=== PATIENT | female | born 1960 | race Caucasian/White ===

== ENCOUNTER → 2017-08-18 06:10 | Outpatient (CLI) | payer OTHER, SELFPAY ==
--- NOTE | 2017-08-18 06:10 | DT_ITS ---
This patient was seen during an EMR downtime August 11, 2017 - August 18, 2017. This patient may have a combination of paper and electronic documentation or all paper documentation. All documentation is viewable within the e-chart portion of [facility] for each patient visit.
[2017-08-18 08:44] LABS: Anion Gap 9 (5-15); BUN 19 mg/dL (7-18); BUN/Creat Ratio 25.9 RATIO (10-20); Calcium,Total 8.7 mg/dL (8.5-10.1); Chloride 106 mmol/L (98-107); Creatinine, Serum 0.73 mg/dL (0.55-1.02); EST Glomerular Filtration Rate 86 mL/min (>60); Est Glom Filt Rate - Afr Amer 104 mL/min (>60); Glucose 104 mg/dL (74-106); Potassium 4.1 mmol/L (3.5-5.1); Sodium Level 142 mmol/L (136-145)
== END ==
PROVIDERS: Family Provider Internal Medicine; PCP Internal Medicine; Visit Provider Internal Medicine
DX: E11.9 Type 2 diabetes mellitus without complications (principal)
CPT/HCPCS: 36415; 80048

== ENCOUNTER → 2017-10-01 06:42 | Outpatient (CLI) | payer OTHER, SELFPAY ==
[2017-10-01 21:32] LABS: Hemoglobin A1c 6.5 % (4.2-6.3)
== END ==
PROVIDERS: Family Provider Internal Medicine; PCP Internal Medicine; Visit Provider Internal Medicine
DX: E11.9 Type 2 diabetes mellitus without complications (principal)
CPT/HCPCS: 36415; 83036

== ENCOUNTER → 2017-10-13 14:33 | Outpatient (CLI) | payer OTHER, SELFPAY ==
--- NOTE | 2017-10-13 14:35 | BI_ITS ---
MAMMOGRAPHY - BILATERAL SCREENING 3-D ANGÉLICA SYNTHESIS REASON FOR EXAM: Female, 57 years old. Bilateral Screening 3-D tomosynthesis PERTINENT HISTORY: Asymptomatic. Family breast carcinoma, paternal cousin age 41. TECHNIQUE: 2-D mammograms and 3-D Angélica synthesis of the breast (s) were performed. CAD was performed. COMPARISON: 10/11/2016 through 10/11/2013. FINDINGS: The breast composition is almost entirely fat. No new asymmetric density, dominant mass, dense spiculated masses, abnormal clustered microcalcifications, architectural distortion, skin thickening or nipple retraction identified. Coarse benign-appearing calcifications. No new abnormality identified with tomosynthesis. There has been no significant change since the prior study. BI/SCREENING MAMM (CAD), BILAT IMPRESSION: No mammographic signs of malignancy. Routine yearly mammograms recommended. ASSESSMENT CATEGORY: BIRADS Category 2: Benign. A letter regarding these results will be sent to the patient by the facility within 30 days. FOLLOW UP RECOMMENDATION: Yearly follow up mammogram recommended. (A) Negative results should not deter biopsy as a palpable lesion should be followed on clinical grounds and biopsy performed if clinically persistent for 3 months or increasing size. Approximately 10% of breast cancers are not detected by mammography. A normal mammogram should not delay biopsy of a clinically suspicious abnormality. Electronically Signed: Curtis Rodriguez, at 8:23 EDT Tel , Service support ,
== END ==
PROVIDERS: Family Provider Internal Medicine; PCP Internal Medicine; Visit Provider Obstetrics & Gynecology
DX: Z12.31 Encounter for screening mammogram for malignant neoplasm of breast (principal)
CPT/HCPCS: 77063; 77067

== ENCOUNTER → 2017-12-29 07:31 | Outpatient (CLI) | payer OTHER, SELFPAY ==
--- NOTE | 2017-12-29 07:35 | US_ITS ---
STUDY: THYROID ULTRASOUND REASON FOR EXAM: Female, 57 years old. Abnormal thyroid function tests. TECHNIQUE: Ultrasound evaluation of the thyroid was performed with real-time and static daniel-scale imaging. COMPARISON: Thyroid ultrasound dated December 31, 2017. FINDINGS: RIGHT LOBE: The right lobe of the thyroid gland measures 4.7 x 1.1 x 2.2 cm. There is a homogeneous echotexture. There are no demonstrated solid, cystic or complex lesions. LEFT LOBE: The left lobe of the thyroid gland measures 3.8 x 1.1 x 1.7 cm. There is a homogeneous echotexture. There is very small colloid cyst lower pole left lobe of thyroid measuring 2.7 x 1.9 x 2.4 mm. This is similar to the previous study. ISTHMUS: The isthmus measures 2 millimeters. The regional lymph nodes are normal. US/Thyroid IMPRESSION: Essentially normal thyroid ultrasound with a small left-sided colloid cyst. Left-sided colloid cyst appears similar to the previous ultrasound. Electronically Signed: Bibi Mcmahan MD at 10:07 EDT , Service support ,
[2017-12-29 08:03] LABS: Absolute Lymphocyte Count 1.72 X10^3/ul (0.83-4.51); Absolute Neutrophil Count 3.7 X10^3/uL (2.0-7.7); Basophil# 0.03 X10^3/uL; Basophil% 0.5 % (0-1); Eosinophil# 0.17 X10^3/uL; Eosinophils% 2.8 % (0-5); Hematocrit 36.8 % (37-47); Hemoglobin 12.3 g/dl (12.0-15.0); Lymphocyte # 1.72 X10^3/ul (4.0); Lymphocyte % 28.1 % (19-41); Mean Corp Hgb Conc 33.4 g/gl (32-36); Mean Corpuscular Hgb 31.2 pg (27.0-32.0); Mean Corpuscular Volume 93.4 fL (81-99); Mean Platelet Vol. 9.1 fl (6.2-12.0); Monocyte# 0.46 X10^3/uL; Monocyte% 7.5 % (0-10); Neutrophil # 3.74 X10^3/uL (2.7-7.7); Neutrophil % 60.9 % (47-70); Platelet Count 308 K/mm3 (150-450); RBC Distribution Width CV 13.2 % (11.6-14.6); RBC Distribution Width SD 43.7 fl (35.1-43.9); Red Blood Count 3.94 M/mm3 (4.2-5.4); White Blood Count 6.1 K/mm3 (4.4-11.0)
[2017-12-29 08:09] LABS: POSITIVE COUNT NO; POSITIVE DIFFERENTIAL NO; POSITIVE MORPHOLOGY NO
[2017-12-29 08:40] LABS: Anion Gap 7 (5-15); BUN 19 mg/dL (7-18); BUN/Creat Ratio 25.8 RATIO (10-20); Calcium,Total 9.2 mg/dL (8.5-10.1); Chloride 105 mmol/L (98-107); Cholesterol 144 mg/dL (200); Creatinine, Serum 0.74 mg/dL (0.55-1.02); EST Glomerular Filtration Rate 86 mL/min (>60); Est Glom Filt Rate - Afr Amer 104 mL/min (>60); Glucose 119 mg/dL (74-106); High Density Lipoprotein 52 mg/dL; Potassium 4.8 mmol/L (3.5-5.1); Sodium Level 140 mmol/L (136-145); T4 Free Direct 0.86 ng/dL (0.76-1.46); Thyroid Stim Hormone (TSH) 1.13 uIU/mL (0.358-3.74); Triglycerides 91 mg/dL; Very Low Density Lipoprotein 18 mg/dL (5-40)
[2017-12-29 08:50] LABS: Creatinine, Urine (random) < 13.00 mg/dL (NO RANGE EST.); Microalbumin,Random Urine < 5.0 mg/L (NO RANGE EST.)
[2017-12-30 19:19] LABS: Hemoglobin A1c 6.6 % (4.2-6.3)
== END ==
PROVIDERS: Family Provider Internal Medicine; PCP Internal Medicine; Referring Provider Internal Medicine; Visit Provider Internal Medicine
DX: E04.1 Nontoxic single thyroid nodule (principal); E11.9 Type 2 diabetes mellitus without complications
CPT/HCPCS: 36415; 76536; 80048; 80061; 82043; 82570; 83036; 84439; 84443; 85025

== ENCOUNTER → 2018-04-01 06:50 | Outpatient (CLI) | payer OTHER, SELFPAY ==
[2018-02-03 09:12] VITALS: BMI 32.5
[2018-04-01 07:23] LABS: Hemoglobin A1c 7.3 % (4.2-6.3)
--- OUTSIDE RECORDS SUMMARY | 2018-06-03 01:43 | XMS RPT_ITS ---
:1960 Author Organization OHIP Support Name Relationship Address Phone CALI SAHIL Unavailable [address] + [place] [address] DAMIAN CALHOUN Unavailable [address] + [place] [address] WO[facility] Unavailable [address] + [place] [address] CALI, SAHIL Unavailable [address] + [place] [address] DAMIAN CALHOUN Unavailable [address] + [place] [address] [facility] Unavailable [address] + [place] [address] CALI, SAHIL Unavailable [address] + [place] [address] DAMIAN CALHOUN Unavailable [address] + [place] [address] [facility] Unavailable [address] + [place] [address] CALI, SAHIL Unavailable [address] + [place] [address] DAMIAN CALHOUN Unavailable [address] + [place] [address] [facility] Unavailable [address] + [place] [address] CALI, SAHIL Unavailable [address] + [place] [address] DAMIAN CALHOUN Unavailable [address] + [place] [address] [facility] Unavailable [address] + [place] [address] SAHIL LEIVA Unavailable [address] [facility] + [place] [address] DAMIAN CALHOUN Unavailable [address] + [place] [address] [facility] Unavailable [address] + [place] [address] DAMIAN CALHOUN Unavailable [address] + [place] [address] [facility] Unavailable [address] + [place] [address] DAMIAN CALHOUN Unavailable [address] + [place] [address] [facility] Unavailable [address] + [place] [address] DAMIAN CALHOUN Unavailable [address] + [place] [address] [facility] Unavailable [address] + [place] [address] DAMIAN CALHOUN Unavailable [address] + [place] [address] [facility] Unavailable [address] + [place] [address] DAMIAN CALHOUN Unavailable [address] + [place] [address] [facility] Unavailable [address] + [place] [address] DAMIAN CALHOUN Unavailable [address] + [place] [address] [facility] Unavailable [address] + [place] [address] Care Team Providers Name Role Phone Etelvina Liube Attending Unavailable Oleghe, Efewongbe Referring Unavailable Oleghe, Efewongbe Primary Care Unavailable Yinge, Efewongbe Attending Unavailable Oleryleee, Efewongbe Referring Unavailable Oleghe, Efewongbe Attending Unavailable Oleghe, Efewongbe Referring Unavailable Oleghe, Efewongbe Primary Care Unavailable Oleghe, Efewongbe Attending Unavailable Oleghe, Efewongbe Referring Unavailable Oleghe, Efewongbe Primary Care Unavailable Oleghe, Efewongbe Attending Unavailable Oleghe, Efewongbe Referring Unavailable Oleghe, Efewongbe Primary Care Unavailable Oleghe, Efewongbe Attending Unavailable Oleghe, Efewongbe Referring Unavailable Oleghe, Efewongbe Primary Care Unavailable Cks, Marisol Attending Unavailable Oleghe, Efewongbe Primary Care Unavailable Oleghe, Efewongbe Attending Unavailable Oleghe, Efewongbe Referring Unavailable Oleghe, Efewongbe Attending Unavailable Oleghe, Efewongbe Referring Unavailable Oleghe, Efewongbe Primary Care Unavailable Oleghe, Efewongbe Attending Unavailable Oleghe, Efewongbe Referring Unavailable Referred, Self Attending Unavailable Oleghe, Efewongbe Primary Care Unavailable Wiley Pardo MEDICAL RECEPTIONIST ASSISTANT-C Attending Unavailable Oleghe, Efewongbe Referring Unavailable PROBLEMS PROBLEMS DATE TYPE CONDITION / CODE ATTENDING STATUS SOURCE 04/03/2018 Unknown G47.10 - Oleghe, Active [place] Hypersomnia, [facility] unspecified / Hospital G47.10(ICD-10) Repository 01/02/2018 Unknown E11.9 - Type 2 Oleghe, Active [place] diabetes mellitus [facility] without Hospital complications / Repository E11.9(ICD-10) 12/29/2017 Unknown E04.1 - Nontoxic Oleghe, Active [place] single thyroid [facility] nodule / Hospital E04.1(ICD-10) Repository PROCEDURES PROCEDURES No Procedure Records FoundRESULTS RESULTS HEMOGLOBIN A1C Collected: 04/01/2018 Status: F Source: [place] 6:54 AM [facility] REPOSITORY Order Comment: Comments: Add on Comments: Add on TYPE CODE TESTS RESULT OUT OF RANGE REFERENCE UNITS LAB L501.9985 4.2-6.3 % High HGB A1C 7.3 Performed By: #### L501.9985 #### [facility] [address] [place], [address] INTERNAL MEDICINE Observed: 02/06/2018 Status: F Source: [place] OFFICE VISIT 9:33 AM [facility] REPOSITORY [facility] [address] [place] [address] OFFICE VISIT Date of Service: 02/03/18 MR#: [id number] Acct: [id number] Name: AURELIANO CALHOUN Rep #: [id number] : 1960 Provider: Wiley Pardo NP Age/Sex: 58/F Location: [facility] Status: Signed Intake Vital Signs02/03/18 Height 5 ft 3 in Intake Visit Reasons: COUGH AND CONGESTION Chief Complaint: cough congestion Is patient in pain?: No Allergies No Known Allergies Allergy (Verified 02/03/18 09:15) Medications Aspirin [Aspirin, Baby] 81 mg PO DAILY@0800 12/06/13 [History Confirmed 02/03/18] Fluticasone 0.05% [Flonase Nasal Java] 2 spray NASAL BID 12/06/13 [History Confirmed 02/03/18] Polyethylene Glycol 3350 [Miralax] 17 gm PO DAILY 12/06/13 [History Confirmed 02/03/18] Valacyclovir HCl [Valtrex] 2,000 mg PO PRN PRN 12/06/13 [History Confirmed 02/03/18] fluoxetine 20 mg capsule 20 mg PO QDAY #90 cap 10/03/17 [Rx Confirmed 02/03/18] metformin ER 500 mg tablet,extended release 24 hr 1,000 mg PO QPM #180 tab 10/03/17 [Rx Confirmed 02/03/18] atorvastatin 20 mg tablet 20 mg PO QDAY #90 tab 01/06/18 [Rx Confirmed 02/03/18] azithromycin 250 mg tablet See Rx Instructions PO .COMPLEX #6 tab 02/03/18 [Rx Confirmed 02/03/18] codeine 10 mg-guaifenesin 100 mg/5 mL oral liquid See Rx Instructions PO Q6H PRN #120 ml 02/03/18 [Rx Confirmed 02/03/18] lisinopril 2.5 mg tablet 2.5 mg PO DAILY 02/03/18 [History Confirmed 02/03/18] Post menopausal: Yes Nurse's Note: Pt presents with cough/congestion xs 2 weeks. PFSH Medical History Depression (Chronic) factor 5 leiden (Chronic) diabetes mellitus type 2 (Chronic) Arthritis (Chronic) Recurrent cold sores (Chronic) Hyperlipidemia (Chronic) H/O: hysterectomy (Acute) Polycystic ovaries (Acute) Seasonal allergies (Chronic) Surgical History History of hernia repair (Acute) History of tonsillectomy (Acute) Normal colonoscopy (Acute) trigger thumbs release (Acute) Family History Mother Myocardial infarction factor 5 liden Father Arthritis Myocardial infarction, Onset Age: 40 Hypertension Hyperlipidemia Diabetes Unknown Breast cancer Social History Smoking Status: Former smoker alcohol intake: current alcohol intake frequency: a few times a week Alcohol type: hard liquor substance use type: does not use what type of physical activity do you participate in: running, bicycling, aerobics frequency: 5-6 times per week HPI HPI Chief Complaint: cough congestion Details: AURELIANO CALHOUN, is a 58 F who presents to the office today for acute visit for ongoing cough and chest congestion. Patient has a past medical history as listed above. The patient states about 2 weeks ago she was sick with what felt like a typical cold. Her nasal congestion and sinus pressure improved but over the last couple days her chest congestion and cough have become worse. She also complains of shortness of breath and wheezing and a worsening cough at bedtime. She is attempted to use Claritin, nebulized albuterol and Mucinex DM with little effect. She denies fever, chills or body aches. She denies any other aggravating or alleviating factors. The patient otherwise denies any fever, chills, nausea, vomiting, chest pain or pressure, palpitations, orthopnea, lower extremity edema, syncope or presyncopal episodes. ROS Const Constitutional: No anorexia, body ache, chills, fever(s), decreased energy, malaise, night sweats, weight change, sleep problems, other, snoring, weakness, frequent falls, headache(s), abnormal sleep pattern, change in appetite, excessive sweating or fatigue Eyes Eyes: No blurry vision, change in vision, double vision, discharge, dry eyes, bulging eyes, floaters, eye pain, light sensitivity, spots in vision, tunnel vision, other or visual disturbances ENT ENT: Positive for nasal congestion; no ear pain, ear discharge, ear pressure, hearing loss, tinnitus, dizziness/vertigo, balance problems, nosebleed/epistaxis, nasal obstruction, nose pain, sinus pressure, sinus pain, nasal discharge, post nasal drip, facial pain, dental pain, dry mouth, bad breath, hoarseness, mouth lesions, mouth pain, sore throat, difficulty swallowing, neck pain, abnormal hearing, headache(s), other, lip swelling, throat swelling or tongue swelling Resp Respiratory: Positive for cough, chest congestion, shortness of breath and wheezing; no change in phlegm color, excessive phlegm production, hemoptysis, pain on inspiration, pain with cough, snoring, stridor or other Cardio Cardiology: No chest pain at rest, chest pain with exertion, leg pain with exertion, shortness of breath, dyspnea on exertion, generalized swelling, irregular heart rhythm, lightheadedness, orthopnea, radiating jaw, neck or arm pain, fast heart rate, slow heart rate, palpitations, other or excessive sweating Gastro GI: No abdominal pain, belching, bloating, change in bowel habits, change in stool character, coffee ground emesis, constipation, cramping, diarrhea, heartburn, difficulty swallowing, feeling full early, excessive flatus, incontinent of stools, Vomiting blood/hematemesis, blood in stool, loose stools, Black,tarry stools, nausea/dyspepsia, pain with swallowing, vomiting or other Genitourinary-Female: No difficulty urinating, burning urination, painful urination, urinary incontinence, urinary frequency, urinary urgency, urinary hesitancy, urinary retention, blood in urine, Frequent nighttime urination/ nocturia, post void dribbling, suprapubic fullness, side pain, sexual problems, genital lesions, genital itching, hot flashes, abnormal periods, abnormal vaginal bleeding, absent period, painful periods, light periods, heavy periods, difficulty getting , painful intercourse, pelvic pain, vaginal dryness, vaginal odor, Vaginal Itching or other Musc Musculoskeletal: No joint pain, back pain, deformity, joint swelling, limited range of motion, loss of height, muscle cramps, muscle weakness, decreased muscle mass, body aches, neck pain, radiating pain into limb, stiffness, other, abnormal walking, numbness or tingling Skin Skin: No acne, hair loss, change in hair, nail changes, boil, change in skin color, dry skin, redness, excessive hair growth, yellowing of the skin, lesions, rash, skin pain, skin ulcer, sores, skin swelling, wounds, other or itching Breast Breast: No change in breast shape, breast lump, breast pain, breast skin changes, breast swelling, nipple discharge or other Neuro Neurology: No abnormal walking, abnormal hearing, abnormal movements, abnormal speech, unsteady gait/balance, dizziness, weakness, frequent falls, headache(s), lack of coordination, loss of vision, numbness, tingling, visual disturbances, restless legs, fainting, tremor(s), other, behavioral changes, confusion or memory loss Psych Psychiatric: No abnormal sleep pattern, No lack of enjoyment, No anxiety, No behavioral changes, No change in appetite, No confusion, No depression, No difficulty concentrating, No hopelessness, No irritability, No memory loss, No mood swings, No panic attacks, No paranoia, No Thoughts of harming yourself/Others, No hallucinations, No other Endo Endocrine: No change in body appearance, cold intolerance, excessive sweating, fatigue, flushing, heat intolerance, increased thirst/drinking, increased hunger, increased urination or other Aller/Imm Allergy/Immunologic: Positive for wheezing; no food intolerance, itchy eyes, lip swelling, seasonal allergy symptoms, throat swelling, tongue swelling, hives or other Trent/Lymp Hematologic/Lymphatic: No easy bleeding, easy bruising, enlarged lymph nodes or other Exam Const General: cooperative, comfortable, no acute distress Nutritional Appearance: well nourished, obese Orientation: alert, oriented x3 Limitations: mental status not altered [facility] Head: normal to inspection Ears: hearing grossly normal bilaterally, TM abnormal with fluid behind the TM (clear) bilaterally Nose: external nose normal Face and sinus: normal facial exam Mouth: oral mucosae normal Teeth and gingiva: dentition normal Throat: posterior oropharynx normal Eyes General: appearance normal, both eyes and all related structures Resp Effort AND Inspection: normal respiratory effort, able to speak in complete sentences, normal respiratory pattern, symmetric chest movement, no audible wheezes, no cough Auscultation: Bilateral: Clear to Auscultation Cardio Palpation: normal PMI Rate: regular rate Heart Sounds: S1 normal, S2 normal, normal S1 and S2, no click, no gallops, no murmurs, no rubs Musc Musculoskeletal: No muscle weakness Skin General: no rashes or lesions noted, elasticity normal, turgor normal Lesions: no lesions Rashes: no rashes Neuro General: alert, awake, oriented x3, CN's II-XI intact bilaterally Speech: speech normal Gait: normal gait Motor: muscle tone normal throughout Extrem General: normal to inspection, normal gait, no edema, no pedal edema Psych Appearance: grossly normal Mental Status: mental status grossly normal Affect: normal affect Attitude: cooperative Thought Process: normal Assessment AND Plan Problems 1. Bronchitis J40 2. URI (upper respiratory infection) J06.9 3. Cough R05 Plan We will treat patient with azithromycin due to length and worsening of symptoms and PMH. Will also prescribe cough syrup with codeine for her persistent cough. Patient encouraged to continue using nebulized albuterol as needed for shortness of breath and wheezing. Patient educated on medication side effects and signs and symptoms that would warrant emergency medical care.May also continue with otc treatments as well. This note was generated with [employer] dictation software. It may contain incorrect words, spelling, and punctuation that were not noted in checking the note before signing. Medications New: Plan Detail Follow Up as prev sched or sooner if needed Coding Level of Care Code Off vis,est,level 3 Diagnoses Bronchitis J40 URI (upper respiratory infection) J06.9 Cough R05 02/06/18 0933 <Electronically signed by Wiley SYLVESTER> Date Wiley SYLVESTER Cosigner Signature: Date (if applicable) CC: INTERNAL MEDICINE Observed: 01/05/2018 Status: F Source: [place] OFFICE VISIT 1:10 PM [facility] [place] [address] OFFICE VISIT Date of Service: 01/02/18 MR#: [id number] Acct: [id number] Name: AURELIANO CALHOUN Rep #: [id number] : 1960 Provider: Vane Liu MD Age/Sex: 57/F Location: [facility] Status: Signed Intake Vital Signs01/02/18 Height 5 ft 3 in 01/02/18 Weight: 187 lb 01/02/18 Body Mass Index (BMI) 33.1 01/02/18 Blood Pressure 117/74 01/02/18 Blood Pressure Location Lt brachial Intake Visit Reasons: 3 MO F/U Chief Complaint: 3 Mo FU - Diabetes - go over tests Is patient in pain?: No Allergies No Known Allergies Allergy (Verified 01/02/18 10:44) Medications Aspirin [Aspirin, Baby] 81 mg PO DAILY@0800 12/06/13 [History Confirmed 01/02/18] Fluticasone 0.05% [Flonase Nasal Java] 2 spray NASAL BID 12/06/13 [History Confirmed 01/02/18] Polyethylene Glycol 3350 [Miralax] 17 gm PO DAILY 12/06/13 [History Confirmed 01/02/18] Valacyclovir HCl [Valtrex] 2,000 mg PO PRN PRN 12/06/13 [History Confirmed 01/02/18] atorvastatin 20 mg tablet 20 mg PO QDAY 03/25/17 [History Confirmed 01/02/18] fluoxetine 20 mg capsule 20 mg PO QDAY #90 cap 10/03/17 [Rx Confirmed 01/02/18] metformin ER 500 mg tablet,extended release 24 hr 1,000 mg PO QPM #180 tab 10/03/17 [Rx Confirmed 01/02/18] PFSH Medical History Depression (Chronic) factor 5 leiden (Chronic) diabetes mellitus type 2 (Chronic) Arthritis (Chronic) Recurrent cold sores (Chronic) Hyperlipidemia (Chronic) H/O: hysterectomy (Acute) Polycystic ovaries (Acute) Seasonal allergies (Chronic) Surgical History History of hernia repair (Acute) History of tonsillectomy (Acute) Normal colonoscopy (Acute) trigger thumbs release (Acute) Family History Mother Myocardial infarction factor 5 liden Father Arthritis Myocardial infarction, Onset Age: 40 Hypertension Hyperlipidemia Diabetes Unknown Breast cancer Social History Smoking Status: Former smoker alcohol intake: current alcohol intake frequency: a few times a week Alcohol type: hard liquor substance use type: does not use what type of physical activity do you participate in: running, bicycling, aerobics frequency: 5-6 times per week HPI HPI Chief Complaint: 3 Mo FU - Diabetes - go over tests Details: AURELIANO CALHOUN, is a 57yo F who presents to the office today for follow of her chronic medical conditions. She has no acute complaints at this time. She was seen last week due to a choking sensation and has since followed up with her ENT. Lisinopril was discontinued due to concern for low-grade angioedema. Otherwise, workup still underway. A1c essentially remains the same. She reports compliance with her medication and lifestyle/dietary modifications but again has been under a lot of stress lately with the passing of her father. ROS Const Constitutional: No chills, fever(s), frequent falls, malaise, weakness, sleep problems or change in appetite Eyes Eyes: No blurry vision, change in vision, double vision, discharge or visual disturbances ENT ENT: No abnormal hearing, ear pain, ear pressure, tinnitus or dizziness/vertigo Resp Respiratory: Positive for cough (Better) Cough: Yes non-productive; no shortness of breath or wheezing Cardio Cardiology: No chest pain at rest, chest pain with exertion, shortness of breath, dyspnea on exertion, generalized swelling, irregular heart rhythm, lightheadedness, orthopnea, fast heart rate or palpitations Gastro GI: No abdominal pain, change in bowel habits, constipation, diarrhea, nausea/dyspepsia or vomiting Genitourinary-Female: No difficulty urinating, burning urination, painful urination, urinary incontinence, urinary frequency, urinary urgency, urinary hesitancy, urinary retention, Frequent nighttime urination/ nocturia, sexual problems, genital lesions, abnormal vaginal bleeding, pelvic pain, vaginal dryness, vaginal odor or Vaginal Itching Musc Musculoskeletal: No joint pain, back pain, joint swelling, limited range of motion, numbness or tingling Skin Skin: No change in skin color, itching, rash or wounds Breast Breast: No breast lump or breast pain Neuro Neurology: No frequent falls, weakness, abnormal hearing, numbness, tingling, unsteady gait/balance, dizziness, loss of vision, memory loss or visual disturbances Psych Psychiatric: No memory loss, No anxiety, No change in appetite, No depression, No Thoughts of harming yourself/Others Endo Endocrine: No heat intolerance, increased thirst/drinking, increased hunger or increased urination Aller/Imm Allergy/Immunologic: No wheezing, itchy eyes or seasonal allergy symptoms Trent/Lymp Hematologic/Lymphatic: No easy bleeding, easy bruising or enlarged lymph nodes Exam Const General: cooperative, no acute distress Orientation: alert, awake, oriented x3 HENMT Head: atraumatic, normocephalic Ears: hearing grossly normal bilaterally Resp Effort AND Inspection: normal respiratory effort, able to speak in complete sentences Auscultation: Bilateral: Clear to Auscultation Cardio Rate: regular rate Rhythm: regular rhythm Heart Sounds: S1 normal, S2 normal GI Palpation: soft, no hepatosplenomegaly Neuro General: alert, awake, oriented x3, moves all extremities, CN's II-XI intact bilaterally Extrem General: no clubbing, cyanosis or edema Psych Appearance: grossly normal Mental Status: mental status grossly normal Affect: normal affect Assessment AND Plan 1. Type 2 diabetes mellitus E11.9 Plan Stable. A1c of 6.6. Continue current medication. Continue lifestyle and dietary modifications. Repeat A1c in 3 months. Orders Orders: 2. Hyperlipidemia E78.5 Plan Lipid profile also stable. Continue current medication and lifestyle/dietary modifications. 3. Depression F32.9 Plan Patient is doing well. No concerns at this time. Continue Prozac. This note was generated with [employer] software. It may contain incorrect words, spelling, and punctuation that were not noted in checking the note before signing. Coding Level of Care Code Off vis,est,level 3 Diagnoses Type 2 diabetes mellitus E11.9 Hyperlipidemia E78.5 Depression F32.9 01/05/18 1310 <Electronically signed by Vane Liu MD> Date Vane Liu MD Cosigner Signature: Date (if applicable) CC: CBC W/DIFF, AUTOMATED Collected: 12/29/2017 Status: F Source: [place] 7:37 AM [facility] REPOSITORY TYPE CODE TESTS RESULT OUT OF RANGE REFERENCE UNITS LAB L100.1000 4.4-11.0 K/mm3 Normal WBC 6.1 LAB L100.1200 4.2-5.4 M/mm3 Low RBC 3.94 LAB L100.1300 12.0-15.0 g/dl Normal HGB 12.3 LAB L100.1400 37-47 % Low HCT 36.8 LAB L100.1500 81-99 fL Normal MCV 93.4 LAB L100.1600 27.0-32.0 pg Normal MCH 31.2 LAB L100.1700 32-36 g/gl Normal MCHC 33.4 LAB L100.1810 11.6-14.6 % Normal RDW CV 13.2 LAB L100.1820 35.1-43.9 fl Normal RDW SD 43.7 LAB L100.1900 150-450 K/mm3 Normal PLT 308 LAB L100.2000 6.2-12.0 fl Normal MPV 9.1 LAB L100.2100 47-70 % Normal NEUT% 60.9 LAB L100.2200 19-41 % Normal LY% 28.1 LAB L100.2300 0-10 % Normal MONO% 7.5 LAB L100.2400 0-5 % Normal EO% 2.8 LAB L100.2500 0-1 % Normal BASO% 0.5 LAB L100.2550 0.0-0.9 % Normal IM GRAN % 0.200 Result Comment: IG% - Immature Granulocytes (promyelocytes, myelocytes and metamyelocytes) > 1% indicates that a LEFT SHIFT is Present. LAB L100.2620 2.0-7.7 X10 3/uL Normal Absolute Neut 3.7 LAB L100.2720 0.83-4.51 X10 3/ul Normal Absolute Lymph 1.72 Performed By: #### L100.0100, L500.2500, L500.4100, L501.9520, L506.0400 #### [facility] [address] [place], [place], [id number] BASIC METABOLIC Collected: 12/29/2017 Status: F Source: [place] PRO[facility] ([facility]) 7:37 AM [facility] REPOSITORY TYPE CODE TESTS RESULT OUT OF RANGE REFERENCE UNITS LAB L501.0100 74-106 mg/dL High GLU 119 Result Comment: Fasting Glucose result from 100 to 125 mg/dL suggests IMPAIRED HOMEOSTASIS per A.D.A. criteria. Please note revised GLUCOSE reference range effective 2017. LAB L501.1000 7-18 mg/dL High BUN 19 LAB L501.1100 0.55-1.02 mg/dL Normal CREAT,SERUM 0.74 Result Comment: The validity of the calculated GFR AND GFRAA in patients over 70 years has not been determined. Clinical correlation is essential. LAB L501.1110 >60 mL/min Normal EST GFR 86 Result Comment: Non- GFR Calc LAB L501.1115 >60 mL/min Normal EST GFR - AA 104 Result Comment: GFR Calc LAB L501.1300 10-20 RATIO High BUN/CRE 25.8 LAB L501.2200 8.5-10.1 mg/dL CA Normal 9.2 LAB L501.5300 136-145 mmol/L NA Normal 140 LAB L501.5600 3.5-5.1 mmol/L K Normal 4.8 LAB L501.5900 98-107 mmol/L CL Normal 105 LAB L501.6100 21.0-32.0 mmol/L Normal CO2 28.0 LAB L501.6200 5-15 Normal GAP 7 Performed By: #### L100.0100, L500.2500, L500.4100, L501.9520, L506.0400 #### [facility] [address] [place], [place], [address] LIPID PROFILE Collected: 12/29/2017 Status: F Source: [place] 7:37 AM [facility] REPOSITORY TYPE CODE TESTS RESULT OUT OF RANGE REFERENCE UNITS LAB L501.4900 200 mg/dL Normal CHOL 144 Result Comment: <200 mg/dL Desirable 200-240 mg/dL Borderline >240 mg/dL High Risk LAB L501.5000 mg/dL Normal TRIG 91 Result Comment: The drugs N-Acetylcysteine and Metamizole may falsely depress this assay. Serum Triglycerides Reference Interval Normal <150 mg/dL Borderline high 150 - 199 mg/dL High 200 - 499 mg/dL Very High > or = 500 mg/dL LAB L501.6400 mg/dL Normal HDL 52 Result Comment: The drugs N-Acetylcysteine and Metamizole may falsely depress this assay. Reference Range HDL <40 mg/dL Low HDL Cholesterol HDL >or= 60 mg/dL High HDL Cholesterol LAB L501.6500 0-130 mg/dL Normal LDL 74 LAB L501.6600 5-40 mg/dL Normal VLDL 18 Performed By: #### L100.0100, L500.2500, L500.4100, L501.9520, L506.0400 #### [facility] [address] [place], [place], [id number] THYROID STIM HORMONE Collected: 12/29/2017 Status: F Source: SARA (TSH) 7:37 AM [facility] REPOSITORY TYPE CODE TESTS RESULT OUT OF RANGE REFERENCE UNITS LAB L501.9520 0.358-3.74 uIU/mL Normal TSH 1.13 Performed By: #### L100.0100, L500.2500, L500.4100, L501.9520, L506.0400 #### [facility] [address] [place], [place], [id number] T4 FREE DIRECT Collected: 12/29/2017 Status: F Source: SARA 7:37 AM [facility] REPOSITORY TYPE CODE TESTS RESULT OUT OF RANGE REFERENCE UNITS LAB L506.0400 0.76-1.46 ng/dL Normal T4 FREE 0.86 DIRECT Performed By: #### L100.0100, L500.2500, L500.4100, L501.9520, L506.0400 #### [facility] [address] [place], [place], [id number] MICROALB:CREAT Collected: 12/29/2017 Status: F Source: SARA RATIO,RANDOM UR 7:37 AM [facility] REPOSITORY TYPE CODE TESTS RESULT OUT OF RANGE REFERENCE UNITS LAB L501.1200 NO RANGE EST. mg/dL < Normal UR 13.00 CREAT LAB L502.0500 NO RANGE EST. mg/L < 5.0 Normal MICROALBUMI N,UR LAB L502.0600 <30 mg/g CRE mg/g CRE Test Normal not performed MALB:CREAT Performed By: #### L502.0250 #### [facility] [address] [place], [address] HEMOGLOBIN A1C Collected: 12/29/2017 Status: F Source: LA MARQUE 7:37 AM [facility] REPOSITORY TYPE CODE TESTS RESULT OUT OF RANGE REFERENCE UNITS LAB L501.9985 4.2-6.3 % High HGB A1C 6.6 Performed By: #### L501.9985 #### [facility] [address] [place], [address] THYROID Observed: 12/29/2017 Status: F Source: [place] MAR[place] 7:35 AM [facility] REPOSITORY [facility] Imaging Services [address] [place] [address] Thyroid MR#: [id number] Acct: [id number] Name: AURELIANO CALHOUN Lucille Rep #: [id number] : 1960 F 57 From: Bibi Mcmahan MD PCP: Vane Liu MD Status: REG CLI Study: Thyroid Date of Exam: 12/29/17 Exam# [id number] Ordering Dr: Vane Liu MD STUDY: THYROID ULTRASOUND REASON FOR EXAM: Female, 57 years old. Abnormal thyroid function tests. TECHNIQUE: Ultrasound evaluation of the thyroid was performed with real-time and static daniel-scale imaging. COMPARISON: Thyroid ultrasound dated December 31, 2017. FINDINGS: RIGHT LOBE: The right lobe of the thyroid gland measures 4.7 x 1.1 x 2.2 cm. There is a homogeneous echotexture. There are no demonstrated solid, cystic or complex lesions. LEFT LOBE: The left lobe of the thyroid gland measures 3.8 x 1.1 x 1.7 cm. There is a homogeneous echotexture. There is very small colloid cyst lower pole left lobe of thyroid measuring 2.7 x 1.9 x 2.4 mm. This is similar to the previous study. ISTHMUS: The isthmus measures 2 millimeters. The regional lymph nodes are normal. US/Thyroid IMPRESSION: Essentially normal thyroid ultrasound with a small left-sided colloid cyst. Left-sided colloid cyst appears similar to the previous ultrasound. Electronically Signed: Bibi Mcmahan MD at 10:07 EDT , Service support , CC: Vane Liu MD Tech Writer: Signed INTERNAL MEDICINE Observed: 12/25/2017 Status: F Source: SARA OFFICE VISIT 5:24 PM [facility] Internal Medicine [facility] [place] [address] [place] [address] OFFICE VISIT Date of Service: 12/25/17 MR#: [id number] Acct: [id number] Name: AURELIANO CALHOUN Lucille Rep #: [id number] : 1960 Provider: Vane Liu MD Age/Sex: 57/F Location: [facility] Status: Signed Intake Vital Signs12/25/17 Height 5 ft 3 in 12/25/17 Weight: 187 lb 12/25/17 Body Mass Index (BMI) 33.1 12/25/17 Blood Pressure 128/73 H Intake Visit Reasons: THROAT SWOLLEN Chief Complaint: Throat swollen x 1 month Is patient in pain?: No Allergies No Known Allergies Allergy (Verified 12/25/17 14:41) Medications Aspirin [Aspirin, Baby] 81 mg PO DAILY@0800 12/06/13 [History Confirmed 12/25/17] Fluticasone 0.05% [Flonase Nasal Java] 2 spray NASAL BID 12/06/13 [History Confirmed 12/25/17] Polyethylene Glycol 3350 [Miralax] 17 gm PO DAILY 12/06/13 [History Confirmed 12/25/17] Valacyclovir HCl [Valtrex] 2,000 mg PO PRN PRN 12/06/13 [History Confirmed 12/25/17] atorvastatin 20 mg tablet 20 mg PO QDAY 03/25/17 [History Confirmed 12/25/17] lisinopril 2.5 mg tablet 2.5 mg PO QDAY #90 tab 06/27/17 [Rx Confirmed 12/25/17] fluoxetine 20 mg capsule 20 mg PO QDAY #90 cap 10/03/17 [Rx Confirmed 12/25/17] metformin ER 500 mg tablet,extended release 24 hr 1,000 mg PO QPM #180 tab 10/03/17 [Rx Confirmed 12/25/17] PFSH Medical History Depression (Chronic) factor 5 leiden (Chronic) diabetes mellitus type 2 (Chronic) Arthritis (Chronic) Recurrent cold sores (Chronic) Hyperlipidemia (Chronic) H/O: hysterectomy (Acute) Polycystic ovaries (Acute) Seasonal allergies (Chronic) Surgical History History of hernia repair (Acute) History of tonsillectomy (Acute) Normal colonoscopy (Acute) trigger thumbs release (Acute) Family History Mother Myocardial infarction factor 5 liden Father Arthritis Myocardial infarction, Onset Age: 40 Hypertension Hyperlipidemia Diabetes Unknown Breast cancer Social History Smoking Status: Former smoker alcohol intake: current alcohol intake frequency: a few times a week Alcohol type: hard liquor substance use type: does not use what type of physical activity do you participate in: running, bicycling, aerobics frequency: 5-6 times per week HPI HPI Chief Complaint: Throat swollen x 1 month Details: AURELIANO CALHOUN, is a 57yo F who presents to the office today due to concerns about choking sensation. Said to have been ongoing for about a month. Most predominantly during sleep, she notes episodes of choking sensations at which point she wakes up coughing. She denies any prior history. She has also noted increased somnolence waking up at the long hours of sleep with feeling of improper sleep. She denies any prior history of sleep apnea. She also denies any significant weight changes. ROS Const Constitutional: Positive for fatigue, excessive sweating and abnormal sleep pattern; no chills, fever(s), frequent falls, malaise, weakness, sleep problems or change in appetite Eyes Eyes: No blurry vision, change in vision, double vision, discharge or visual disturbances ENT ENT: Positive for difficulty swallowing, throat swelling and other (Feels like choking); no abnormal hearing, ear pain, ear pressure, tinnitus or dizziness/vertigo Resp Respiratory: Positive for cough Cough: Yes non-productive; no shortness of breath or wheezing Cardio Cardiology: Positive for excessive sweating; no chest pain at rest, chest pain with exertion, shortness of breath, dyspnea on exertion, generalized swelling, irregular heart rhythm, lightheadedness, orthopnea, fast heart rate or palpitations Gastro GI: Positive for difficulty swallowing; no abdominal pain, change in bowel habits, constipation, diarrhea, nausea/dyspepsia or vomiting Genitourinary-Female: No difficulty urinating, burning urination, painful urination, urinary incontinence, urinary frequency, urinary urgency, urinary hesitancy, urinary retention, Frequent nighttime urination/ nocturia, sexual problems, genital lesions, abnormal vaginal bleeding, pelvic pain, vaginal dryness, vaginal odor or Vaginal Itching Musc Musculoskeletal: No joint pain, back pain, joint swelling, limited range of motion, numbness or tingling Skin Skin: No change in skin color, itching, rash or wounds Breast Breast: No breast lump or breast pain Neuro Neurology: No frequent falls, weakness, abnormal hearing, numbness, tingling, unsteady gait/balance, dizziness, loss of vision, memory loss or visual disturbances Psych Psychiatric: No memory loss, No anxiety, No change in appetite, No depression, No Thoughts of harming yourself/Others, Positive for abnormal sleep pattern Endo Endocrine: Positive for fatigue, excessive sweating and other (Feels like choking); no heat intolerance, increased thirst/drinking, increased hunger or increased urination Aller/Imm Allergy/Immunologic: Positive for throat swelling; no wheezing, itchy eyes or seasonal allergy symptoms Trent/Lymp Hematologic/Lymphatic: No easy bleeding, easy bruising or enlarged lymph nodes Exam Const General: cooperative, no acute distress Orientation: alert, awake, oriented x3 HENMT Head: atraumatic, normocephalic Ears: hearing grossly normal bilaterally Resp Effort AND Inspection: normal respiratory effort, able to speak in complete sentences Auscultation: Bilateral: Clear to Auscultation Cardio Rate: regular rate Rhythm: regular rhythm Heart Sounds: S1 normal, S2 normal GI Palpation: soft, no hepatosplenomegaly Neuro General: alert, awake, oriented x3, moves all extremities, CN's II-XI intact bilaterally Extrem General: no clubbing, cyanosis or edema Psych Appearance: grossly normal Mental Status: mental status grossly normal Affect: normal affect Assessment AND Plan 1. Sleep related choking sensation R06.89 Plan Said to have been ongoing for about a month. Denies any known precipitating aggravating or relieving factors. Has had no significant weight changes. No structural abnormalities on examination. Refer to ENT. Orders Referrals: 2. Hypersomnolence G47.10 Plan Again this has been ongoing for a month. Symptoms highly suggestive of sleep apnea however this may be due to a structural abnormality. Referred to ENT as above if no significant abnormality, will order sleep study. 3. Thyroid nodule E04.1 Plan Chronic history. She had ultrasounds in the past however none recently. Reports heat intolerance. Thyroid studies and ultrasound ordered. Follow-up with results. This note was generated with [employer] dictation software. It may contain incorrect words, spelling, and punctuation that were not noted in checking the note before signing. Orders Orders: Coding Level of Care Code Off vis,est,level 4 Diagnoses Sleep related choking sensation R06.89 Hypersomnolence G47.10 Thyroid nodule E04.1 12/25/17 1724 <Electronically signed by Vane Liu MD> Date Vane Liu MD Cosigner Signature: Date (if applicable) CC: SCREENING MAMM (CAD), Observed: 10/13/2017 Status: F Source: SARA MAX 2:35 PM [facility] REPOSITORY [facility] Imaging Services [address] [place] [address] SCREENING MAMM (CAD), BILAT MR#: [id number] Acct: [id number] Name: AURELIANO CALHOUN Rep #: [id number] : 1960 F 57 From: Curtis Rodriguez MD PCP: Vane Liu MD Status: REG CLI Study: SCREENING MAMM (CAD), BILAT Date of Exam: 10/13/17 Exam# [id number] Ordering Dr: Marisol Ward MD MAMMOGRAPHY - BILATERAL SCREENING 3-D CLEMENTE SYNTHESIS REASON FOR EXAM: Female, 57 years old. Bilateral Screening 3-D tomosynthesis PERTINENT HISTORY: Asymptomatic. Family breast carcinoma, paternal cousin age 41. TECHNIQUE: 2-D mammograms and 3-D Clemente synthesis of the breast (s) were performed. CAD was performed. COMPARISON: 10/11/2016 through 10/11/2013. FINDINGS: The breast composition is almost entirely fat. No new asymmetric density, dominant mass, dense spiculated masses, abnormal clustered microcalcifications, architectural distortion, skin thickening or nipple retraction identified. Coarse benign-appearing calcifications. No new abnormality identified with tomosynthesis. There has been no significant change since the prior study. BI/SCREENING MAMM (CAD), BILAT IMPRESSION: No mammographic signs of malignancy. Routine yearly mammograms recommended. ASSESSMENT CATEGORY: BIRADS Category 2: Benign. A letter regarding these results will be sent to the patient by the facility within 30 days. FOLLOW UP RECOMMENDATION: Yearly follow up mammogram recommended. (A) Negative results should not deter biopsy as a palpable lesion should be followed on clinical grounds and biopsy performed if clinically persistent for 3 months or increasing size. Approximately 10% of breast cancers are not detected by mammography. A normal mammogram should not delay biopsy of a clinically suspicious abnormality. Electronically Signed: Curtis Rodriguez, at 8:23 EDT Tel , Service support , CC: Vane Liu MD; Marisol Ward MD Tech Writer: Signed INTERNAL MEDICINE Observed: 10/03/2017 Status: F Source: SARA OFFICE VISIT 12:20 PM [facility] Internal Medicine [address] [place] [address] [place] [address] OFFICE VISIT Date of Service: 10/03/17 MR#: [id number] Acct: [id number] Name: AURELIANO CALHOUN Rep #: [id number] : 1960 Provider: Vane Liu MD Age/Sex: 57/F Location: [facility] Status: Signed Intake Vital Signs10/03/17 Height 5 ft 3 in 10/03/17 Weight: 181 lb Intake Visit Reasons: 3 M FU Chief Complaint: 3 mo FU Picker / Packer Required: No Is patient in pain?: No Allergies No Known Allergies Allergy (Verified 10/03/17 10:51) Medications Ascorbic Acid [Vitamin C] 500 mg PO DAILY@0800 12/06/13 [History Confirmed 10/03/17] Aspirin [Aspirin, Baby] 81 mg PO DAILY@0812/06/13 [History Confirmed 10/03/17] Calcium (Elemental) [Os-Grasyon 500] 500 mg PO DAILY@0812/06/13 [History Confirmed 10/03/17] Fluticasone 0.05% [Flonase Nasal Java] 2 spray NASAL BID 12/06/13 [History Confirmed 10/03/17] Multivitamins,Therapeutic [Multivitamin] 1 tab PO DAILY 12/06/13 [History Confirmed 10/03/17] Milford-3 Fatty Acids [Milford-3] 1,200 mg PO BID 12/06/13 [History Confirmed 10/03/17] Polyethylene Glycol 3350 [Miralax] 17 gm PO DAILY 12/06/13 [History Confirmed 10/03/17] Valacyclovir HCl [Valtrex] 2,000 mg PO PRN PRN 12/06/13 [History Confirmed 10/03/17] atorvastatin 20 mg tablet 20 mg PO QDAY 03/25/17 [History Confirmed 10/03/17] lisinopril 2.5 mg tablet 2.5 mg PO QDAY #90 tab 06/27/17 [Rx Confirmed 10/03/17] fluoxetine 20 mg capsule 20 mg PO QDAY #90 cap 10/03/17 [Rx Confirmed 10/03/17] metformin ER 500 mg tablet,extended release 24 hr 1,000 mg PO QPM #180 tab 10/03/17 [Rx Confirmed 10/03/17] PFSH Medical History Depression (Chronic) factor 5 leiden (Chronic) diabetes mellitus type 2 (Chronic) Arthritis (Chronic) Recurrent cold sores (Chronic) Hyperlipidemia (Chronic) Polycystic ovaries (Acute) Seasonal allergies (Chronic) Surgical History H/O: hysterectomy (Acute) History of hernia repair (Acute) History of tonsillectomy (Acute) Normal colonoscopy (Acute) trigger thumbs release (Acute) Family History Mother Myocardial infarction factor 5 liden Father Arthritis Myocardial infarction, Onset Age: 40 Hypertension Hyperlipidemia Diabetes Unknown Breast cancer Social History Smoking Status: Former smoker alcohol intake: current alcohol intake frequency: a few times a week Alcohol type: hard liquor substance use type: does not use what type of physical activity do you participate in: running, bicycling, aerobics frequency: 5-6 times per week HPI HPI Chief Complaint: 3 mo FU Details: AURELIANO CALHOUN, is a 57 F who presents to the office today for follow-up. She has no acute complaints. She has restarted on her Prozac due to recurrence of her depression. She states that she has felt better since restarting. ROS Const Constitutional: No chills, fatigue, fever(s), frequent falls, malaise, weakness, sleep problems or change in appetite Eyes Eyes: No blurry vision, change in vision, double vision, discharge or visual disturbances ENT ENT: No abnormal hearing, ear pain, ear pressure, tinnitus or dizziness/vertigo Resp Respiratory: No cough, shortness of breath or wheezing Cardio Cardiology: No chest pain at rest, chest pain with exertion, shortness of breath, dyspnea on exertion, generalized swelling, irregular heart rhythm, lightheadedness, orthopnea, fast heart rate or palpitations Gastro GI: No abdominal pain, change in bowel habits, constipation, diarrhea, nausea/dyspepsia or vomiting Genitourinary-Female: No difficulty urinating, burning urination, painful urination, urinary incontinence, urinary frequency, urinary urgency, urinary hesitancy, urinary retention, Frequent nighttime urination/ nocturia, sexual problems, genital lesions, abnormal vaginal bleeding, pelvic pain, vaginal dryness, vaginal odor or Vaginal Itching Musc Musculoskeletal: No back pain, joint swelling, limited range of motion, numbness or tingling Skin Skin: No change in skin color, itching, rash or wounds Breast Breast: No breast lump or breast pain Neuro Neurology: No frequent falls, weakness, visual disturbances, abnormal hearing, numbness, tingling, unsteady gait/balance, dizziness, loss of vision or memory loss Psych Psychiatric: No change in appetite, No memory loss, No anxiety, No depression, No Thoughts of harming yourself/Others Endo Endocrine: No fatigue, heat intolerance, increased thirst/drinking, increased hunger or increased urination Aller/Imm Allergy/Immunologic: No wheezing, itchy eyes or seasonal allergy symptoms Trent/Lymp Hematologic/Lymphatic: No enlarged lymph nodes Exam Const General: cooperative, no acute distress Orientation: alert, awake, oriented x3 HENMT Head: atraumatic, normocephalic Ears: hearing grossly normal bilaterally Resp Effort AND Inspection: normal respiratory effort, able to speak in complete sentences Auscultation: Bilateral: Clear to Auscultation Cardio Rate: regular rate Rhythm: regular rhythm Heart Sounds: S1 normal, S2 normal GI Palpation: soft, no hepatosplenomegaly Neuro General: alert, awake, oriented x3, moves all extremities, CN's II-XI intact bilaterally Extrem General: no clubbing, cyanosis or edema Psych Appearance: grossly normal Mental Status: mental status grossly normal Affect: normal affect Assessment AND Plan 1. Type 2 diabetes mellitus E11.9 Plan Stable. Last A1c of 6.5. Mild increased from 6. However patient has been under a lot of stress lately. We will make no changes to her medications at this time. Continue lifestyle modifications. Repeat A1c in 3 months. Follow-up in 3 months. Orders Orders: 2. Depression F32.9 Plan Restarted on Prozac. Continue current medication. She was advised that she will have to stay on this indefinitely. 3. Hyperlipidemia E78.5 Plan Stable. Continue current medications. Lipid profile in 3 months. This note was generated with [employer] dictation software. It may contain incorrect words, spelling, and punctuation that were not noted in checking the note before signing. Plan Detail Other Medications New: Discontinued: metformin ER administer with evening meal Discontinued Reason: 1,000 mg PO QDAY NS Order Changed Coding Level of Care Code Off vis,est,level 3 Diagnoses Type 2 diabetes mellitus E11.9 Depression F32.9 Hyperlipidemia E78.5 10/03/17 1220 <Electronically signed by Vane Liu MD> Date Vane Liu MD Cosigner Signature: Date (if applicable) CC: HEMOGLOBIN A1C Collected: 10/01/2017 Status: F Source: SARA 6:50 AM [facility] REPOSITORY Order Comment: PT WAS IN AUGUST SAID TEST WAS NOT DUE TILL SEPTEMBER. SEE PT SCANNED REGISTRATION ANY QUESTIONS. TYPE CODE TESTS RESULT OUT OF RANGE REFERENCE UNITS LAB L501.9985 4.2-6.3 % High HGB A1C 6.5 Performed By: #### L501.9985 #### [facility] [address] [place], [address] DOWNTIME REPORT Observed: 08/28/2017 Status: F Source: SARA 1:50 PM [facility] REPOSITORY [facility] Medical Records Department [address] [place] [address] Downtime Report MR#: [id number] Acct: [id number] Name: AURELIANO CALHOUN Rep #: [id number] : 1960 57 From: Mukul Mcmahan PCP: Vane Liu MD Status: REG CLI This patient was seen during an EMR downtime August 11, 2017 - August 18, 2017. This patient may have a combination of paper and electronic documentation or all paper documentation. All documentation is viewable within the e-chart portion of [employer] for each patient visit. BASIC METABOLIC Collected: 08/18/2017 Status: F Source: SARA PROFILE (BMP) 6:13 AM [facility] REPOSITORY TYPE CODE TESTS RESULT OUT OF RANGE REFERENCE UNITS LAB L501.0100 74-106 mg/dL Normal GLU 104 Result Comment: Fasting Glucose result from 100 to 125 mg/dL suggests IMPAIRED HOMEOSTASIS per A.D.A. criteria. Please note revised GLUCOSE reference range effective 2017. LAB L501.1000 7-18 mg/dL High BUN 19 LAB L501.1100 0.55-1.02 mg/dL Normal CREAT,SERUM 0.73 Result Comment: The validity of the calculated GFR AND GFRAA in patients over 70 years has not been determined. Clinical correlation is essential. LAB L501.1110 >60 mL/min Normal EST GFR 86 Result Comment: Non- GFR Calc LAB L501.1115 >60 mL/min Normal EST GFR - AA 104 Result Comment: GFR Calc LAB L501.1300 10-20 RATIO High BUN/CRE 25.9 LAB L501.2200 8.5-10.1 mg/dL CA Normal 8.7 LAB L501.5300 136-145 mmol/L NA Normal 142 LAB L501.5600 3.5-5.1 mmol/L K Normal 4.1 LAB L501.5900 98-107 mmol/L CL Normal 106 LAB L501.6100 21.0-32.0 mmol/L Normal CO2 27.0 LAB L501.6200 5-15 Normal GAP 9 Performed By: #### L500.2500 #### [facility] [address] [place], [address] INTERNAL MEDICINE Observed: 06/27/2017 Status: F Source: [place] MAR[place] OFFICE VISIT 12:38 PM [facility] Internal Medicine [address] [place] [address] [place] [address] OFFICE VISIT Date of Service: 06/27/17 MR#: [id number] Acct: [id number] Name: AURELIANO CALHOUN Rep #: [id number] : 1960 Provider: Vane Liu MD Age/Sex: 57/F Location: [facility] Status: Signed Intake Vital Signs06/27/17 Height 5 ft 3 in Intake Visit Reasons: 3 MO F/U Chief Complaint: 3 mo FU Is patient in pain?: No Allergies No Known Allergies Allergy (Verified 12/06/13 09:12) Medications Ascorbic Acid [Vitamin C] 500 mg PO DAILY@0812/06/13 [History Confirmed 03/05/17] Aspirin [Aspirin, Baby] 81 mg PO DAILY@79912/06/13 [History Confirmed 03/05/17] Calcium (Elemental) [Os-Grayson 500] 500 mg PO DAILY@0800 12/06/13 [History Confirmed 03/05/17] Fluticasone 0.05% [Flonase Nasal Java] 2 spray NASAL BID 12/06/13 [History Confirmed 03/05/17] Multivitamins,Therapeutic [Multivitamin] 1 tab PO DAILY 12/06/13 [History Confirmed 03/05/17] Milford-3 Fatty Acids [Milford-3] 1,200 mg PO BID 12/06/13 [History Confirmed 03/05/17] Polyethylene Glycol 3350 [Miralax] 17 gm PO DAILY 12/06/13 [History Confirmed 03/05/17] Valacyclovir HCl [Valtrex] 2,000 mg PO PRN PRN 12/06/13 [History Confirmed 03/05/17] atorvastatin 20 mg tablet 20 mg PO QDAY 03/25/17 [History Confirmed 03/25/17] lisinopril 2.5 mg tablet 2.5 mg PO QDAY #90 tab 06/27/17 [Rx Confirmed 06/27/17] metformin ER 1,000 mg tablet,extended release 24hr 1,000 mg PO QDAY #90 tab NS 06/27/17 [Rx Confirmed 06/27/17] PFSH Medical History Depression (Chronic) factor 5 leiden (Chronic) diabetes mellitus type 2 (Chronic) Arthritis (Chronic) Recurrent cold sores (Chronic) Hyperlipidemia (Chronic) Polycystic ovaries (Acute) Seasonal allergies (Chronic) Surgical History H/O: hysterectomy (Acute) History of hernia repair (Acute) History of tonsillectomy (Acute) Normal colonoscopy (Acute) trigger thumbs release (Acute) Family History Mother Myocardial infarction factor 5 liden Father Arthritis Myocardial infarction, Onset Age: 40 Hypertension Hyperlipidemia Diabetes Unknown Breast cancer Social History Smoking Status: Former smoker alcohol intake: current alcohol intake frequency: a few times a week Alcohol type: hard liquor substance use type: does not use what type of physical activity do you participate in: running, bicycling, aerobics frequency: 5-6 times per week HPI HPI Chief Complaint: 3 mo FU Details: AURELIANO CALHOUN, is a 57yo F who presents to the office today for follow-up. She has no acute complaints at this time. She reports feeling better and actually states that this is the best she has felt in 2 years. She also reports good control of her blood sugars and blood pressure. ROS Const Constitutional: No body ache, chills, headache(s), weakness or fever(s) Eyes Eyes: No blurry vision, change in vision, eye pain or discharge ENT ENT: No headache(s), abnormal hearing, ear pain, ear pressure, tinnitus, dizziness/vertigo or balance problems Resp Respiratory: No cough, shortness of breath or wheezing Cardio Cardiology: No chest pain at rest, shortness of breath, dyspnea on exertion or palpitations Gastro GI: No abdominal pain or bloating Neuro Neurology: No headache(s), weakness or abnormal hearing Aller/Imm Allergy/Immunologic: No wheezing Exam Const General: cooperative, no acute distress Orientation: alert, awake, oriented x3 HENSD Head: atraumatic, normocephalic Ears: hearing grossly normal bilaterally Resp Effort AND Inspection: normal respiratory effort, able to speak in complete sentences Auscultation: Bilateral: Clear to Auscultation Cardio Rate: regular rate Rhythm: regular rhythm Heart Sounds: S1 normal, S2 normal GI Palpation: soft, no hepatosplenomegaly Neuro General: alert, awake, oriented x3, moves all extremities, CN's II-XI intact bilaterally Extrem General: no clubbing, cyanosis or edema Psych Appearance: grossly normal Mental Status: mental status grossly normal Affect: normal affect Assessment AND Plan 1. Type 2 diabetes mellitus E11.9 Plan Optimally controlled. Last A1c of 6. 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 Lisinopril 2.5 mg daily. A1c in 2 months. BMP in 2 weeks Orders Orders: 2. Hyperlipidemia E78.5 Plan Good control. Continue Lipitor 20 mg daily. Continue lifestyle modifications. Will follow. 3. Depression F32.9 Plan Stable. Currently not on any medication and patient states that she feels very well. Will monitor. This note was generated with Direct Sittersation software. It may contain incorrect words, spelling, and punctuation that were not noted in checking the note before signing. Plan Detail Other Medications New: Coding Level of Care Code Off vis,est,level 3 Diagnoses Type 2 diabetes mellitus E11.9 Hyperlipidemia E78.5 Depression F32.9 06/27/17 1238 <Electronically signed by Vane Liu MD> Date Vane Liu MD Cosigner Signature: Date (if applicable) CC: ALLERGIES ALLERGIES DATE TYPE / CODE NAME / CODE REACTION SEVERITY SOURCE 02/03/2018 Drug No Known Unknown Sara [facility] Allergy/4160 Allergies/F00 [facility] [address](SNOMED [id number](RXNOR Repository CT) M) ENCOUNTERS ENCOUNTERS ADMIT/DISCHARGE ACCOUNT ADMITTING ENCOUNTER LOCATION SOURCE NUMBER CLASS 04/03/2018/ [id number] Ambulatory BMS[place]B [place] 9 0 [place] [place] 04/01/2018 [id number] Ambulatory [address] ing:LAB Repository 03/25/2018 [id number] Ambulatory [place] ing:MASS Repository 02/03/2018/ [id number] Ambulatory BMSBuilding:B [place] 8 4 [place] [place] 01/02/2018/ [id number] Ambulatory BMSBuilding:B [place] 8 2 [place] [place] 12/29/2017 [id number] Ambulatory [address] ing:[place] Repository 12/25/2017/ [id number] Ambulatory BMSBuilding:B [place] 8 4 [place] [place] 10/13/2017 [id number] Ambulatory [address] ing:OPBI Repository 10/03/2017/ [id number] Ambulatory BMSBuilding:B [place] 8 4 [place] [place] 10/01/2017 [id number] Ambulatory [place] Sara 1 [facility] ing:LAB Repository 08/18/2017 [id number] Ambulatory Sara [place] 7 [facility] ing:LAB Repository 06/27/2017/ [id number] Ambulatory BMSBuilding:B [place] 8 4 [place] [facility] [place] PAYERS PAYERS ENCOUNTER GUARANTOR PAYER SUBSCRIBER SOURCE 04/03/2018 AURELIANO Adkins Primary AURELIANO Adkins [place] [id number] Insurance:MEDICAL WILLIAM[place]OB[place] [facility] [place]18[place] Number: Repository [id number]: 330 [id number] [phone] () Date:5011-73-39GY [address] [address]SH: 04/03/2018 Secondary NOT GIVENUNK Sara Insurance:SELF PAY [facility] Number: Effective Repository Date:2018-03-31 04/01/2018 AURELIANO Adkins Primary AURELIANO Adkins [place] [id number] Insurance:MEDICAL WILLIAMSDOB: [facility] 9134[place]42-[place]CV[place] Number: Repository [address]Wiv: 330 [id number] [phone] () Date:4379-29-48HF[address] [address]QZ: 04/01/2018 Secondary NOT GIVENUNK [place] Insurance:SELF PAY [facility] Number: Effective Repository Date:2018-04-01 03/25/2018 DAMIAN Loja Primary NOT GIVENUNK Sara [id number] Insurance:SELF PAY [place] Number: Effective Repository [id number]: 330) Date:2018-01-16 [phone] () 02/03/2018 AURELIANO Adkins Primary AURELIAON Adkins Sara [id number] Insurance:MEDICAL WILLIAMSDOB: [facility] [id number] Number: Repository [id number]: 330 [id number] [phone] (HP) Date:1875-30-08DL [address] [address]HW: 02/03/2018 Secondary NOT GIVENUNK [place] Insurance:SELF PAY [facility] Number: Effective Repository Date:2018-02-02 01/02/2018 DAMIAN Loja Primary AURELIANO Ruiz [id number] Insurance:MEDICAL AUSTINDOB: [facility] [id number] [place] Number: Repository [id number]: 330 [id number] [phone] (HP) Date:7640-73-88UY [address] [address]MH: 01/02/2018 Secondary NOT GIVENUNK [place] Insurance:SELF PAY [facility] Number: Effective Repository Date:2018-01-02 12/29/2017 DAMIAN Loaj Primary AURELIANO Ruiz [id number] Insurance:MEDICAL WILLIAMSDOB: [facility] 1570-41-74YKUFort [place] Number: Repository [id number]: 330 [id number] [phone] (HP) Date:1059-25-64YW [address] [address]PC: 12/29/2017 Secondary NOT GIVENUNK Sara Insurance:SELF PAY [facility] Number: Effective Repository Date:2017-12-25 12/25/2017 DAMIAN Loja Primary AURELIANO Ruiz [id number] Insurance:MEDICAL WILLIAMSDOB: [facility] 7784-23-29RMGFort [place] Number: Repository [address]Omm: 330 [id number] [phone] (HP) Date:1690-14-69CQ [address] [address]UH: 12/25/2017 Secondary NOT GIVENUNK [place] Insurance:SELF PAY [facility] Number: Effective Repository Date:2017-12-25 10/13/2017 DAMIAN Loja Primary AURELIANO [id number] Insurance:MEDICAL WILLIAMSDOB: [facility] 0835-29-33LXUFort [place] Number: Repository [address]Ykb: 330 [id number] [phone] (HP) Date:6116-17-53VD [facility] [address] [place] [address]YH: 10/13/2017 Secondary NOT GIVENUNK Sara Insurance:SELF PAY [facility] Number: Effective Repository Date:2017-09-23 10/03/2017 DAMIAN Loja Primary AURELIANO Ruiz [id number] Insurance:MEDICAL AUSTINDOB: [facility] [id number] [place] Number: Repository [id number]: 330 [id number] [phone] (HP) Date:6233-18-99DJ [address] [place] [address]NW: 10/03/2017 Secondary NOT GIVENUNK [place] Insurance:SELF PAY [facility] Number: Effective Repository Date:2017-10-03 10/01/2017 DAMIAN Loja Primary AURELIANO Lucille Ruiz [id number] Insurance:MEDICAL WILLIAMSDOB: [facility] 1569-27-37MWPFort [place] Number: Repository [address]Llq: 330 [id number] [phone] (HP) Date:2958-73-40IF [address] [place] [address]FU: 10/01/2017 Secondary NOT GIVENUNK [place] Insurance:SELF PAY [facility] Number: Effective Repository Date:2017-10-01 08/18/2017 DAMIAN Loja Primary AURELIANO [id number] Insurance:MEDICAL WILLIAMSDOB: [facility] [id number] [place] Number: Repository [address]Erl: 330 [id number] [phone] (HP) Date:7627-31-61WK [address] [place] [address]LD: 08/18/2017 Secondary NOT GIVENUNK Sara Insurance:SELF PAY [facility] Number: Effective Repository Date:2017-08-18 06/27/2017 DAMIAN CALHOUN1830 Insurance:MEDICAL WILLIAMSDOB: [facility] [id number] [place] Number: Repository [id number]: (427) [id number] [phone] () Date:7519-41-73KO [address], [place] [address]DZ: 06/27/2017 Secondary NOT GIVENUNK Sara Insurance:SELF PAY [facility] Number: Effective Repository Date:2017-06-27
== END ==
PROVIDERS: Family Provider Internal Medicine; PCP Internal Medicine; Referring Provider Internal Medicine; Visit Provider Internal Medicine
DX: E11.9 Type 2 diabetes mellitus without complications (principal)
CPT/HCPCS: 36415; 83036

== ENCOUNTER → 2018-04-17 22:34 | Outpatient (CLI) | payer OTHER, SELFPAY ==
[2018-04-03 08:21] VITALS: BMI 32.5
== END ==
PROVIDERS: Family Provider Internal Medicine; PCP Internal Medicine; Referring Provider Internal Medicine; Visit Provider Internal Medicine
DX: G47.10 Hypersomnia, unspecified (principal)
CPT/HCPCS: 95810

== ENCOUNTER → 2018-05-08 19:57 | Outpatient (CLI) | payer OTHER, SELFPAY ==
[2018-05-01 08:42] VITALS: BMI 32.5
== END ==
PROVIDERS: Family Provider Internal Medicine; PCP Internal Medicine; Referring Provider Internal Medicine; Visit Provider Internal Medicine
DX: G47.30 Sleep apnea, unspecified (principal)
CPT/HCPCS: 95811

== ENCOUNTER → 2018-11-11 | Outpatient (CLI) | payer OTHER, SELFPAY ==
[2018-10-08 09:26] VITALS: BMI 29.7
[2018-11-11 12:41] LABS: Absolute Lymphocyte Count 1.83 X10^3/uL (0.83-4.51); Absolute Neutrophil Count 3.3 X10^3/uL (2.0-7.7); Basophil# 0.07 X10^3/uL; Basophil% 1.2 % (0-1); Eosinophil# 0.22 X10^3/uL; Eosinophils% 3.8 % (0-5); Hematocrit 36.6 % (37-47); Hemoglobin 12.1 g/dL (12.0-15.0); Lymphocyte # 1.83 X10^3/ul (4.0); Lymphocyte % 31.9 % (19-41); Mean Corp Hgb Conc 33.1 g/dL (32-36); Mean Corpuscular Hgb 31.2 pg (27.0-32.0); Mean Corpuscular Volume 94.3 fL (81-99); Mean Platelet Vol. 9.2 fl (6.2-12.0); Monocyte# 0.33 X10^3/uL; Monocyte% 5.8 % (0-10); NRBC Flagged by Analyzer 0 % (0-5); Neutrophil # 3.26 X10^3/uL (2.7-7.7); Platelet Count 285 K/mm3 (150-450); RBC Distribution Width CV 12.7 % (11.6-14.6); RBC Distribution Width SD 43.8 fl (35.1-43.9); Red Blood Count 3.88 M/mm3 (4.2-5.4); White Blood Count 5.7 K/mm3 (4.4-11.0)
[2018-11-11 13:00] LABS: Hemoglobin A1c 5.7 % (4.2-6.3)
[2018-11-11 13:18] LABS: Microalbumin:Creatinine Ratio 4.7 mg/g CRE (<30 mg/g CRE)
[2018-11-11 13:21] LABS: ALB/GLOB Ratio 1.2 RATIO (0.9-2.4); AST(SGOT) 20 U/L (15-37); Alanine Aminotransfer ALT/SGPT 37 U/L (13-56); Albumin, Serum 3.8 g/dL (3.2-5.0); Alkaline Phosphatase 94 U/L (45-117); Anion Gap 6 (5-15); BUN 18 mg/dL (7-18); BUN/Creat Ratio 22.5 RATIO (10-20); Calcium,Total 8.7 mg/dL (8.5-10.1); Chloride 108 mmol/L (98-107); Cholesterol 145 mg/dL (200); EST Glomerular Filtration Rate 78 mL/min (>60); Est Glom Filt Rate - Afr Amer 94 mL/min (>60); Globulin 3.2 g/dL (2.2-4.2); Glucose 88 mg/dL (74-106); High Density Lipoprotein 58 mg/dL; Sodium Level 142 mmol/L (136-145); Triglycerides 114 mg/dL; Very Low Density Lipoprotein 23 mg/dL (5-40)
== END | disposition home or self-care (01) ==
LOC: BIMLAB 08:20
PROVIDERS: Family Provider Internal Medicine; PCP Internal Medicine; Visit Provider Internal Medicine
DX: E11.9 Type 2 diabetes mellitus without complications (principal); G47.30 Sleep apnea, unspecified
CPT/HCPCS: 36415; 80053; 80061; 82043; 82570; 83036; 85025

== ENCOUNTER → 2018-11-19 13:10 | Outpatient (CLI) | payer OTHER, SELFPAY ==
[2018-11-13 08:36] VITALS: BMI 29.7
--- NOTE | 2018-11-19 13:12 | BI_ITS ---
MAMMOGRAPHY - BILATERAL SCREENING REASON FOR EXAM: Female, 58 years old. Routine annual screening examination. PERTINENT HISTORY: Non-contributory. TECHNIQUE: Digital bilateral breast angélica (3D mammographic acquisition) in the CC and MLO projections. 2-D mediolateral oblique (MLO) and craniocaudad (CC) views of both breasts were obtained. CAD: Full Field Digital Mammography with Computer Added Detection was performed. COMPARISON: Comparison is made with prior study dated October 13, 2017 and October 11, 2016. FINDINGS: Breast Composition: The breasts are almost entirely fatty. There are no dominant masses or suspicious calcifications. Stable small benign-appearing bilateral axillary lymph nodes. No other significant abnormalities are identified. There has been no significant change since the prior study. BI/SCREEN MAMM (CAD) W/ANGÉLICA BILAT IMPRESSION: Stable bilateral screening mammogram. Yearly follow-up mammogram recommended. (A) ASSESSMENT CATEGORY: BIRADS Category 2: Benign. A letter regarding these results will be sent to the patient by the facility within 30 days. Approximately 10% of breast cancers are not detected by mammography. A normal mammogram should not delay biopsy of a clinically suspicious abnormality. [id number] Electronically Signed: Wang Angelo, at 15:37 EDT , Service support ,
== END ==
PROVIDERS: Family Provider Internal Medicine; PCP Internal Medicine; Referring Provider Obstetrics & Gynecology; Visit Provider Obstetrics & Gynecology
DX: Z12.31 Encounter for screening mammogram for malignant neoplasm of breast (principal)
CPT/HCPCS: 77063; 77067

== ENCOUNTER → 2019-05-28 09:31 | Outpatient (CLI) | payer OTHER, SELFPAY ==
[2019-05-28 09:18] VITALS: BMI 33.5
[2019-05-28 12:39] LABS: Anion Gap 7 (5-15); BUN 16 mg/dL (7-18); BUN/Creat Ratio 20.7 RATIO (10-20); Calcium,Total 9.3 mg/dL (8.5-10.1); Chloride 103 mmol/L (98-107); Creatinine, Serum 0.77 mg/dL (0.55-1.02); EST Glomerular Filtration Rate 81 mL/min (>60); Est Glom Filt Rate - Afr Amer 98 mL/min (>60); Glucose 85 mg/dL (74-106); Potassium 4.1 mmol/L (3.5-5.1); Sodium Level 137 mmol/L (136-145)
== END ==
PROVIDERS: PCP Internal Medicine; Referring Provider Internal Medicine; Visit Provider Internal Medicine
DX: E11.9 Type 2 diabetes mellitus without complications (principal)
CPT/HCPCS: 36415; 80048

== ENCOUNTER → 2019-12-10 08:44 | Outpatient (CLI) | payer OTHER, SELFPAY ==
[2019-12-10 08:06] VITALS: BMI 32.1
[2019-12-10 12:13] LABS: Absolute Lymphocyte Count 1.72 X10^3/uL (0.83-4.51); Absolute Neutrophil Count 3.7 X10^3/uL (2.0-7.7); Basophil# 0.08 X10^3/uL; Basophil% 1.3 % (0-1); Eosinophil# 0.28 X10^3/uL; Eosinophils% 4.5 % (0-5); Hematocrit 38.9 % (37-47); Hemoglobin 12.5 g/dL (12.0-15.0); Lymphocyte # 1.72 X10^3/ul (4.0); Lymphocyte % 27.9 % (19-41); Mean Corp Hgb Conc 32.1 g/dL (32-36); Mean Corpuscular Hgb 30.3 pg (27.0-32.0); Mean Corpuscular Volume 94.4 fL (81-99); Mean Platelet Vol. 9.4 fl (6.2-12.0); Monocyte# 0.38 X10^3/uL; Monocyte% 6.2 % (0-10); NRBC Flagged by Analyzer 0 % (0-5); Neutrophil # 3.69 X10^3/uL (2.7-7.7); Neutrophil % 59.9 % (47-70); Platelet Count 360 K/mm3 (150-450); RBC Distribution Width SD 44.6 fl (35.1-43.9); Red Blood Count 4.12 M/mm3 (4.2-5.4); White Blood Count 6.2 K/mm3 (4.4-11.0)
[2019-12-10 12:56] LABS: Microalbumin,Random Urine 9.8 mg/L (NO RANGE EST.); Microalbumin:Creatinine Ratio 8.6 mg/g CRE (<30 mg/g CRE)
[2019-12-10 12:57] LABS: ALB/GLOB Ratio 1.2 RATIO (0.9-2.4); AST(SGOT) 19 U/L (15-37); Alanine Aminotransfer ALT/SGPT 39 U/L (13-56); Albumin, Serum 3.9 g/dL (3.2-5.0); Alkaline Phosphatase 93 U/L (45-117); Anion Gap 3 (5-15); BUN 18 mg/dL (7-18); BUN/Creat Ratio 24.8 RATIO (10-20); Calcium,Total 9.2 mg/dL (8.5-10.1); Chloride 107 mmol/L (98-107); Cholesterol 157 mg/dL (200); Creatinine, Serum 0.72 mg/dL (0.55-1.02); EST Glomerular Filtration Rate 87 mL/min (>60); Est Glom Filt Rate - Afr Amer 105 mL/min (>60); Globulin 3.3 g/dL (2.2-4.2); Glucose 94 mg/dL (74-106); High Density Lipoprotein 59 mg/dL; Potassium 4.4 mmol/L (3.5-5.1); Protein, Total 7.2 g/dL (6.4-8.2); Sodium Level 140 mmol/L (136-145); Triglycerides 109 mg/dL; Very Low Density Lipoprotein 22 mg/dL (5-40)
== END ==
PROVIDERS: PCP Internal Medicine; Referring Provider Internal Medicine; Visit Provider Internal Medicine
DX: E11.9 Type 2 diabetes mellitus without complications (principal); G47.30 Sleep apnea, unspecified
CPT/HCPCS: 36415; 80053; 80061; 82043; 82570; 85025

== ENCOUNTER → 2020-01-05 15:20 | Outpatient (CLI) | payer OTHER, SELFPAY ==
[2019-12-10 08:49] VITALS: BMI 29.7
--- NOTE | 2020-01-05 15:21 | BI_ITS ---
MAMMOGRAPHY - BILATERAL SCREENING REASON FOR EXAM: Female, 59 years old. Routine annual screening examination. PERTINENT HISTORY: Non-contributory. TECHNIQUE: Digital bilateral breast angélica (3D mammographic acquisition) in the CC and MLO projections. 2-D mediolateral oblique (MLO) and craniocaudad (CC) views of both breasts were obtained. CAD: Full Field Digital Mammography with Computer Added Detection was performed. COMPARISON: Comparison is made with prior study dated 11/19/2018 and 10/13/2017. FINDINGS: Breast Composition: The breasts are almost entirely fatty. There are no dominant masses or suspicious calcifications. Stable small benign appearing bilateral axillary lymph nodes. No other significant abnormalities are identified. There has been no significant change since the prior study. BI/SCREEN MAMM (CAD) W/ANGÉLICA BILAT IMPRESSION: Stable bilateral screening mammogram. Yearly follow-up mammogram recommended. (A) ASSESSMENT CATEGORY: BIRADS Category 2: Benign. A letter regarding these results will be sent to the patient by the facility within 30 days. Approximately 10% of breast cancers are not detected by mammography. A normal mammogram should not delay biopsy of a clinically suspicious abnormality. [id number] Electronically Signed: Wang Angelo, at 10:13 EDT , Service support ,
== END ==
PROVIDERS: PCP Internal Medicine; Referring Provider Internal Medicine; Visit Provider Internal Medicine
DX: Z12.31 Encounter for screening mammogram for malignant neoplasm of breast (principal)
CPT/HCPCS: 77063; 77067

== ENCOUNTER → 2020-01-31 15:37 | Outpatient (CLI) | payer OTHER, SELFPAY ==
[2020-01-28 15:16] VITALS: BMI 33.0
[2020-01-31 18:19] LABS: T4 Free Direct 0.78 ng/dL (0.76-1.46); Thyroid Stim Hormone (TSH) 1.22 uIU/mL (0.358-3.74)
== END ==
PROVIDERS: PCP Internal Medicine; Referring Provider Internal Medicine; Visit Provider Internal Medicine
DX: K52.9 Noninfective gastroenteritis and colitis, unspecified (principal)
CPT/HCPCS: 36415; 84439; 84443

== ENCOUNTER → 2020-02-01 07:10 | Outpatient (CLI) | payer OTHER, SELFPAY ==
[2020-01-28 15:16] VITALS: BMI 33.0
[2020-02-07 08:28] LABS: Calprotectin, Stool <16 ug/g (0-120)
== END ==
PROVIDERS: PCP Internal Medicine; Referring Provider Internal Medicine; Visit Provider Internal Medicine
DX: K52.9 Noninfective gastroenteritis and colitis, unspecified (principal)
CPT/HCPCS: 83630; 83993; 87506

== ENCOUNTER → 2020-06-16 08:36 | Outpatient (CLI) | payer OTHER, SELFPAY ==
[2020-06-16 08:23] VITALS: BMI 31.6
[2020-06-16 12:39] LABS: ALB/GLOB Ratio 1.2 RATIO (0.9-2.4); AST(SGOT) 17 U/L (15-37); Alanine Aminotransfer ALT/SGPT 33 U/L (13-56); Albumin, Serum 4.2 g/dL (3.2-5.0); Alkaline Phosphatase 84 U/L (45-117); Anion Gap 3 (5-15); BUN 20 mg/dL (7-18); BUN/Creat Ratio 25.7 RATIO (10-20); Calcium,Total 9.6 mg/dL (8.5-10.1); Chloride 106 mmol/L (98-107); Creatinine, Serum 0.78 mg/dL (0.55-1.02); EST Glomerular Filtration Rate 80 mL/min (>60); Est Glom Filt Rate - Afr Amer 97 mL/min (>60); Globulin 3.4 g/dL (2.2-4.2); Glucose 93 mg/dL (74-106); Potassium 4.9 mmol/L (3.5-5.1); Protein, Total 7.6 g/dL (6.4-8.2); Sodium Level 138 mmol/L (136-145)
== END ==
PROVIDERS: PCP Internal Medicine; Referring Provider Internal Medicine; Visit Provider Internal Medicine
DX: E11.9 Type 2 diabetes mellitus without complications (principal); F32.9 Major depressive disorder, single episode, unspecified; F41.9 Anxiety disorder, unspecified
CPT/HCPCS: 36415; 80053

== ENCOUNTER → 2021-01-01 14:59 | Outpatient (CLI) | payer OTHER, SELFPAY ==
[2021-01-01 17:48] LABS: Absolute Lymphocyte Count 2.23 X10^3/uL (0.83-4.51); Basophil# 0.09 X10^3/uL; Basophil% 1.3 % (0-1); Eosinophil# 0.34 X10^3/uL; Eosinophils% 4.7 % (0-5); Hematocrit 37.6 % (37-47); Hemoglobin 11.9 g/dL (12.0-15.0); Lymphocyte # 2.23 X10^3/ul (0.83-4.51); Lymphocyte % 31.1 % (19-41); Mean Corp Hgb Conc 31.6 g/dL (32-36); Mean Corpuscular Hgb 29.8 pg (27.0-32.0); Mean Corpuscular Volume 94.2 fL (81-99); Mean Platelet Vol. 8.9 fl (6.2-12.0); Monocyte# 0.45 X10^3/uL; Monocyte% 6.3 % (0-10); NRBC Flagged by Analyzer 0 % (0-5); Neutrophil # 4.01 X10^3/uL (2.7-7.7); Neutrophil % 55.9 % (47-70); Platelet Count 350 K/mm3 (150-450); RBC Distribution Width CV 12.8 % (11.6-14.6); RBC Distribution Width SD 43.8 fl (35.1-43.9); Red Blood Count 3.99 M/mm3 (4.2-5.4); White Blood Count 7.2 K/mm3 (4.4-11.0)
[2021-01-01 18:08] LABS: AST(SGOT) 21 U/L (15-37); Alanine Aminotransfer ALT/SGPT 51 U/L (13-56); Albumin, Serum 3.6 g/dL (3.2-5.0); Alkaline Phosphatase 98 U/L (45-117); Anion Gap 5 (5-15); BUN 14 mg/dL (7-18); BUN/Creat Ratio 19.9 RATIO (10-20); Calcium,Total 9.3 mg/dL (8.5-10.1); Chloride 105 mmol/L (98-107); Cholesterol 166 mg/dL (200); EST Glomerular Filtration Rate 89 mL/min (>60); Est Glom Filt Rate - Afr Amer 108 mL/min (>60); Globulin 3.7 g/dL (2.2-4.2); Glucose 90 mg/dL (74-106); High Density Lipoprotein 64 mg/dL; Potassium 3.9 mmol/L (3.5-5.1); Protein, Total 7.3 g/dL (6.4-8.2); Sodium Level 140 mmol/L (136-145); Triglycerides 203 mg/dL; Very Low Density Lipoprotein 41 mg/dL (5-40)
== END ==
PROVIDERS: PCP Internal Medicine; Visit Provider Internal Medicine
DX: E11.9 Type 2 diabetes mellitus without complications (principal)
CPT/HCPCS: 36415; 80053; 80061; 85025

== ENCOUNTER → 2021-02-16 10:08 | Outpatient (CLI) | payer OTHER, SELFPAY ==
[2021-02-16 10:38] LABS: Hematocrit 36.5 % (37-47); Hemoglobin 12.1 g/dL (12.0-15.0); Mean Corp Hgb Conc 33.2 g/dL (32-36); Mean Corpuscular Hgb 30.7 pg (27.0-32.0); Mean Corpuscular Volume 92.6 fL (81-99); Mean Platelet Vol. 9.1 fl (6.2-12.0); Platelet Count 346 K/mm3 (150-450); RBC Distribution Width CV 13.2 % (11.6-14.6); RBC Distribution Width SD 44.4 fl (35.1-43.9); Red Blood Count 3.94 M/mm3 (4.2-5.4); White Blood Count 9.6 K/mm3 (4.4-11.0)
[2021-02-16 11:17] LABS: BUN 21 mg/dL (7-18); Creatinine, Serum 0.78 mg/dL (0.55-1.02); EST Glomerular Filtration Rate 79 mL/min (>60); Glucose 131 mg/dL (74-106)
[2021-02-16 11:18] LABS: Anion Gap 6 (5-15); BUN/Creat Ratio 26.8 RATIO (10-20); Calcium,Total 9.2 mg/dL (8.5-10.1); Chloride 107 mmol/L (98-107); Est Glom Filt Rate - Afr Amer 96 mL/min (>60); Potassium 3.7 mmol/L (3.5-5.1); Sodium Level 140 mmol/L (136-145)
== END ==
PROVIDERS: PCP Internal Medicine; Referring Provider Otolaryngology; Visit Provider Otolaryngology
DX: Z01.812 Encounter for preprocedural laboratory examination (principal); Z01.818 Encounter for other preprocedural examination
CPT/HCPCS: 36415; 80048; 85027; 93005

== ENCOUNTER → 2021-02-27 14:08 | Outpatient (CLI) | payer OTHER, SELFPAY ==
--- NOTE | 2021-02-27 14:10 | BI_ITS ---
MAMMOGRAPHY - BILATERAL SCREENING REASON FOR EXAM: Female, 61 years old. Routine annual screening examination. PERTINENT HISTORY: Non-contributory. TECHNIQUE: Digital bilateral breast angélica (3D mammographic acquisition) in the CC and MLO projections. 2-D mediolateral oblique (MLO) and craniocaudad (CC) views of both breasts were obtained. CAD: Full Field Digital Mammography with Computer Added Detection was performed. COMPARISON: Comparison is made with prior study dated 12/28/2019 and 11/19/2018. FINDINGS: Breast Composition: The breasts are almost entirely fatty. There are no dominant masses or suspicious calcifications. Stable small benign-appearing bilateral axillary lymph nodes. No other significant abnormalities are identified. There has been no significant change since the prior study. BI/SCRN MAMM (CAD)W/ANGÉLICA BILAT IMPRESSION: Stable bilateral screening mammogram. Yearly follow-up mammogram recommended. (A) ASSESSMENT CATEGORY: BIRADS Category 2: Benign. A letter regarding these results will be sent to the patient by the facility within 30 days. Approximately 10% of breast cancers are not detected by mammography. A normal mammogram should not delay biopsy of a clinically suspicious abnormality. [id number] Electronically Signed: Wang Angelo MD at 15:12 EST , Service support ,
== END ==
PROVIDERS: PCP Internal Medicine; Referring Provider Internal Medicine; Visit Provider Internal Medicine
DX: Z12.31 Encounter for screening mammogram for malignant neoplasm of breast (principal)
CPT/HCPCS: 77063; 77067

== ENCOUNTER → 2021-09-17 | Outpatient (CLI) | payer OTHER, SELFPAY ==
--- NOTE | 2021-09-17 09:30 | LES_PTH ---
PATIENT: AURELIANO CALHOUN [facility] U#:[id number] AGE/SX: 61/F ROOM: RE09/17/[address]: Dr. Siddhartha Shaver MD : 1960 BED: DIS: 09/17/2021 SPEC #: [id number] RECD: 09/17/21 15:00 STATUS: VANE ALTMAN #: [id number] BARNEY: 09/17/21 09:[address]: Siddhartha Shaver DEPT: SURGICAL PATHOLOGY RECD BY: Mary Ugalde ENTERED: 09/18/21 08:03 SP TYPE: Lesion OTHR DR: Dr. Vane Liu MD Tissues: Skin of nose, NOS Procedures: Surgery Specimen Level IV HEADER OPERATION: Intranasal lesion PRE-OP DIAGNOSIS: Intranasal lesion TISSUE SUBMITTED: Intranasal lesion MICROSCOPIC DIAGNOSIS Intranasal lesion, biopsy: Fragments of squamous mucosa with acute and chronic inflammation and granulation tissue reaction. Negative for malignancy. See comment. SJ:cheyanne 09/19/2021 COMMENT Clinical correlation and appropriate follow up are necessary. MICROSCOPIC DESCRIPTION Slides are reviewed. GROSS DESCRIPTION Received in fixative is one container labeled with the patient's name and designated intranasal lesion. The specimen consists of two fragments of abbott-white soft tissue measuring in aggregate 0.3 x 0.2 x 0.1 cm. The entire specimen is submitted in one cassette. / KARLA:cheyanne 09/18/2021 TC:2 CPT: [id number]
== END | disposition home or self-care (01) ==
LOC: LABSPEC 15:15
PROVIDERS: PCP Internal Medicine; Visit Provider Otolaryngology
DX: J34.89 Other specified disorders of nose and nasal sinuses (principal)
CPT/HCPCS: 88305

== ENCOUNTER → 2021-09-25 | Outpatient (CLI) | payer OTHER, SELFPAY ==
[2021-09-25 12:20] LABS: Anion Gap 4 (5-15); BUN 22 mg/dL (7-18); Calcium,Total 9.4 mg/dL (8.5-10.1); Chloride 106 mmol/L (98-107); Creatinine, Serum 0.76 mg/dL (0.55-1.02); EST Glomerular Filtration Rate 82 mL/min (>60); Est Glom Filt Rate - Afr Amer 99 mL/min (>60); Glucose 113 mg/dL (74-106); Potassium 3.8 mmol/L (3.5-5.1); Sodium Level 139 mmol/L (136-145)
[2021-09-25 12:27] LABS: Hemoglobin A1c 5.9 % (3.8-5.6)
== END | disposition home or self-care (01) ==
LOC: BIMLAB 10:40
PROVIDERS: PCP Internal Medicine; Visit Provider Internal Medicine
DX: E11.9 Type 2 diabetes mellitus without complications (principal)
CPT/HCPCS: 36415; 80048; 83036

== ENCOUNTER → 2021-12-25 | Outpatient (CLI) | payer OTHER, SELFPAY ==
--- NOTE | 2021-12-25 16:12 | EKG12_ITS ---
Test Reason : PRE-OP Blood Pressure : / mmHG Vent. Rate : 056 BPM Atrial Rate : 056 BPM P-R Int : 140 ms QRS Dur : 100 ms QT Int : 400 ms P-R-T Axes : 036 -16 041 degrees QTc Int : 386 ms Sinus bradycardia Inferior infarct , age undetermined , cannot be excluded Poor R wave progression Abnormal ECG Confirmed by MANJEET ZIEGLER, OSCAR ([id number]), photographic editor GUZMAN BELTRÁN ([id number]) on 12/26/2021 6:47:30 AM Referred By: Lucas Shaver Confirmed By:OSCAR BURROUGHS MD
[2021-12-25 16:17] LABS: Hematocrit 36.3 % (37-47); Hemoglobin 11.9 g/dL (12.0-15.0); Mean Corp Hgb Conc 32.8 g/dL (32-36); Mean Corpuscular Hgb 30.9 pg (27.0-32.0); Mean Corpuscular Volume 94.3 fL (81-99); Platelet Count 319 K/mm3 (150-450); RBC Distribution Width CV 12.9 % (11.6-14.6); RBC Distribution Width SD 44.6 fl (35.1-43.9); Red Blood Count 3.85 M/mm3 (4.2-5.4); White Blood Count 8.2 K/mm3 (4.4-11.0)
[2021-12-25 16:37] LABS: Anion Gap 2 (5-15); BUN 26 mg/dL (7-18); BUN/Creat Ratio 32.7 RATIO (10-20); Calcium,Total 9.6 mg/dL (8.5-10.1); Chloride 108 mmol/L (98-107); Creatinine, Serum 0.79 mg/dL (0.55-1.02); EST Glomerular Filtration Rate 78 mL/min (>60); Est Glom Filt Rate - Afr Amer 94 mL/min (>60); Glucose 107 mg/dL (74-106); Potassium 4.2 mmol/L (3.5-5.1); Sodium Level 140 mmol/L (136-145)
== END | disposition home or self-care (01) ==
LOC: PSN 15:53
PROVIDERS: PCP Internal Medicine; Referring Provider Otolaryngology; Visit Provider Otolaryngology
DX: Z01.818 Encounter for other preprocedural examination (principal); R00.1 Bradycardia, unspecified
CPT/HCPCS: 36415; 80048; 85027; 93005

== ENCOUNTER → 2021-12-31 | Outpatient (CLI) | payer OTHER, SELFPAY | END | disposition home or self-care (01) | LOC: LABSPEC 13:38 | PROVIDERS: PCP Internal Medicine; Referring Provider Internal Medicine; Visit Provider Internal Medicine | DX: R09.81 Nasal congestion (principal) | CPT/HCPCS: 87635; U0003; U0005 ==

== ENCOUNTER → 2022-01-08 | Outpatient (CLI) | payer OTHER, SELFPAY ==
--- NOTE | 2022-01-08 11:30 | LES_PTH ---
PATIENT: AURELIANO CALHOUN [facility] U#:[id number] AGE/SX: 61/F ROOM: RE01/08/[address]: Dr. Siddhartha Shaver MD : 1960 BED: DIS: 01/08/2022 SPEC #: [id number] RECD: 01/08/22 15:08 STATUS: VANE ALTMAN #: [id number] BARNEY: 01/08/22 11:[address]: Siddhartha Shaver DEPT: SURGICAL PATHOLOGY RECD BY: Scot Granger ENTERED: 01/09/22 08:33 SP TYPE: Lesion OTHR DR: Dr. Vane Liu MD [facility] Tissues: Nose, NOS Procedures: Surgery Specimen Level IV HEADER OPERATION: Excision internasal lesion PRE-OP DIAGNOSIS: Ulceration of nose TISSUE SUBMITTED: Right internasal lesion MICROSCOPIC DIAGNOSIS Right internasal lesion, biopsy: Ulceration with associated acute and chronic inflammation and granulation. Polarizable nonmetallic foreign body particles are present. AM:cheyanne 01/10/2022 MICROSCOPIC DESCRIPTION Slides are reviewed. GROSS DESCRIPTION Received in fixative is one container labeled with the patient's name and designated right internasal lesion. The specimen consists of one irregular fragment of light abbott soft tissue that measures 0.5 x 0.5 x 0.1 cm. The specimen is totally submitted in one cassette. / AM:cheyanne 01/09/2022 TC:2 CPT: [id number]
== END | disposition home or self-care (01) ==
PROVIDERS: PCP Internal Medicine; Visit Provider Otolaryngology
DX: J34.0 Abscess, furuncle and carbuncle of nose (principal)
CPT/HCPCS: 88305

== ENCOUNTER → 2022-03-27 | Outpatient (CLI) | payer OTHER, SELFPAY ==
[2022-03-27 07:45] LABS: Absolute Lymphocyte Count 1.74 X10^3/uL (0.83-4.51); Absolute Neutrophil Count 4.2 X10^3/uL (2.0-7.7); Basophil# 0.09 X10^3/uL; Basophil% 1.3 % (0-1); Eosinophil# 0.66 X10^3/uL; Eosinophils% 9.3 % (0-5); Hematocrit 37.5 % (37-47); Hemoglobin 12.5 g/dL (12.0-15.0); Lymphocyte # 1.74 X10^3/ul (0.83-4.51); Lymphocyte % 24.4 % (19-41); Mean Corp Hgb Conc 33.3 g/dL (32-36); Mean Corpuscular Hgb 31.6 pg (27.0-32.0); Mean Corpuscular Volume 94.7 fL (81-99); Monocyte# 0.43 X10^3/uL; NRBC Flagged by Analyzer 0 % (0-5); Neutrophil # 4.18 X10^3/uL (2.7-7.7); Neutrophil % 58.7 % (47-70); Platelet Count 353 K/mm3 (150-450); RBC Distribution Width SD 44.9 fl (35.1-43.9); Red Blood Count 3.96 M/mm3 (4.2-5.4); White Blood Count 7.1 K/mm3 (4.4-11.0)
[2022-03-27 08:09] LABS: ALB/GLOB Ratio 1.1 RATIO (0.9-2.4); AST(SGOT) 20 U/L (15-37); Alanine Aminotransfer ALT/SGPT 43 U/L (13-56); Albumin, Serum 3.8 g/dL (3.2-5.0); Alkaline Phosphatase 88 U/L (45-117); Anion Gap 5 (5-15); BUN 15 mg/dL (7-18); BUN/Creat Ratio 20.4 RATIO (10-20); Chloride 106 mmol/L (98-107); Cholesterol 167 mg/dL (200); Creatinine, Serum 0.74 mg/dL (0.55-1.02); EST Glomerular Filtration Rate 85 mL/min (>60); Est Glom Filt Rate - Afr Amer 103 mL/min (>60); Globulin 3.4 g/dL (2.2-4.2); Glucose 99 mg/dL (74-106); High Density Lipoprotein 65 mg/dL; Potassium 3.8 mmol/L (3.5-5.1); Protein, Total 7.2 g/dL (6.4-8.2); Sodium Level 139 mmol/L (136-145); Triglycerides 153 mg/dL; Very Low Density Lipoprotein 31 mg/dL (5-40)
== END | disposition home or self-care (01) ==
LOC: LAB 06:31
PROVIDERS: PCP Internal Medicine; Referring Provider Internal Medicine; Visit Provider Internal Medicine
DX: I10 Essential (primary) hypertension (principal); E11.9 Type 2 diabetes mellitus without complications
CPT/HCPCS: 36415; 80053; 80061; 85025

== ENCOUNTER → 2022-07-08 | Outpatient (CLI) | payer OTHER, SELFPAY ==
[2022-07-10 15:08] LABS: Deamidated Gliadin IgA 5 units (0-19); Deamidated Gliadin IgG 3 units (0-19); Endomysial Antibody IgA Negative (Negative); Immunoglobulin A 106 mg/dL (87-352); t-Transglutaminase IgA <2 U/mL (0-3)
== END | disposition home or self-care (01) ==
LOC: BIMLAB 15:10
PROVIDERS: PCP Internal Medicine; Referring Provider Internal Medicine; Visit Provider Internal Medicine
DX: K58.9 Irritable bowel syndrome, unspecified (principal); Z83.79 Family history of other diseases of the digestive system
CPT/HCPCS: 36415; 82784; 83516; 86255

== ENCOUNTER → 2022-07-09 | Outpatient (CLI) | payer OTHER, SELFPAY ==
[2022-07-09 11:21] LABS: Bacteria 0 SEEN /hpf (None Seen); Mucous, Urine 0 SEEN /hpf (<or=2+); Squamous Epithelial Cells - UA 0 SEEN /hpf (5-10)
[2022-07-09 11:55] LABS: Color, Urine Yellow (Yellow); Glucose, Dipstick Normal (Normal); Ketone-Dipstick Negative (Negative); Leukocyte Esterase-Dipstick 100 /ul (Negative); Nitrite-Dipstick Negative (Negative); Occult Blood-Urine 150 /ul (Negative); Protein-Dipstick Negative (Negative); Specific Gravity, Urine 1.005 (1.002-1.030); Urine Bilirubin Dipstick Negative (Negative); Urine Clarity Sl. Cloudy (Clear); Urine Urobilinogen Normal (Normal); Urine pH 6.5 (5.0 - 8.0)
[2022-07-09 12:16] LABS: Red Blood Cells-Urine 10-25 SEEN /hpf (0-5); Transitional Epithelial - Ur 0-5 SEEN /hpf (0-5); White Blood Cells 10-25 SEEN /hpf (0-5)
== END | disposition home or self-care (01) ==
LOC: LABSPEC 10:54
PROVIDERS: PCP Internal Medicine; Referring Provider Internal Medicine; Visit Provider Internal Medicine
DX: R82.90 Unspecified abnormal findings in urine (principal); R35.0 Frequency of micturition
CPT/HCPCS: 81001; 87077; 87086; 87088; 87186

== ENCOUNTER → 2022-07-29 | Outpatient (CLI) | payer OTHER, SELFPAY ==
[2022-07-29 15:04] LABS: Bacteria 0 SEEN /hpf (None Seen); Mucous, Urine 0 SEEN /hpf (<or=2+); Red Blood Cells-Urine 0 SEEN /hpf (0-5); Squamous Epithelial Cells - UA 0 SEEN /hpf (5-10); White Blood Cells 0 SEEN /hpf (0-5)
[2022-07-29 16:47] LABS: Color, Urine Yellow (Yellow); Glucose, Dipstick Normal (Normal); Ketone-Dipstick Negative (Negative); Leukocyte Esterase-Dipstick 25 /ul (Negative); Nitrite-Dipstick Negative (Negative); Occult Blood-Urine 10 /ul (Negative); Protein-Dipstick Negative (Negative); Specific Gravity, Urine 1.015 (1.002-1.030); Urine Bilirubin Dipstick Negative (Negative); Urine Clarity Clear (Clear); Urine Urobilinogen Normal (Normal)
== END | disposition home or self-care (01) ==
LOC: LABSPEC 15:03
PROVIDERS: PCP Internal Medicine; Referring Provider Internal Medicine; Visit Provider Internal Medicine
DX: N39.0 Urinary tract infection, site not specified (principal)
CPT/HCPCS: 81001; 87086; 87088

== ENCOUNTER → 2022-08-08 | Outpatient (CLI) | payer OTHER, SELFPAY | END | disposition home or self-care (01) | LOC: LAB 12:26 | PROVIDERS: PCP Internal Medicine; Referring Provider Nurse Practitioner Family; Visit Provider Nurse Practitioner Family | DX: K58.9 Irritable bowel syndrome, unspecified (principal); R79.1 Abnormal coagulation profile | CPT/HCPCS: 83630; 87506 ==

== ENCOUNTER → 2022-10-02 | Outpatient (CLI) | payer OTHER, SELFPAY ==
[2022-10-02 12:48] LABS: Absolute Lymphocyte Count 1.71 X10^3/uL (0.83-4.51); Absolute Neutrophil Count 3.2 X10^3/uL (2.0-7.7); Basophil# 0.11 X10^3/uL; Basophil% 1.9 % (0-1); Eosinophil# 0.34 X10^3/uL; Eosinophils% 5.9 % (0-5); Hematocrit 37.9 % (37-47); Hemoglobin 12.6 g/dL (12.0-15.0); Lymphocyte # 1.71 X10^3/ul (0.83-4.51); Lymphocyte % 29.7 % (19-41); Mean Corp Hgb Conc 33.2 g/dL (32-36); Mean Corpuscular Hgb 31.3 pg (27.0-32.0); Mean Platelet Vol. 9.3 fl (6.2-12.0); Monocyte# 0.39 X10^3/uL; Monocyte% 6.8 % (0-10); NRBC Flagged by Analyzer 0 % (0-5); Neutrophil # 3.18 X10^3/uL (2.7-7.7); Neutrophil % 55.4 % (47-70); Platelet Count 331 K/mm3 (150-450); RBC Distribution Width CV 13.2 % (11.6-14.6); RBC Distribution Width SD 45.1 fl (35.1-43.9); Red Blood Count 4.03 M/mm3 (4.2-5.4); White Blood Count 5.8 K/mm3 (4.4-11.0)
[2022-10-02 13:20] LABS: ALB/GLOB Ratio 1.1 RATIO (0.9-2.4); AST(SGOT) 30 U/L (15-37); Alanine Aminotransfer ALT/SGPT 52 U/L (13-56); Albumin, Serum 3.8 g/dL (3.2-5.0); Alkaline Phosphatase 86 U/L (45-117); Anion Gap 6 (5-15); BUN 20 mg/dL (7-18); Calcium,Total 9.3 mg/dL (8.5-10.1); Chloride 109 mmol/L (98-107); Creatinine, Serum 0.74 mg/dL (0.55-1.02); EST Glomerular Filtration Rate 84 mL/min (>60); Est Glom Filt Rate - Afr Amer 102 mL/min (>60); Globulin 3.5 g/dL (2.2-4.2); Glucose 98 mg/dL (74-106); Potassium 4.1 mmol/L (3.5-5.1); Protein, Total 7.3 g/dL (6.4-8.2); Sodium Level 139 mmol/L (136-145)
== END | disposition home or self-care (01) ==
LOC: BIMLAB 08:27
PROVIDERS: PCP Internal Medicine; Referring Provider Internal Medicine; Visit Provider Internal Medicine
DX: I10 Essential (primary) hypertension (principal); K52.9 Noninfective gastroenteritis and colitis, unspecified
CPT/HCPCS: 36415; 80053; 85025

== ENCOUNTER → 2023-04-07 | Outpatient (CLI) | payer OTHER, SELFPAY ==
--- OUTSIDE RECORDS SUMMARY | 2023-04-07 15:27 | XMS RPT_ITS | CCD ---
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 Name Role Phone Vane Liu MD Unavailable Medications Completed/Discontinued Medications Medication Drug Class(es) Dates Sig (Normalized) Sig (Original) aspirin 81 mg delayed release oral tablet (1 source) Nonsteroidal Anti-inflammatory Drug Start: 09-23-2016 ASPIRIN 81 MG TBEC PO daily ASPIRIN [id number] Alecia Huitron atorvastatin 20 mg oral tablet (1 source) HMG-CoA Reductase Inhibitor Start: 09-23-2016 take 1 tablet by mouth once daily LIPITOR 20 MG TABS Po daily ATORVASTATIN CALCIUM [id number] Vane Liu MD calcium (1 source) Phosphate Binder, Calcium Start: 09-23-2016 CALCIUM + D3 600-200 MG-UNIT TABS PO daily CALCIUM CARB-CHOLECALCIFE ROL [id number] Alecia Huitron FLUoxetine 20 mg oral capsule (3 sources) Serotonin Reuptake Inhibitor Start: 09-27-2016 End: 10-27-2016 PROZAC 20 MG CAPS 1 tab QAM FLUOXETINE HCL [id number] Vane Liu MD fluticasone propionate 0.05 mg/actuat metered dose nasal spray (1 source) Corticosteroid Start: 09-23-2016 FLONASE 50 MCG/ACT SUSP 1 spray bid FLUTICASONE PROPIONATE 56327941061 Alecia Huitron metFORMIN hydrochloride 500 mg oral tablet (5 sources) Biguanide Start: 09-27-2016 End: 10-27-2016 take 1 tablet by mouth twice daily METFORMIN HCL 500 MG TABS One tablet by mouth twice daily METFORMIN HCL [id number] Vane Liu MD Problems Active Problems Problem Classification Problem Date Documented Da te Episodic/Chronic Anxiety disorders (1 source) Mixed anxiety and depressive disorder; Translations: [Other specified anxiety disorders] Onset: 09-27-2016 09-27-2016 Chronic Diabetes mellitus without complication (1 source) Type 2 diabetes mellitus; Translations: [Type 2 diabetes mellitus without complications] Onset: 09-27-2016 09-27-2016 Chronic Disorders of lipid metabolism (1 source) Hyperlipidemia; Translations: [Hyperlipidemia, unspecified] Onset: 09-27-2016 09-27-2016 Chronic Unclassified (1 source) Screening - health check; Translations: [Encounter for general adult medical examination without abnormal findings] Onset: 12-24-2016 12-24-2016 Past or Other Problems Problem Classification Problem Date Documented Da te Episodic/Chronic Unclassified (1 source) Encounter for screening for diseases of the blood and blood-forming organs and certain disorders involving the immune mechanism; Translations: [Encounter for screening for diseases of the blood and blood-forming organs and certain disorders involving the immune mechanism] Onset: 12-24-2016 12-24-2016 Episodic Results Test Name Value Interpretation Reference Range Facil ity Vital Signs Date Time Vital Sign Value Performing Clinician Facility 12-24-2016 15:17-0400 BMI (Body Mass Index) 44.8 kg/m2 Vane Liu MD [facility] Work Phone: 12-24-2016 15:17-0400 Body Temperature 96.8 [degF] Vane Liu MD [facility] Work Phone: 12-24-2016 15:17-0400 BP Diastolic 80 mm[Hg] Vane Liu MD [facility] Work Phone: 12-24-2016 15:17-0400 BP Systolic 126 mm[Hg] Vane Liu MD [facility] Work Phone: 12-24-2016 15:17-0400 Height 134.62 cm Vane Liu MD [facility] Work Phone: 12-24-2016 15:17-0400 Pulse (Heart Rate) 81 /min Vane Liu MD [facility] Work Phone: 12-24-2016 15:170400 Respiratory Rate 16 /min Vane Liu MD [facility] Work Phone: 12-24-2016 15:170400 Weight 81.19 kg Vane Liu MD [facility] Work Phone: Procedures Date Procedure Procedure Detail Performing Clinician Start: 12-24-2016 End: 12-27-2016 Hemoglobin A1c/Hemoglobin.total in Blood Vane Liu MD Work Phone: Start: 10-11-2016 End: 12-26-2016 *BMP Vane Dong Work Phone: Start: 10-11-2016 End: 12-26-2016 *CBC with Differential Vane pimentel MD Work Phone: Start: 10-11-2016 End: 12-27-2016 Lipid 1996 panel - Serum or Plasma Vane Liu MD Work Phone: Plan of Treatment Date Care Activity Detail Author Start: 03-25-2017 End: 03-25-2017 Appointment Appointment [facility] Work Phone: Start: 12-24-2016 End: 12-24-2016 *BMP *BMP [facility] Work Phone: Start: 12-24-2016 End: 12-24-2016 *CBC with Differential *CBC with Differential [facility] Work Phone: Start: 12-24-2016 End: 12-24-2016 Follow Up Appt 3 months Follow Up Appt 3 months [facility] Work Phone: Start: 12-24-2016 End: 12-27-2016 Hemoglobin A1c/Hemoglobin.total mass fraction (Bld) *HgA1C [facility] Work Phone: Start: 12-24-2016 End: 12-24-2016 Lipid panel [AGGREGATE] *Lipid Profile [facility] Work Phone: Start: 10-11-2016 End: 12-26-2016 *BMP *BMP [facility] Work Phone: Start: 10-11-2016 End: 12-26-2016 *CBC with Differential *CBC with Differential [facility] Work Phone: Start: 10-11-2016 End: 12-27-2016 Lipid panel [AGGREGATE] *Lipid Profile [facility] Work Phone: Start: 09-27-2016 End: 09-27-2016 Follow Up Appt 3 months Follow Up Appt 3 months [facility] Work Phone: Start: 09-27-2016 End: 09-27-2016 Podiatry Referral Podiatry Referral [facility] Work Phone: Additional Source Comments FOR RECORDS PERTAINING TO PATIENTS WHO ARE OR HAVE BEEN ENROLLED IN A CHEMICAL DEPENDENCY/SUBSTANCEABUSE PROGRAM, SOME INFORMATION MAY BE OMITTED. This clinical summary was aggregated from multiple sources. Caution should be exercised in using it in the provision of clinical care. This summary normalizes information from multiple sources, and as a consequence, information in this document may materially change the coding, format and clinical context of patient data. In addition, data may be omitted in some cases. CLINICAL DECISIONS SHOULD BE BASED ON THE PRIMARY CLINICAL RECORDS. [employer] provides no warranty or guarantee of the accuracy or completeness of information in this document.
[2023-04-07 16:33] LABS: Absolute Lymphocyte Count 2.27 X10^3/uL (0.83-4.51); Absolute Neutrophil Count 3.8 X10^3/uL (2.0-7.7); Basophil# 0.08 X10^3/uL; Basophil% 1.2 % (0-1); Eosinophil# 0.29 X10^3/uL; Eosinophils% 4.2 % (0-5); Hematocrit 37.2 % (37-47); Hemoglobin 12.2 g/dL (12.0-15.0); Lymphocyte # 2.27 X10^3/ul (0.83-4.51); Lymphocyte % 33.1 % (19-41); Mean Corp Hgb Conc 32.8 g/dL (32-36); Mean Corpuscular Volume 91.4 fL (81-99); Mean Platelet Vol. 9.1 fl (6.2-12.0); Monocyte# 0.39 X10^3/uL; Monocyte% 5.7 % (0-10); NRBC Flagged by Analyzer 0 % (0-5); Neutrophil # 3.81 X10^3/uL (2.7-7.7); Neutrophil % 55.7 % (47-70); Platelet Count 324 K/mm3 (150-450); RBC Distribution Width CV 13.1 % (11.6-14.6); RBC Distribution Width SD 43.5 fl (35.1-43.9); Red Blood Count 4.07 M/mm3 (4.2-5.4); White Blood Count 6.9 K/mm3 (4.4-11.0)
[2023-04-07 17:09] LABS: ALB/GLOB Ratio 1.1 RATIO (0.9-2.4); AST(SGOT) 26 U/L (15-37); Alanine Aminotransfer ALT/SGPT 51 U/L (13-56); Albumin, Serum 3.8 g/dL (3.2-5.0); Alkaline Phosphatase 95 U/L (45-117); Anion Gap 5 (5-15); BUN 23 mg/dL (7-18); BUN/Creat Ratio 31.9 RATIO (10-20); Calcium,Total 9.3 mg/dL (8.5-10.1); Chloride 104 mmol/L (98-107); Cholesterol 164 mg/dL (200); Creatinine, Serum 0.72 mg/dL (0.55-1.02); EST Glomerular Filtration Rate 87 mL/min (>60); Est Glom Filt Rate - Afr Amer 105 mL/min (>60); Globulin 3.6 g/dL (2.2-4.2); Glucose 103 mg/dL (74-106); High Density Lipoprotein 66 mg/dL; Potassium 3.7 mmol/L (3.5-5.1); Protein, Total 7.4 g/dL (6.4-8.2); Sodium Level 135 mmol/L (136-145); Triglycerides 126 mg/dL; Very Low Density Lipoprotein 25 mg/dL (5-40)
== END | disposition home or self-care (01) ==
LOC: BIMLAB 15:03
PROVIDERS: PCP Internal Medicine; Referring Provider Internal Medicine; Visit Provider Internal Medicine
DX: E11.9 Type 2 diabetes mellitus without complications (principal)
CPT/HCPCS: 36415; 80053; 80061; 85025

== ENCOUNTER → 2023-12-03 | Outpatient (CLI) | payer OTHER, SELFPAY ==
--- NOTE | 2023-12-03 04:35 | LES_PTH ---
PATIENT: AURELIANO CALHOUN [facility] U#:[id number] AGE/SX: 63/F ROOM: RE12/03/[address]: Dr. Isabelle Toscano DPM : 1960 BED: DIS: 12/03/2023 SPEC #: [id number] RECD: 12/03/23 17:36 STATUS: VANE REEmerald #: [id number] BARNEY: 12/03/23 04:[address]: Isabelle Toscano DEPT: SURGICAL PATHOLOGY RECD BY: Mary Ugalde ENTERED: 12/04/23 08:01 SP TYPE: Lesion OTHR DR: Dr. Vane Liu MD Tissues: Skin of leg, NOS Procedures: Surgery Specimen Level IV HEADER OPERATION: Shave biopsy evaluation PRE-OP DIAGNOSIS: Left lower leg lesion TISSUE SUBMITTED: Left lower leg lesion MICROSCOPIC DIAGNOSIS Left lower leg lesion, shave biopsy: A piece of dense fibroconnective tissue, most consistent with hypertrophic scar. Negative for malignancy. See comment. 12/05/2023 COMMENT Overlying epithelium/epidermis is not seen. Clinical correlation and appropriate follow up are necessary, rebiopsy is suggested, if clinically indicated. Case has been reviewed in consultation with Dr. Joe who concurs with the above diagnosis. IDC:AM MICROSCOPIC DESCRIPTION Slides are reviewed. GROSS DESCRIPTION Received in fixative is one container labeled with the patient's name and designated Left lower leg. The specimen consists of a piece of abbott-white soft tissue measuring 0.7 x 0.6 x 0.2cm. The specimen is inked, bisected and submitted entirely in one cassette. 12/04/2023 TC:5 CPT:[id number]
== END | disposition home or self-care (01) ==
PROVIDERS: PCP Internal Medicine; Referring Provider Podiatrist; Visit Provider Podiatrist
DX: L98.9 Disorder of the skin and subcutaneous tissue, unspecified (principal)
CPT/HCPCS: 88305

== ENCOUNTER → 2024-04-16 | Outpatient (CLI) | payer OTHER, SELFPAY ==
[2024-04-16 07:30] LABS: Absolute Lymphocyte Count 2.23 X10^3/uL (0.83-4.51); Absolute Neutrophil Count 2.8 X10^3/uL (2.0-7.7); Basophil# 0.09 X10^3/uL; Basophil% 1.6 % (0-1); Eosinophil# 0.18 X10^3/uL; Eosinophils% 3.2 % (0-5); Hematocrit 38.7 % (37-47); Hemoglobin 12.9 g/dL (12.0-15.0); Lymphocyte # 2.23 X10^3/ul (0.83-4.51); Lymphocyte % 39.3 % (19-41); Mean Corp Hgb Conc 33.3 g/dL (32-36); Mean Corpuscular Hgb 30.9 pg (27.0-32.0); Mean Corpuscular Volume 92.6 fL (81-99); Mean Platelet Vol. 8.9 fl (6.2-12.0); Monocyte# 0.38 X10^3/uL; Monocyte% 6.7 % (0-10); NRBC Flagged by Analyzer 0 % (0-5); Neutrophil # 2.76 X10^3/uL (2.7-7.7); Neutrophil % 48.7 % (47-70); Platelet Count 323 K/mm3 (150-450); RBC Distribution Width CV 12.9 % (11.6-14.6); RBC Distribution Width SD 43.8 fl (35.1-43.9); Red Blood Count 4.18 M/mm3 (4.2-5.4); White Blood Count 5.7 K/mm3 (4.4-11.0)
[2024-04-16 08:17] LABS: ALB/GLOB Ratio 1.1 RATIO (0.9-2.4); AST(SGOT) 29 U/L (15-37); Alanine Aminotransfer ALT/SGPT 51 U/L (13-56); Albumin, Serum 3.7 g/dL (3.2-5.0); Alkaline Phosphatase 107 U/L (45-117); Anion Gap 6 (5-15); BUN 15 mg/dL (7-18); Chloride 107 mmol/L (98-107); Cholesterol 188 mg/dL (200); Creatinine, Serum 0.75 mg/dL (0.55-1.02); EST Glomerular Filtration Rate 82 mL/min (>60); Est Glom Filt Rate - Afr Amer 100 mL/min (>60); Globulin 3.5 g/dL (2.2-4.2); Glucose 105 mg/dL (74-106); High Density Lipoprotein 71 mg/dL; Protein, Total 7.2 g/dL (6.4-8.2); Sodium Level 140 mmol/L (136-145); Triglycerides 106 mg/dL; Very Low Density Lipoprotein 21 mg/dL (5-40)
[2024-04-18 20:11] LABS: Hemoglobin A1c 5.7 % (3.8-5.6)
== END | disposition home or self-care (01) ==
LOC: LAB 06:49
PROVIDERS: PCP Internal Medicine; Referring Provider Internal Medicine; Visit Provider Internal Medicine
DX: E11.9 Type 2 diabetes mellitus without complications (principal); I10 Essential (primary) hypertension
CPT/HCPCS: 36415; 80053; 80061; 83036; 85025

== ENCOUNTER → 2024-05-13 | Outpatient (CLI) | payer OTHER, SELFPAY ==
--- NOTE | 2024-05-13 13:19 | BI_ITS ---
PROCEDURE: SCRN MAMM (CAD)W/ANGÉLICA BILAT REASON FOR EXAM: F, Age 64 y/o, no family history. . Routine annual follow-up. TECHNIQUE: Bilateral screening digital breast tomosynthesis with 2D and 3D images. Computer aided detection. COMPARISON: Prior exam(s) dating back to February 27, 2021.. FINDINGS: The breasts are almost entirely fatty. Stable benign-appearing bilateral axillary lymph nodes. No suspicious masses, areas of developing architectural distortion, or suspicious calcifications. BI/SCRN MAMM (CAD)W/ANGÉLICA BILAT IMPRESSION: BI-RADS 2: BENIGN. RECOMMEND ANNUAL MAMMOGRAPHIC SCREENING. Follow-up code: Routine Follow-up The patient will be notified of the results by letter. Reading Location: [id number]
--- NOTE | 2024-05-13 13:19 | BD_ITS ---
PROCEDURE: The patient is considered as outlined below according to [employer] (WHO) criteria with a fracture risk. There has been of bone density since the previous examination. REASON FOR EXAM: F, age 64 y/o . Postmenopausal. TECHNIQUE: DEXA scan of the lumbar spine and both hips. COMPARISON: None. FINDINGS: Lumbar Spine (L1-L4): g/cm2 (1.026)/T-score (-0.2)/Z-score (1.0) findings are suggestive of normal with a low fracture risk. Left Femur Total: g/cm2 (0.956)/T-score (0.1)/Z-score (1.4) Left Femoral Neck: g/cm2 (0.828)/T-score (-0.2)/Z-score (1.3) Right Femur Total: g/cm2 (0.991)/T-score (0.4)/Z-score (1.6) Right Femoral Neck: g/cm2 (0.835)/T-score (-0.1)/Z-score (1.4) BD/Dexa Bone Density Study IMPRESSION: The patient is considered normal as outlined below according to [employer] (WHO) criteria with a low fracture risk. Reading Location: [id number]
== END | disposition home or self-care (01) ==
LOC: OPBD 13:17
PROVIDERS: PCP Internal Medicine; Referring Provider Internal Medicine; Visit Provider Internal Medicine
DX: Z12.31 Encounter for screening mammogram for malignant neoplasm of breast (principal); Z78.0 Asymptomatic menopausal state
CPT/HCPCS: 77063; 77067; 77080

== ENCOUNTER → 2024-12-29 | Outpatient (CLI) | payer MEDICARE, SELFPAY ==
--- OUTSIDE RECORDS SUMMARY | 2024-12-29 19:44 | XMS RPT_ITS | CCD ---
Author Organization [facility] CliniSymd Care Team Providers Care Supervisor Electronics Assembly Name Role Phone Vane Liu MD Unavailable [phone] Alexa, Dr. Cifuentes Primary Care Provider [phone] Alexa, Dr. Cifuentes Attending Provider [phone] Alexa, Dr. Cifuentes Referring Provider [phone] Alexa, Dr. Cifuentes Primary Care Provider [phone] 0) Alexa, Dr. Cifuentes Attending Provider [phone] Alexa, Dr. Cifuentes Referring Provider [phone] Dr. Naun Meehan Attending Provider Dr. Nabil Victor Attending Provider [phone] Dr. Siddhartha Shaver Referring Provider Dr. Vane Liu Primary Care Provider 1(33 0) Dr. Nabil Victor Attending Provider [phone] Dr. Siddhartha Shaver Referring Provider Dr. Vane Liu Attending Provider [phone] Dr. Vane Liu Referring Provider [phone] Dr. Vane Liu Primary Care Provider 1(33 0) Alexa, Dr. Cifuentes Attending Provider [phone] Alexa, Dr. Cifuentes Referring Provider [phone] TESFAYE [place] Attending Provider TESFAYE Fleming Attending Provider Alexa, Dr. Cifuentes Primary Care Provider 1(33 0) Alexa, Dr. Cifuentes Referring Provider [phone] Alexa, Dr. Cifuentes Attending Provider [phone] Char QUIJANO CLIENT SERVICES REPRESENTATIVE-C Wiley Attending Provider [phone] Alexa, Dr. Cifuentes Primary Care Provider 1(33 0) Alexa, Dr. Cifuentes Referring Provider [phone] Alexa ZIEGLER, Dr. Cifuentes Primary Care Provider Alexa ZIEGLER, Dr. Cifuentes Referring Provider [phone] 0) Eleazar Fleming Attending Provider Alexa ZIEGLER, Dr. Cifuentes Attending Provider [phone] 0) Alexa ZIEGLER, Dr. Cifuentes Primary Care Provider Alexa ZIEGLER, Dr. Cifuentes Referring Provider [phone] 0) Alexa ZIEGLER, Dr. Cifuentes Primary Care Provider Alexa ZIEGLER, Dr. Cifuentes Attending Provider [phone] 0) Alexa ZIEGLER, Dr. Cifuentes Referring Provider 1(33 0) Annie ZIEGLER, Dr. Givens Attending Provider [phone] Jacob Marsh Attending Provider Annie ZIEGLER, Dr. Givens Attending Provider Mitzi Grace Attending Provider Annie ZIEGLER, Dr. Givens Attending Provider [phone] Alexa ZIEGLER, Dr. Cifuentes Primary Care Physician Annie ZIEGLER, Dr. Givens Attending Physician Alexa ZIEGLER, Dr. Cifuentes Referring Provider [phone] 0) Jacob Marsh Attending Physician Mitzi Grace Attending Physician [phone] Dr. Vane Liu MD Attending Physician Mary Jane Joiner Attending Physician [phone] Oleghe, Efewongbe Primary Care Unavailable Oleghe, Efewongbe Referring Unavailable Mary Jane Morris Attending Unavailable Oleghe, Efewongbe Primary Care Unavailable Oleghe, Efewongbe Attending Unavailable Oleghe, Efewongbe Referring Unavailable Oleghe, Efewongbe Primary Care Unavailable Eleazar Fleming Attending Unavailable Oleghe, Efewongbe Referring Unavailable Oleghe, Efewongbe Primary Care Unavailable Oleghe, Efewongbe Attending Unavailable Oleghe, Efewongbe Referring Unavailable Oleghe, Efewongbe Primary Care Unavailable Oleghe, Efewongbe Attending Unavailable Oleghe, Efewongbe Referring Unavailable Oleghe, Efewongbe Primary Care Unavailable Jacob Marsh Attending Unavailable Oleghe, Efewongbe Referring Unavailable Oleghe, Efewongbe Primary Care Unavailable Oleghe, Efewongbe Referring Unavailable Mitzi Doan NP Attending Unavailable Oleghe, Efewongbe Primary Care Unavailable Oleghe, Efewongbe Attending Unavailable Oleghe, Efewongbe Referring Unavailable Oleghe, Efewongbe Primary Care Unavailable Oleghe, Efewongbe Attending Unavailable Oleghe, Efewongbe Referring Unavailable Oleghe, Efewongbe Primary Care Unavailable Mary Jane Morris Attending Unavailable Mary Jane Morris Referring Unavailable Oleghe, Efewongbe Attending Unavailable Oleghe, Efewongbe Referring Unavailable Oleghe, Efewongbe Primary Care Unavailable Medications Current Medications Medication Drug Class(es) Dates Sig (Normalized) Sig (Original) Blood-Glucose Meter (Accu-Chek Genia Plus Meter) mis (17 sources) Start: 07-02-2021 Blood-Glucose Meter (Accu-Chek Genia Plus Meter) [facility] Active 0 .ROUTE .MEDSUPPLY 1 0 July 02, 2021 12:00am As directed Start: 07-02-2021 Blood-Glucose Meter (Accu-Chek Genia Plus Meter) mis Active 0 .ROUTE .MEDSUPPLY July 01, 2021 11:00pm As directed Start: 07-02-2021 Blood-Glucose Meter (Accu-Chek Genia Plus Meter) mis Active 0 .ROUTE .MEDSUPPLY July 02, 2021 12:00am As directed FLUoxetine 20 mg oral capsule (20 sources) Serotonin Reuptake Inhibitor Start: 09-22-2024 take 1 capsule by mouth once daily Fluoxetine 20 mg capsule Active 20 mg PO DAILY 90 3 September 22, 2024 1:29pm Complies with drug therapy Start: 04-21-2024 End: 09-22-2024 take 2 capsules by mouth once daily Fluoxetine 10 mg capsule Discontinued 20 mg PO DAILY 180 3 September 07, 2024 12:00pm September 22, 2024 1:29pm Start: 04-07-2023 End: 04-21-2024 take 3 capsules by mouth once daily Fluoxetine 10 mg capsule Discontinued 30 mg PO DAILY 270 90 April 07, 2023 5:53pm April 21, 2024 3:54pm Start: 06-16-2020 End: 04-03-2023 take 3 capsules by mouth once daily Fluoxetine 10 mg capsule Discontinued 30 mg PO DAILY 270 90 0 October 22, 2022 11:59am January 19, 2023 1:00am January 03, 2023 8:43am Start: 06-16-2020 End: 09-28-2021 take 30 mg by mouth once daily Fluoxetine Discontinued 30 MG PO DAILY September 28, 2021 12:00am September 28, 2021 10:27am Start: 10-03-2017 End: 06-16-2020 Fluoxetine 20 mg capsule Discontinued 0 .ROUTE .COMPLEX 90 0 January 29, 2019 2:22pm May 28, 2019 9:27am TAKE 1 CAPSULE DAILY Start: 12-06-2013 End: 03-05-2017 take 1 capsule by mouth once daily Fluoxetine 20 MG capsule Discontinued 20 mg PO DAILY December 06, 2013 12:00am March 05, 2017 9:50am Tirzepatide (4 sources) Start: 09-07-2024 Tirzepatide 10 mg/0.5 mL pen injector Active 10 mg SC EVERY WEEK 6.5 90 3 September 07, 2024 12:00pm Complies with drug therapy Start: 01-14-2024 End: 09-07-2024 Tirzepatide 10 mg/0.5 mL pen injector Discontinued 10 mg SC EVERY WEEK 6.5 90 3 January 14, 2024 6:29pm September 07, 2024 12:01pm Start: 12-02-2023 End: 01-14-2024 Tirzepatide 10 mg/0.5 mL pen injector Discontinued 10 mg SC EVERY WEEK 2 December 02, 2023 1:34pm January 14, 2024 6:33pm Start: 10-17-2023 End: 12-02-2023 Tirzepatide 10 mg/0.5 mL pen injector Discontinued 10 mg SC EVERY WEEK 2 October 17, 2023 8:32am December 02, 2023 1:34pm Tirzepatide 10 mg/0.5 mL pen injector (18 sources) Start: 09-07-2024 Tirzepatide 10 mg/0.5 mL pen injector Active 10 mg SC EVERY WEEK 6.5 90 3 September 07, 2024 12:00pm Start: 01-14-2024 End: 09-07-2024 Tirzepatide 10 mg/0.5 mL pen injector Discontinued 10 mg SC EVERY WEEK 6.5 90 January 14, 2024 6:29pm September 07, 2024 12:01pm Start: 01-14-2024 Tirzepatide 10 mg/0.5 mL pen injector Active 10 mg SC EVERY WEEK 6.5 90 January 14, 2024 6:29pm Start: 12-02-2023 End: 01-14-2024 Tirzepatide 10 mg/0.5 mL pen injector Discontinued 10 mg SC EVERY WEEK 2 December 02, 2023 1:34pm January 14, 2024 6:33pm Start: 12-02-2023 End: 01-14-2024 Tirzepatide 10 mg/0.5 mL pen injector Discontinued 10 mg SC EVERY WEEK 2 December 02, 2023 1:34pm January 14, 2024 6:33pm Start: 10-17-2023 End: 12-02-2023 Tirzepatide 10 mg/0.5 mL pen injector Discontinued 10 mg SC EVERY WEEK 2 October 17, 2023 8:32am December 02, 2023 1:34pm Start: 10-17-2023 End: 12-02-2023 Tirzepatide 10 mg/0.5 mL pen injector Discontinued 10 mg SC EVERY WEEK October 17, 2023 8:32am December 02, 2023 1:34pm Completed/Discontinued Medications Medication Drug Class(es) Dates Sig (Normalized) Sig (Original) acetaminophen 325 mg / HYDROcodone bitartrate 5 mg oral tablet (17 sources) Opioid Agonist Start: 12-13-2013 End: 03-05-2017 Hydrocodone-Acetami nophen 1 TABLET tablet Discontinued 1 - 2 {tbl} PO EVERY 4 HOURS NEEDED as needed for Pain December 13, 2013 12:00am March 05, 2017 9:51am Start: 12-13-2013 End: 03-05-2017 take 1 tablet by mouth every four hours as needed Hydrocodone-Acetaminophen Discontinued 1 - 2 TABLET PO EVERY 4 HOURS NEEDED December 13, 2013 12:00am March 05, 2017 9:51am amoxicillin 875 mg / clavulanate 125 mg oral tablet (20 sources) Penicillin-class Antibacterial Start: 03-19-2024 End: 03-29-2024 Amoxicillin-Pot Clavulanate 875-125 mg tablet Discontinued 1 {tbl} PO Q12H 20 10 0 March 19, 2024 1:00am March 28, 2024 1:00am March 29, 2024 1:10am Acute sinusitis, unspecified Start: 05-08-2023 End: 06-11-2023 Amoxicillin-Pot Clavulanate 875-125 mg tablet Discontinued 1 {tbl} PO Q12H 20 May 08, 2023 1:00am June 11, 2023 9:00am Start: 06-21-2022 End: 08-07-2022 Amoxicillin-Pot Clavulanate 875-125 mg tablet Discontinued 1 {tbl} PO TWICE A DAY June 21, 2022 12:00am August 07, 2022 2:30pm Start: 06-21-2022 End: 08-07-2022 take 1 tablet by mouth twice daily Amoxicillin-Pot Clavulanate Discontinued 1 TABLET PO TWICE A DAY June 21, 2022 12:00am August 07, 2022 2:30pm Start: 03-13-2017 End: 03-25-2017 Amoxicillin-Pot Clavulanate (Augmentin) 875-125 mg tablet Discontinued 1 {tbl} PO TWICE A DAY 14 0 March 13, 2017 1:00am March 25, 2017 2:11pm ascorbic acid 500 mg oral tablet (17 sources) Vitamin C Start: 12-06-2013 End: 12-25-2017 take 1 tablet by mouth once daily Ascorbic Acid (Vitamin C) 500 MG tablet Discontinued 500 mg PO DAILY@799December 06, 2013 12:00am December 25, 2017 2:41pm aspirin 81 mg delayed release oral tablet (18 sources) Nonsteroidal Anti-inflammatory Drug Start: 09-23-2016 ASPIRIN 81 MG TBEC PO daily ASPIRIN [id number] Alecia Huitron Start: 12-06-2013 End: 06-30-2018 take 1 tablet by mouth once daily Aspirin 81 MG tablet,chewable Discontinued 81 mg PO DAILY@799December 06, 2013 12:00am June 30, 2018 10:19am atorvastatin 20 mg oral tablet (20 sources) HMG-CoA Reductase Inhibitor Start: 03-25-2017 End: 09-07-2024 take 1 tablet by mouth once daily Atorvastatin (Lipitor) 20 mg tablet Discontinued 20 mg PO daily 90 3 May 27, 2024 8:15am September 07, 2024 12:01pm Start: 03-05-2017 End: 03-05-2017 take 1 tablet by mouth once daily Atorvastatin (Lipitor) 20 mg tablet Discontinued 20 mg PO daily March 05, 2017 1:00am March 05, 2017 10:32am Start: 09-23-2016 take 1 tablet by marcela once daily LIPITOR 20 MG TABS Po daily ATORVASTATIN CALCIUM [id number] Vane Liu MD azithromycin 250 mg oral tablet (17 sources) Macrolide Antimicrobial Start: 02-03-2018 End: 04-03-2018 Azithromycin 250 mg tablet Discontinued 0 PO .COMPLEX 6 0 February 03, 2018 1:00am April 03, 2018 9:17am Take two tablets by mouth on day one then one tablet by mouth on days 2-5 betamethasone 0.5 mg/ml / clotrimazole 10 mg/ml topical cream (20 sources) Azole Antifungal, Corticosteroid Start: 02-08-2023 End: 03-08-2023 Clotrimazole-Betamet hasone 1-0.05 % cream Discontinued 1 NMA TOPICAL TWICE A DAY 45 28 0 February 08, 2023 1:00am March 07, 2023 1:00am March 08, 2023 1:33am Start: 11-08-2020 End: 04-06-2021 Clotrimazole-Betamethasone 1 -0.05 % cream Discontinued 1 NMA TOPICAL TWICE A DAY 45 14 1 November 08, 2020 12:00am April 06, 2021 9:34am Start: 11-08-2020 End: 04-06-2021 Clotrimazole-Betamethasone D iscontinued 1 APPLIC TOPICAL TWICE A DAY 45 14 November 08, 2020 12:00am April 06, 2021 9:34am calcium (1 source) Phosphate Binder, Calcium Start: 09-23-2016 CALCIUM + D3 600-200 MG-UNIT TABS PO daily CALCIUM CARB-CHOLECALCIFEROL [id number] Alecia Huitron calcium carbonate 1250 mg oral tablet (17 sources) Start: 12-06-2013 End: 12-25-2017 take 1 tablet by mouth once daily Calcium Carbonate 500 MG tablet Discontinued 500 mg PO DAILY@0800 December 06, 2013 12:00am December 25, 2017 2:41pm ciprofloxacin 500 mg oral tablet (9 sources) Quinolone Antimicrobial Start: 07-12-2022 End: 08-07-2022 take 1 tablet by mouth twice daily Ciprofloxacin Hcl 500 mg tablet Discontinued 500 mg PO TWICE A DAY 10 0 July 12, 2022 12:00am August 07, 2022 2:30pm clotrimazole 10 mg/ml topical cream (6 sources) Azole Antifungal Start: 06-11-2023 End: 06-25-2023 Clotrimazole 1 % cream Discontinued 1 NMA TOPICAL TWICE A DAY 45 14 0 June 11, 2023 12:00am June 24, 2023 12:00am June 25, 2023 12:10am Can extend to 3 weeks if not completely resolved. codeine phosphate 2 mg/ml / guaiFENesin 20 mg/ml oral solution (20 sources) Opioid Agonist Start: 05-08-2023 End: 07-07-2023 take 1 mL by mouth every four to six hours as needed for cough Codeine-Guaifenesin 10-100 mg/5 mL liquid Discontinued 10 mL PO EVERY 4-6 HOURS as needed for cough 120 0 May 08, 2023 1:00am July 07, 2023 2:25pm Start: 02-03-2018 End: 04-03-2018 take 5-10 mL by mouth every six hours as needed for cough Codeine-Guaifenesin (Cheratussin Ac) 10-100 mg/5 mL liquid Discontinued 0 PO EVERY 6 HOURS as needed for cough 120 0 February 03, 2018 1:00am April 03, 2018 9:17am 5-10 mL PO Q6H PRN Start: 02-03-2018 End: 04-03-2018 take 5-10 mL by mouth every six hours as needed Codeine-Guaifenesin (Cheratussin Ac) 10-100 mg/5 mL liquid Discontinued 0 PO EVERY 6 HOURS 120 February 03, 2018 1:00am April 03, 2018 9:17am 5-10 mL PO Q6H PRN Start: 03-05-2017 End: 03-13-2017 take 1 mL by mouth every six hours as needed Codeine-Guaifenesin (Cheratussin Ac) 10-100 mg/5 mL liquid Discontinued 10 mL PO EVERY 6 HOURS as needed for flu symptoms 120 0 March 05, 2017 1:00am March 13, 2017 11:22am Start: 03-05-2017 End: 03-13-2017 take 1 mL by mouth every six hours before mealtime Codeine-Guaifenesin (Cheratussin Ac) 10-100 mg/5 mL liquid Discontinued 10 ML PO EVERY 6 HOURS 120 March 05, 2017 1:00am March 13, 2017 11:22am dicyclomine hydrochloride 20 mg oral tablet (20 sources) Anticholinergic Start: 01-28-2020 End: 03-17-2020 take 1 tablet by mouth three times daily as needed Dicyclomine 20 mg tablet Discontinued 20 mg PO THREE TIMES A DAY as needed for abdominal discomfort 90 2 February 24, 2020 1:50pm March 17, 2020 9:14am doxycycline monohydrate 100 mg oral capsule (17 sources) Tetracycline-class Drug Start: 01-07-2019 End: 01-28-2019 take 1 capsule by mouth twice daily Doxycycline Monohydrate 100 mg capsule Discontinued 100 mg PO TWICE A DAY 42 21 0 January 07, 2019 12:00am January 27, 2019 1:00am January 28, 2019 1:07am Dulaglutide (20 sources) GLP-1 Receptor Agonist Start: 08-27-2024 End: 09-07-2024 Dulaglutide (Trulicity) 3 mg/0.5 mL pen injector Discontinued 3 mg SC EVERY WEEK 2 0 August 27, 2024 12:00am September 07, 2024 12:00pm Start: 04-07-2023 End: 10-09-2023 Dulaglutide 4.5 mg/0.5 mL pe n injector Discontinued 4.5 mg SC EVERY WEEK 6.5 90 April 07, 2023 5:53pm October 09, 2023 5:48pm Start: 04-07-2023 End: 10-09-2023 Dulaglutide 4.5 mg/0.5 mL pe n injector Discontinued 4.5 mg SC EVERY WEEK 6.5 April 07, 2023 5:53pm October 09, 2023 5:48pm Start: 10-02-2022 End: 04-07-2023 Dulaglutide 4.5 mg/0.5 mL pe n injector Discontinued 4.5 mg SC EVERY WEEK 6.5 90 October 02, 2022 8:18am April 07, 2023 5:53pm Start: 10-02-2022 End: 04-07-2023 Dulaglutide 4.5 mg/0.5 mL pe n injector Discontinued 4.5 mg SC EVERY WEEK 6.5 October 02, 2022 8:18am April 07, 2023 5:53pm Start: 10-02-2022 Dulaglutide Ac tive 4.5 MG SC EVERY WEEK 6.5 October 02, 2022 8:18am Start: 02-11-2022 End: 10-02-2022 Dulaglutide 3 mg/0.5 mL pen injector Discontinued 3 mg SC EVERY WEEK 6.5 90 February 11, 2022 9:59am October 02, 2022 8:18am Start: 02-11-2022 End: 10-02-2022 Dulaglutide 3 mg/0.5 mL pen injector Discontinued 3 mg SC EVERY WEEK 6.5 90 February 11, 2022 9:59am October 02, 2022 8:18am Start: 02-11-2022 End: 10-02-2022 Dulaglutide Discontinued 3 M G SC EVERY WEEK 6.5 February 11, 2022 9:59am October 02, 2022 8:18am Start: 02-11-2022 Dulaglutide Ac tive 3 MG SC EVERY WEEK 6.5 February 11, 2022 9:59am Start: 02-11-2022 Dulaglutide Ac tive 3 MG SC EVERY WEEK 6.5 February 11, 2022 8:59am Start: 07-02-2021 End: 02-11-2022 Dulaglutide 3 mg/0.5 mL pen injector Discontinued 3 mg SC EVERY WEEK 6.5 90 July 02, 2021 9:03am February 11, 2022 10:00am Start: 07-02-2021 End: 02-11-2022 Dulaglutide 3 mg/0.5 mL pen injector Discontinued 3 mg SC EVERY WEEK 6.5 July 02, 2021 9:03am February 11, 2022 10:00am Start: 07-02-2021 End: 02-11-2022 Dulaglutide Discontinued 3 M G SC EVERY WEEK 6.5 July 02, 2021 9:03am February 11, 2022 10:00am Start: 07-02-2021 End: 02-11-2022 Dulaglutide Discontinued 3 M G SC EVERY WEEK 6.5 July 02, 2021 8:03am February 11, 2022 9:00am Start: 07-02-2021 Dulaglutide Ac tive 3 MG SC EVERY WEEK 6.5 July 02, 2021 9:03am Start: 03-17-2020 End: 07-02-2021 Dulaglutide 1.5 mg/0.5 mL pe n injector Discontinued 1.5 mg SC EVERY WEEK 6.5 90 November 08, 2020 3:36pm July 02, 2021 9:10am Start: 03-17-2020 End: 03-17-2020 Dulaglutide 0.75 mg/0.5 mL p en injector Discontinued 1.5 mg SC EVERY WEEK March 17, 2020 9:14am March 17, 2020 9:26am Start: 03-17-2020 End: 03-17-2020 Dulaglutide Discontinued 1.5 MG SC EVERY WEEK March 17, 2020 9:14am March 17, 2020 9:26am Start: 01-03-2020 End: 03-17-2020 Dulaglutide 0.75 mg/0.5 mL p en injector Discontinued 0.75 mg SC EVERY WEEK 6.5 90 3 January 19, 2020 4:40pm March 17, 2020 9:15am Start: 04-03-2018 End: 05-01-2018 Dulaglutide (Trulicity) 0.75 mg/0.5 mL pen injector Discontinued 0.75 mg SC EVERY WEEK 1 0 April 03, 2018 1:00am May 01, 2018 9:38am Start: 04-03-2018 End: 01-03-2020 Dulaglutide (Trulicity) 1.5 mg/0.5 mL pen injector Discontinued 1.5 mg SC EVERY WEEK 6.5 90 3 July 20, 2019 3:07pm September 08, 2019 4:24pm estrogens, conjugated (penitentiary) 0.625 mg/ml vaginal cream (17 sources) Estrogen Start: 05-01-2018 End: 06-30-2018 Conjugated Estrogens (Premarin) 0.625 mg/gram cream Discontinued 0.5 NMA VAGINAL .twice wk 0 May 01, 2018 1:00am June 30, 2018 10:19am 12 hr fexofenadine hydrochloride 60 mg / pseudoephedrine hydrochloride 120 mg extended release oral tablet (17 sources) alpha-Adrenergic Agonist, Histamine-1 Receptor Antagonist Start: 06-16-2020 End: 01-01-2021 take 1 tablet by mouth every twelve hours as needed Fexofenadine-Pseu doephedrine (Didi-D 12 Hour) 60-120 mg tablet extended release 12 hr Discontinued 1 {tbl} PO Q12H as needed June 16, 2020 12:00am January 01, 2021 2:02pm fluconazole 150 mg oral tablet (6 sources) Azole Antifungal Start: 06-11-2023 End: 07-07-2023 take 1 tablet by mouth every week Fluconazole 150 mg tablet Discontinued 150 mg PO EVERY WEEK 3 0 June 11, 2023 12:00am July 07, 2023 2:26pm fluticasone propionate 0.05 mg/actuat metered dose nasal spray (18 sources) Corticosteroid Start: 09-23-2016 FLONASE 50 MCG/ACT SUSP 1 spray bid FLUTICASONE PROPIONATE [id number] Alecia Dong Huitron Start: 12-06-2013 End: 10-14-2022 Fluticasone Propionate 1 SPR AY spray,suspension Discontinued 2 NMA NASAL TWICE A DAY December 06, 2013 12:00am October 14, 2022 11:04am Start: 12-06-2013 Fluticasone Pr opionate Active 2 SPRAY NASAL TWICE A DAY December 06, 2013 12:00am lisinopril 2.5 mg oral tablet (20 sources) Angiotensin Converting Enzyme Inhibitor Start: 02-03-2018 End: 09-07-2024 take 1 tablet by mouth once daily Lisinopril 2.5 mg tablet Discontinued 2.5 mg PO DAILY 90 3 May 27, 2024 8:15am September 07, 2024 12:01pm Start: 06-27-2017 End: 01-02-2018 take 1 tablet by mouth once daily Lisinopril 2.5 mg tablet Discontinued 2.5 mg PO daily 90 2 June 27, 2017 12:00am January 02, 2018 10:45am meloxicam 15 mg oral tablet (6 sources) Nonsteroidal Anti-inflammatory Drug Start: 12-03-2022 End: 01-03-2023 take 1 tablet by mouth once daily Meloxicam 15 mg tablet Discontinued 15 mg PO DAILY 30 0 December 03, 2022 12:00am January 03, 2023 8:30am Right shoulder pain Pain in right shoulder Pain Do not use in conjunction with other NSAIDS. 24 hr metFORMIN hydrochloride 500 mg extended release oral tablet (20 sources) Biguanide Start: 01-01-2021 End: 12-03-2022 Metformin 500 mg tablet extended release 24 hr Discontinued 1000 mg PO DAILY 180 3 January 08, 2021 5:05pm September 28, 2021 10:27am Start: 01-01-2021 End: 09-28-2021 take 1000 mg by mouth once daily Metformin Discontinued 1000 MG PO DAILY 180 January 08, 2021 5:05pm September 28, 2021 10:27am Start: 02-17-2020 End: 01-01-2021 take 1 tablet by mouth twice daily Metformin 500 mg tablet extended release 24 hr Discontinued 500 mg PO TWICE A DAY 180 March 20, 2020 10:27am January 01, 2021 2:03pm Start: 09-14-2019 End: 03-17-2020 take 1 tablet by mouth twice daily Metformin 1,000 mg tablet Discontinued 1000 mg PO TWICE A DAY 180 90 3 November 23, 2019 2:21pm December 10, 2019 8:32am Start: 10-03-2017 End: 12-10-2019 Metformin (Glucophage Xr) 50 0 mg tablet extended release 24 hr Discontinued 1000 mg PO EVERY EVENING 180 90 3 September 14, 2019 9:30am December 10, 2019 8:32am On Hold: Recall administer with evening meal Start: 06-27-2017 End: 10-03-2017 take 1 tablet by mouth once daily at dinner Metformin 1,000 mg tablet extended release 24hr Discontinued 1000 mg PO daily 90 3 June 27, 2017 12:00am October 03, 2017 11:20am administer with evening meal Start: 03-05-2017 End: 06-27-2017 take 1 tablet by mouth once daily Metformin 1,000 mg tablet Discontinued 1000 mg PO daily March 05, 2017 1:00am June 27, 2017 11:28am Start: 09-27-2016 End: 10-27-2016 take 1 tablet by mouth twice daily METFORMIN HCL 500 MG TABS One tablet by mouth twice daily METFORMIN HCL [id number] Vane Liu MD Start: 09-27-2016 METFORMIN HCL ER (OSM) 1000 MG [id number] 1 tablet QPM METFORMIN HCL [id number] Vane Liu MD Start: 09-23-2016 End: 12-24-2016 take 1 tablet by mouth once daily METFORMIN HCL ER 500 MG [id number] Po daily METFORMIN HCL [id number] Alecia Huitron Miconazole Nitrate (17 sources) Azole Antifungal Start: 04-03-2018 End: 05-01-2018 Miconazole Nitrate (Monistat 1 Combo Pack) 1,200-2 mg-% kit Discontinued 1 NMA VAGINAL DAILY April 03, 2018 1:00am May 01, 2018 9:39am Start: 04-03-2018 End: 05-01-2018 Miconazole Nitrate (Monistat 1 Combo Pack) 1,200-2 mg-% kit Discontinued 1 APPLIC VAGINAL DAILY April 03, 2018 12:00am May 01, 2018 8:39am Start: 04-03-2018 End: 05-01-2018 Miconazole Nitrate (Monistat 1 Combo Pack) 1,200-2 mg-% kit Discontinued 1 APPLIC VAGINAL DAILY April 03, 2018 1:00am May 01, 2018 9:39am [facility] NATURAL PRODUCTS (1 source) Start: 09-27-2016 ADRENAL 200 MG CAPS take 5 tablets a day. [facility] NATURAL PRODUCTS [id number] Vane Liu MD MULTIPLE VITAMINS-MINERALS (1 source) Start: 09-23-2016 take 1 capsule by mouth once daily DAILY MULTIVITAMIN CAPS PO daily MULTIPLE VITAMINS-MINERALS [id number] Alecia Huitron Multivitamin With Folic Acid (11 sources) Start: 12-06-2013 End: 12-25-2017 take 1 tablet by mouth once daily Multivitamin With Folic Acid Discontinued 1 TABLET PO DAILY December 05, 2013 11:00pm December 25, 2017 1:42pm Start: 12-06-2013 End: 12-25-2017 take 1 tablet by mouth once daily Multivitamin With Folic Acid Discontinued 1 TABLET PO DAILY December 06, 2013 12:00am December 25, 2017 2:42pm Multivitamin With Folic Acid 1 TABLET tablet (6 sources) Start: 12-06-2013 End: 12-25-2017 take 1 tablet by mouth once daily Multivitamin With Folic Acid 1 TABLET tablet Discontinued 1 {tbl} PO DAILY December 06, 2013 12:00am December 25, 2017 2:42pm nitrofurantoin, macrocrystals 25 mg / nitrofurantoin, monohydrate 75 mg oral capsule (10 sources) Nitrofuran Antibacterial Start: 07-08-2022 End: 07-12-2022 take 1 capsule by mouth every twelve hours at mealtime Nitrofurantoin Monohyd/M-Cryst 100 mg capsule Discontinued 1 NMA PO Q12H 14 7 0 July 08, 2022 12:00am July 14, 2022 12:00am July 12, 2022 4:34pm administer with a meal/food; swallow whole; do not open, crush, dissolve , or chew OMEGA-3 FATTY ACIDS (1 source) Start: 09-27-2016 FISH OIL CONCENTRATE 300 MG CAPS take as directed OMEGA-3 FATTY ACIDS [id number] Vane Liu MD Maiden-3 Fatty Acids (11 sources) Start: 12-06-2013 End: 12-25-2017 take 1200 mg by mouth twice daily Maiden-3 Fatty Acids Discontinued 1200 MG PO TWICE A DAY December 05, 2013 11:00pm December 25, 2017 1:42pm Start: 12-06-2013 End: 12-25-2017 take 1200 mg by mouth twice daily Maiden-3 Fatty Acids Discontinued 1200 MG PO TWICE A DAY December 06, 2013 12:00am December 25, 2017 2:42pm Maiden-3 Fatty Acids 1,000 MG capsule (6 sources) Start: 12-06-2013 End: 12-25-2017 take 1 capsule by mouth twice daily Maiden-3 Fatty Acids 1,000 MG capsule Discontinued 1200 mg PO TWICE A DAY December 06, 2013 12:00am December 25, 2017 2:42pm organ concentrates 80 mg capsule (11 sources) Start: 03-05-2017 End: 03-05-2017 organ concentrates 80 mg capsule Discontinued MG PO March 05, 2017 12:00am March 05, 2017 9:33am Start: 03-05-2017 End: 03-05-2017 organ concentrates 80 mg cap wily Discontinued MG PO March 05, 2017 1:00am March 05, 2017 10:33am Organ Concentrates 80 mg cap wily (6 sources) Start: 03-05-2017 End: 03-05-2017 Organ Concentrates 80 mg capsule Discontinued mg PO 0 March 05, 2017 1:00am March 05, 2017 10:33am Start: 03-05-2017 End: 03-05-2017 Organ Concentrates 80 mg cap wily Discontinued mg PO March 05, 2017 1:00am March 05, 2017 10:33am polyethylene glycol 3350 95059 mg powder for oral solution (17 sources) Osmotic Laxative Start: 12-06-2013 End: 06-30-2018 take 17 g by mouth once daily Polyethylene Glycol 3350 17 GM packet Discontinued 17 g PO DAILY December 06, 2013 12:00am June 30, 2018 10:19am POLYETHYLENE GLYCOL 3350 (1 source) Start: 09-23-2016 MIRALAX OSIRIS batista as directed POLYETHYLENE GLYCOL 3350 [id number] Alecia Huitron predniSONE 20 mg oral tablet (17 sources) Start: 03-07-2017 End: 03-13-2017 take 2 tablets by mouth once daily at mealtime Prednisone 20 mg tablet Discontinued 40 mg PO daily March 07, 2017 1:00am March 13, 2017 11:23am administer with food or milk Start: 03-07-2017 End: 03-13-2017 take 40 mg by mouth once daily at mealtime Prednisone Discontinued 40 MG PO daily March 07, 2017 1:00am March 13, 2017 11:23am administer with food or milk Tirzepatide (3 sources) Start: 10-09-2023 End: 10-17-2023 Tirzepatide (Mounjaro) 5 mg/ 0.5 mL pen injector Discontinued 5 mg SC EVERY WEEK 2 October 09, 2023 12:00am October 17, 2023 8:33am Start: 08-27-2022 End: 10-02-2022 Tirzepatide (Mounjaro) 5 mg/ 0.5 mL pen injector Discontinued 5 mg SC EVERY WEEK 2 August 27, 2022 8:54am October 02, 2022 8:04am Start: 08-07-2022 End: 08-13-2022 Tirzepatide (Mounjaro) 5 mg/ 0.5 mL pen injector Discontinued 5 mg SC EVERY WEEK 2 August 07, 2022 12:00am August 13, 2022 4:11pm Tirzepatide (Mounjaro) 5 mg/ 0.5 mL pen injector (18 sources) Start: 10-09-2023 End: 10-17-2023 Tirzepatide (Mounjaro) 5 mg/ 0.5 mL pen injector Discontinued 5 mg SC EVERY WEEK 2 October 09, 2023 12:00am October 17, 2023 8:33am Start: 10-09-2023 End: 10-17-2023 Tirzepatide (Mounjaro) 5 mg/ 0.5 mL pen injector Discontinued 5 mg SC EVERY WEEK 2 October 09, 2023 12:00am October 17, 2023 8:33am Start: 08-27-2022 End: 10-02-2022 Tirzepatide (Mounjaro) 5 mg/ 0.5 mL pen injector Discontinued 5 mg SC EVERY WEEK 2 1 August 27, 2022 8:54am October 02, 2022 8:04am Start: 08-27-2022 End: 10-02-2022 Tirzepatide (Mounjaro) 5 mg/ 0.5 mL pen injector Discontinued 5 mg SC EVERY WEEK 2 August 27, 2022 8:54am October 02, 2022 8:04am Start: 08-27-2022 End: 10-02-2022 Tirzepatide (Mounjaro) 5 mg/ 0.5 mL pen injector Discontinued 5 MG SC EVERY WEEK 2 August 27, 2022 8:54am October 02, 2022 8:04am Start: 08-07-2022 End: 08-13-2022 Tirzepatide (Mounjaro) 5 mg/ 0.5 mL pen injector Discontinued 5 mg SC EVERY WEEK 2 August 07, 2022 12:00am August 13, 2022 4:11pm Start: 08-07-2022 End: 08-13-2022 Tirzepatide (Mounjaro) 5 mg/ 0.5 mL pen injector Discontinued 5 mg SC EVERY WEEK 2 August 07, 2022 12:00am August 13, 2022 4:11pm Start: 08-07-2022 End: 08-13-2022 Tirzepatide (Mounjaro) 5 mg/ 0.5 mL pen injector Discontinued 5 MG SC EVERY WEEK 2 August 07, 2022 12:00am August 13, 2022 4:11pm traZODone hydrochloride 50 mg oral tablet (12 sources) Serotonin Reuptake Inhibitor Start: 07-18-2023 End: 04-21-2024 take 1 tablet by mouth at bedtime as needed Trazodone 50 mg tablet Discontinued 50 mg PO AT BEDTIME as needed for insomnia 30 2 July 18, 2023 10:53am April 21, 2024 3:54pm Start: 01-03-2023 End: 05-08-2023 take 1 tablet by mouth at bedtime as needed Trazodone 50 mg tablet Discontinued 50 mg PO AT BEDTIME as needed for insomnia 30 2 January 03, 2023 12:00am May 08, 2023 12:00pm valACYclovir 1000 mg oral tablet (20 sources) Herpesvirus Nucleoside Analog DNA Polymerase Inhibitor, Herpes Simplex Virus Nucleoside Analog DNA Polymerase Inhibitor, Herpes Zoster Virus Nucleoside Analog DNA Polymerase Inhibitor Start: 02-23-2024 End: 02-24-2024 Valacyclovir 1 gram tablet Discontinued 2000 mg PO TWICE A DAY 4 1 0 February 23, 2024 1:00am February 23, 2024 1:00am February 24, 2024 1:09am Start: 11-08-2020 End: 09-28-2021 Valacyclovir (Valtrex) 1 gra m tablet Discontinued 1000 mg PO DAILY as needed for cold sores 4 1 November 08, 2020 12:00am September 28, 2021 8:36am Start: 09-23-2016 VALTREX 1 GM T ABS 2 tablets bid VALACYCLOVIR HCL [id number] Alecia Huitron Start: 12-06-2013 End: 04-03-2018 Valacyclovir 1,000 MG tablet Discontinued 2000 mg PO NEEDED as needed for Minor Pain December 06, 2013 12:00am April 03, 2018 9:18am Start: 12-06-2013 End: 04-03-2018 Valacyclovir Discontinued 20 00 MG PO NEEDED December 06, 2013 12:00am April 03, 2018 9:18am Problems Active Problems Problem Classification Problem Date Documented Da te Episodic/Chronic Allergic reactions (17 sources) Inflammatory dermatosis; Translations: [Dermatitis, unspecified] 01-01-2021 Episodic Anxiety disorders (20 sources) Mixed anxiety and depressive disorder; Translations: [Anxiety disorder, unspecified] Onset: 09-27-2016 09-27-2016 Chronic Coagulation and hemorrhagic disorders (17 sources) Factor V Leiden mutation; Translations: [Activated protein C resistance] 06-30-2021 Chronic Diabetes mellitus without complication (20 sources) Type 2 diabetes mellitus; Translations: [Type 2 diabetes mellitus without complications] Onset: 09-27-2016 09-27-2016 Chronic Diseases of mouth; excluding dental (13 sources) Aphthous ulceration of skin and/or mucous membrane; Translations: [Recurrent oral aphthae] 04-29-2022 Episodic Disorders of lipid metabolism (20 sources) Hyperlipidemia; Translations: [Hyperlipidemia, unspecified] Onset: 09-27-2016 09-27-2016 Chronic Essential hypertension (20 sources) Essential hypertension; Translations: [Essential (primary) hypertension] Onset: 07-28-2024 Chronic Genitourinary symptoms and ill-defined conditions (10 sources) Foul smelling urine; Translations: [Unspecified abnormal findings in urine] 07-08-2022 Episodic Mycoses (12 sources) Tinea cruris; Translations: [Tinea cruris] 06-11-2023 Episodic Noninfectious gastroenteritis (8 sources) Chronic diarrhea; Translations: [Noninfective gastroenteritis and colitis, unspecified] 10-02-2022 Episodic Osteoarthritis (17 sources) Arthritis; Translations: [Unspecified osteoarthritis, unspecified site] 03-05-2017 Chronic Other gastrointestinal disorders (11 sources) Irritable bowel syndrome; Translations: [Irritable bowel syndrome without diarrhea] 07-08-2022 Chronic Other gastrointestinal disorders (8 sources) Diarrhea; Translations: [Diarrhea, unspecified] 08-07-2022 Episodic Other gastrointestinal disorders (2 sources) Diarrhea, unspecified; Translations: [Diarrhea] 08-07-2022 Episodic Other infections; including parasitic (17 sources) Erythema chronica migrans; Translations: [Lyme disease, unspecified] 06-30-2021 Episodic Other lower respiratory disease (17 sources) Choking sensation; Translations: [Other abnormalities of breathing] 06-30-2021 Episodic Other non-traumatic joint disorders (6 sources) Pain in right shoulder; Translations: [Right shoulder pain] 12-03-2022 Episodic Other nutritional; endocrine; and metabolic disorders (20 sources) Obese class I; Translations: [Obesity, unspecified] 04-03-2018 Chronic Other nutritional; endocrine; and metabolic disorders (2 sources) Obesity, unspecified; Translations: [Obesity, unspecified] Chronic Other upper respiratory disease (6 sources) Allergic rhinitis; Translations: [Allergic rhinitis, unspecified] 10-14-2022 Chronic Other upper respiratory infections (7 sources) Sinusitis; Translations: [Chronic sinusitis, unspecified] 05-08-2023 Chronic Residual codes; unclassified (20 sources) Obstructive sleep apnea syndrome; Translations: [Obstructive sleep apnea (adult) (pediatric)] 10-16-2021 Chronic Comment on above: AHI 19.5 titrated to BiPAP 10/4 centimeters of water Residual codes; unclassified (17 sources) Hypersomnia; Translations: [Hypersomnia, unspecified] 06-30-2021 Chronic Residual codes; unclassified (4 sources) Obstructive sleep apnea (adult) (pediatric); Translations: [Obstructive sleep apnea (adult)(pediatric)] Onset: 12-08-2024 Chronic Residual codes; unclassified (17 sources) History of cosmetic plastic surgery; Translations: [Other specified postprocedural states] 06-30-2021 Episodic Comment on above: 2020 Residual codes; unclassified (10 sources) Family history of celiac disease; Translations: [Family history of other diseases of the digestive system] 07-08-2022 Episodic Spondylosis; intervertebral disc disorders; other back problems (17 sources) Low back pain; Translations: [Low back pain] Onset: 09-28-2024 09-28-2024 Episodic Unclassified (1 source) Screening - health check; Translations: [Encounter for general adult medical examination without abnormal findings] Onset: 12-24-2016 12-24-2016 Unclassified (1 source) Low back pain, unspecified; Translations: [Low back pain, unspecified] Onset: 09-28-2024 Urinary tract infections (20 sources) Cystitis; Translations: [Cystitis, unspecified without hematuria] 07-08-2022 Episodic Viral infection (17 sources) Recurrent herpes simplex labialis; Translations: [Herpesviral vesicular dermatitis] 03-05-2017 Episodic Past or Other Problems Problem Classification Problem Date Documented Da te Episodic/Chronic Immunizations and screening for infectious disease (20 sources) Needs influenza immunization; Translations: [Encounter for immunization] Onset: 01-14-2024 Episodic Other upper respiratory infections (20 sources) Upper respiratory infection; Translations: [Acute upper respiratory infection, unspecified] Onset: 03-19-2024 Episodic Unclassified (19 sources) Encounter for screening for diseases of the blood and blood-forming organs and certain disorders involving the immune mechanism; Translations: [Patient encounter status] Onset: 12-24-2016 12-24-2016 Episodic Unclassified (17 sources) factor 5 leiden 06-30-2021 Unclassified (16 sources) trigger thumbs release 09-28-2021 Results Test Name Value Interpretation Reference Range Facility Pulmonary Visit Reporton Pulmonary Visit Report [facility] [address] [place] [address] OFFICE VISIT Date of Service: 12/08/24 MR#: [id number] Acct: [id number] Name: AURELIANO CALHOUN Rep #: [id number] : 1960 Provider: Mary Jane Morris NP Age/Sex: 64/F Location: [facility] Status: Signed Assessment and Plan Assessment and Plan (1) ALEXX (obstructive sleep apnea): Status: Chronic Comment: AHI 19.5 titrated to BiPAP 10/4 centimeters of water Plan: She is using and benefiting from Pap therapy. Unfortunately due to recent insurance change and [facility] guidelines the patient has been unable to receive replacement supplies. The patient is now required to repeat sleep testing to comply with CMS guidelines and for the sleep study to give the AASM 4% rule criteria in the report. Her previous study from 2019 did not list these results. I have recommended an in lab PSG at this time so that the patient has the best chance to accurately quantify the results with a 4% criteria. I have recommended supine sleep be obtained with the study. If the patient were not to treat her sleep apnea she will return back to the previous condition of severe hypersomnolence and would be at risk for motor vehicle injury. It is necessary to repeat this study so that she can continue to obtain supplies and use her device compliantly. Contact the office for any new or worsening symptoms in the meantime. (2) Obesity (BMI 30.0-34.9): Status: Chronic Plan: Complicates exam, plan, care and prognosis. Weight loss is warranted through prudent dieting and daily exercise. Orders: Orders Polysomnography Today G47.33 - Obstructive sleep apnea (adult) (pediatric) Plan Details Additional Comments: This note was generated with Animal[employer] dictation software. It may contain incorrect words, spelling, and punctuation that were not noted in checking the note before signing. Follow Up: As previously scheduled HPI HPI Comments Details: This patient presents to the office today to discuss a plan for testing of obstructive sleep apnea due to recent insurance change. With her new insurance change there is a request for her to repeat a diagnostic study to show an AHI greater than 5 with 4% desaturation to meet Medicare regulations. She is ambulatory and on room air. She has not recently been seen in the ED or urgent care for any respiratory illness. She has not required any antibiotics or prednisone for any breathing problems. She denies any difficulty with shortness of breath. She denies any cough, sputum production or hemoptysis. She denies any wheezing, chest tightness, chest pain or palpitations. If she were not to use her PAP therapy she would experience morning headaches. She would not sleep well at night. She would awaken throughout the night. Prior to CPAP therapy she was withdrawing throughout the day and would fight to stay awake. She would fall asleep while driving. 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 Eventually she stopped driving after 3 PM. She suffered from extreme fatigue. Since using her device she feels rested upon awakening. She does nap for 15 to 20 minutes daily. She is not experiencing nocturia. She does have occasional dry mouth but is avoiding drinking a lot of water in the evening. She is on medications that will produce oral dryness as well. She denies morning headaches and denies mask leak. She is not using a medication as it does irritate her nose. She is currently having to self-pay for her supplies. She is motivated to treat sleep apnea due to her mother who had mini strokes and sleep apnea that was not treated. Compliance report for the past 30 days shows 70% compliance, using the device 9 hours and 4 minutes nightly average. She is using a BiPAP at 10 over 4 cm. She has minimal air leak and her AHI 0.9. She went camping on Dec 01 and had no electricity. She has not worn it in the past with sinus disease. She has struggled with compliance this past year due to the of her mom. She reports that she was sporadic as she was dealing with grief. Intake Vital Signs 10/27/24 09:34 12/08/24 06:40 Height 5 ft 5 in 5 ft 5 in Weight: 175 lb BMI 29.1 BP 138/84 H Blood Pressure Location Lt brachial Position Sitting Respiration 18 Pulse 66 Pulse Source Monitor Temp 97.0 F L Temperature Source Temporal Artery Pulse Oximetry (%) 97 Oxygen Delivery Method room air Intake Visit Reasons: Follow up Chief Complaint: 3 m fu System Archive Analyst Required: No DME Vendor: [employer] Accompanied by: Self Is patient in pain?: No Allergies No Known Allergies Allergy (Verified 12/08/24 09:16) Medications ???Medication ???Instructions ???Recorded ???Confirmed ???Type blood-glucose meter (more content not included)... Normal [facility] Internal Medicine Office Vis itogomez 10-27-2024 Internal Medicine Office Visit [facility] [address] [place] [address] [place] [address] OFFICE VISIT Date of Service: 10/27/24 MR#: [id number] Acct: [id number] Name: AURELIANO CALHOUN Rep #: [id number] : 1960 Provider: Dr. Vane hill MD Age/Sex: 64/F Location: [facility] Status: Signed Intake Vital Signs 07/28/24 16:35 10/14/24 08:18 10/27/24 09:34 Height 5 ft 5 in 5 ft 5 in 5 ft 5 in Weight: 176 lb BMI 29.2 BP 116/60 Blood Pressure Location Lt brachial Position Sitting Respiration 16 Pulse 78 Pulse Source Monitor Temp 97 F L Temp Source Temporal Pulse Oximetry (%) 97 Oxygen Delivery Method room air Intake Visit Reasons: 3 M FU Chief Complaint: 3 m fu System Archive Analyst Required: No Is patient in pain?: No Allergies No Known Allergies Allergy (Verified 10/27/24 09:34) Medications ???Medication ???Instructions ???Recorded ???Confirmed ???Type blood-glucose meter (Accu-Chek #1 ea 07/02/21 10/27/24 Rx Genia Plus Meter) atorvastatin 20 mg tablet (Lipitor) 20 mg PO QDAY #90 tabs 09/07/24 10/27/24 Rx lisinopril 2.5 mg tablet 2.5 mg PO DAILY #90 tabs 09/07/24 10/27/24 Rx tirzepatide 10 mg/0.5 mL 10 mg (0.5 mL) subcut QWEEK 3 04/0310/27/24 Rx subcutaneous pen injector months #6.5 mL fluoxetine 20 mg capsule 20 mg PO DAILY #90 caps 09/22/24 0 10/27/24 Rx Have you fallen in the past year?: No Nurse's Note: Pt is feeling good. [facility] Medical History Health care maintenance Chronic diarrhea Diarrhea UTI (urinary tract infection) Foul smelling urine Irritable bowel Family history of celiac disease Acute sinusitis Aphthous ulcer Acute pharyngitis, unspecified Flu vaccine need URI (upper respiratory infection) Factor V Leiden Essential hypertension ALEXX (obstructive sleep apnea) Breast cancer screening Dermatitis Normal colonoscopy Erythema migrans (Lyme disease) Hypersomnolence Sleep related choking sensation Polycystic ovaries diabetes mellitus type 2 Arthritis Seasonal allergies Recurrent cold sores Hyperlipidemia Surgical History (Reviewed 10/27/24 @ 09: by Isabelle Edwards MA) History of rhinoplasty Normal colonoscopy History of hernia repair History of tonsillectomy trigger thumbs release H/O: hysterectomy Family History (Reviewed 10/27/24 @ 09: by Isabelle Edwards MA) Mother Myocardial infarction factor 5 liden Father Arthritis Myocardial infarction, Onset Age: 40 Hypertension Hyperlipidemia Diabetes Unknown Breast cancer Brother Myocardial infarction Factor 5 Leiden mutation, heterozygous Social History (Reviewed 10/27/24 @ 09: by Isabelle Edwards MA) household members: spouse housing: house Smoking Status: Former smoker Tobacco: How many years used: 3 second hand exposure: No alcohol intake: current alcohol intake frequency: 0-2 drinks per day Alcohol type: wine and hard liquor substance use type: does not use what type of physical activity do you participate in: running, bicycling and aerobics frequency: 5-6 times per week HPI HPI Chief Complaint: 3 m fu Details: AURELIANO CALHOUN, is a 64-year-old female presenting with routine follow-up for chronic conditions, particularly focusing on her management of Type 2 Diabetes Mellitus and constipation. The patient initially reported better control over her blood glucose levels, and confirmed the administration of Mounjaro, 10 mg once weekly. She acknowledged a slight recent increase in her Hemoglobin A1c, which is currently at 5.9, up from 5.6, attributed to a lapse in medication management due to being out of her medication for two months. This was due to awaiting approval for Mounjaro and insurance noncoverage. The patient detailed a decrease in body weight, noting her current evening weight at approximately 170-172 pounds. Addressing constipation, the patient shared her occasional use of MiraLax for relief. She proactively incorporated dietary fiber through a routine morning shake that includes cricket seeds and flax seeds. She reported an increased awareness of and commitment to dietary fiber to mitigate the constipation issue consistently. Pertaining to her physical activity and lifestyle, the patient expressed satisfaction with an active engagement in physical activities, renewed commitment to personal training and swimming. She registered an improvement in her general health status reflected by her blood pressure control, nail growth, and absence of pain or significant side effects. The patient continued her management of chronic conditions, maintaining routines with medications fluoxetine for generalized anxiety and atorvastatin for hyperlipidemia. The effective use of CPAP therapy wa (more content not included)... Normal [facility] - Hematology and Cell countsOrdered By: Vane Liu on 10-27-2024 HbA1c (Bld) [Mass fraction] 5.9 % 4.2-6.3 [facility] Pulmonary Visit Reporton Pulmonary Visit Report [facility] [place] [address] [place] [address] OFFICE VISIT Date of Service: 10/14/24 MR#: [id number] Acct: [id number] Name: AURELIANO CALHOUN Rep #: [id number] : 1960 Provider: NGA Doan Age/Sex: 64/F Location: [facility] Status: Signed Assessment and Plan Assessment and Plan (1) ALEXX (obstructive sleep apnea): Status: Chronic Comment: AHI 19.5 titrated to BiPAP 10/4 centimeters of water Plan: She is using and benefiting from Pap therapy. No indication for titration study at this time. Contact the office for any new or worsening symptoms in the meantime. Follow-up in 1 year. (2) Obesity (BMI 30.0-34.9): Status: Chronic Plan: Complicates exam, plan, care and prognosis. Continue to encourage weight loss. Plan Details Additional Comments: This note was generated with [employer] dictation software. It may contain incorrect words, spelling, and punctuation that were not noted in checking the note before signing. HPI HPI Comments Details: This patient presents to the office today for routine follow-up of her obstructive sleep apnea with allergic rhinitis. She is ambulatory and on room air. She is recently retired. She has not recently been seen in the ED or urgent care for any respiratory illness. She has not required any antibiotics or prednisone for any breathing problems. She denies any difficulty with shortness of breath. She denies any cough, sputum production or hemoptysis. She denies any wheezing, chest tightness, chest pain or palpitations. She wakes up feeling rested refreshed. She denies any difficulty with dry mouth. She is not requiring naps. She does not nod off to sleep unintentionally. She is not experiencing excessive nocturia or morning headaches. Compliance report for the past 30 days shows 90% compliance with an average use of 8 hours and 33 minutes per night. Current setting is BiPAP 10/4 cmH2O with residual AHI of 1.4 events per hour. Leaks do not appear to be a problem. Intake Vital Signs 10/15/23 08:30 10/14/24 08:18 Height 5 ft 5 in 5 ft 5 in Weight: 176 lb BMI 29.2 BP 109/73 Blood Pressure Location Lt brachial Position Sitting Respiration 18 Pulse 93 Pulse Source Monitor Temp 97.4 F L Temperature Source Temporal Artery Pulse Oximetry (%) 97 Oxygen Delivery Method room air Intake Visit Reasons: 1 Y FU Chief Complaint: 3 m fu System Archive Analyst Required: No DME Vendor: [employer] Accompanied by: Self Allergies No Known Allergies Allergy (Verified 10/14/24 13:47) Medications ???Medication ???Instructions ???Recorded ???Confirmed ???Type blood-glucose meter (Accu-Chek #1 ea 07/02/21 10/14/24 Rx Genia Plus Meter) atorvastatin 20 mg tablet (Lipitor) 20 mg PO QDAY #90 tabs 09/07/24 10/14/24 Rx lisinopril 2.5 mg tablet 2.5 mg PO DAILY #90 tabs 09/07/24 10/14/24 Rx tirzepatide 10 mg/0.5 mL 10 mg (0.5 mL) subcut QWEEK 3 04/0310/14/24 Rx subcutaneous pen injector months #6.5 mL fluoxetine 20 mg capsule 20 mg PO DAILY #90 caps 09/22/24 0 10/14/24 Rx Have you fallen in the past year?: No PFSH Medical History (Reviewed 10/14/24 @ 13:57 by Mitzi Doan CLIENT SERVICES REPRESENTATIVE, CLIENT SERVICES REPRESENTATIVE-C) Health care maintenance Chronic diarrhea Diarrhea UTI (urinary tract infection) Foul smelling urine Irritable bowel Family history of celiac disease Acute sinusitis Aphthous ulcer Acute pharyngitis, unspecified Flu vaccine need URI (upper respiratory infection) Factor V Leiden Essential hypertension ALEXX (obstructive sleep apnea) Breast cancer screening Dermatitis Normal colonoscopy Erythema migrans (Lyme disease) Hypersomnolence Sleep related choking sensation Polycystic ovaries diabetes mellitus type 2 Arthritis Seasonal allergies Recurrent cold sores Hyperlipidemia Surgical History (Reviewed 10/14/24 @ 13:57 by Mitzi Doan CLIENT SERVICES REPRESENTATIVE, CLIENT SERVICES REPRESENTATIVE-C) History of rhinoplasty Normal colonoscopy History of hernia repair History of tonsillectomy trigger thumbs release H/O: hysterectomy Family History (Reviewed 10/14/24 @ 13:57 by Mitzi Doan CLIENT SERVICES REPRESENTATIVE, CLIENT SERVICES REPRESENTATIVE-C) Mother Myocardial infarction factor 5 liden Father Arthritis Myocardial infarction, Onset Age: 39 Hypertension Hyperlipidemia Diabetes Unknown Breast cancer Brother Myocardial infarction Factor 5 Leiden mutation, heterozygous Social History household members: spouse housing: house Smoking Status: Former smoker Tobacco: How many years used: 3 second hand exposure: No alcohol intake: current alcohol intake frequency: 0-2 drinks per day Alcohol type: wine and hard liquor substance use type: does not use what type of physical activity do you participate in: running (more content not included)... Normal [facility] Internal Medicine Office Vis itogomez 09-28-2024 Internal Medicine Office Visit [facility] [address] [place] [address] [place] [address] OFFICE VISIT Date of Service: 09/28/24 MR#: [id number] Acct: [id number] Name: AURELIANO CALHOUN Rep #: [id number] : 1960 Provider: TESFAYE Javier Age/Sex: 64/F Location: [facility] Status: Signed Intake Vital Signs 07/28/24 16:35 09/28/24 12:38 Height 5 ft 5 in 5 ft 5 in Weight: 176 lb 180 lb BMI 29.2 29.9 BP 108/64 116/80 Blood Pressure Location Lt brachial Lt brachial Position Sitting Sitting Respiration 16 16 Pulse 82 79 Pulse Source Monitor Monitor Temp 96.7 F L 97.6 F L Temp Source Temporal Temporal Pulse Oximetry (%) 97 99 Oxygen Delivery Method room air room air Intake Visit Reasons: lower back and hip pain Chief Complaint: 3 m fu System Archive Analyst Required: No Is patient in pain?: Yes (L lumbar) Pain scale (1-10): 6 Allergies No Known Allergies Allergy (Verified 09/28/24 12:26) Medications ???Medication ???Instructions ???Recorded ???Confirmed ???Type blood-glucose meter (Accu-Chek #1 ea 07/02/21 09/28/24 Rx Genia Plus Meter) atorvastatin 20 mg tablet (Lipitor) 20 mg PO QDAY #90 tabs 09/07/24 09/28/24 Rx lisinopril 2.5 mg tablet 2.5 mg PO DAILY #90 tabs 09/07/24 09/28/24 Rx tirzepatide 10 mg/0.5 mL 10 mg (0.5 mL) subcut QWEEK 3 04/0309/28/24 Rx subcutaneous pen injector months #6.5 mL fluoxetine 20 mg capsule 20 mg PO DAILY #90 caps 09/22/24 0 09/28/24 Rx Have you fallen in the past year?: No Nurse's Note: Pt states she has L lower back pain since July w/o any injury. She states it waxes and wanes. 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 Pt states she retired and is move active now. The pain is bothering her all the time. Pt states it is L lumbar, sometimes Feels it in the hip, if it aggravted it spread across whole lumbar, and the back spasms. She states this tends to happen at night. Pt has also been doing swimming.Pt states the ibuprofen and exercising makes it a little better but it always comes back. Pt describes the pain as a deep ache. The pain does not radiate up the back down into the buttock or leg. Denies bowel or urinary incontinence. Pt states the worst the pain gets is a 7 and that is when she is spasming up. Pt also notices if she has to stand up straight she has to do it slowly as her back and hip are very stiff. [facility] Medical History Health care maintenance Chronic diarrhea Diarrhea UTI (urinary tract infection) Foul smelling urine Irritable bowel Family history of celiac disease Acute sinusitis Aphthous ulcer Acute pharyngitis, unspecified Flu vaccine need URI (upper respiratory infection) Factor V Leiden Essential hypertension ALEXX (obstructive sleep apnea) Breast cancer screening Dermatitis Normal colonoscopy Erythema migrans (Lyme disease) Hypersomnolence Sleep related choking sensation Polycystic ovaries diabetes mellitus type 2 Arthritis Seasonal allergies Recurrent cold sores Hyperlipidemia Surgical History History of rhinoplasty Normal colonoscopy History of hernia repair History of tonsillectomy trigger thumbs release H/O: hysterectomy Family History Mother Myocardial infarction factor 5 liden Father Arthritis Myocardial infarction, Onset Age: 40 Hypertension Hyperlipidemia Diabetes Unknown Breast cancer Brother Myocardial infarction Factor 5 Leiden mutation, heterozygous Social History household members: spouse housing: house Smoking Status: Former smoker Tobacco: How many years used: 3 second hand exposure: No alcohol intake: current alcohol intake frequency: 0-2 drinks per day Alcohol type: wine and hard liquor substance use type: does not use what type of physical activity do you participate in: running, bicycling and aerobics frequency: 5-6 times per week HPI HPI Chief Complaint: 3 m fu Details: AURELIANO CALHOUN, is a 64 F who presents to the office today for some low back pain for the past 3+ months. She states that there was no injury or inciting incident that she can recall. She states that it just gradually occurred. Pains are located along the entire lower back (no specifically one side or the other). She states that she has not noticed a specific movement or activity that causes her pains / problems. She does get some very infrequent spasms at night. She has been trying to be a lot more active since she had a very sedentary job that she just recently retired. She has been (more content not included)... Normal [facility] Internal Medicine Office Vis amelia 07-28-2024 Internal Medicine Office Visit [facility] [address] [place] [address] [place] [address] OFFICE VISIT Date of Service: 07/28/24 MR#: [id number] Acct: [id number] Name: AURELIANO CALHOUN Rep #: [id number] : 1960 Provider: Dr. Vane hill MD Age/Sex: 64/F Location: [facility] Status: Signed Intake Vital Signs 04/21/24 14:52 07/28/24 16:35 Height 5 ft 5 in 5 ft 5 in Weight: 176 lb BMI 29.2 BP 108/64 Blood Pressure Location Lt brachial Position Sitting Respiration 16 Pulse 82 Pulse Source Monitor Temp 96.7 F L Temp Source Temporal Pulse Oximetry (%) 97 Oxygen Delivery Method room air Intake Visit Reasons: 3 M FU Chief Complaint: 3 m fu System Archive Analyst Required: No Accompanied by: Self Is patient in pain?: No Allergies No Known Allergies Allergy (Verified 07/28/24 16:36) Medications ???Medication ???Instructions ???Recorded ???Confirmed ???Type blood-glucose meter (Accu-Chek #1 ea 07/02/21 07/28/24 Rx Genia Plus Meter) tirzepatide 10 mg/0.5 mL 10 mg (0.5 mL) subcut QWEEK 3 08/3107/28/24 Rx subcutaneous pen injector months #6.5 mL atorvastatin 20 mg tablet (Lipitor) 20 mg PO QDAY #90 tabs 05/27/24 07/28/24 Rx fluoxetine 10 mg capsule 20 mg (2 x 10 mg) PO DAILY #180 07/28/24 Rx caps lisinopril 2.5 mg tablet 2.5 mg PO DAILY #90 tabs 05/27/24 07/28/24 Rx Have you fallen in the past year?: No PFSH Medical History Health care maintenance Chronic diarrhea Diarrhea UTI (urinary tract infection) Foul smelling urine Irritable bowel Family history of celiac disease Acute sinusitis Aphthous ulcer Acute pharyngitis, unspecified Flu vaccine need URI (upper respiratory infection) Factor V Leiden Essential hypertension ALEXX (obstructive sleep apnea) Breast cancer screening Dermatitis Normal colonoscopy Erythema migrans (Lyme disease) Hypersomnolence Sleep related choking sensation Polycystic ovaries diabetes mellitus type 2 Arthritis Seasonal allergies Recurrent cold sores Hyperlipidemia Surgical History History of rhinoplasty Normal colonoscopy History of hernia repair History of tonsillectomy trigger thumbs release H/O: hysterectomy Family History Mother Myocardial infarction factor 5 liden Father Arthritis Myocardial infarction, Onset Age: 40 Hypertension Hyperlipidemia Diabetes Unknown Breast cancer Brother Myocardial infarction Factor 5 Leiden mutation, heterozygous Social History household members: spouse housing: house Smoking Status: Former smoker Tobacco: How many years used: 3 second hand exposure: No alcohol intake: current alcohol intake frequency: 0-2 drinks per day Alcohol type: wine and hard liquor substance use type: does not use what type of physical activity do you participate in: running, bicycling and aerobics frequency: 5-6 times per week HPI HPI Chief Complaint: 3 m fu Details: AURELIANO CALHOUN, is a 64 F who presents to the office today for follow-up of her chronic conditions. No acute concerns at this time. History of diabetes mellitus type 2 and A1c today is at 5.6 down from 5.8. She states that she feels al lot better overall. Recently started exercising again and paying attention to her diet. No significant weight change since her last visit. History of hypertension, blood pressure is 108/64 mmHg. Currently on lisinopril. No chest pain, palpitation or shortness of breath. Other chronic medical conditions are stable. ROS Const Constitutional: No body ache, excessive sweating, fatigue, fever(s), frequent falls, headache(s), snoring, weakness, weight change, sleep problems or change in appetite Eyes Eyes: No blurry vision, change in vision, bulging eyes, floaters, visual disturbances, eye pain or Light sensitivity ENT ENT: No abnormal hearing, ear or mastoid pain, tinnitus, balance problems, nosebleed/epistaxis , nasal congestion, headache(s), neck pain or sore throat Resp Respiratory: No cough, excessive phlegm production, pain on inspiration, shortness of breath, snoring or wheezing Cardio Cardiology: No chest pain at rest, chest pain with exertion, excessive sweating, shortness of breath, dyspnea on exertion, lightheadedness, orthopnea or palpitations Gastro GI: No abdominal pain, change in bowel habits, constipation, cramping, diarrhea, nausea/dyspepsia or vomiting Genitourinary-Femal e: No burning urination, painful urination, urinary incontinence, urinary frequency, blood in urine, suprapubic fullness, side pain, abnormal periods or pelvic pain Musc Musculoskeletal: No abnorma (more content not included)... Normal [facility] - Hematology and Cell countsOrdered By: Vane Liu on 07-28-2024 HbA1c (Bld) [Mass fraction] 5.6 % 4.2-6.3 [facility] Bone density reportOrdered B y: Wang Angelo on 05-13-2024 Study report Skeletal system DXA [facility] [address] [place], [place] [id number] Dexa Bone Density Study MR#: [id number] Acct: [id number] Name: AURELIANO CALHOUN Rep #: [id number] : 1960 F 64 From: Heriberto Angelo MD PCP: Dr. Vane Liu MD Status: R EG CLI Study:Dexa Bone Density Study Date of Exam: 05/13/24 Exam# [id number] Ordering Dr: [place] Liu MD PROCEDURE: The patient is considered as outlined below according to World Lopez Organization (WHO) criteria with a fracture risk. There has been of bone density since the previous examination. REASON FOR EXAM: F, age 64 y/o . Postmenopausal. TECHNIQUE: DEXA scan of the lumbar spine and both hips. COMPARISON: None. FINDINGS: Lumbar Spine (L1-L4): g/cm2 (1.026)/T-score (-0.2)/Z-score (1.0) findings are suggestive of normal with a low fracture risk. Left Femur Total: g/cm2 (0.956)/T-score (0.1)/Z-score (1.4) Left Femoral Neck: g/cm2 (0.828)/T-score (-0.2)/Z-score (1.3) Right Femur Total: g/cm2 (0.991)/T-score (0.4)/Z-score (1.6) Right Femoral Neck: g/cm2 (0.835)/T-score (-0.1)/Z-score (1.4) BD/Dexa Bone Density Study IMPRESSION: The patient is considered normal as outlined below according to World [place] Organization (WHO) criteria with a low fracture risk. Reading Location: [facility] CC: Dr. Vane Liu MD ~ Property Manager: Signed [facility] Breast imaging reportOrdered By: Wang Angelo on 05-13-2024 Study report [facility] [address] [place] [id number] SCRN MAMM (CAD)W/ANGÉLICA BILAT MR#: [id number] Acct: [id number] Name: AURELIANO CALHOUN Rep #: [id number] : 1960 F 64 From: Heriberto Angelo MD PCP: Dr. Vane Liu MD Status: R EG CLI Study:SCRN MAMM (CAD)W/ANGÉLICA BILAT Date of Exa m: 05/13/24 Exam# [id number] Ordering Dr: Freedom Liu MD PROCEDURE: SCRN MAMM (CAD)W/ANGÉLICA BILAT REASON FOR EXAM: F, Age 64 y/o, no family history. . Routine annual follow-up. TECHNIQUE: Bilateral screening digital breast tomosynthesis with 2D and 3D images. Computeraided detection. COMPARISON: Prior exam(s) dating back to February 27, 2021.. FINDINGS: The breasts are almost entirely fatty. Stable benign-appearing bilateral axillary lymph nodes. No suspicious masses, areas of developing architectural distortion, or suspicious calcifications. BI/SCRN MAMM (CAD)W/ANGÉLICA BILAT IMPRESSION: BI-RADS 2: BENIGN. RECOMMEND ANNUAL MAMMOGRAPHIC SCREENING. Follow-up code: Routine Follow-up The patient will be notified of the results by letter. Reading Location: [id number] CC: Dr. Vane Liu MD ~ Property Manager: Signed [facility] Dexa Bone Density Studyon Dexa Bone Density Study [facility] [address] [place], [place] [id number] Dexa Bone Density Study MR#: [id number] Acct: [id number] Name: AURELIANO CALHOUN Rep #: [id number] : 1960 F 64 From: Wang alvares MD PCP: Dr. Vane Liu MD Status: REG CLI Study: Dexa Bone Density Study Date of Exam: 05/13/24 Exam# [id number] Ordering Dr: Vane Liu MD PROCEDURE: The patient is considered as outlined below according to World Lopez Organization (WHO) criteria with a fracture risk. There has been of bone density since the previous examination. REASON FOR EXAM: F, age 64 y/o . Postmenopausal. TECHNIQUE: DEXA scan of the lumbar spine and both hips. COMPARISON: None. FINDINGS: Lumbar Spine (L1-L4): g/cm2 (1.026)/T-score (-0.2)/Z-score (1.0) findings are suggestive of normal with a low fracture risk. Left Femur Total: g/cm2 (0.956)/T-score (0.1)/Z-score (1.4) Left Femoral Neck: g/cm2 (0.828)/T-score (-0.2)/Z-score (1.3) Right Femur Total: g/cm2 (0.991)/T-score (0.4)/Z-score (1.6) Right Femoral Neck: g/cm2 (0.835)/T-score (-0.1)/Z-score (1.4) BD/Dexa Bone Density Study IMPRESSION: The patient is considered normal as outlined below according to World Lopez Organization (WHO) criteria with a low fracture risk. Reading Location: [id number] CC: Dr. Vane Liu MD Property Manager: Signed [facility] SCRN MAMM (CAD)W/ANGÉLICA BILATo n 05-13-2024 SCRN MAMM (CAD)W/ANGÉLICA BILAT [facility] [address] [place], [place] [address] SCRN MAMM (CAD)W/ANGÉLICA BILAT MR#: [id number] Acct: [id number] Name: AURELIANO CALHOUN Rep #: [id number] : 1960 F 64 From: Wang alvares MD PCP: Dr. Vane Liu MD Status: [facility] Study: SCRN MAMM (CAD)W/ANGÉLICA BILAT Date of Exam: 09/01 Exam# [id number] Ordering Dr: Vane Liu MD PROCEDURE: SCRN MAMM (CAD)W/ANGÉLICA BILAT REASON FOR EXAM: F, Age 64 y/o, no family history. . Routine annual follow-up. TECHNIQUE: Bilateral screening digital breast tomosynthesis with 2D and 3D images. Computer aided detection. COMPARISON: Prior exam(s) dating back to February 27, 2021.. FINDINGS: The breasts are almost entirely fatty. Stable benign-appearing bilateral axillary lymph nodes. No suspicious masses, areas of developing architectural distortion, or suspicious calcifications. BI/SCRN MAMM (CAD)W/ANGÉLICA BILAT IMPRESSION: BI-RADS 2: BENIGN. RECOMMEND ANNUAL MAMMOGRAPHIC SCREENING. Follow-up code: Routine Follow-up The patient will be notified of the results by letter. Reading Location: [facility] CC: Dr. Vane Liu MD Property Manager: Signed [facility] Internal Medicine Office Vis amelia 04-21-2024 Internal Medicine Office Visit [facility] [address] [place] [address] [place] [address] OFFICE VISIT Date of Service: 04/21/24 MR#: [id number] Acct: [id number] Name: AURELIANO CALHOUN Rep #: [id number] : 1960 Provider: Dr. Vane hill MD Age/Sex: 64/F Location: [facility] Status: Signed Intake Vital Signs 01/14/24 17:18 04/21/24 14:52 Height 5 ft 5 in 5 ft 5 in Weight: 176 lb BMI 29.2 BP 128/80 H Blood Pressure Location Lt brachial Position Sitting Respiration 18 Pulse 87 Pulse Source Monitor Temp 97.8 F Temp Source Temporal Pulse Oximetry (%) 97 Oxygen Delivery Method room air Intake Visit Reasons: 3 M FU Chief Complaint: 3 m fu Is patient in pain?: No Allergies No Known Allergies Allergy (Verified 04/21/24 14:53) Medications ???Medication ???Instructions ???Recorded ???Confirmed ???Type blood-glucose meter (Accu-Chek #1 ea 07/02/21 04/21/24 Rx Genia Plus Meter) atorvastatin 20 mg tablet (Lipitor) 20 mg PO QDAY #90 tabs 04/07/23 04/21/24 Rx lisinopril 2.5 mg tablet 2.5 mg PO DAILY #90 tabs 04/07/23 04/21/24 Rx tirzepatide 10 mg/0.5 mL 10 mg (0.5 mL) subcut QWEEK 3 0 08/3104/21/24 Rx subcutaneous pen injector months #6.5 mL fluoxetine 10 mg capsule 20 mg PO DAILY 04/21/24 History Have you fallen in the past year?: No PFSH Medical History Health care maintenance Chronic diarrhea Diarrhea UTI (urinary tract infection) Foul smelling urine Irritable bowel Family history of celiac disease Acute sinusitis Aphthous ulcer Acute pharyngitis, unspecified Flu vaccine need URI (upper respiratory infection) Factor V Leiden Essential hypertension ALEXX (obstructive sleep apnea) Breast cancer screening Dermatitis Normal colonoscopy Erythema migrans (Lyme disease) Hypersomnolence Sleep related choking sensation Polycystic ovaries diabetes mellitus type 2 Arthritis Seasonal allergies Recurrent cold sores Hyperlipidemia Surgical History History of rhinoplasty Normal colonoscopy History of hernia repair History of tonsillectomy trigger thumbs release H/O: hysterectomy Family History Mother Myocardial infarction factor 5 liden Father Arthritis Myocardial infarction, Onset Age: 40 Hypertension Hyperlipidemia Diabetes Unknown Breast cancer Brother Myocardial infarction Factor 5 Leiden mutation, heterozygous Social History household members: spouse housing: house Smoking Status: Former smoker Tobacco: How many years used: 3 second hand exposure: No alcohol intake: current alcohol intake frequency: 0-2 drinks per day Alcohol type: wine and hard liquor substance use type: does not use what type of physical activity do you participate in: running, bicycling and aerobics frequency: 5-6 times per week HPI HPI Chief Complaint: 3 m fu Details: AURELIANO CALHOUN, is a 64 F who presents to the office today for follow-up of her chronic conditions. No acute concerns at this time. A1c done recently at 5.7 down from 5.8. Has also lost about 10 to 11 pounds since her last visit. Currently on Mounjaro and tolerating it well. She states that her bowel movements have been good. Prior history of IBS D/chronic diarrhea. History of anxiety and depression currently on fluoxetine, recently backed down to 20 mg daily. Overall, she has had less stress and anxiety and feels well. Other chronic medical conditions are stable. ROS Const Constitutional: No body ache, chills, excessive sweating, fatigue, fever(s), frequent falls, headache(s), snoring, weight change, sleep problems, abnormal sleep pattern or change in appetite Eyes Eyes: No blurry vision, change in vision, bulging eyes, floaters, visual disturbances, eye pain or Light sensitivity ENT ENT: No abnormal hearing, ear or mastoid pain, tinnitus, balance problems, nosebleed/epistaxis , nasal congestion, headache(s), neck pain or sore throat Resp Respiratory: No cough, excessive phlegm production, pain on inspiration, shortness of breath, snoring or wheezing Cardio Cardiology: No chest pain at rest, chest pain with exertion, excessive sweating, shortness of breath, dyspnea on exertion, lightheadedness, orthopnea or palpitations Gastro GI: No abdominal pain, change in bowel habits, constipation, cramping, diarrhea, nausea/dyspepsia or vomiting Genitourinary-Femal e: No burning urination, painful urination, urinary incontinence, urinary frequency, suprapubic fullness, side pain, abnormal vaginal bleeding or pelvic pain Musc Musculoskeletal: No abnormal gait, joint pain, back pain, limite (more content not included)... Normal [facility] Hemoglobin A1con 04-18-2024 HbA1c (Bld) [Mass fraction] 5.7 % High 3.8-5.6 [facility] Comment on above: Result Comment: Norm al < 5.7 % Prediabetic 5.7 - 6.4 % Diabetic >or= 6.5 % Please note range changes. Performed By: #### L 500.4100, L501.9985, L100.0100, L500.4050 ####[facility] [id number] [place], [address] Absolute lymphocyte countOrd ered By: Vane Liu on 04-16-2024 Lymphocytes Auto (Unsp spec) [#/Vol] 2.23 10*3/uL 0.83-4.51 [facility] Absolute neutrophil countOrd ered By: lisandradykediana Liu on 04-16-2024 Neutrophils (Bld) [#/Vol] 2.8 10*3/uL 2.0-7.7 [facility] Albumin to globulin ratioOrd ered By: marcellus Liu on 04-16-2024 Albumin/Globulin [Mass ratio] 1.1 {ratio} 0.9-2.4 [facility] Automated lymphocyte count a s percentage of total leukocytesOrdered By: Vane Liu on 04-16-2024 Lymphocytes/100 WBC Auto (Unsp spec) 39.3 % 19-41 [facility] Basophil percentageOrdered B y: Vane Liu on 04-16-2024 Basophils/100 WBC (Bld) 1.6 % High 0-1 [facility] Bilirubin, totalOrdered By: Vane Liu on 04-16-2024 Bilirubin [Mass/Vol] 0.70 mg/dL 0.20-1.00 [facility] Comment on above: For patients on eltr ombopag therapy, use of Dimension [place] TBIL is not recommended. Blood urea nitrogen (BUN)/cr eatinine ratioOrdered By: Vane Liu on 04-16-2024 Urea nitrogen/Creatinine [Mass ratio] 20.0 mg/mg 10-20 [facility] CBC W/Diff, Automatedon Absolute Lymph 2.23 X10 3/uL Normal 0.83-4.51 [facility] Comment on above: Performed By: #### L 500.4100, L501.9985, L100.0100, L500.4050 #### [facility] [address] [place], [address] Absolute Neut 2.8 X10 3/uL Normal 2.0-7.7 [facility] Comment on above: Performed By: #### L 500.4100, L501.9985, L100.0100, L500.4050 #### [facility] [address] [place], [address] Basophils/100 WBC (Bld) 1.6 % High 0-1 [facility] Comment on above: Performed By: #### L 500.4100, L501.9985, L100.0100, L500.4050 #### [facility] [address] [place], [address] Eosinophils/100 WBC (Bld) 3.2 % Normal 0-5 [facility] Comment on above: Performed By: #### L 500.4100, L501.9985, L100.0100, L500.4050 #### [facility] [address] [place], [address] Erythrocyte distribution width (RBC) [Ratio] 12.9 % Normal 11.6-14.6 [facility] Comment on above: Performed By: #### L 500.4100, L501.9985, L100.0100, L500.4050 #### [facility] [address] [place], [address] Hematocrit (Bld) [Volume fraction] 38.7 % Normal 37-47 [facility] Comment on above: Performed By: #### L 500.4100, L501.9985, L100.0100, L500.4050 #### [facility] [address] [place], [address] Hemoglobin (Bld) [Mass/Vol] 12.9 g/dL Normal 12.0-15.0 [facility] Comment on above: Performed By: #### L 500.4100, L501.9985, L100.0100, L500.4050 #### [facility] [address] [place], [address] IG% 0.500 Normal 0.0-0.9 [facility] Comment on above: Result Comment: IG% - Immature Granulocytes (promyelocytes, myelocytes and metamyelocytes) > 1% indicates that a LEFT SHIFT is Present. Performed By: #### L 500.4100, L501.9985, L100.0100, L500.4050 #### [facility] [address] [place], [address] Lymphocytes/100 WBC (Bld) 39.3 % Normal 19-41 [facility] Comment on above: Performed By: #### L 500.4100, L501.9985, L100.0100, L500.4050 #### [facility] [address] [place], [address] MCH (RBC) [Entitic mass] 30.9 pg Normal 27.0-32.0 [facility] Comment on above: Performed By: #### L 500.4100, L501.9985, L100.0100, L500.4050 #### [facility] [address] [place], [address] MCHC (RBC) [Mass/Vol] 33.3 g/dL Normal 32-36 [facility] Comment on above: Performed By: #### L 500.4100, L501.9985, L100.0100, L500.4050 #### [facility] [address] [place], [address] MCV (RBC) [Entitic vol] 92.6 fL Normal 81-99 [facility] Comment on above: Performed By: #### L 500.4100, L501.9985, L100.0100, L500.4050 #### [facility] [address] [place], [address] Monocytes/100 WBC (Bld) 6.7 % Normal 0-10 [facility] Comment on above: Performed By: #### L 500.4100, L501.9985, L100.0100, L500.4050 #### [facility] [address] [place], [address] Neutrophils/100 WBC (Bld) 48.7 % Normal 47-70 [facility] Comment on above: Performed By: #### L 500.4100, L501.9985, L100.0100, L500.4050 #### [facility] [address] [place], [address] Nucleated RBC (Bld) [#/Vol] 0 10*3/uL Normal 0-5 [facility] Comment on above: Performed By: #### L 500.4100, L501.9985, L100.0100, L500.4050 #### [facility] [address] [place], [address] Platelet mean volume (Bld) [Entitic vol] 8.9 fL Normal 6.2-12.0 [facility] Comment on above: Performed By: #### L 500.4100, L501.9985, L100.0100, L500.4050 #### [facility] [address] [place], [address] Platelets (Bld) [#/Vol] 323 10*3/uL Normal 150-450 [facility] Comment on above: Performed By: #### L 500.4100, L501.9985, L100.0100, L500.4050 #### [facility] [address] [place], [address] RBC (Bld) [#/Vol] 4.18 10*6/uL Low 4.2-5.4 [facility] Comment on above: Performed By: #### L 500.4100, L501.9985, L100.0100, L500.4050 #### [facility] [address] [place], [address] RDW SD 43.8 fl Normal 35.1-43.9 [facility] Comment on above: Performed By: #### L 500.4100, L501.9985, L100.0100, L500.4050 #### [facility] [address] [place], [address] WBC (Bld) [#/Vol] 5.7 10*3/uL Normal 4.4-11.0 [facility] Comment on above: Performed By: #### L 500.4100, L501.9985, L100.0100, L500.4050 #### [facility] [address] [place], [address] Carbon dioxide measurementOr dered By: Vane Liu on 04-16-2024 CO2 [Moles/Vol] 26.0 mmol/L 21.0-32.0 [facility] Chloride measurementOrdered By: Vane Liu on 02-07-2025 Chloride [Moles/Vol] 107 mmol/L 98-107 [facility] Comprehensive Metabolic Prof ilon 04-16-2024 Albumin [Mass/Vol] 3.7 g/dL Normal 3.2-5.0 [facility] Comment on above: Performed By: #### L 500.4100, L501.9985, L100.0100, L500.4050 #### [facility] [address] [place], [address] Albumin/Globulin [Mass ratio] 1.1 {ratio} Normal 0.9-2.4 [facility] Comment on above: Performed By: #### L 500.4100, L501.9985, L100.0100, L500.4050 #### [facility] [address] [place], [address] ALK P 107 U/L Normal 45-117 [facility] Comment on above: Performed By: #### L 500.4100, L501.9985, L100.0100, L500.4050 #### [facility] [address] [place], [address] ALT [Catalytic activity/Vol] 51 U/L Normal 13-56 [facility] Comment on above: Performed By: #### L 500.4100, L501.9985, L100.0100, L500.4050 #### [facility] [address] [place], [address] AST [Catalytic activity/Vol] 29 U/L Normal 15-37 [facility] Comment on above: Performed By: #### L 500.4100, L501.9985, L100.0100, L500.4050 #### [facility] [address] [place], [address] Bilirubin [Mass/Vol] 0.70 mg/dL Normal 0.20-1.00 [facility] Comment on above: Result Comment: For patients on eltrombopag therapy, use of Dimension [place] TBIL is not recommended. Performed By: #### L 500.4100, L501.9985, L100.0100, L500.4050 #### [facility] [address] [place], [address] BUN/CRE 20.0 RATIO Normal 10-20 [facility] Comment on above: Performed By: #### L 500.4100, L501.9985, L100.0100, L500.4050 #### [facility] [address] [place], [address] CA,Total 9.0 mg/dL Normal 8.5-10.1 [facility] Comment on above: Performed By: #### L 500.4100, L501.9985, L100.0100, L500.4050 #### [facility] [address] [place], [address] Chloride [Moles/Vol] 107 mmol/L Normal 98-107 [facility] Comment on above: Performed By: #### L 500.4100, L501.9985, L100.0100, L500.4050 #### [facility] [address] [place], [address] CO2 [Moles/Vol] 26.0 mmol/L Normal 21.0-32.0 [facility] Comment on above: Performed By: #### L 500.4100, L501.9985, L100.0100, L500.4050 #### [facility] [address] [place], [address] Creatinine [Mass/Vol] 0.75 mg/dL Normal 0.55-1.02 [facility] Comment on above: Result Comment: The validity of the calculated GFR GFRAA in patients over 70 years has not been determined. Clinical correlation is essential. Performed By: #### L 500.4100, L501.9985, L100.0100, L500.4050 #### [facility] [address] [place], [address] EST GFR - AA 100 mL/min Normal >60 [facility] Comment on above: Result Comment: Afri can Russian GFR Calc Performed By: #### L 500.4100, L501.9985, L100.0100, L500.4050 #### [facility] [address] [place], [address] GAP 6 Normal 5-15 [facility] Comment on above: Performed By: #### L 500.4100, L501.9985, L100.0100, L500.4050 #### [facility] [address] [place], [address] GFR/1.73 sq M.predicted among non-blacks MDRD (S/P/Bld) [Vol rate/Area] 82 mL/min/{1.73_m2} Normal >60 [facility] Comment on above: Result Comment: Non- GFR Calc Performed By: #### L 500.4100, L501.9985, L100.0100, L500.4050 #### [facility] [address] [place], [address] Globulin (S) [Mass/Vol] 3.5 g/dL Normal 2.2-4.2 [facility] Comment on above: Performed By: #### L 500.4100, L501.9985, L100.0100, L500.4050 #### [facility] [address] [place], [address] Glucose [Mass/Vol] 105 mg/dL Normal 74-106 [facility] Comment on above: Result Comment: Fast ing Glucose result from 100 to 125 mg/dL suggests IMPAIRED HOMEOSTASIS per A.D.A. criteria. Performed By: #### L 500.4100, L501.9985, L100.0100, L500.4050 #### [facility] [address] [place], [address] Potassium [Moles/Vol] 4.0 mmol/L Normal 3.5-5.1 [facility] Comment on above: Performed By: #### L 500.4100, L501.9985, L100.0100, L500.4050 #### [facility] [address] [place], [address] Sodium [Moles/Vol] 140 mmol/L Normal 136-145 [facility] Comment on above: Performed By: #### L 500.4100, L501.9985, L100.0100, L500.4050 #### [facility] [address] [place], [address] T PROT 7.2 g/dL Normal 6.4-8.2 [facility] Comment on above: Performed By: #### L 500.4100, L501.9985, L100.0100, L500.4050 #### [facility] [address] [place], [address] Urea nitrogen [Mass/Vol] 15 mg/dL Normal 7-18 [facility] Comment on above: Performed By: #### L 500.4100, L501.9985, L100.0100, L500.4050 #### [facility] [address] [place], [address] Eosinophil percentageOrdered By: Vane Liu on 04-16-2024 Eosinophils/100 WBC (Bld) 3.2 % 0-5 [facility] Erythrocyte distribution wid th ratioOrdered By: Vane Liu on 04-16-2024 Erythrocyte distribution width (RBC) [Ratio] 12.9 % 11.6-14.6 [facility] Erythrocyte distribution wid th standard deviationOrdered By: Vane Liu on 04-16-2024 Erythrocyte distribution width (RBC) [Entitic vol] 43.8 fL 35.1-43.9 [facility] Erythrocyte distribution width (RBC) [Ratio] 43.8 fl 35.1-43.9 [facility] Estimated glomerular filtrat ion rate (GFR) AmericanOrdered By: Vane Liu on 04-16-2024 Estimated GFR (MDRD) Amer 100 mL/min >60 [facility] Comment on above: GFR Calc Glomerular filtration rate ( GFR) estimationOrdered By: Vane Liu on 04-16-2024 Estimated GFR (MDRD) Non-Af Amer 82 mL/min >60 [facility] Comment on above: Non- GFR Calc GFR/1.73 sq M.predicted among non-blacks MDRD (S/P/Bld) [Vol rate/Area] 82 mL/min/{1.73_m2} >60 [facility] Comment on above: Non- GFR Calc Glucose measurementOrdered B y: Vane Liu on 04-16-2024 Glucose [Mass/Vol] 105 mg/dL 74-106 [facility] Comment on above: Fasting Glucose resu lt from 100 to 125 mg/dL suggests IMPAIRED HOMEOSTASIS per A.D.A. criteria. Hematocrit Auto (Bld) [Volum e fraction]Ordered By: Vane Liu on 04-16-2024 Hematocrit (Bld) [Volume fraction] 38.7 % 37-47 [facility] Hemoglobin A1c percentageOrd ered By: Vane Liu on 04-16-2024 HbA1c (Bld) [Mass fraction] 5.7 % High 3.8-5.6 [facility] Comment on above: Normal < 5.7 % Predi abetic 5.7 - 6.4 % Diabetic >or= 6.5 % Please note range changes. Hemoglobin measurementOrdere d By: Vane Liu on 04-16-2024 Hemoglobin (Bld) [Mass/Vol] 12.9 g/dL 12.0-15.0 [facility] High density lipoprotein (HD L) measurementOrdered By: Vane Liu on 04-16-2024 Cholesterol in HDL [Mass/Vol] 71 mg/dL >40 [facility] Comment on above: The drugs N-Acetylcy steine and Metamizole may falsely depress this assay. Reference Range HDL <40 mg/dL Low HDL Cholesterol HDL >or= 60 mg/dL High HDL Cholesterol Immature granulocytes/100 WB C Auto (Bld)Ordered By: Vane Liu on 04-16-2024 Immature granulocytes/100 WBC (Bld) 0.500 % 0.0-0.9 [facility] Comment on above: IG% - Immature Granu locytes (promyelocytes, myelocytes and metamyelocytes) > 1% indicates that a LEFT SHIFT is Present. Laboratory - Chemistry and C hemistry - challengeOrdered By: Vane Liu on 04-16-2024 AST [Catalytic activity/Vol] 29 U/L 15-37 [facility] Lipid Profileon 04-16-2024 Cholesterol [Mass/Vol] 188 mg/dL Normal 200 [facility] Comment on above: Result Comment: <200 mg/dL Desirable 200-240 mg/dL Borderline >240 mg/dL High Risk Performed By: #### L 500.4100, L501.9985, L100.0100, L500.4050 ####[facility] [address] [place], [address] Cholesterol in HDL [Mass/Vol] 71 mg/dL Normal [facility] Comment on above: Result Comment: The drugs N-Acetylcysteine and Metamizole may falsely depress this assay. Reference Range HDL <40 mg/dL Low HDL Cholesterol HDL >or= 60 mg/dL High HDL Cholesterol Performed By: #### L 500.4100, L501.9985, L100.0100, L500.4050 ####[facility] [address] [place], [address] Cholesterol in LDL [Mass/Vol] 96 mg/dL Normal 0-130 [facility] Comment on above: Performed By: #### L 500.4100, L501.9985, L100.0100, L500.4050 ####[facility] [address] [place], [address] Cholesterol in VLDL [Mass/Vol] 21 mg/dL Normal 5-40 [facility] Comment on above: Performed By: #### L 500.4100, L501.9985, L100.0100, L500.4050 ####[facility] [address] [place], [address] Triglyceride [Mass/Vol] 106 mg/dL Normal [facility] Comment on above: Result Comment: The drugs N-Acetylcysteine and Metamizole may falsely depress this assay. Serum Triglycerides Reference Interval Normal <150 mg/dL Borderline high 150 - 199 mg/dL High 200 - 499 mg/dL Very High > or = 500 mg/dL Performed By: #### L 500.4100, L501.9985, L100.0100, L500.4050 ####[facility] [address] [place], [place], [id number] Low density lipoprotein (LDL ) cholesterol measurementOrdered By: Vane Liu on 04-16-2024 Cholesterol in LDL [Mass/Vol] 96 mg/dL 0-130 [facility] Lymphocytes Auto (Unsp spec) [#/Vol]Ordered By: Vane Liu on 04-16-2024 Lymphocytes (Bld) [#/Vol] 2.23 10*3/uL 0.83-4.51 [facility] Lymphocytes/100 WBC Auto (Un sp spec)Ordered By: Vane Liu on 04-16-2024 Lymphocytes/100 WBC (Bld) 39.3 % 19-41 [facility] MCV (mean corpuscular volume ) determinationOrdered By: Vane Liu on 04-16-2024 MCV (RBC) [Entitic vol] 92.6 fL 81-99 [facility] Mean corpuscular hemoglobin (MCH) determinationOrdered By: Vane Liu on 04-16-2024 MCH (RBC) [Entitic mass] 30.9 pg 27.0-32.0 [facility] Mean corpuscular hemoglobin concentration (MCHC) determinationOrdered By: Vane Liu on 04-16-2024 MCHC (RBC) [Mass/Vol] 33.3 g/dL 32-36 [facility] Mean platelet volume determi nationOrdered By: Vane Liu on 04-16-2024 Platelet mean volume (Bld) [Entitic vol] 8.9 fL 6.2-12.0 [facility] Monocyte percentageOrdered B y: Vane Liu on 04-16-2024 Monocytes/100 WBC (Bld) 6.7 % 0-10 [facility] Neutrophil percentageOrdered By: Vane Liu on 04-16-2024 Neutrophils/100 WBC (Bld) 48.7 % 47-70 [facility] Nucleated red blood cell per centageOrdered By: Vane Liu on 04-16-2024 Nucleated RBC/100 WBC (Bld) [Ratio] 0 % 0-5 [facility] Platelet countOrdered By: Félix Liu on 04-16-2024 Platelets (Bld) [#/Vol] 323 10*3/uL 150-450 [facility] Potassium measurementOrdered By: Vane Liu on 04-16-2024 Potassium [Moles/Vol] 4.0 mmol/L 3.5-5.1 [facility] RBC Auto (Bld) [#/Vol]Ordere d By: Vane Liu on 04-16-2024 RBC (Bld) [#/Vol] 4.18 10*6/uL Low 4.2-5.4 [facility] Serum anion gap measurementO rdered By: Vane Liu on 04-16-2024 Anion gap [Moles/Vol] 6 mmol/L 5-15 [facility] Serum globulin measurementOr dered By: Vane Liu on 04-16-2024 Globulin (S) [Mass/Vol] 3.5 g/dL 2.2-4.2 [facility] Serum or plasma alanine og otransferase (ALT) measurementOrdered By: Vane Liu on 04-16-2024 ALT [Catalytic activity/Vol] 51 U/L 13-56 [facility] Serum or plasma albumin constantino urement (mass/volume)Ordered By: Vane Liu on 04-16-2024 Albumin [Mass/Vol] 3.7 g/dL 3.2-5.0 [facility] Serum or plasma alkaline cristina sphatase measurementOrdered By: Vane Liu on 04-16-2024 ALP [Catalytic activity/Vol] 107 U/L 45-117 [facility] Serum or plasma calcium constantino urement (mass/volume)Ordered By: Vane Liu on 04-16-2024 Calcium [Mass/Vol] 9.0 mg/dL 8.5-10.1 [facility] Serum or plasma cholesterol measurement (mass/volume)Ordered By: Vane Liu on 04-16-2024 Cholesterol [Mass/Vol] 188 mg/dL <200 [facility] Comment on above: <200 mg/dL Desirable 200-240 mg/dL Borderline >240 mg/dL High Risk Serum or plasma creatinine m easurement (mass/volume)Ordered By: Vane Liu on 04-16-2024 Creatinine [Mass/Vol] 0.75 mg/dL 0.55-1.02 [facility] Comment on above: The validity of the calculated GFR & GFRAA in patients over 70 years has not been determined. Clinical correlation is essential. Serum or plasma urea nitroge n measurement (mass/volume)Ordered By: Vane Liu on 04-16-2024 Urea nitrogen [Mass/Vol] 15 mg/dL 7-18 [facility] Sodium levelOrdered By: Bredna Liu on 04-16-2024 Sodium [Moles/Vol] 140 mmol/L 136-145 [facility] Total proteinOrdered By: Shaquille Liu on 04-16-2024 Protein [Mass/Vol] 7.2 g/dL 6.4-8.2 [facility] Triglycerides measurementOrd ered By: Vane Liu on 04-16-2024 Triglyceride [Mass/Vol] 106 mg/dL <199 [facility] Comment on above: The drugs N-Acetylcy steine and Metamizole may falsely depress this assay.Serum Triglycerides Reference Interval Normal <150 mg/dL Borderline high 150 - 199 mg/dL High 200 - 499 mg/dL Very High > or = 500 mg/dL Very low density lipoprotein (VLDL) cholesterol measurementOrdered By: Vane Liu on 04-16-2024 Very low density lipoprotein (VLDL) cholesterol measurement 21 mg/dL -40 [facility] VLDL Cholesterol 21 mg/dL -40 [facility] White blood cell (WBC) count Ordered By: Vane Liu on 04-16-2024 WBC (Bld) [#/Vol] 5.7 10*3/uL 4.4-11.0 [facility] Urgent Care Visit Reporton 0 03-19-2024 Urgent Care Visit Report [facility] [address], [address] [place] [address] OFFICE VISIT Date of Service: 03/19/24 MR#: [id number] Acct: [id number] Name: AURELIANO CALHOUN Rep #: [id number] : 1960 Provider: TESFAYE Sheth Age/Sex: 64/F Location: [facility] Status: Signed Intake Vital Signs 01/14/24 17:18 03/19/24 15:12 Height 5 ft 5 in Weight: 170 lb BMI 28.3 BP 112/72 130/72 H Blood Pressure Location Lt brachial Lt brachial Position Sitting Sitting Respiration 14 15 Pulse 90 69 Pulse Source Monitor NIBP Temp 98.1 F Temp Source Oral Pulse Oximetry (%) 97 99 Oxygen Delivery Method room air room air Intake Visit Reasons: CONGESTION, COUGH, HEADACHE Chief Complaint: cough, congest, TOSCANO, face pain System Archive Analyst Required: No Is patient in pain?: No Allergies No Known Allergies Allergy (Verified 03/19/24 15:13) Is last menstrual period known: No Post menopausal: Yes Patient : No Have you fallen in the past year?: No Nurse's Note: cough, congest, TOSCANO, face pain x 9 days without relief. denies fever, BA. concern for sinus infection [facility] Medical History Health care maintenance Chronic diarrhea Diarrhea UTI (urinary tract infection) Foul smelling urine Irritable bowel Family history of celiac disease Acute sinusitis Aphthous ulcer Acute pharyngitis, unspecified Flu vaccine need URI (upper respiratory infection) Factor V Leiden Essential hypertension ALEXX (obstructive sleep apnea) Breast cancer screening Dermatitis Normal colonoscopy Erythema migrans (Lyme disease) Hypersomnolence Sleep related choking sensation Polycystic ovaries diabetes mellitus type 2 Arthritis Seasonal allergies Recurrent cold sores Hyperlipidemia Surgical History History of rhinoplasty Normal colonoscopy History of hernia repair History of tonsillectomy trigger thumbs release H/O: hysterectomy Family History Mother Myocardial infarction factor 5 liden Father Arthritis Myocardial infarction, Onset Age: 40 Hypertension Hyperlipidemia Diabetes Unknown Breast cancer Brother Myocardial infarction Factor 5 Leiden mutation, heterozygous Social History household members: spouse housing: house Smoking Status: Former smoker Tobacco: How many years used: 3 second hand exposure: No alcohol intake: current alcohol intake frequency: 0-2 drinks per day Alcohol type: wine and hard liquor substance use type: does not use what type of physical activity do you participate in: running, bicycling and aerobics frequency: 5-6 times per week HPI HPI Chief Complaint: cough, congest, TOSCANO, face pain Details: AURELIANO CALHOUN, is a 64 F who presents to the office today for complaint of cough, congestion, headache and sinus pain and pressure. Patient states this has been ongoing for the past 9 days. She denies fever, chills, sweats. No nausea, vomiting or diarrhea. No hemoptysis, shortness of breath or difficulty breathing. No loss of taste or smell. No other associated symptoms or alleviating/aggrava ting factors. ROS Const Constitutional: No other (As above) Exam Const General: cooperative and healthy appearing [facility] Head: normal to inspection Ears: hearing grossly normal bilaterally, TM's normal bilaterally and EAC's normal Nose: nasal discharge purulent Face and sinus: sinus tenderness frontal and maxillary Mouth: oral mucosae normal Throat: abnormal tonsil bilaterally erythema and hypertrophy 1+ and postnasal drainage Resp Effort Inspection: normal respiratory effort Auscultation: Bilateral: Clear to Auscultation Cardio Palpation: normal PMI Rate: regular rate Rhythm: regular rhythm Neuro General: patient alert and CN's II-XI intact bilaterally Psych Appearance: grossly normal Mental Status: mental status grossly normal Coding Level of Care Code Off vis,est,level 3 Diagnoses Acute non-recurrent maxillary sinusitis J01.00 Sinusitis location: maxillary Chronicity: acute Recurrence: non-recurrent Assessment and Plan Assessment and Plan (1) Sinusitis: Status: Acute Qualifiers: Sinusitis location: maxillary Chronicity: acute Recurrence: non-recurrent Qualified Code(s): J01.00 - Acute maxillary sinusitis, unspecified Medications: New amoxicillin-pot clavulanate 875-125 mg 1 TAB PO Q12H 10 days 20 tabs 0RF J01.90 - Acute sinusitis, unspecified Plan Augmentin as prescribed today. Encouraged to get plenty of rest, drink lots of clear liquids, and use Tylenol or Ibuprofen (unless c (more content not included)... Normal [facility] Internal Medicine Office Vis iton 01-14-2024 Internal Medicine Office Visit [facility] [address] [place], [place] [address] OFFICE VISIT Date of Service: 01/14/24 MR#: [id number] Acct: [id number] Name: AURELIANO CALHOUN Rep #: [id number] : 1960 Provider: Dr. Vane hill MD Age/Sex: 63/F Location: [facility] Status: Signed Intake Vital Signs 10/09/23 17:33 10/15/23 08:30 01/14/24 17:18 Height 5 ft 5 in 5 ft 5 in 5 ft 5 in Weight: 170 lb BMI 28.3 BP 112/72 Blood Pressure Location Lt brachial Position Sitting Respiration 14 Pulse 90 Pulse Source Monitor Pulse Oximetry (%) 97 Oxygen Delivery Method room air Intake Visit Reasons: 3 M FU Chief Complaint: 3 M FU System Archive Analyst Required: No Is patient in pain?: No Allergies No Known Allergies Allergy (Verified 01/14/24 17:12) Medications ???Medication ???Instructions ???Recorded ???Confirmed ???Type blood-glucose meter (Accu-Chek #1 ea 07/02/21 01/14/24 Rx Genia Plus Meter) atorvastatin 20 mg tablet (Lipitor) 20 mg PO QDAY #90 tabs 04/07/23 01/14/24 Rx fluoxetine 10 mg capsule 30 mg (3 x 10 mg) PO DAILY 3 04/07/23 01/14/24 Rx months #270 caps lisinopril 2.5 mg tablet 2.5 mg PO DAILY #90 tabs 04/07/23 01/14/24 Rx trazodone 50 mg tablet 50 mg PO QHS PRN insomnia #30 tabs 07/18/23 01/14/24 Rx tirzepatide 10 mg/0.5 mL 10 mg (0.5 mL) subcut QWEEK 3 01/14/24 01/14/24 Rx subcutaneous pen injector months #6.5 mL PFSH Medical History Health care maintenance Chronic diarrhea Diarrhea UTI (urinary tract infection) Foul smelling urine Irritable bowel Family history of celiac disease Acute sinusitis Aphthous ulcer Acute pharyngitis, unspecified Flu vaccine need URI (upper respiratory infection) Factor V Leiden Essential hypertension ALEXX (obstructive sleep apnea) Breast cancer screening Dermatitis Normal colonoscopy Erythema migrans (Lyme disease) Hypersomnolence Sleep related choking sensation Polycystic ovaries diabetes mellitus type 2 Arthritis Seasonal allergies Recurrent cold sores Hyperlipidemia Surgical History History of rhinoplasty Normal colonoscopy History of hernia repair History of tonsillectomy trigger thumbs release H/O: hysterectomy Family History Mother Myocardial infarction factor 5 liden Father Arthritis Myocardial infarction, Onset Age: 40 Hypertension Hyperlipidemia Diabetes Unknown Breast cancer Brother Myocardial infarction Factor 5 Leiden mutation, heterozygous Social History household members: spouse housing: house Smoking Status: Former smoker Tobacco: How many years used: 3 second hand exposure: No alcohol intake: current alcohol intake frequency: 0-2 drinks per day Alcohol type: wine and hard liquor substance use type: does not use what type of physical activity do you participate in: running, bicycling and aerobics frequency: 5-6 times per week HPI HPI Chief Complaint: 3 M FU Details: AURELIANO CALHOUN, is a 63 F who presents to the office today for follow-up of her chronic medical conditions. No acute concerns at this time. At her last visit, she was switched from Trulicity to Mounjaro and so far has tolerated it really well. Has lost about 15 pounds on Mounjaro and A1c is down from 5.9-5.8. No significant/concern ing side effects. Other chronic medical conditions are stable. Blood pressure today at 112/72 mmHg. No chest pain, palpitation or shortness of breath. Also history of anxiety which is stable as well. Had for her mother today who went into hospice about a month ago. She states that she is doing okay. ROS Const Constitutional: No body ache, chills, excessive sweating, fatigue, fever(s), frequent falls, headache(s), snoring, weakness, sleep problems or change in appetite Eyes Eyes: No blurry vision, change in vision, bulging eyes, floaters, visual disturbances, eye pain or Light sensitivity ENT ENT: No abnormal hearing, ear or mastoid pain, tinnitus, balance problems, nosebleed/epistaxis , nasal congestion, headache(s), neck pain or sore throat Resp Respiratory: No cough, excessive phlegm production, pain on inspiration, shortness of breath, snoring or wheezing Cardio Cardiology: No chest pain at rest, chest pain with exertion, excessive sweating, shortness of breath, dyspnea on exertion, lightheadedness, orthopnea or palpitations Gastro GI: No abdominal pain, change in bowel habits, constipation, cramping, diarrhea, nausea/dyspepsia or vomiting Genitourinary-Femal e: No burning urination, painful urination, urinary incontinence, urina (more content not included)... Normal [facility] Absolute lymphocyte countOrd ered By: Vane Liu on 10-02-2022 Lymphocytes Auto (Unsp spec) [#/Vol] 1.71 10*3/uL 0.83-4.51 [facility] Basophil percentageOrdered B y: Vane Liu on 10-02-2022 Basophils/100 WBC (Bld) 1.9 % 0-1 [facility] Bilirubin [Mass/Vol] 1.20 mg/dL 0.20-1.00 [facility] Comment on above: For patients on eltr ombopag therapy, use of Dimension [place] TBIL is not recommended. Chloride [Moles/Vol] 109 mmol/L 98-107 [facility] Eosinophils/100 WBC (Bld) 5.9 % 0-5 [facility] Glucose [Mass/Vol] 98 mg/dL 74-106 [facility] Neutrophils (Bld) [#/Vol] 3.2 10*3/uL 2.0-7.7 [facility] Neutrophils/100 WBC (Bld) 55.4 % 47-70 [facility] Potassium [Moles/Vol] 4.1 mmol/L 3.5-5.1 [facility] Protein [Mass/Vol] 7.3 g/dL 6.4-8.2 [facility] Sodium [Moles/Vol] 139 mmol/L 136-145 [facility] WBC (Bld) [#/Vol] 5.8 10*3/uL 4.4-11.0 [facility] Blood erythrocytes count (nu mber/volume)Ordered By: Vane Liu on 10-02-2022 RBC (Bld) [#/Vol] 4.03 10*6/uL 4.2-5.4 [facility] Blood hemoglobin measurement (mass/volume)Ordered By: Vane Liu on 10-02-2022 Hemoglobin (Bld) [Mass/Vol] 12.6 g/dL 12.0-15.0 [facility] Blood lymphocytes/100 leukoc ytesOrdered By: Vane Liu on 10-02-2022 Lymphocytes/100 WBC (Bld) 29.7 % 19-41 [facility] Blood monocytes/100 leukocyt esOrdered By: Vane Liu on 10-02-2022 Monocytes/100 WBC (Bld) 6.8 % 0-10 [facility] Blood platelet mean volumeOr dered By: Vane Liu on 10-02-2022 Platelet mean volume (Bld) [Entitic vol] 9.3 fL 6.2-12.0 [facility] Determination of erythrocyte mean corpuscular volume (MCV)Ordered By: Vane Liu on 07-26-2023 MCV (RBC) [Entitic vol] 94.0 fL 81-99 [facility] Hematocrit Auto (Bld) [Volum e fraction]Ordered By: Vane Liu on 10-02-2022 Hematocrit (Bld) [Volume fraction] 37.9 % 37-47 [facility] Laboratory - Chemistry and C hemistry - challengeOrdered By: Vane Liu on 10-02-2022 ALP [Catalytic activity/Vol] 86 U/L 45-117 [facility] ALT [Catalytic activity/Vol] 52 U/L 13-56 [facility] CO2 [Moles/Vol] 24.0 mmol/L 21.0-32.0 [facility] Globulin (S) [Mass/Vol] 3.5 g/dL 2.2-4.2 [facility] Urea nitrogen/Creatinine [Mass ratio] 27.0 mg/mg 10-20 [facility] Laboratory - Hematology and Cell countsOrdered By: Brendadykediana Liu on 10-02-2022 Erythrocyte distribution width (RBC) [Entitic vol] 45.1 fL 35.1-43.9 [facility] Erythrocyte distribution width (RBC) [Ratio] 13.2 % 11.6-14.6 [facility] Immature granulocytes/100 WBC (Bld) 0.300 % 0.0-0.9 [facility] Comment on above: IG% - Immature Granu locytes (promyelocytes, myelocytes and metamyelocytes) > 1% indicates that a LEFT SHIFT is Present. MCH (RBC) [Entitic mass] 31.3 pg 27.0-32.0 [facility] Nucleated RBC/100 WBC (Bld) [Ratio] 0 % 0-5 [facility] Laboratory - Hematology and Cell countson 10-02-2022 HbA1c (Bld) [Mass fraction] 6.0 % 4.2-6.3 [facility] MCHC Auto (RBC) [Mass/Vol]Or dered By: Vane Liu on 10-02-2022 MCHC (RBC) [Mass/Vol] 33.2 g/dL 32-36 [facility] No Panel InformationOrdered By: Vane Liu on 10-02-2022 Estimated GFR (MDRD) Amer 102 mL/min >60 [facility] Comment on above: GFR Calc Estimated GFR (MDRD) Non-Af Amer 84 mL/min >60 [facility] Comment on above: Non- GFR Calc Platelets bldOrdered By: Shaquille Liu on 10-02-2022 Platelets (Bld) [#/Vol] 331 10*3/uL 150-450 [facility] Serum or plasma albumin constantino urement (mass/volume)Ordered By: Vane Liu on 10-02-2022 Albumin [Mass/Vol] 3.8 g/dL 3.2-5.0 [facility] Serum or plasma albumin/glob ulin mass ratioOrdered By: Vane Liu on 10-02-2022 Albumin/Globulin [Mass ratio] 1.1 {ratio} 0.9-2.4 [facility] Serum or plasma calcium constantino urement (mass/volume)Ordered By: Vane Liu on 10-02-2022 Calcium [Mass/Vol] 9.3 mg/dL 8.5-10.1 [facility] Serum or plasma creatinine m easurement (mass/volume)Ordered By: Vane Liu on 10-02-2022 Creatinine [Mass/Vol] 0.74 mg/dL 0.55-1.02 [facility] Comment on above: The validity of the calculated GFR & GFRAA in patients over 70 years has not been determined. Clinical correlation is essential. Serum or plasma urea nitroge n measurement (mass/volume)Ordered By: Vane Liu on 10-02-2022 Urea nitrogen [Mass/Vol] 20 mg/dL 7-18 [facility] Thin prep Papanicolaou smear with manual screeningOrdered By: Vane Liu on 10-02-2022 Thin prep Papanicolaou smear with manual screening 30 U/L 15-37 [facility] Thin prep Papanicolaou smear with manual screening 6 5-15 [facility] Stool enteric pathogen panel by probe and target amplification methodOrdered By: Wiley Pardo on 08-08-2022 Gastrointestinal pathogens panel REESE+probe (Stl) [facility] Gastrointestinal pathogens panel REESE+probe (Stl) [facility] Stool lactoferrin detection by immunoassayOrdered By: Wiley Pardo on 08-08-2022 Lactoferrin IA Ql (Stl) [facility] Lactoferrin IA Ql (Stl) [facility] Culture, urineOrdered By: Dr Ernie Liu on 08-01-2022 Bacteria identified Cx Nom (U) Positive [facility] Basophil percentageOrdered B y: Dr. Liu on 07-29-2022 Basophil percentage 0 SEEN /hpf 0-5 [facility] Bilirubin Test strip Ql (U)O rdered By: Dr. Liu on 07-29-2022 Bilirubin Ql (U) Negative Negative [facility] Culture, urineOrdered By: Félix Liu on 07-29-2022 Bacteria identified Cx Nom (U) Positive [facility] Ketones Test strip Ql (U)Ord ered By: Dr. Liu on 07-29-2022 Ketones Ql (U) Negative Negative [facility] Mucus LM Ql (Urine sed)Order ed By: Dr. Liu on 07-29-2022 Mucus Ql (Urine sed) 0 SEEN /hpf [facility] Nitrite Test strip Ql (U)Ord ered By: Dr. Liu on 07-29-2022 Nitrite Ql (U) Negative Negative [facility] Protein Test strip Ql (U)Ord ered By: Dr. Liu on 07-29-2022 Protein Ql (U) Negative Negative [facility] Squamous epithelial cells de tection in urine sediment by light microscopyOrdered By: Dr. Liu on 07-29-2022 Epithelial cells.squamous LM Ql (Urine sed) 0 SEEN /hpf 5-10 [facility] Urine blood detectionOrdered By: Dr. Liu on 07-29-2022 RBC Ql (U) 10 /ul Negative [facility] RBC Ql (U) 0 SEEN /hpf 0-5 [facility] Urine clarityOrdered By: Dr. Lui on 07-29-2022 Clarity (U) Clear Clear [facility] Urine color determinationOrd ered By: Dr. Liu on 07-29-2022 Color (U) Yellow Yellow [facility] Urine glucose detectionOrder ed By: Dr. Liu on 07-29-2022 Glucose Ql (U) Normal mg/dl Normal [facility] Urine leukocyte esterase det ection by dipstickOrdered By: Dr. Liu on 07-29-2022 Leukocyte esterase Test strip Ql (U) 25 /ul Negative [facility] Urine pHOrdered By: Dr. Rei schmidt on 07-29-2022 pH (U) 6.0 [pH] 5.0 - 8.0 [facility] Urine sediment bacteria coun t by microscopy (number/high power field)Ordered By: Dr. Liu on 07-29-2022 Bacteria LM.HPF (Urine sed) [#/Area] 0 /[HPF] None Seen [facility] Urine specific gravity measu rementOrdered By: Dr. Liu on 07-29-2022 Specific gravity (U) [Rel density] 1.015 1.002-1.030 [facility] Urobilinogen Auto test strip Ql (U)Ordered By: Dr. Liu on 07-29-2022 Urobilinogen Ql (U) Normal mg/dl Normal [facility] Culture, urineOrdered By: James Trotter on 07-11-2022 Bacteria identified Cx Nom (U) Escherichia coli [facility] Basophil percentageOrdered B y: Dr. Liu on 07-09-2022 Basophil percentage 10-25 SEEN /hpf 0-5 [facility] Bilirubin Test strip Ql (U)O rdered By: Dr. Liu on 07-09-2022 Bilirubin Ql (U) Negative Negative [facility] Culture, urineOrdered By: James Trotter on 07-09-2022 Bacteria identified Cx Nom (U) Escherichia coli [facility] Ketones Test strip Ql (U)Ord ered By: Dr. Liu on 07-09-2022 Ketones Ql (U) Negative Negative [facility] Mucus LM Ql (Urine sed)Order ed By: Dr. Liu on 07-09-2022 Mucus Ql (Urine sed) 0 SEEN /hpf [facility] Nitrite Test strip Ql (U)Ord ered By: Dr. Liu on 07-09-2022 Nitrite Ql (U) Negative Negative [facility] No Panel InformationOrdered By: Dr. Liu on 07-09-2022 Urine Transitional Epithelial Cells 0-5 SEEN /hpf 0-5 [facility] Protein Test strip Ql (U)Ord ered By: Dr. Liu on 07-09-2022 Protein Ql (U) Negative Negative [facility] Squamous epithelial cells de tection in urine sediment by light microscopyOrdered By: Dr. Liu on 07-09-2022 Epithelial cells.squamous LM Ql (Urine sed) 0 SEEN /hpf 5-10 [facility] Urine blood detectionOrdered By: Dr. Liu on 07-09-2022 RBC Ql (U) 150 /ul Negative [facility] RBC Ql (U) 10-25 SEEN /hpf 0-5 [facility] Urine clarityOrdered By: Dr. Liu on 07-09-2022 Clarity (U) Sl. Cloudy Clear [facility] Urine color determinationOrd ered By: Dr. Liu on 07-09-2022 Color (U) Yellow Yellow [facility] Urine glucose detectionOrder ed By: Dr. Liu on 07-09-2022 Glucose Ql (U) Normal mg/dl Normal [facility] Urine leukocyte esterase det ection by dipstickOrdered By: Dr. Liu on 07-09-2022 Leukocyte esterase Test strip Ql (U) 100 /ul Negative [facility] Urine pHOrdered By: Dr. Rei schmidt on 07-09-2022 pH (U) 6.5 [pH] 5.0 - 8.0 [facility] Urine sediment bacteria coun t by microscopy (number/high power field)Ordered By: Dr. Liu on 07-09-2022 Bacteria LM.HPF (Urine sed) [#/Area] 0 /[HPF] None Seen [facility] Urine specific gravity measu rementOrdered By: Dr. Liu on 07-09-2022 Specific gravity (U) [Rel density] 1.005 1.002-1.030 [facility] Urobilinogen Auto test strip Ql (U)Ordered By: Dr. Liu on 07-09-2022 Urobilinogen Ql (U) Normal mg/dl Normal [facility] Laboratory - Chemistry and C hemistry - challengeon 07-08-2022 Bilirubin Ql (U) Negative [facility] Glucose Ql (U) Negative [facility] Ketones Ql (U) Negative [facility] pH (U) 6.0 [pH] [facility] Specific gravity (U) [Rel density] 1.020 [facility] Urobilinogen (U) [Mass/Vol] Negative [facility] Laboratory - Hematology and Cell countson 07-08-2022 Hemoglobin Ql (U) Hemolyzed [facility] Laboratory - Specimen inform ationon 07-08-2022 Clarity (U) Clear [facility] Color (U) Yellow [facility] Laboratory - Urinalysison Nitrite Ql (U) Negative [facility] Protein Ql (U) Negative [facility] No Panel Informationon 07-08 Urine Leukocytes Negatve [facility] Urine Non-Hemolyzed Blood Moderate [facility] No Panel InformationOrdered By: Dr. Liu on 07-08-2022 Anti-Gliadin IgA Antibody 5 units 0-19 [facility] Comment on above: Negative 0 - 19 Weak Positive 20 - 30 Moderate to Strong Positive >30 Anti-Gliadin IgG Antibody 3 units 0-19 [facility] Comment on above: Negative 0 - 19 Weak Positive 20 - 30 Moderate to Strong Positive >30 Endomysial IgA Antibody Negative Negative [facility] Tissue Transglutaminase IgG Ab <2 U/mL 0-5 [facility] Comment on above: Negative 0 - 5 Weak Positive 6 - 9 Positive >9 Serum IgA measurement (units /volume)Ordered By: Dr. Liu on 07-08-2022 IgA Qn (S) 106 mg/dL 87-352 [facility] Comment on above: Performed at: [address] [id number] Director: Lamonte Snyder PhD, Phone: [phone] Serum tissue transglutaminas e IgA antibody assay (units/volume)Ordered By: Dr. Liu on 07-08-2022 tTG IgA Qn (S) <2 U/mL 0-3 [facility] Comment on above: Negative 0 - 3 Weak Positive 4 - 10 Positive >10 Tissue Transglutaminase (tTG) has been identified as the endomysial antigen. Studies have demonstr- ated that endomysial IgA antibodies have over 99% specificity for gluten sensitive enteropathy. Laboratory - Hematology and Cell countson 06-21-2022 HbA1c (Bld) [Mass fraction] 5.7 % 4.2-6.3 [facility] Absolute lymphocyte countOrd ered By: Dr. Liu on 03-27-2022 Lymphocytes Auto (Unsp spec) [#/Vol] 1.74 10*3/uL 0.83-4.51 [facility] Basophil percentageOrdered B y: Dr. Liu on 03-27-2022 Basophils/100 WBC (Bld) 1.3 % 0-1 [facility] Bilirubin [Mass/Vol] 0.90 mg/dL 0.20-1.00 [facility] Comment on above: For patients on eltr ombopag therapy, use of Dimension [place] TBIL is not recommended. Chloride [Moles/Vol] 106 mmol/L 98-107 [facility] Cholesterol [Mass/Vol] 167 mg/dL <200 [facility] Comment on above: <200 mg/dL Desirable 200-240 mg/dL Borderline >240 mg/dL High Risk Eosinophils/100 WBC (Bld) 9.3 % 0-5 [facility] Glucose [Mass/Vol] 99 mg/dL 74-106 [facility] Neutrophils (Bld) [#/Vol] 4.2 10*3/uL 2.0-7.7 [facility] Neutrophils/100 WBC (Bld) 58.7 % 47-70 [facility] Potassium [Moles/Vol] 3.8 mmol/L 3.5-5.1 [facility] Protein [Mass/Vol] 7.2 g/dL 6.4-8.2 [facility] Sodium [Moles/Vol] 139 mmol/L 136-145 [facility] Triglyceride [Mass/Vol] 153 mg/dL <199 [facility] Comment on above: The drugs N-Acetylcy steine and Metamizole may falsely depress this assay.Serum Triglycerides Reference Interval Normal <150 mg/dL Borderline high 150 - 199 mg/dL High 200 - 499 mg/dL Very High > or = 500 mg/dL WBC (Bld) [#/Vol] 7.1 10*3/uL 4.4-11.0 [facility] Blood erythrocytes count (nu mber/volume)Ordered By: Dr. Liu on 03-27-2022 RBC (Bld) [#/Vol] 3.96 10*6/uL 4.2-5.4 [facility] Blood hemoglobin measurement (mass/volume)Ordered By: Dr. Liu on 03-27-2022 Hemoglobin (Bld) [Mass/Vol] 12.5 g/dL 12.0-15.0 [facility] Blood lymphocytes/100 leukoc ytesOrdered By: Dr. Liu on 03-27-2022 Lymphocytes/100 WBC (Bld) 24.4 % 19-41 [facility] Blood monocytes/100 leukocyt esOrdered By: Dr. Liu on 03-27-2022 Monocytes/100 WBC (Bld) 6.0 % 0-10 [facility] Blood platelet mean volumeOr dered By: Dr. Liu on 03-27-2022 Platelet mean volume (Bld) [Entitic vol] 9.0 fL 6.2-12.0 [facility] Determination of erythrocyte mean corpuscular volume (MCV)Ordered By: Dr. Liu on 03-27-2022 MCV (RBC) [Entitic vol] 94.7 fL 81-99 [facility] Hematocrit Auto (Bld) [Volum e fraction]Ordered By: Dr. Liu on 03-27-2022 Hematocrit (Bld) [Volume fraction] 37.5 % 37-47 [facility] Laboratory - Chemistry and C hemistry - challengeOrdered By: Dr. Liu on 03-27-2022 ALP [Catalytic activity/Vol] 88 U/L 45-117 [facility] ALT [Catalytic activity/Vol] 43 U/L 13-56 [facility] CO2 [Moles/Vol] 28.0 mmol/L 21.0-32.0 [facility] Globulin (S) [Mass/Vol] 3.4 g/dL 2.2-4.2 [facility] Urea nitrogen/Creatinine [Mass ratio] 20.4 mg/mg 10-20 [facility] Laboratory - Hematology and Cell countsOrdered By: Dr. Liu on 03-27-2022 Erythrocyte distribution width (RBC) [Entitic vol] 44.9 fL 35.1-43.9 [facility] Erythrocyte distribution width (RBC) [Ratio] 13.0 % 11.6-14.6 [facility] Immature granulocytes/100 WBC (Bld) 0.300 % 0.0-0.9 [facility] Comment on above: IG% - Immature Granu locytes (promyelocytes, myelocytes and metamyelocytes) > 1% indicates that a LEFT SHIFT is Present. MCH (RBC) [Entitic mass] 31.6 pg 27.0-32.0 [facility] Nucleated RBC/100 WBC (Bld) [Ratio] 0 % 0-5 [facility] MCHC Auto (RBC) [Mass/Vol]Or dered By: Dr. Liu on 03-27-2022 MCHC (RBC) [Mass/Vol] 33.3 g/dL 32-36 [facility] No Panel InformationOrdered By: Dr. Liu on 03-27-2022 Estimated GFR (MDRD) Amer 103 mL/min >60 [facility] Comment on above: GFR Calc Estimated GFR (MDRD) Non-Af Amer 85 mL/min >60 [facility] Comment on above: Non- GFR Calc Platelets bldOrdered By: Dr. Liu on 03-27-2022 Platelets (Bld) [#/Vol] 353 10*3/uL 150-450 [facility] Serum or plasma albumin constantino urement (mass/volume)Ordered By: Dr. Liu on 03-27-2022 Albumin [Mass/Vol] 3.8 g/dL 3.2-5.0 [facility] Serum or plasma albumin/glob ulin mass ratioOrdered By: Dr. Liu on 03-27-2022 Albumin/Globulin [Mass ratio] 1.1 {ratio} 0.9-2.4 [facility] Serum or plasma calcium constantino urement (mass/volume)Ordered By: Dr. Liu on 03-27-2022 Calcium [Mass/Vol] 9.0 mg/dL 8.5-10.1 [facility] Serum or plasma cholesterol in HDL measurement (mass/volume)Ordered By: Dr. Liu on 03-27-2022 Cholesterol in HDL [Mass/Vol] 65 mg/dL >40 [facility] Comment on above: The drugs N-Acetylcy steine and Metamizole may falsely depress this assay. Reference Range HDL <40 mg/dL Low HDL Cholesterol HDL >or= 60 mg/dL High HDL Cholesterol Serum or plasma cholesterol in VLDL measurement (mass/volume)Ordered By: Dr. Liu on 03-27-2022 Cholesterol in VLDL [Mass/Vol] 31 mg/dL 5-40 [facility] Serum or plasma creatinine m easurement (mass/volume)Ordered By: Dr. Liu on 03-27-2022 Creatinine [Mass/Vol] 0.74 mg/dL 0.55-1.02 [facility] Comment on above: The validity of the calculated GFR & GFRAA in patients over 70 years has not been determined. Clinical correlation is essential. Serum or plasma low density lipoprotein (LDL) cholesterol measurement (mass/volume)Ordered By: Dr. Liu on 03-27-2022 Cholesterol in LDL [Mass/Vol] 71 mg/dL 0-130 [facility] Serum or plasma urea nitroge n measurement (mass/volume)Ordered By: Dr. Liu on 03-27-2022 Urea nitrogen [Mass/Vol] 15 mg/dL 7-18 [facility] Thin prep Papanicolaou smear with manual screeningOrdered By: Dr. Liu on 03-27-2022 Thin prep Papanicolaou smear with manual screening 20 U/L 15-37 [facility] Thin prep Papanicolaou smear with manual screening 5 5-15 [facility] Laboratory - Hematology and Cell countson 03-22-2022 HbA1c (Bld) [Mass fraction] 5.8 % 4.2-6.3 [facility] Laboratory - Hematology and Cell countson 12-31-2021 HbA1c (Bld) [Mass fraction] 5.7 % 4.2-6.3 [facility] Laboratory - Microbiology an d Antimicrobial susceptibilityOrdered By: Dr. Liu on 12-31-2021 SARS-CoV-2 (COVID-19) RNA REESE+probe Ql (Unsp spec) Not detected Not Detect [facility] Comment on above: Normal Reference Ran ge: Not DetectedMethod:(RT-PCR) real-time reverse transcriptase PCRLuminex MONCHO Instrument*The Food and Drug Administration (FDA) has issued an Emergency Use Authorization (EAU) for the MONCHO SARS-CoV-2 Assay for the rapid detection of the virus that causes COVID-19. This test has been validated, but the FDAs independent review of this validation is pending.*Negative results do not preclude infection and should not be used as the sole basis for treatment or patient management. Optimum specimen types and timing for peak viral levels during infections caused by SARS-CoV-2 have not been determined. Collection of multiple specimens from the same patient may be necessary to detect the virus. The possibility of a false negative result should be considered if the patient has clinical presentation or has had recent exposure. Basophil percentageOrdered B y: Dr. Shaver on 12-25-2021 Chloride [Moles/Vol] 108 mmol/L 98-107 [facility] Glucose [Mass/Vol] 107 mg/dL 74-106 [facility] Comment on above: Fasting Glucose resu lt from 100 to 125 mg/dL suggests IMPAIRED HOMEOSTASIS per A.D.A. criteria. Potassium [Moles/Vol] 4.2 mmol/L 3.5-5.1 [facility] Sodium [Moles/Vol] 140 mmol/L 136-145 [facility] WBC (Bld) [#/Vol] 8.2 10*3/uL 4.4-11.0 [facility] Blood erythrocytes count (nu mber/volume)Ordered By: Dr. Shaver on 12-25-2021 RBC (Bld) [#/Vol] 3.85 10*6/uL 4.2-5.4 [facility] Blood hemoglobin measurement (mass/volume)Ordered By: Dr. Shaver on 12-25-2021 Hemoglobin (Bld) [Mass/Vol] 11.9 g/dL 12.0-15.0 [facility] Blood platelet mean volumeOr dered By: Dr. Shaver on 12-25-2021 Platelet mean volume (Bld) [Entitic vol] 9.0 fL 6.2-12.0 [facility] Determination of erythrocyte mean corpuscular volume (MCV)Ordered By: Dr. Shaver on 12-25-2021 MCV (RBC) [Entitic vol] 94.3 fL 81-99 [facility] Hematocrit Auto (Bld) [Volum e fraction]Ordered By: Dr. Shaver on 12-25-2021 Hematocrit (Bld) [Volume fraction] 36.3 % 37-47 [facility] Laboratory - Chemistry and C hemistry - challengeOrdered By: Dr. Shaver on 12-25-2021 CO2 [Moles/Vol] 30.0 mmol/L 21.0-32.0 [facility] Urea nitrogen/Creatinine [Mass ratio] 32.7 mg/mg 10-20 [facility] Laboratory - Hematology and Cell countsOrdered By: Dr. Shaver on 12-25-2021 Erythrocyte distribution width (RBC) [Entitic vol] 44.6 fL 35.1-43.9 [facility] Erythrocyte distribution width (RBC) [Ratio] 12.9 % 11.6-14.6 [facility] MCH (RBC) [Entitic mass] 30.9 pg 27.0-32.0 [facility] MCHC Auto (RBC) [Mass/Vol]Or dered By: Dr. Shaver on 12-25-2021 MCHC (RBC) [Mass/Vol] 32.8 g/dL 32-36 [facility] No Panel InformationOrdered By: Dr. Shaver on 12-25-2021 Estimated GFR (MDRD) Amer 94 mL/min >60 [facility] Comment on above: GFR Calc Estimated GFR (MDRD) Non-Af Amer 78 mL/min >60 [facility] Comment on above: Non- GFR Calc Platelets bldOrdered By: Dr. Shaver on 12-25-2021 Platelets (Bld) [#/Vol] 319 10*3/uL 150-450 [facility] Serum or plasma calcium constantino urement (mass/volume)Ordered By: Dr. Shaver on 12-25-2021 Calcium [Mass/Vol] 9.6 mg/dL 8.5-10.1 [facility] Serum or plasma creatinine m easurement (mass/volume)Ordered By: Dr. Shaver on 12-25-2021 Creatinine [Mass/Vol] 0.79 mg/dL 0.55-1.02 [facility] Comment on above: The validity of the calculated GFR & GFRAA in patients over 70 years has not been determined. Clinical correlation is essential. Serum or plasma urea nitroge n measurement (mass/volume)Ordered By: Dr. Shaver on 12-25-2021 Urea nitrogen [Mass/Vol] 26 mg/dL - [facility] Thin prep Papanicolaou smear with manual screeningOrdered By: Dr. Shaver on 12-25-2021 Thin prep Papanicolaou smear with manual screening 2 5-15 [facility] Basophil percentageon 2021 Chloride [Moles/Vol] 106 mmol/L 98-107 [facility] Work Phone: Glucose [Mass/Vol] 113 mg/dL 74-106 [facility] Work Phone: Comment on above: Fasting Glucose resu lt from 100 to 125 mg/dL suggests IMPAIRED HOMEOSTASIS per A.D.A. criteria. Potassium [Moles/Vol] 3.8 mmol/L 3.5-5.1 [facility] Work Phone: Sodium [Moles/Vol] 139 mmol/L 136-145 [facility] Work Phone: Laboratory - Chemistry and C hemistry - challengeon 09-25-2021 CO2 [Moles/Vol] 29.0 mmol/L 21.0-32.0 [facility] Work Phone: Urea nitrogen/Creatinine [Mass ratio] 29.0 mg/mg - [facility] Work Phone: No Panel Informationon 09-25 Estimated GFR (MDRD) Amer 99 mL/min >60 [facility] Work Phone: Comment on above: GFR Calc Estimated GFR (MDRD) Non-Af Amer 82 mL/min >60 [facility] Work Phone: Comment on above: Non- GFR Calc Serum or plasma calcium constantino urement (mass/volume)on 09-25-2021 Calcium [Mass/Vol] 9.4 mg/dL 8.5-10.1 [facility] Work Phone: Serum or plasma creatinine m easurement (mass/volume)on 09-25-2021 Creatinine [Mass/Vol] 0.76 mg/dL 0.55-1.02 [facility] Work Phone: Comment on above: The validity of the calculated GFR & GFRAA in patients over 70 years has not been determined. Clinical correlation is essential. Serum or plasma urea nitroge n measurement (mass/volume)on 09-25-2021 Urea nitrogen [Mass/Vol] 22 mg/dL 09-24 [facility] Work Phone: Thin prep Papanicolaou smear with manual screeningon 09-25-2021 Thin prep Papanicolaou smear with manual screening 4 07-22 [facility] Work Phone: Whole blood hemoglobin A1c/t otal hemoglobin ratio (mass fraction)on 09-25-2021 HbA1c (Bld) [Mass fraction] 5.9 % 3.8-5.6 [facility] Work Phone: Comment on above: Normal < 5.7 % Predi abetic 5.7 - 6.4 % Diabetic >or= 6.5 % Please note range changes. Laboratory - Hematology and Cell countson 07-02-2021 HbA1c (Bld) [Mass fraction] 6.4 % 4.2-6.3 [facility] Work Phone: Lab Report: CORTISOL SERUMon 01-03-2017 Cortisol 12.50 ug/dL Invalid Interpretation Code 3.09-22.40 [facility] Work Phone: Lab Report: DHEA Sulfateon 1 DHEA SULF 4020 781 ng/mL Invalid Interpretation Code Units converted. See lab report for original value. [facility] Work Phone: Lab Report: Basic Metabolic Profile (BMP)on 12-26-2016 Anion gap 8 mmol/L Invalid Interpretation Code 5-15 [facility] Work Phone: BUN/Creatinine Ratio 27.8 RATIO High 10-20 [facility] Work Phone: Calcium 8.5 mg/dL Invalid Interpretation Code 8.5-10.1 [facility] Work Phone: [phone] Chloride 110 mmol/L High 98-107 [facility] Work Phone: [phone] CO2 26.0 mmol/L Invalid Interpretation Code 21.0-32.0 [facility] Work Phone: [phone] Creatinine 0.68 mg/dL Invalid Interpretation Code 0.55-1.02 [facility] Work Phone: [phone] eGFR (non-black) 94 mL/min/{1.73_m2} Invalid Interpretation Code >60 [facility] Work Phone: [phone] eGFR (non-black) 114 mL/min/{1.73_m2} Invalid Interpretation Code >60 [facility] Work Phone: [phone] Glucose mass conc 114 mg/dL High 70-110 [facility] Work Phone: [phone] Potassium molar conc 4.1 mmol/L Invalid Interpretation Code 3.5-5.1 [facility] Work Phone: [phone] Sodium 144 mmol/L Invalid Interpretation Code 136-145 [facility] Work Phone: [phone] Urea nitrogen 19 mg/dL High 7-18 [facility] Work Phone: [phone] Lab Report: CBC W/Diff, Auto matedon 12-26-2016 Absolute Neut 2.8 X10 3/UL Invalid Interpretation Code 2.0-7.7 [facility] Work Phone: [phone] Basophils/100 WBC Auto (Bld) 1.4 % High 0-1 [facility] Work Phone: [phone] Eosinophils/100 leukocytes 3.5 % Invalid Interpretation Code 0-5 [facility] Work Phone: [phone] Erythrocyte distribution width Auto Ratio (RBC) 13.2 % Invalid Interpretation Code 11.6-14.6 [facility] Work Phone: [phone] Erythrocytes (RBC) 3.94 10*6/uL Low 4.2-5.4 [facility] Work Phone: [phone] Hematocrit (HCT) 36.8 % Low 37-47 [facility] Work Phone: [phone] Hemoglobin mass conc (Bld) 12.1 g/dL Invalid Interpretation Code 12.0-15.0 [facility] Work Phone: [phone] Immature granulocytes/100 WBC (Bld) 0.000 % Invalid Interpretation Code 0.0-0.9 [facility] Work Phone: [phone] Lymphocytes 1.79 X10 3/UL Invalid Interpretation Code 0.83-4.51 [facility] Work Phone: [phone] Lymphocytes/100 leukocytes 34.8 % Invalid Interpretation Code 19-41 [facility] Work Phone: [phone] MCH 30.7 pg Invalid Interpretation Code 27.0-32.0 [facility] Work Phone: [phone] MCHC mass conc (RBC) 32.9 G/GL Invalid Interpretation Code 32-36 [facility] Work Phone: [phone] MCV 93.4 fL Invalid Interpretation Code 81-99 [facility] Work Phone: [phone] Monocytes/100 leukocytes 5.6 % Invalid Interpretation Code 0-10 [facility] Work Phone: [phone] Neutrophils/100 WBC Auto (Bld) 54.7 % Invalid Interpretation Code 47-70 [facility] Work Phone: [phone] Platelets 285 10*3/mm3 Invalid Interpretation Code 150-450 [facility] Work Phone: [phone] PMV by Anai 9.2 fL Invalid Interpretation Code 6.2-12.0 [facility] Work Phone: [phone] RDW SD 45.3 fL High 35.1-43.9 [facility] Work Phone: [phone] WBC (Leukocytes) 5.2 10*3/uL Invalid Interpretation Code 4.4-11.0 [facility] Work Phone: [phone] Lab Report: Hemoglobin A1con 12-26-2016 Hemoglobin A1c/Hemoglobin.total mass fraction (Bld) 6.3 % Invalid Interpretation Code 4.2-6.3 [facility] Work Phone: [phone] Lab Report: Lipid Profileon 12-26-2016 Cholesterol 144 mg/dL Invalid Interpretation Code 200 [facility] Work Phone: [phone] HDL Cholesterol 65 mg/dL Invalid Interpretation Code [facility] Work Phone: [phone] LDL Cholesterol 66 mg/dL Invalid Interpretation Code 0-130 [facility] Work Phone: [phone] Triglyceride 63 mg/dL Invalid Interpretation Code [facility] Work Phone: [phone] very low density lipoproteins 13 mg/dL Invalid Interpretation Code 5-40 [facility] Work Phone: [phone] Office Visit: Est. Pt. Visit on 12-24-2016 Alcoholism counseling (procedure) no Invalid Interpretation Code [facility] Work Phone: [phone] Documentation of current medications (procedure) Done Invalid Interpretation Code [facility] Work Phone: [phone] Fall risk assessment No Invalid Interpretation Code [facility] Work Phone: [phone] Tobacco use CPHS Former smoker Invalid Interpretation Code [facility] Work Phone: [phone] Vital Signs Date Time Vital Sign Value Performing Clinician Facility 12-08-2024 06:40-0400 Body height 165.[address] Vane Liu MD Work Phone: [facility] 12-08-2024 06:40-0400 Body mass index (BMI) [Ratio] 29.1 kg/m2 Dr. Vane Liu MD Work Phone: [facility] 12-08-2024 06:40-0400 Body temperature 97 [degF] Dr. Vane Liu MD Work Phone: [facility] 12-08-2024 06:40-0400 Body weight 79.[address] Vane Liu MD Work Phone: [facility] 12-08-2024 06:40-0400 Diastolic blood pressure 84 mm[Hg] Dr. Vane Liu MD Work Phone: [facility] 12-08-2024 06:40-0400 Heart rate 66 /min Dr. Vane Liu MD Work Phone: [facility] 12-08-2024 06:40-0400 Respiratory rate 18 /min Dr. Vane Liu MD Work Phone: [facility] 12-08-2024 06:40-0400 SaO2% (BldA) [Mass fraction] 97 % Dr. Vane Liu MD Work Phone: [facility] 12-08-2024 06:40-0400 Systolic blood pressure 138 mm[Hg] Dr. Vane Liu MD Work Phone: [facility] 10-27-2024 09:34-0400 Body height 165.[address] Vane Liu MD Work Phone: [facility] 10-27-2024 09:34-0400 Body mass index (BMI) [Ratio] 29.2 kg/m2 Dr. Vane Liu MD Work Phone: [facility] 10-27-2024 09:34-0400 Body temperature 97 [degF] Dr. Vane Liu MD Work Phone: [facility] 10-27-2024 09:34-0400 Body weight 79.[address] Vane Liu MD Work Phone: [facility] 10-27-2024 09:34-0400 Diastolic blood pressure 60 mm[Hg] Dr. Vane Liu MD Work Phone: [facility] 10-27-2024 09:34-0400 Heart rate 78 /min Dr. Vane Liu MD Work Phone: [facility] 10-27-2024 09:34-0400 Respiratory rate 16 /min Dr. Vane Liu MD Work Phone: [facility] 10-27-2024 09:34-0400 SaO2% (BldA) [Mass fraction] 97 % Dr. Vane Liu MD Work Phone: [facility] 10-27-2024 09:34-0400 Systolic blood pressure 116 mm[Hg] Dr. Vane Liu MD Work Phone: [facility] 10-14-2024 08:18-0400 Body mass index (BMI) [Ratio] 29.2 kg/m2 Dr. Vane Liu MD Work Phone: [facility] 10-14-2024 08:18-0400 Body temperature 97.4 [degF] Dr. Vane Liu MD Work Phone: [facility] 10-14-2024 08:18-0400 Body weight 79.[address] Vane Liu MD Work Phone: [facility] 10-14-2024 08:18-0400 Diastolic blood pressure 73 mm[Hg] Dr. Vane Liu MD Work Phone: [facility] 10-14-2024 08:18-0400 Heart rate 93 /min Dr. Vane Liu MD Work Phone: [facility] 10-14-2024 08:18-0400 Respiratory rate 18 /min Dr. Vane Liu MD Work Phone: [facility] 10-14-2024 08:18-0400 SaO2% (BldA) [Mass fraction] 97 % Dr. Vane Liu MD Work Phone: [facility] 10-14-2024 08:18-0400 Systolic blood pressure 109 mm[Hg] Dr. Vane Liu MD Work Phone: [facility] 09-28-2024 12:38-0400 Body height 165.[address] Vane Liu MD Work Phone: [facility] 09-28-2024 12:38-0400 Body mass index (BMI) [Ratio] 29.9 kg/m2 Dr. Vane Liu MD Work Phone: [facility] 09-28-2024 12:38-0400 Body temperature 97.6 [degF] Dr. Vane Liu MD Work Phone: [facility] 09-28-2024 12:38-0400 Body weight 81.[address] Vane Liu MD Work Phone: [facility] 09-28-2024 12:38-0400 Diastolic blood pressure 80 mm[Hg] Dr. Vane Liu MD Work Phone: [facility] 09-28-2024 12:38-0400 Heart rate 79 /min Dr. Vane Liu MD Work Phone: [facility] 09-28-2024 12:38-0400 Respiratory rate 16 /min Dr. Vane Liu MD Work Phone: [facility] 09-28-2024 12:38-0400 SaO2% (BldA) [Mass fraction] 99 % Dr. Vane Liu MD Work Phone: [facility] 09-28-2024 12:38-0400 Systolic blood pressure 116 mm[Hg] Dr. Vane Liu MD Work Phone: [facility] 07-28-2024 16:35-0400 Body height 165.[address] Vane Liu MD Work Phone: [facility] 07-28-2024 16:35-0400 Body mass index (BMI) [Ratio] 29.2 kg/m2 Dr. Vane Liu MD Work Phone: [facility] 07-28-2024 16:35-0400 Body temperature 96.7 [degF] Dr. Vane Liu MD Work Phone: [facility] 07-28-2024 16:35-0400 Body weight 79.[address] Vane Liu MD Work Phone: [facility] 07-28-2024 16:35-0400 Diastolic blood pressure 64 mm[Hg] Dr. Vane Liu MD Work Phone: [facility] 07-28-2024 16:35-0400 Heart rate 82 /min Dr. Vane Liu MD Work Phone: [facility] 07-28-2024 16:35-0400 Respiratory rate 16 /min Dr. Vane Liu MD Work Phone: [facility] 07-28-2024 16:35-0400 SaO2% (BldA) [Mass fraction] 97 % Dr. Vane Liu MD Work Phone: [facility] 07-28-2024 16:35-0400 Systolic blood pressure 108 mm[Hg] Dr. Vane Liu MD Work Phone: [facility] 04-21-2024 14:52-0500 Body height 165.[address] Vane Liu MD Work Phone: [facility] 04-21-2024 14:52-0500 Body mass index (BMI) [Ratio] 29.2 kg/m2 Dr. Vane Liu MD Work Phone: [facility] 04-21-2024 14:52-0500 Body temperature 97.8 [degF] Dr. Vane Liu MD Work Phone: [facility] 04-21-2024 14:52-0500 Body weight 79.[address] Vane Liu MD Work Phone: [facility] 04-21-2024 14:52-0500 Diastolic blood pressure 80 mm[Hg] Dr. Vane Liu MD Work Phone: [facility] 04-21-2024 14:52-0500 Heart rate 87 /min Dr. Vane Liu MD Work Phone: [facility] 04-21-2024 14:52-0500 Respiratory rate 18 /min Dr. Vane Liu MD Work Phone: [facility] 04-21-2024 14:52-0500 SaO2% (BldA) [Mass fraction] 97 % Dr. Vane Liu MD Work Phone: [facility] 04-21-2024 14:52-0500 Systolic blood pressure 128 mm[Hg] Dr. Vane Liu MD Work Phone: [facility] 03-19-2024 15:12-0500 Body temperature 98.1 [degF] Dr. Vane Liu MD Work Phone: [facility] 03-19-2024 15:12-0500 Diastolic blood pressure 72 mm[Hg] Dr. Vane Liu MD Work Phone: [facility] 03-19-2024 15:12-0500 Heart rate 69 /min Dr. Vane Liu MD Work Phone: [facility] 03-19-2024 15:12-0500 Respiratory rate 15 /min Dr. Vane Liu MD Work Phone: [facility] 03-19-2024 15:12-0500 SaO2% (BldA) [Mass fraction] 99 % Dr. Vane Liu MD Work Phone: [facility] 03-19-2024 15:12-0500 Systolic blood pressure 130 mm[Hg] Dr. Vane Liu MD Work Phone: [facility] 10-02-2022 08:05-0400 Body height 162.[address] Vane Liu Work Phone: [facility] 10-02-2022 08:05-0400 Body mass index (BMI) [Ratio] 30.8 kg/m2 Dr. Vane Liu Work Phone: [facility] 10-02-2022 08:05-0400 Body temperature 95.5 [degF] Dr. Vane Liu Work Phone: [facility] 10-02-2022 08:05-0400 Body weight 81.[address] Vane Liu Work Phone: [facility] 10-02-2022 08:05-0400 Diastolic blood pressure 70 mm[Hg] Dr. Vane Liu Work Phone: [facility] 10-02-2022 08:05-0400 Heart rate 75 /min Dr. Vane Liu Work Phone: [facility] 10-02-2022 08:05-0400 Respiratory rate 18 /min Dr. Vane Liu Work Phone: [facility] 10-02-2022 08:05-0400 SaO2% (BldA) [Mass fraction] 98 % Dr. Vane Liu Work Phone: [facility] 10-02-2022 08:05-0400 Systolic blood pressure 126 mm[Hg] Dr. Vane Liu Work Phone: [facility] 08-07-2022 14:34-0400 Body height 162.[address] Vane Liu Work Phone: [facility] 08-07-2022 14:34-0400 Body mass index (BMI) [Ratio] 31 kg/m2 Dr. Vane Liu Work Phone: [facility] 08-07-2022 14:34-0400 Body temperature 97.4 [degF] Dr. Vane Liu Work Phone: [facility] 08-07-2022 14:34-0400 Body weight 82.[address] Vane Liu Work Phone: [facility] 08-07-2022 14:34-0400 Diastolic blood pressure 70 mm[Hg] Dr. Vane Liu Work Phone: [facility] 08-07-2022 14:34-0400 Heart rate 78 /min Dr. Vane Liu Work Phone: [facility] 08-07-2022 14:34-0400 Respiratory rate 16 /min Dr. Vane Liu Work Phone: [facility] 08-07-2022 14:34-0400 SaO2% (BldA) [Mass fraction] 98 % Dr. Vane Liu Work Phone: [facility] 08-07-2022 14:34-0400 Systolic blood pressure 104 mm[Hg] Dr. Vane Liu Work Phone: [facility] 07-08-2022 16:15-0400 Body height 162.[address] Vane Liu Work Phone: [facility] 07-08-2022 16:15-0400 Body mass index (BMI) [Ratio] 31.2 kg/m2 Dr. Vane Liu Work Phone: [facility] 07-08-2022 16:15-0400 Body temperature 97.8 [degF] Dr. Vane Liu Work Phone: [facility] 07-08-2022 16:15-0400 Body weight 82.[address] Vane Liu Work Phone: [facility] 07-08-2022 16:15-0400 Diastolic blood pressure 70 mm[Hg] Dr. Vane Liu Work Phone: [facility] 07-08-2022 16:15-0400 Heart rate 82 /min Dr. Vane Liu Work Phone: [facility] 07-08-2022 16:15-0400 Respiratory rate 16 /min Dr. Vane Liu Work Phone: [facility] 07-08-2022 16:15-0400 SaO2% (BldA) [Mass fraction] 96 % Dr. Vane Liu Work Phone: [facility] 07-08-2022 16:15-0400 Systolic blood pressure 112 mm[Hg] Dr. Vane Liu Work Phone: [facility] 06-21-2022 11:04-0400 Body mass index (BMI) [Ratio] 31 kg/m2 Dr. Vane Liu Work Phone: [facility] 06-21-2022 11:04-0400 Body temperature 98.2 [degF] Dr. Vane Liu Work Phone: [facility] 06-21-2022 11:04-0400 Body weight 82.[address] Vane Liu Work Phone: [facility] 06-21-2022 11:04-0400 Diastolic blood pressure 88 mm[Hg] Dr. Vane iLu Work Phone: [facility] 06-21-2022 11:04-0400 Heart rate 71 /min Dr. Vane Liu Work Phone: [facility] 06-21-2022 11:04-0400 Respiratory rate 16 /min Dr. Vane Liu Work Phone: [facility] 06-21-2022 11:04-0400 SaO2% (BldA) [Mass fraction] 97 % Dr. Vane Liu Work Phone: [facility] 06-21-2022 11:04-0400 Systolic blood pressure 128 mm[Hg] Dr. Vane Liu Work Phone: [facility] 04-29-2022 14:21-0500 Body temperature 97.7 [degF] Dr. Vane Liu Work Phone: [facility] 04-29-2022 14:21-0500 Diastolic blood pressure 78 mm[Hg] Dr. Vane Liu Work Phone: [facility] 04-29-2022 14:21-0500 Heart rate 96 /min Dr. Vane Liu Work Phone: [facility] 04-29-2022 14:21-0500 Respiratory rate 18 /min Dr. Vane Liu Work Phone: [facility] 04-29-2022 14:21-0500 SaO2% (BldA) [Mass fraction] 96 % Dr. Vane Liu Work Phone: [facility] 04-29-2022 14:21-0500 Systolic blood pressure 110 mm[Hg] Dr. Vane Liu Work Phone: [facility] 03-22-2022 13:37-0500 Body height 162.[address] Vane Liu Work Phone: [facility] 03-22-2022 13:37-0500 Body mass index (BMI) [Ratio] 30.7 kg/m2 Dr. Vane Liu Work Phone: [facility] 03-22-2022 13:37-0500 Body temperature 97.3 [degF] Dr. Vane Liu Work Phone: [facility] 03-22-2022 13:37-0500 Body weight 81.[address] Vane Liu Work Phone: [facility] 03-22-2022 13:37-0500 Diastolic blood pressure 74 mm[Hg] Dr. Vane Liu Work Phone: [facility] 03-22-2022 13:37-0500 Heart rate 69 /min Dr. Vane Liu Work Phone: [facility] 03-22-2022 13:37-0500 Respiratory rate 16 /min Dr. Vane Liu Work Phone: [facility] 03-22-2022 13:37-0500 SaO2% (BldA) [Mass fraction] 99 % Dr. Vane Liu Work Phone: [facility] 03-22-2022 13:37-0500 Systolic blood pressure 122 mm[Hg] Dr. Vane Liu Work Phone: [facility] 12-31-2021 13:09-0400 Body height 162.[address] Vane Liu Work Phone: [facility] Work Phone: 12-31-2021 13:09-0400 Body mass index (BMI) [Ratio] 30 kg/m2 Dr. Vane Liu Work Phone: [facility] 12-31-2021 13:09-0400 Body temperature 98 [degF] Dr. Vane Liu Work Phone: [facility] 12-31-2021 13:09-0400 Body weight 79.[address] Vane Liu Work Phone: [facility] 12-31-2021 13:09-0400 Diastolic blood pressure 76 mm[Hg] Dr. Vane Liu Work Phone: [facility] 12-31-2021 13:09-0400 Heart rate 80 /min Dr. Vane Liu Work Phone: [facility] 12-31-2021 13:09-0400 Respiratory rate 14 /min Dr. Vane Liu Work Phone: [facility] 12-31-2021 13:09-0400 SaO2% (BldA) [Mass fraction] 97 % Dr. Vane Liu Work Phone: [facility] 12-31-2021 13:09-0400 Systolic blood pressure 118 mm[Hg] Dr. Vane Liu Work Phone: [facility] 10-16-2021 05:55-0400 Body mass index (BMI) [Ratio] 30.4 kg/m2 Dr. Vane Liu Work Phone: [facility] Work Phone: 10-16-2021 05:55-0400 Body temperature 98 [degF] Dr. Vane Liu Work Phone: [facility] Work Phone: 10-16-2021 05:55-0400 Body weight 80.[address] Vane Liu Work Phone: [facility] Work Phone: 10-16-2021 05:55-0400 Diastolic blood pressure 73 mm[Hg] Dr. Vane Liu Work Phone: [facility] Work Phone: 10-16-2021 05:55-0400 Heart rate 74 /min Dr. Vane Liu Work Phone: [facility] Work Phone: 10-16-2021 05:55-0400 Respiratory rate 17 /min Dr. Vane Liu Work Phone: [facility] Work Phone: 10-16-2021 05:55-0400 SaO2% (BldA) [Mass fraction] 98 % Dr. Vane Liu Work Phone: [facility] Work Phone: 10-16-2021 05:55-0400 Systolic blood pressure 108 mm[Hg] Dr. Vane Liu Work Phone: [facility] Work Phone: 09-28-2021 08:31-0400 Body height 162.[address] Vane Liu Work Phone: [facility] Work Phone: 09-28-2021 08:31-0400 Body mass index (BMI) [Ratio] 30.7 kg/m2 Dr. Vane Liu Work Phone: [facility] Work Phone: 09-28-2021 08:31-0400 Body temperature 98 [degF] Dr. Vane Liu Work Phone: [facility] Work Phone: 09-28-2021 08:31-0400 Body weight 81.[address] Vane Liu Work Phone: [facility] Work Phone: 09-28-2021 08:31-0400 Diastolic blood pressure 82 mm[Hg] Dr. Vane Liu Work Phone: [facility] Work Phone: 09-28-2021 08:31-0400 Heart rate 75 /min Dr. Vane Liu Work Phone: [facility] Work Phone: 09-28-2021 08:31-0400 Respiratory rate 16 /min Dr. Vane Liu Work Phone: [facility] Work Phone: 09-28-2021 08:31-0400 SaO2% (BldA) [Mass fraction] 97 % Dr. Vane Liu Work Phone: [facility] Work Phone: 09-28-2021 08:31-0400 Systolic blood pressure 104 mm[Hg] Dr. Vane Liu Work Phone: [facility] Work Phone: 07-02-2021 08:45-0400 Body height 162.[address] Vane Liu Work Phone: [facility] Work Phone: 07-02-2021 08:45-0400 Body mass index (BMI) [Ratio] 31.4 kg/m2 Dr. Vane Liu Work Phone: [facility] Work Phone: 07-02-2021 08:45-0400 Body temperature 97.2 [degF] Dr. Vane Liu Work Phone: [facility] Work Phone: 07-02-2021 08:45-0400 Body weight [address] Vane Liu Work Phone: [facility] Work Phone: 07-02-2021 08:45-0400 Diastolic blood pressure 82 mm[Hg] Dr. Vane Liu Work Phone: [facility] Work Phone: 07-02-2021 08:45-0400 Heart rate 98 /min Dr. Vane Liu Work Phone: [facility] Work Phone: 07-02-2021 08:45-0400 Respiratory rate 16 /min Dr. Vane Liu Work Phone: [facility] Work Phone: 07-02-2021 08:45-0400 SaO2% (BldA) [Mass fraction] 93 % Dr. Vane Liu Work Phone: [facility] Work Phone: 07-02-2021 08:45-0400 Systolic blood pressure 124 mm[Hg] Dr. Vaen Liu Work Phone: [facility] Work Phone: 12-24-2016 15:17-0400 BMI (Body Mass Index) 44.8 kg/m2 [facility] Work Phone: 12-24-2016 15:17-0400 Body Temperature 96.8 [degF] Vane Liu MD [facility] Work Phone: 12-24-2016 15:17-0400 BP Diastolic 80 mm[Hg] Vane Liu MD [facility] Work Phone: 12-24-2016 15:17-0400 BP Systolic 126 mm[Hg] Vnae Liu MD [facility] Work Phone: 12-24-2016 15:17-0400 Height 134.62 cm Vane Liu MD [facility] Work Phone: 12-24-2016 15:17-0400 Pulse (Heart Rate) 81 /min Vane Liu MD [facility] Work Phone: 12-24-2016 15:17-0400 Respiratory Rate 16 /min Vane Liu MD [facility] Work Phone: 12-24-2016 15:17-0400 Weight 81.19 kg Vane Liu MD [facility] Work Phone: Encounters Encounter Date Encounter Type Care Provider Facility Start: 12-29-2024 ambulatory Vane De Jesus ty:[facility] Start: 12-08-2024 End: 12-08-2024 Patient encounter procedure MACIE Morris -[facility] Work Phone: Start: 12-08-2024 End: 12-08-[address] Vane Liu MD Work Phone: -[facility] Start: 10-27-2024 End: 10-27-[address] Vane Liu MD -[facility] Work Phone: Start: 10-27-2024 End: 10-27-[address] Vane Liu MD Work Phone: -[facility] Start: 10-14-2024 End: 10-14-2024 Patient encounter procedure Mitzi SYLVESTER -[facility] Work Phone: Start: 10-14-2024 End: 10-14-[address] Vane Liu MD Work Phone: -[facility] Start: 09-28-2024 End: 09-28-2024 Patient encounter procedure Jacob CARLIN -[facility] Work Phone: Start: 09-28-2024 End: 09-28-[address] Vane Liu MD Work Phone: [facility] Start: 09-07-2024 Non-patient / Non-visit Dr. Tosha Valencia MD -[facility] Work Phone: Start: 07-28-2024 End: 07-28-[address] Vane Liu MD -[facility] Work Phone: Start: 07-28-2024 End: 07-28-[address] Vane Liu MD Work Phone: [facility] Work Phone: Start: 05-13-2024 End: 05-13-[address] Vane Liu MD Work Phone: [facility] Work Phone: Start: 05-13-2024 End: 05-13-[address] Vane Liu MD -Outpatient Bone Densitometry Work Phone: Start: 05-13-2024 End: 05-13-2024 ambulatory Vane Liu Facility:[facility] Start: 04-21-2024 End: 04-21-[address] Vane Liu MD -[facility] Work Phone: Start: 04-21-2024 End: 04-21-[address] Vane Liu MD [facility] Start: 04-21-2024 End: 04-21-2024 ambulatory [facility] Facility:[facility] Start: 04-16-2024 End: 04-16-[address] Vane Liu MD -Laboratory Work Phone: Start: 04-16-2024 End: 04-16-2024 ambulatory [facility] Facility:[facility] Start: 03-19-2024 End: 03-19-2024 Patient encounter procedure Eleazar Trotter [place] [facility] Work Phone: Start: 03-19-2024 End: 03-19-2024 ambulatory [facility] Facility:[facility] Start: 01-14-2024 End: 01-14-2024 ambulatory [facility] Facility:[facility] Start: 07-07-[address] Vane Liu MD Work Phone: [facility] Start: 10-02-2022 End: 10-02-[address] Vane Liu Work Phone: [facility] Work Phone: Start: 10-02-2022 End: 10-02-[address] Vane Liu Work Phone: [facility] Work Phone: Start: 08-08-2022 End: 08-08-[address] Vane Liu Work Phone: [facility] Work Phone: Start: 08-08-2022 End: 08-08-[address] Vane Liu Work Phone: [facility]-Laboratory Start: 08-07-2022 End: 08-07-[address] Vane Liu Work Phone: [facility] Start: 07-29-2022 End: 07-29-[address] [facility] Start: 07-09-2022 End: 07-09-[address] Vane Liu Work Phone: [facility] Work Phone: Start: 07-09-2022 End: 07-09-[address] [facility] Start: 07-08-2022 End: 07-08-[address] Vane Liu Work Phone: [facility] Work Phone: Start: 07-08-2022 End: 07-08-[address] aVne Liu Work Phone: [facility] Start: 06-21-2022 End: 06-21-[address] Vane Liu Work Phone: [facility] Start: 04-29-2022 End: 04-29-[address] Vane Liu Work Phone: [facility] Start: 03-27-2022 End: 03-27-[address] Vane Liu Work Phone: [facility] Work Phone: Start: 03-27-2022 End: 03-27-[address] [facility] Start: 03-22-2022 End: 03-22-[address] Vane Liu Work Phone: [facility] Start: 01-08-2022 End: 01-08-[address] [facility] Start: 12-31-2021 End: 12-31-[address] Vane Liu Work Phone: [facility] Work Phone: Start: 12-31-2021 End: 12-31-[address] [facility] Start: 12-25-2021 End: 12-25-[address] Vane Liu Work Phone: [facility] Work Phone: Start: 12-25-2021 End: 12-25-[address] Vane Liu Work Phone: [facility]-Pulmonary Services/Neurology Start: 12-25-2021 Non-patient / Non-visit Dr. Vane Liu Work Phone: [facility] Start: 10-16-2021 End: 10-16-[address] [facility] Start: 09-28-2021 End: 09-28-[address] Vane Liu Work Phone: [facility] Start: 09-25-2021 End: 09-25-[address] [facility] Start: 09-17-2021 End: 09-17-[address] [facility] Start: 07-02-2021 End: 07-02-[address] Vane Liu Work Phone: [facility] Procedures Date Procedure Procedure Detail Performing Clinician Start: 05-13-2024 Dual energy X-ray absorptiometry Dr. Vane Liu MD Work Phone: Start: 05-13-2024 Screening mammography Iker Liu MD Work Phone: Start: 04-16-2024 Measurement of renal function Dr. Vane Liu MD Work Phone: Comment on above: GFR Calc Start: 08-08-20[address] detection [address] Vane Liu Work Phone: Start: 08-08-[address] Vane Liu Work Phone: Start: 08-08-[address] Vane Liu Work Phone: Start: 07-29-[address] Beni Liu Work Phone: Start: 07-09-[address] Beni Liu Work Phone: Start: 12-24-2016 End: 12-27-2016 Hemoglobin A1c/Hemoglobin.total in Blood Vane Liu MD Work Phone: Start: 10-11-2016 End: 12-26-2016 *BMP Vane Dong Work Phone: Start: 10-11-2016 End: 12-26-2016 *CBC with Differential Vane pimentel MD Work Phone: Start: 10-11-2016 End: 12-27-2016 Lipid 1996 panel - Serum or Plasma Vane Liu MD Work Phone: Clostridium difficil e detection Dr. Vane Liu Work Phone: Urine culture Dr. Vane Liu Work Phone: Urine culture Dr. Vane Liu Work Phone: Plan of Treatment Date Care Activity Detail Author Start: 12-08-2024 Polysomnography [facility] Start: 10-02-2022 Patient referral [facility] Work Phone: Start: 03-25-2017 End: 03-25-2017 Appointment Appointment [facility] Work Phone: Start: 12-24-2016 End: 12-24-2016 *BMP *BMP [facility] Work Phone: Start: 12-24-2016 End: 12-24-2016 *CBC with Differential *CBC with Differential [facility] Work Phone: Start: 12-24-2016 End: 12-24-2016 Follow Up Appt 3 months Follow Up Appt 3 months [facility] Work Phone: Start: 12-24-2016 End: 12-27-2016 Hemoglobin A1c/Hemoglobin.total mass fraction (Bld) *HgA1C [facility] Work Phone: Start: 12-24-2016 End: 12-24-2016 Lipid panel [AGGREGATE] *Lipid Profile [facility] Work Phone: Start: 10-11-2016 End: 12-26-2016 *BMP *BMP [facility] Work Phone: Start: 10-11-2016 End: 12-26-2016 *CBC with Differential *CBC with Differential [facility] Work Phone: Start: 10-11-2016 End: 12-27-2016 Lipid panel [AGGREGATE] *Lipid Profile [facility] Work Phone: Start: 09-27-2016 End: 09-27-2016 Follow Up Appt 3 months Follow Up Appt 3 months [facility] Work Phone: Start: 09-27-2016 End: 09-27-2016 Podiatry Referral Podiatry Referral [facility] Work Phone: Basic metabolic 2008 panel with ionized calcium - Serum or Plasma [facility] CBC W Auto Different ial panel - Blood [facility] Work Phone: CBC W Auto Different ial panel - Blood [facility] DXA Bone [Mass/Area] Bone density [facility] Hemoglobin A1c/Hemoglobin.total in Blood [facility] Work Phone: Hemoglobin A1c/Hemoglobin.total in Blood [facility] Hemoglobin A1c/Hemoglobin.total in Blood [facility] Hemoglobin A1c/Hemoglobin.total in Blood [facility] Lipid 1996 panel - S samantha or Plasma [facility] Work Phone: MG Breast - bilatera l Screening [facility] Patient referral [facility] Work Phone: XR Lumbar spine 2 or 3 Views [facility] Immunizations Immunization Date Immunization Notes Care Provider Debby tong 01-14-2024 influenza, injectabl e, madin nisha canine kidney, preservative free Dr. Vane Liu MD Work Phone: [facility] 01-03-2023 influenza, injectabl e, quadrivalent, preservative free Dr. Vane Liu MD Work Phone: [facility] 12-31-2021 influenza, injectabl e, quadrivalent, preservative free Dr. Vane Liu MD Work Phone: [facility] 12-31-2021 influenza, seasonal, injectable Dr. Vane Liu Work Phone: [facility] 12-18-2020 Covid (Pfizer) Dr. Vane Liu Work Phone: [facility] 02-20-[address] Vane Liu Work Phone: [facility] 12-10-2019 influenza, injectable,quadrivalent , preservative free, pediatric Dr. Vane Liu Work Phone: [facility] 10-23-[address] Vane Liu Work Phone: [facility] 03-25-2017 influenza, injectabl e, quadrivalent, preservative free Dr. Vane Liu MD Work Phone: [facility] 03-25-2017 influenza, seasonal, injectable Dr. Vane Liu Work Phone: [facility] Payers Date Payer Category Payer Self-pay [id number] 2023 Private Health Insurance 102 [id number] 2012 Unknown [id number] Medicare [id number] Unknown [id number] 2.16.8 [id number] Unknown [id number] 2.16.8 [id number] Unknown [id number] 2.16.8 [id number] Unknown [id number] 2.16.8 [id number] Unknown [id number] 2.16.8 [id number] Unknown [id number] 2.16.8 [id number] Unknown [id number] 2.16.8 [id number] Unknown [id number] 2.16.8 [id number] Unknown [id number] 2.16.8 [id number] Unknown [id number] 2.16.8 [id number] Unknown [id number] 2.16.8 [id number] Social History Date Type Detail Facility Start: 07-02-2021 End: 10-02-2022 Tobacco smoking status NHIS Unknown if ever smoked [facility] Start: 1960 Sex Assigned At Female W [facility] Start: 06-11-2023 Tobacco smoking stat us NHIS Ex-smoker (finding) [facility] Start: 05-25-2024 Sex Female (finding) [facility] Sex Female [facility] Clinical Notes 03-19-2024 to 12-08-2024 Note Date & Type Note Facility 12-08-2024 Progress note [facility] 09-28-2024 Evaluation note Diagnosis Onset Date Resolution Disorder of SI (sacroiliac) joint acute September 28 12:20pm Low back pain acute September 28, 2024 12:20pm Obesity (BMI 30.0-34.9) chronic A ugust 2024 1:41pm ALEXX (obstructive sleep apnea) chronic October 14, 2024 1:41pm Anxiety and depression chronic Au ramesh 2024 9:24am Essential hypertension chronic Au ramesh 2024 9:24am Hyperlipidemia chronic October 9:24am Irritable bowel chronic October 272024 9:24am Type 2 diabetes mellitus chronic October 27, 2024 9:24am Obesity (BMI 30.0-34.9) chronic O ctober 2024 9:13am ALEXX (obstructive sleep apnea) chronic December 08 9:13am [facility] Work Phone: 1(588) 211-181605-21-2025 Evaluation note* Diagnosis Onset Date Resolution Status Admit Date Anxiety and depression chronic 2024 4:23pm Essential hypertension chronic 2024 4:23pm Hyperlipidemia chronic July 28, 2024 4:23pm Type 2 diabetes mellitus chronic July 28, 2024 4:23pm Disorder of SI (sacroiliac) joint acute September 28, 2024 12:20pm Low back pain acute September 28, 2024 12:20pm [facility] Work Phone: 1(688) 492-586405-21-2025 Evaluation note* Diagnosis Onset Date Resolution Status Admit Date Anxiety and depression chronic 2024 4:23pm Essential hypertension chronic 2024 4:23pm Hyperlipidemia chronic July 28, 2024 4:23pm Type 2 diabetes mellitus chronic July 28, 2024 4:23pm Disorder of SI (sacroiliac) joint acute September 28, 2024 12:20pm Low back pain acute September 28, 2024 12:20pm Obesity (BMI 30.0-34.9) chronic A ug2024 1:41pm ALEXX (obstructive sleep apnea) chroni c October 14, 2024 1:41pm [facility] Work Phone: [phone]) [phone] Evaluation note* Diagnosis Onset Date Resolution Status Admit Date Health care maintenance acute F [facility] 2024 2:41pm Anxiety and depression chronic 2024 2:41pm Essential hypertension chronic [facility] 2024 2:41pm Hyperlipidemia chronic April 102024 2:41pm Type 2 diabetes mellitus chronic April 21, 2024 2:41pm [facility] Work Phone: [phone]) [phone] Evaluation note* Diagnosis Onset Date Resolution Status Admit Date Sinusitis acute March 19, 2024 3:07pm Health care maintenance acute [facility] 2024 2:41pm Anxiety and depression chronic [facility] 2024 2:41pm Essential hypertension chronic [facility] 2024 2:41pm Hyperlipidemia chronic April 102024 2:41pm Type 2 diabetes mellitus chronic April 21, 2024 2:41pm [facility] Work Phone: Evaluation note* Diagnosis Onset Date Resolution Status Anxiety and depression chron ic Essential hypertension chron ic Type 2 diabetes mellitus [facility] Work Phone: Evaluation note* Diagnosis Onset Date Resolution Status Anxiety and depression chron ic Essential hypertension chron ic Type 2 diabetes mellitus chr onic Anxiety and depression chron ic Essential hypertension chron ic Type 2 diabetes mellitus [facility] Work Phone: Evaluation note* Diagnosis Onset Date Resolution Status Anxiety and depression chron ic Essential hypertension chron ic Type 2 diabetes mellitus chr onic Obesity (BMI 30.0-34.9) 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 ALEXX (obstructive sleep apnea) chronic Flu vaccine need acute URI (upper respiratory infection) acute Anxiety and depression chron ic Essential hypertension chron ic Type 2 diabetes mellitus [facility] Work Phone: Evaluation note* Diagnosis Onset Date Resolution Status Flu vaccine need acute URI (upper respiratory infection) acute Anxiety and depression chron ic Essential hypertension chron ic Type 2 diabetes mellitus chr [facility] Work Phone: Evaluation note* Diagnosis Onset Date Resolution Status Flu vaccine need acute URI (upper respiratory infection) acute Anxiety and depression chron ic Essential hypertension chron ic Type 2 diabetes mellitus chr onic Anxiety and depression chron ic Essential hypertension chron ic Hyperlipidemia chronic Type 2 diabetes mellitus chr [facility] Work Phone: Evaluation note* Diagnosis Onset Date Resolution Status Anxiety and depression chron ic Essential hypertension chron ic Hyperlipidemia chronic Type 2 diabetes mellitus chr onic Acute pharyngitis, unspecified acute Aphthous ulcer acute Acute sinusitis acute Anxiety and depression chron ic Essential hypertension chron ic Type 2 diabetes mellitus chr onic Cystitis acute [facility] Work Phone: Evaluation note* Diagnosis Onset Date Resolution Status Acute pharyngitis, unspecified acute Aphthous ulcer acute Acute sinusitis acute Anxiety and depression chron ic Essential hypertension chron ic Type 2 diabetes mellitus chr onic Cystitis acute Diarrhea acute [facility] Work Phone: Evaluation note* Diagnosis Onset Date Resolution Status Acute sinusitis acute Anxiety and depression chron ic Essential hypertension chron ic Type 2 diabetes mellitus chr onic Cystitis acute Diarrhea acute Anxiety and depression chron ic Chronic diarrhea chronic Essential hypertension chron ic Type 2 diabetes mellitus chr [facility] Work Phone: Progress note Author MACIE Morris [facility] Note Date/Time December 08, 2024 9: 51am [facility] [address] [place] [address]. [address] [place] [address] OFFICE VISIT Date of Service: 12/08/24 MR#: [id number] Acct: [id number] Name: AURELIANO CALHOUN Rep #: [id number] : 1960 Provider: Mary Jane woo NP Age/Sex: 64/F Location: [facility] Status: Signed Assessment and Plan Assessment and Plan (1) ALEXX (obstructive sleep apnea): Status: Chronic Comment: AHI 19.5 titrated to BiPAP 10/4 centimeters of water Plan: She is using and benefiting from Pap therapy. Unfortunately due to recent insurance change and CMS guidelines the patient has been unable to receive replacement supplies. The patient is now required to repeat sleep testing to comply with CMS guidelines and for the sleep study to give the AASM 4% rule criteria in the report. Her previous study from 2019 did not list these results. I have recommended an in lab PSG at this time so that the patient has the best chance to accurately quantify the results with a 4% criteria. I have recommended supine sleep be obtained with the study. If the patient were not totreat her sleep apnea she will return back to the previous condition of severe hypersomnolence and would be at risk for motor vehicle injury. It is necessary to repeat this study so that she can continue to obtain supplies and use her device compliantly. Contact the office for any new or worsening symptoms in themeantime. (2) Obesity (BMI 30.0-34.9): Status: Chronic Plan: Complicates exam, plan, care and prognosis. Weight loss is warranted through prudent dieting and daily exercise. Orders: Orders Polysomnography Today G47.33 - Obstructive sleep apnea (adult) (pediatric) Plan Details Additional Comments: This note was generated with [employer] dictation software. It may contain incorrectwords, spelling, and punctuation that were not noted in checking the note beforesigning. Follow Up: As previously scheduled HPI HPI Comments Details: This patient presents to the office today to discuss a plan for testing of obstructive sleep apnea due to recent insurance change. With her new insurance change there is a request for her to repeat a diagnostic study to show an AHI greater than 5 with 4% desaturation to meet Medicare regulations. She is ambulatory and on room air. She has not recently been seen in the ED or urgent care for any respiratory illness. She has not required any antibiotics or prednisone for any breathing problems. She denies any difficulty with shortness of breath. She denies any cough, sputum production or hemoptysis. She denies any wheezing, chest tightness, chest pain or palpitations. If she were not to use her PAP therapy she would experience morning headaches. She would not sleep well at night. She would awaken throughout the night. Prior to CPAP therapy she was withdrawing throughout the day and would fight to stay awake. She would fall asleep while driving. 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 Eventually she stopped driving after 3 PM. She suffered from extreme fatigue. Since using her device she feels rested upon awakening. She does nap for 15 to 20 minutes daily. She is not experiencing nocturia. She does have occasional dry mouth but is avoiding drinking a lot of water in the evening. She is on medications that will produce oral dryness as well. She denies morning headaches and denies mask leak. She is not using a medication as it does irritate her nose. She is currently having to self-pay for her supplies. She is motivated to treat sleep apnea due to her mother who had mini strokes andsleep apnea that was not treated. Compliance report for the past 30 days shows 70% compliance, using the device 9 hours and 4 minutes nightly average. She is using a BiPAP at 10 over 4 cm. Shehas minimal air leak and her AHI 0.9. She went camping on Dec 01 and had no electricity. She has not worn it in the past with sinus disease. She has struggled with compliance this past year due to the of her mom. She reports that she was sporadic as she was dealing with grief. Intake Vital Signs 10/27/24 09:34 12/08/24 06:40 Height 5 ft 5 in 5 ft 5 in Weight: 175 lb BMI 29.1 BP 138/84 H Blood Pressure Location Lt brachial Position Sitting Respiration 18 Pulse 66 Pulse Source Monitor Temp 97.0 F L Temperature Source Temporal Artery Pulse Oximetry (%) 97 Oxygen Delivery Method room air Intake Visit Reasons: Follow up Chief Complaint: 3 m fu System Archive Analyst Required: No DME Vendor: [employer] Accompanied by: Self Is patient in pain?: No Allergies No Known Allergies Allergy (Verified 12/08/24 09:16) Medications ?Medication ?Instructions ?Recorded ?Confirmed ?Type blood-glucose meter (Accu-Chek #1 ea 07/02/21 12/08/24 Rx Genia Plus Meter) atorvastatin 20 mg tablet (Lipitor) 20 mg PO QDAY #90 tabs 09/07/24 12/08/24 Rx lisinopril 2.5 mg tablet 2.5 mg PO DAILY #90 tabs 04/0312/08/24 Rx tirzepatide 10 mg/0.5 mL 10 mg (0.5 mL) subcut QWEEK 3 09/07/24 12/08/24 Rx subcutaneous pen injector months #6.5 mL fluoxetine 20 mg capsule 20 mg PO DAILY #90 caps 09/0712/08/24 Rx Have you fallen in the past year?: No PFSH Medical History Health care maintenance Chronic diarrhea Diarrhea UTI (urinary tract infection) Foul smelling urine Irritable bowel Family history of celiac disease Acute sinusitis Aphthous ulcer Acute pharyngitis, unspecified Flu vaccine need URI (upper respiratory infection) Factor V Leiden Essential hypertension ALEXX (obstructive sleep apnea) Breast cancer screening Dermatitis Normal colonoscopy Erythema migrans (Lyme disease) Hypersomnolence Sleep related choking sensation Polycystic ovaries diabetes mellitus type 2 Arthritis Seasonal allergies Recurrent cold sores Hyperlipidemia Surgical History History of rhinoplasty Normal colonoscopy History of hernia repair History of tonsillectomy trigger thumbs release H/O: hysterectomy Family History Mother Myocardial infarction factor 5 liden Father Arthritis Myocardial infarction, Onset Age: 40 Hypertension Hyperlipidemia Diabetes Unknown Breast cancer Brother Myocardial infarction Factor 5 Leiden mutation, heterozygous Social History household members: spouse housing: house Smoking Status: Former smoker Tobacco: How many years used: 3 second hand exposure: No alcohol intake: current alcohol intake frequency: 0-2 drinks per day Alcohol type: wine and hard liquor substance use type: does not use what type of physical activity do you participate in: running, bicycling and aerobics frequency: 5-6 times per week Questionnaire [place] Sleepiness Scale [place] Sleepiness Scale Sitting and readin = Would never doze Watching TV: 0 = Would never doze Sitting inactive in public places such as theater or meeting (only at night): 0 = Would never doze Sitting as a passenger in a car for an hour without a break: 3 = High chance of dozing Lying down to rest in the afternoon when circumstances permit: 2 = Moderate chance of dozing Sitting and talking with someone: 0 = Would never doze In a car, while stopped for a few minutes in traffic: 0 = Would never doze [place] Sleepiness Scale Total Score: 5 Review of Systems Resp Respiratory: Yes as per HPI Exam Const Constitutional: Positive conversant, cooperative, in no acute respiratory distress, healthy appearing, well developed, well nourished, good hygiene and obese Head Head: Yes normocephalic, Yes atraumatic and No cyanosis of lips/distal nose Eyes Eye: Positive clear conjunctiva; Negative nystagmus Ecchymosis right eye Ears Ear: Positive hearing normal and external ears normal Nose Nose: Yes external nose normal Mouth Mouth: Positive oral mucosae normal Neck Neck: Positive normal visual inspection, full ROM and trachea midline Chest Wall Chest: Positive normal inspection of the chest and symmetric chest movement Resp lung sounds: Positive clear to auscultation, good air exchange and normal respiratory effort; Negative use of accessory muscles Cardio Cardiac: Positive regular rate, regular rhythm, S1 normal and S2 normal; Negative murmur, rub or gallop GI GI: Positive normal to inspection and obese Genitourinary: Positive deferred Musc Musculoskeletal: Positive steady gait; Negative kyphosis or scoliosis Skin Pulmonary Skin Exam: Positive intact; Negative lesion, rash, ulcers or erythema Pulses Pulse: Yes radial pulses present Extremities Extremities: Yes capillary refill normal, No clubbing, No cyanosis and No edema Neuro Neurologic: Yes no focal neuro deficits, Yes conversant, Yes cooperative, Yes normal cognition, Yes normal coordination, Yes normal concentration and Yes understands questions Psych Appearance: Positive grossly normal, eye contact and well kempt Mental Status: Positive mental status grossly normal Mood: Positive congruent mood Affect: Positive normal affect Coding Level of Care Code Off vis,est,level 3 Diagnoses ALEXX (obstructive sleep apnea) G47.33 Obesity (BMI 30.0-34.9) E66.9 Clinical Quality Measures Falls Risk Screening/Assistive Devices Have you fallen in the past year?: No 12/08/24 1002 <Electronically signed by Mary Jane kowalski CLIENT SERVICES REPRESENTATIVE-C> Date _ Mary Jane ALMONTEC Cosigner Signature: Date (if applicable) CC: ~ [facility] Work Phone: Reason for referral (narrative)No reason for referral information availableWMer[facility] Work Phone: Chief Complaint and Reason for Visit Chief Complaint 3 M FU INTRANASAL LESION Reason for Visit Anxiety and depressi on Essential hypertension Type 2 diabetes mellitus Chief Complaint 3 M FU INTRANASAL LESION 3 M FU Reason for Visit Anxiety and depressi on Essential hypertension Type 2 diabetes mellitus Anxiety and depression Essential hypertension Type 2 diabetes mellitus Chief Complaint INTRANASAL LESION 3 M FU 1 Y FU PRE OP PRE OP 3 M FU Reason for Visit Anxiety and depressi on Essential hypertension Type 2 diabetes mellitus Obesity (BMI 30.0-34.9) ALEXX (obstructive sleep apnea) Flu vaccine need URI (upper respiratory infection) Anxiety and depression Essential hypertension Type 2 diabetes mellitus Chief Complaint PRE OP PRE OP 3 M FU Reason for Visit Flu vaccine need URI (upper respiratory infection) Anxiety and depression Essential hypertension Type 2 diabetes mellitus Chief Complaint PRE OP PRE OP 3 M FU 3 M FU E ORDERS Reason for Visit Flu vaccine need URI (upper respiratory infection) Anxiety and depression Essential hypertension Type 2 diabetes mellitus Anxiety and depression Essential hypertension Hyperlipidemia Type 2 diabetes mellitus Chief Complaint 3 M FU E ORDERS Sore throat 3 M FU POSSIBLE UTI Reason for Visit Anxiety and depressi on Essential hypertension Hyperlipidemia Type 2 diabetes mellitus Acute pharyngitis, unspecified Aphthous ulcer Acute sinusitis Anxiety and depression Essential hypertension Type 2 diabetes mellitus Cystitis Chief Complaint Sore throat 3 M FU POSSIBLE UTI SEVERE DIARRHEA EORDERS Reason for Visit Acute pharyngitis, u nspecified Aphthous ulcer Acute sinusitis Anxiety and depression Essential hypertension Type 2 diabetes mellitus Cystitis Diarrhea Chief Complaint 3 M FU POSSIBLE UTI SEVERE DIARRHEA EORDERS 3 m fu Reason for Visit Acute sinusitis Anxiety and depression Essential hypertension Type 2 diabetes mellitus Cystitis Diarrhea Anxiety and depression Chronic diarrhea Essential hypertension Type 2 diabetes mellitus Chief Complaint Admit Date CONGESTION, COUGH, HEADACHE March 3:07pm E-ORDER April 16, 2024 6 :47am 3 M FU April 21, 2024 2:41pm POSTMENOPAUSAL, SCREENING May 13 1:10pm Reason for Visit Admit Date Sinusitis March 19, 2024 3 :07pm Health care maintenance April 21, 2 025 2:41pm Anxiety and depression April 21 2:41pm Essential hypertension April 21 2:41pm Hyperlipidemia April 21, 2024 2:41pm Type 2 diabetes mellitus April 21, 2024 2:41pm Chief Complaint Admit Date E-ORDER April 16, 2024 6 :47am 3 M FU April 21, 2024 2:41pm POSTMENOPAUSAL, SCREENING May 13 1:10pm 3 M FU July 28, 2024 4:23p m Reason for Visit Admit Date Health care maintenance April 21, 2 025 2:41pm Anxiety and depression April 21 2:41pm Essential hypertension April 21 2:41pm Hyperlipidemia April 21, 2024 2:41pm Type 2 diabetes mellitus April 21, 2024 2:41pm Chief Complaint Admit Date 3 M FU July 28, 2024 4:23p m lower back and hip pain September 28, 2024 12:20pm Reason for Visit Admit Date Anxiety and depression July 28, 2024 4: 23pm Essential hypertension July 28, 2024 4: 23pm Hyperlipidemia July 28, 2024 4:23p m Type 2 diabetes mellitus July 28, 2024 4:23pm Disorder of SI (sacroiliac) joint September 082024 12:20pm Low back pain September 28, 2024 12:2 0pm Chief Complaint Admit Date 3 M FU July 28, 2024 4:23p m lower back and hip pain September 28, 2024 12:20pm 1 Y FU October 14, 2024 1:4 1pm Reason for Visit Admit Date Anxiety and depression July 28, 2024 4: 23pm Essential hypertension July 28, 2024 4: 23pm Hyperlipidemia July 28, 2024 4:23p m Type 2 diabetes mellitus July 28, 2024 4:23pm Disorder of SI (sacroiliac) joint September 082024 12:20pm Low back pain September 28, 2024 12:2 0pm Obesity (BMI 30.0-34.9) October 14, 2024 1:41pm ALEXX (obstructive sleep apnea) October 1:41pm Chief Complaint Admit Date 3 M FU July 28, 2024 4:23p m lower back and hip pain September 28, 2024 12:20pm 1 Y FU October 14, 2024 1:4 1pm 3 M FU October 27, 2024 9: 24am Chief Complaint Admit Date lower back and hip pain September 28, 2024 12:20pm 1 Y FU October 14, 2024 1:4 1pm 3 M FU October 27, 2024 9: 24am Follow up December 08, 2024 9: 13am Reason for Visit Admit Date Disorder of SI (sacroiliac) joint September 082024 12:20pm Low back pain September 28, 2024 12:2 0pm Obesity (BMI 30.0-34.9) October 14, 2024 1:41pm ALEXX (obstructive sleep apnea) October 1:41pm Anxiety and depression October 27, 2024 9:24am Essential hypertension October 27, 2024 9:24am Hyperlipidemia October 27, 2024 9: 24am Irritable bowel October 27, 2024 9: 24am Type 2 diabetes mellitus October 27 9:24am Obesity (BMI 30.0-34.9) December 08 9:13am ALEXX (obstructive sleep apnea) December 9:13am Family History No Family History Records Found Relationship Condition Age at Onset Recorded Date/T sapna mother Myocardial infarction Unknown Unknown father Arthritis Unknown Myocardial infarction 40 Hypertension Unknown Hyperlipidemia Unknown Diabetes mellitus Unknown Not Specified Malignant neoplasm of breast Unknown brother Myocardial infarction Unknown Heterozygous factor V Leiden mutation Unk nown Relationship Condition Age at Onset Recorded Date/T sapna mother Myocardial infarction Unknown Unknown father Arthritis Unknown Myocardial infarction 40 Hypertension Unknown Hyperlipidemia Unknown Diabetes mellitus Unknown unrelated friend Malignant neoplasm of breast Unknown brother Myocardial infarction Unknown Heterozygous factor V Leiden mutation Unknown Advance Directives No Advanced Directives Records Found Advance Directive Response Recorded Date/ Time Advance Directives No November 9:16am Living Will No December 06, 2013 9:16am Power of Legal Intern No November 9:16am Advance Directive Response Recorded Date/ Time Advance Directives No November 8:16am Living Will No December 06, 2013 8:16am Power of Legal Intern No November 8:16am Advance Directive Response Recorded Date/ Time Advance Directives No January 12:13pm Living Will No January 26 12:13pm Power of Legal Intern No January 27, 2020 12:13pm Advance Directive Response Recorded Date/ Time Advance Directives No February 08, 2023 11:23am Advance Directive Response Recorded Date/ Time Living Will No February 08 11:23am Do you have a Healthcare Power of Legal Intern? No February 08, 2023 11:23am Advance Directives No February 08, 2023 11:23am Summary Purpose Additional Source Comments Goals (unrecognized section and content) Goals may be documented in a n alternate sectionGoals may be documented in an alternate sectionGoals may be documented in an alternate sectionGoals may be documented in an alternate sectionGoals may be documented in an alternate sectionGoals may be documented in an alternate sectionGoals may be documented in an alternate sectionGoals may be documented in an alternate sectionGoals may be documented in an alternate sectionGoals may be documented in an alternate sectionGoals may be documented in an alternate sectionGoals may be documented in an alternate sectionGoals may be documented in an alternate sectionGoals may be documented in an alternate sectionGoals may be documented in an alternate sectionGoals may be documented in an alternate sectionGoals may be documented in an alternate section Care Teams (unrecognized sec tion and content) Team Status: Active Member Role Status Dates Dr. Vane Liu MD Family Provider Active Dr. Vane Liu MD Primary Care Provider Active Team Status: Inactive Member Role Status Dates Dr. Vane Liu MD Primary Care P justin, Attending Provider, Referring Provider Active Team Status: Active Member Role Status Dates Dr. Vane Liu MD Primary Care Provider Active Dr. Nabil Victor MD Attending Provider Active Dr. Siddhartha Shaver MD Referring Provider Activ e Team Status: Inactive Member Role Status Dates Dr. Vane Liu MD Primary Care Provider Active Dr. Siddhartha Shaver MD Attending Provider, Refe rring Provider Active Team Status: Inactive Member Role Status Dates Dr. Vane Liu MD Primary Care Provider Active Dr. Siddhartha Shaver MD Attending Provider Activ e Team Status: Inactive Member Role Status Dates Dr. Vane Liu MD Primary Care Provider, Refer ring Provider Active Christopher Hernadez PA, PA Attending Provider Active Team Status: Inactive Member Role Status Dates Dr. Vane Liu MD Primary Care Provider, Refer ring Provider Active TESFAYE Bland Attending Provider Active Team Status: Active Member Role Status Dates Dr. Vane Liu MD Primary Care P rovider, Attending Provider, Referring Provider Active Team Status: Inactive Member Role Status Dates Dr. Vane Liu MD Primary Care Provider, Refer ring Provider Active Wiley Pardo CLIENT SERVICES REPRESENTATIVE, CLIENT SERVICES REPRESENTATIVE-C Attending Provider Active Team Status: Inactive Member Role Status Dates Dr. Vane Liu MD Primary Care Provider Active Wiley Pardo CLIENT SERVICES REPRESENTATIVE, CLIENT SERVICES REPRESENTATIVE-C Attending Provider, Referring Prov ider Active Team Status: Active Member Role Status Dates Dr. Vane Liu MD Primary Care Provider Active Team Status: Inactive Member Role Status Dates Dr. Vane Liu MD Primary Care Provider Active Start: March 19, 2024 End: March 19, 2024 Dr. Vane Liu MD Referring Provider Active Start: March 19, 2024 End: March 19, 2024 TESFAYE Bland Attending Provider Active Sta rt: March 19, 2024 End: March 19, 2024 Team Status: Inactive Member Role Status Dates Dr. Vane Liu MD Primary Care Provider Active Start: April 16, 2024 End: April 16, 2024 Dr. Vane Liu MD Attending Provider Active Start: April 16, 2024 End: April 16, 2024 Dr. Vane Liu MD Referring Provider Active Start: April 16, 2024 End: April 16, 2024 Team Status: Inactive Member Role Status Dates Dr. Vane Liu MD Primary Care Provider Active Start: April 21, 2024 End: April 21, 2024 Dr. Vane Liu MD Attending Provider Active Start: April 21, 2024 End: April 21, 2024 Dr. Vane Liu MD Referring Provider Active Start: April 21, 2024 End: April 21, 2024 Team Status: Inactive Member Role Status Dates Dr. Vane Liu MD Primary Care Provider Active Start: May 13, 2024 End: May 13, 2024 Dr. Vane Liu MD Attending Provider Active Start: May 13, 2024 End: May 13, 2024 Dr. Vane Liu MD Referring Provider Active Start: May 13, 2024 End: May 13, 2024 Team Status: Inactive Member Role Status Dates Dr. Vane Liu MD Primary Care Provider Active Start: July 28, 2024 End: July 28, 2024 Dr. Vane Liu MD Attending Provider Active Start: July 28, 2024 End: July 28, 2024 Dr. Vane Liu MD Referring Provider Active Start: July 28, 2024 End: July 28, 2024 Team Status: Active Member Role/Relationship Status Dates Dr. Vane Liu MD Primary Care Provider Active Team Status: Inactive Member Role/Relationship Status Dates Dr. Vane Liu MD Primary Care Provider Active Start: July 28, 2024 End: July 28, 2024 Dr. Vane Liu MD Attending Provider Active Start: July 28, 2024 End: July 28, 2024 Dr. Vane Liu MD Referring Provider Active Start: July 28, 2024 End: July 28, 2024 Team Status: Inactive Member Role/Relationship Status Dates Dr. Vane Liu MD Primary Care Provider Active Start: September 07, 2024 Dr. Tosha Valencia MD Attending Provider Active Start: September 07, 2024 Team Status: Inactive Member Role/Relationship Status Dates Dr. Vane Liu MD Primary Care Provider Active Start: September 28, 2024 End: September 28, 2024 Dr. Vane Liu MD Referring Provider Active Start: September 28, 2024 End: September 28, 2024 TESFAYE Campo Attending Provider Active St art: September 28, 2024 End: September 28, 2024 Team Status: Inactive Member Role/Relationship Status Dates Dr. Vane Liu MD Primary Care Provider Active Start: October 14, 2024 End: October 14, 2024 Dr. Vane Liu MD Referring Provider Active Start: October 14, 2024 End: October 14, 2024 Mitzi Doan CLIENT SERVICES REPRESENTATIVE, CLIENT SERVICES REPRESENTATIVE-C Attending Provider Active Start: October 14, 2024 End: October 14, 2024 Team Status: Inactive Member Role/Relationship Status Dates Dr. Vane Liu MD Primary Care Provider Active Start: October 27, 2024 End: October 27, 2024 Dr. Vane Liu MD Attending Provider Active Start: October 27, 2024 End: October 27, 2024 Dr. Vane Liu MD Referring Provider Active Start: October 27, 2024 End: October 27, 2024 Team Status: Active Member Role/Relationship Status Dates Dr. Vaen Liu MD Primary care physician Activ e Team Status: Inactive Member Role/Relationship Status Dates Dr. Vane Liu MD Primary care physician Activ e Start: September 07, 2024 Dr. Tosha Valencia MD Attending physician Active Start: September 07, 2024 Team Status: Inactive Member Role/Relationship Status Dates Dr. Vane Liu MD Primary care physician Activ e Start: September 28, 2024 End: September 28, 2024 Dr. Vane Liu MD Referring Provider Active Start: September 28, 2024 End: September 28, 2024 TESFAYE Campo Attending physician Active S tart: September 28, 2024 End: September 28, 2024 Team Status: Inactive Member Role/Relationship Status Dates Dr. Vane Liu MD Primary care physician Activ e Start: October 14, 2024 End: October 14, 2024 Dr. Vane Liu MD Referring Provider Active Start: October 14, 2024 End: October 14, 2024 Mitzi Doan CLIENT SERVICES REPRESENTATIVE, CLIENT SERVICES REPRESENTATIVE-C Attending physician Active Start: October 14, 2024 End: October 14, 2024 Team Status: Inactive Member Role/Relationship Status Dates Dr. Vane Liu MD Primary care physician Activ e Start: October 27, 2024 End: October 27, 2024 Dr. Vane Liu MD Attending physician Active Start: October 27, 2024 End: October 27, 2024 Dr. Vane Liu MD Referring Provider Active Start: October 27, 2024 End: October 27, 2024 Team Status: Inactive Member Role/Relationship Status Dates Dr. Vane Liu MD Primary care physician Activ e Start: December 08, 2024 End: December 08, 2024 Dr. Vane Liu MD Referring Provider Active Start: December 08, 2024 End: December 08, 2024 NGA Sharma Attending physician Active Start: December 08, 2024 End: December 08, 2024 INFORMATION SOURCE (unrecogn ized section and content) DATE CREATED AUTHOR 12/24/2024 [facility] FOR RECORDS PERTAINING TO PATIENTS WHO ARE [...] BE BASED ON THE PRIMARY CLINICAL RECORDS. [employer] provides no warranty or guarantee of the accuracy or completeness of information in this document.
--- OUTSIDE RECORDS SUMMARY | 2024-12-29 19:44 | XMS RPT_ITS | CCD ---
Author Organization [facility] Care Team Providers Care Internal Sales Name Role Phone Vane Liu MD Unavailable [...] Primary Care Provider [phone] Alexa, Dr. Cfiuentes Attending Provider [phone] Alexa, Dr. Cifuentes Referring Provider [phone] TESFAYE [place] Attending Provider TESFAYE Fleming Attending Provider Alexa, Dr. Cifuentes Primary Care Provider [phone] Alexa, Dr. Cifuentes Referring Provider [phone] Alexa, Dr. Cifuentes Attending Provider [phone] Char [employer] Wiley Attending Provider [phone] Alexa, Dr. [...] Attending Physician Mitzi Grace Attending Physician [phone] Dr. Vane Liu MD Attending Physician Mary Jane Joiner Attending Physician [phone] Oleghe, Efewongbe Primary Care Unavailable Oleghe, Efewongbe [...] 07-02-2021 Blood-Glucose Meter (Accu-Chek Genia Plus Meter) [facility] Active 0 .ROUTE .MEDSUPPLY 1 0 July 02, 2021 12:00am As directed Start: 07-02-2021 Blood-Glucose Meter (Accu-Chek Genai Plus Meter) mis Active 0 .ROUTE .MEDSUPPLY [...] ASPIRIN 81 MG TBEC PO daily ASPIRIN [id number] Alecia Huitron Start: 12-06-2013 End: 06-30-2018 take [...] 20 MG TABS Po daily ATORVASTATIN CALCIUM [id number] Vane Liu MD azithromycin 250 mg oral [...] 600-200 MG-UNIT TABS PO daily CALCIUM CARB-CHOLECALCIFEROL [id number] Alecia Huitron calcium carbonate 1250 mg oral [...] 3:07pm September 08, 2019 4:24pm estrogens, conjugated (custodial) 0.625 mg/ml vaginal cream (17 sources) Estrogen [...] MCG/ACT SUSP 1 spray bid FLUTICASONE PROPIONATE [id number] Alecia Dong Huitron Start: 12-06-2013 End: 10-14-2022 [...] tablet by mouth twice daily METFORMIN HCL [id number] Vane Liu MD Start: 09-27-2016 METFORMIN HCL ER (OSM) 1000 MG [id number] 1 tablet QPM METFORMIN HCL [id number] Vane Liu MD Start: 09-23-2016 End: 12-24-2016 take 1 tablet by mouth once daily METFORMIN HCL ER 500 MG [id number] Po daily METFORMIN HCL 74015323713 Alecia Huitron Miconazole Nitrate (17 sources) Azole [...] 03, 2018 1:00am May 01, 2018 9:39am [facility] NATURAL PRODUCTS (1 source) Start: 09-27-2016 ADRENAL 200 MG CAPS take 5 tablets a day. [facility] [employer] [id number] Vane Liu MD MULTIPLE VITAMINS-MINERALS (1 source) Start: 09-23-2016 take 1 capsule by mouth once daily DAILY MULTIVITAMIN CAPS PO daily MULTIPLE VITAMINS-MINERALS [id number] Alecia Huitron Multivitamin With Folic Acid (11 [...] CAPS take as directed OMEGA-3 FATTY ACIDS [id number] Vane Liu MD Milford-3 Fatty Acids (11 sources) Start: 12-06-2013 End: 12-25-2017 take 1200 mg by mouth twice daily Milford-3 Fatty Acids Discontinued 1200 MG PO TWICE A DAY December 05, 2013 11:00pm December 25, 2017 1:42pm Start: 12-06-2013 End: 12-25-2017 take 1200 mg by mouth twice daily Milford-3 Fatty Acids Discontinued 1200 MG PO TWICE A DAY December 06, 2013 12:00am December 25, 2017 2:42pm Milford-3 Fatty Acids 1,000 MG capsule (6 sources) Start: 12-06-2013 End: 12-25-2017 take 1 capsule by mouth twice daily Milford-3 Fatty Acids 1,000 MG capsule Discontinued 1200 [...] March 05, 2017 10:33am polyethylene glycol 3350 94075 mg powder for oral solution (17 sources) Osmotic Laxative Start: 12-06-2013 End: 06-30-2018 take 17 g by mouth once daily Polyethylene Glycol 3350 17 GM packet Discontinued 17 g PO DAILY December 06, 2013 12:00am June 30, 2018 10:19am POLYETHYLENE GLYCOL 3350 (1 source) Start: 09-23-2016 MIRALAX OSIRIS batista as directed POLYETHYLENE GLYCOL 3350 [id number] Alecia Huitron predniSONE 20 mg oral tablet [...] T ABS 2 tablets bid VALACYCLOVIR HCL 65479484829 Alecia Huitron Start: 12-06-2013 End: 04-03-2018 Valacyclovir [...] Facility Pulmonary Visit Reporton Pulmonary Visit Report [facility] Pulmonary Medicine [address] [place] [address] OFFICE VISIT Date of Service: 12/08/24 MR#: [id number] Acct: [id number] Name: AURELIANO CALHOUN Rep #: [id number] : 1960 Provider: Mary Jane Morris NP Age/Sex: 64/F Location: [facility].PMW Status: Signed Assessment and Plan Assessment and Plan (1) ALEXX (obstructive sleep apnea): Status: Chronic Comment: AHI 19.5 titrated to BiPAP 10/4 centimeters of water Plan: She is using and benefiting from Pap therapy. Unfortunately due to recent insurance change and [facility] guidelines the patient has been unable [...] Additional Comments: This note was generated with [employer] dictation software. It may contain incorrect words, [...] asleep while driving. She will have to meat puller and do jumping jacks to awaken to [...] Follow up Chief Complaint: 3 m fu Informatica Architect Required: No DME Vendor: [employer] Accompanied by: Self Is patient in pain?: No Allergies No Known Allergies Allergy (Verified 12/08/24 09:16) Medications ???Medication ???Instructions ???Recorded ???Confirmed ???Type blood-glucose meter (more content not included)... Normal [facility] Internal Medicine Office Vis itogomez 10-27-2024 Internal Medicine Office Visit [facility] [address] [place] [address] OFFICE VISIT Date of Service: 10/27/24 MR#: [id number] Acct: [id number] Name: AURELIANO CALHOUN Rep #: [id number] : 1960 Provider: Dr. Vane hill MD Age/Sex: 64/F Location: [facility].BIM Status: Signed Intake Vital Signs 07/28/24 16:35 [...] M FU Chief Complaint: 3 m fu Informatica Architect Required: No Is patient in pain?: No [...] No Nurse's Note: Pt is feeling good. FORMERLY [facility], [facility] Medical History Health care maintenance Chronic diarrhea [...] therapy wa (more content not included)... Normal [facility] Laboratory - Hematology and Cell countsOrdered By: Vane Liu on 10-27-2024 HbA1c (Bld) [Mass fraction] 5.9 % 4.2-6.3 [facility] Pulmonary Visit Reporton Pulmonary Visit Report [facility] [place] [address] [facility] [address] [place] [address] OFFICE VISIT Date of Service: 10/14/24 MR#: [id number] Acct: [id number] Name: AURELIANO CALHOUN Rep #: [id number] : 1960 Provider: NGA Doan Age/Sex: 64/F Location: [facility].PMW Status: Signed Assessment and Plan Assessment and [...] Additional Comments: This note was generated with [employer] dictation software. It may contain incorrect words, [...] Y FU Chief Complaint: 3 m fu Informatica Architect Required: No DME Vendor: Deangelo Accompanied by: [...] in: running (more content not included)... Normal [facility] Internal Medicine Office Vis itogomez 09-28-2024 Internal Medicine Office Visit [facility] [address] [place] [address] [place] [address] OFFICE VISIT Date of Service: 09/28/24 MR#: [id number] Acct: [id number] Name: AURELIANO CALHOUN Rep #: [id number] : 1960 Provider: TESFAYE Javier Age/Sex: 64/F Location: [facility] Status: Signed Intake Vital Signs 07/28/24 16:35 [...] hip pain Chief Complaint: 3 m fu Informatica Architect Required: No Is patient in pain?: Yes [...] pt does excercises and 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 Pt states she retired and is move [...] her back and hip are very stiff. FORMERLY [facility], [facility] Medical History Health care maintenance Chronic diarrhea [...] has been (more content not included)... Normal [facility] Internal Medicine Office Vis amelia 07-28-2024 Internal Medicine Office Visit [facility] [address] [place] [address] OFFICE VISIT Date of Service: 07/28/24 MR#: [id number] Acct: [id number] Name: AURELIANO CALHOUN Rep #: [id number] : 1960 Provider: Dr. Vane hill MD Age/Sex: 64/F Location: [facility] Status: Signed Intake Vital Signs 04/21/24 14:52 [...] M FU Chief Complaint: 3 m fu Informatica Architect Required: No Accompanied by: Self Is patient [...] No abnorma (more content not included)... Normal [facility] Laboratory - Hematology and Cell countsOrdered By: Vane Liu on 07-28-2024 HbA1c (Bld) [Mass fraction] 5.6 % 4.2-6.3 [facility] Bone density reportOrdered B y: Wang Angelo on 05-13-2024 Study report Skeletal system DXA [facility] Imaging Services [address] [place], [place] [address] Dexa Bone Density Study MR#: [id number] Acct: [id number] Name: AURELIANO CALHOUN Rep #: [id number] : 1960 F 64 From: Heriberto Angelo MD PCP: Dr. Vane Liu MD Status: R EG CLI Study:Dexa Bone Density Study Date of Exam: 05/13/24 Exam# [id number] Ordering Dr: Freedom Liu MD PROCEDURE: The [...] with a low fracture risk. Reading Location: [facility] CC: Dr. Vane Liu MD ~ Manager Business Banking: Signed [facility] Breast imaging reportOrdered By: Wang Angelo on 05-13-2024 Study report [facility] Imaging Services [address] [place] [address] [id number] SCRN MAMM (CAD)W/ANGÉLICA BILAT MR#: [id number] Acct: [id number] Name: AURELIANO CALHOUN Rep #: [id number] : 1960 F 64 From: Heriberto Angelo MD PCP: Dr. Vane Liu MD Status: R EG CLI Study:SCRN MAMM (CAD)W/ANGÉLICA BILAT Date of Exa m: 05/13/24 Exam# [id number] Ordering Dr: Freedom Liu MD PROCEDURE: SCRN [...] of the results by letter. Reading Location: [id number] CC: Dr. Vane Liu MD ~ Manager Business Banking: Signed [facility] Dexa Bone Density Studyon Dexa Bone Density Study [facility] Imaging Services [address] [place], [place] [address] Dexa Bone Density Study MR#: [id number] Acct: [id number] Name: AURELIANO CALHOUN Rep #: [id number] : 1960 F 64 From: Wang alvares MD PCP: Dr. Vane Liu MD Status: REG CLI Study: Dexa Bone Density Study Date of Exam: 05/13/24 Exam# [id number] Ordering Dr: Vane Liu MD PROCEDURE: The [...] with a low fracture risk. Reading Location: [id number] CC: Dr. Vane Liu MD Manager Business Banking: Signed Normal [facility] SCRN MAMM (CAD)W/ANGÉLICA BILATo n 05-13-2024 SCRN MAMM (CAD)W/ANGÉLICA BILAT [facility] Imaging Services [address] [place], [place] [address] SCRN MAMM (CAD)W/ANGÉLICA BILAT MR#: [id number] Acct: [id number] Name: AURELIANO CALHOUN Rep #: [id number] : 1960 F 64 From: Wang alvares MD PCP: Dr. Vane Liu MD Status: [facility] Study: SCRN MAMM (CAD)W/ANGÉLICA BILAT Date of Exam: 09/01 Exam# [id number] Ordering Dr: Vane Liu MD PROCEDURE: SCRN [...] Location: [facility] CC: Dr. Vane Liu MD Manager Business Banking: Signed Normal [facility] Internal Medicine Office Vis amelia 04-21-2024 Internal Medicine Office Visit [facility] [address] [place] [address] [place] [address] OFFICE VISIT Date of Service: 04/21/24 MR#: [id number] Acct: [id number] Name: AURELIANO CALHOUN Rep #: [id number] : 1960 Provider: Dr. Vane hill MD Age/Sex: 64/F Location: [facility] Status: Signed Intake Vital Signs 01/14/24 17:18 [...] pain, limite (more content not included)... Normal [facility] Hemoglobin A1con 04-18-2024 HbA1c (Bld) [Mass fraction] 5.7 % High 3.8-5.6 [facility] Comment on above: Result Comment: Norm al < 5.7 % Prediabetic 5.7 - 6.4 % Diabetic >or= 6.5 % Please note range changes. Performed By: #### L 500.4100, L501.9985, L100.0100, L500.4050 ####[facility] [id number] [place], [address] Absolute lymphocyte countOrd ered By: Vane Liu on 04-16-2024 Lymphocytes Auto (Unsp spec) [#/Vol] 2.23 10*3/uL 0.83-4.51 [facility] Absolute neutrophil countOrd ered By: lisandralong beachdiana Liu on 04-16-2024 Neutrophils (Bld) [#/Vol] 2.8 10*3/uL 2.0-7.7 [facility] Albumin to globulin ratioOrd ered By: marclelus Liu on 04-16-2024 Albumin/Globulin [Mass ratio] 1.1 {ratio} 0.9-2.4 [facility] Automated lymphocyte count a s percentage of total leukocytesOrdered By: Vane Liu on 04-16-2024 Lymphocytes/100 WBC Auto (Unsp spec) 39.3 % 19-41 [facility] Basophil percentageOrdered B y: Vane Liu on 04-16-2024 Basophils/100 WBC (Bld) 1.6 % High 0-1 [facility] Bilirubin, totalOrdered By: Vane Liu on 04-16-2024 Bilirubin [Mass/Vol] 0.70 mg/dL 0.20-1.00 [facility] Comment on above: For patients on eltr ombopag therapy, use of Dimension Leonardo TBIL is not recommended. Blood urea nitrogen (BUN)/cr eatinine ratioOrdered By: Vane Liu on 04-16-2024 Urea nitrogen/Creatinine [Mass ratio] 20.0 mg/mg 10-20 [facility] CBC W/Diff, Automatedon Absolute Lymph 2.23 X10 3/uL Normal 0.83-4.51 [facility] Comment on above: Performed By: #### L 500.4100, L501.9985, L100.0100, L500.4050 #### [facility] [address] [place], [address] Absolute Neut 2.8 X10 3/uL Normal 2.0-7.7 [facility] Comment on above: Performed By: #### L 500.4100, L501.9985, L100.0100, L500.4050 #### [facility] [address] [place], [address] Basophils/100 WBC (Bld) 1.6 % High 0-1 [facility] Comment on above: Performed By: #### L 500.4100, L501.9985, L100.0100, L500.4050 #### [facility] [address] [place], [address] Eosinophils/100 WBC (Bld) 3.2 % Normal 0-5 [facility] Comment on above: Performed By: #### L 500.4100, L501.9985, L100.0100, L500.4050 #### [facility] [address] [place], [address] Erythrocyte distribution width (RBC) [Ratio] 12.9 % Normal 11.6-14.6 [facility] Comment on above: Performed By: #### L 500.4100, L501.9985, L100.0100, L500.4050 #### [facility] [address] [place], [address] Hematocrit (Bld) [Volume fraction] 38.7 % Normal 37-47 [facility] Comment on above: Performed By: #### L 500.4100, L501.9985, L100.0100, L500.4050 #### [facility] [address] [place], [address] Hemoglobin (Bld) [Mass/Vol] 12.9 g/dL Normal 12.0-15.0 [facility] Comment on above: Performed By: #### L 500.4100, L501.9985, L100.0100, L500.4050 #### [facility] [address] [place], [address] IG% 0.500 Normal 0.0-0.9 [facility] Comment on above: Result Comment: IG% - Immature Granulocytes (promyelocytes, myelocytes and metamyelocytes) > 1% indicates that a LEFT SHIFT is Present. Performed By: #### L 500.4100, L501.9985, L100.0100, L500.4050 #### [facility] [address] [place], [address] Lymphocytes/100 WBC (Bld) 39.3 % Normal 19-41 [facility] Comment on above: Performed By: #### L 500.4100, L501.9985, L100.0100, L500.4050 #### [facility] [address] [place], [address] MCH (RBC) [Entitic mass] 30.9 pg Normal 27.0-32.0 [facility] Comment on above: Performed By: #### L 500.4100, L501.9985, L100.0100, L500.4050 #### [facility] [address] [place], [address] MCHC (RBC) [Mass/Vol] 33.3 g/dL Normal 32-36 [facility] Comment on above: Performed By: #### L 500.4100, L501.9985, L100.0100, L500.4050 #### [facility] [address] [place], [address] MCV (RBC) [Entitic vol] 92.6 fL Normal 81-99 [facility] Comment on above: Performed By: #### L 500.4100, L501.9985, L100.0100, L500.4050 #### [facility] [address] [place], [address] Monocytes/100 WBC (Bld) 6.7 % Normal 0-10 [facility] Comment on above: Performed By: #### L 500.4100, L501.9985, L100.0100, L500.4050 #### [facility] [address] [place], [address] Neutrophils/100 WBC (Bld) 48.7 % Normal 47-70 [facility] Comment on above: Performed By: #### L 500.4100, L501.9985, L100.0100, L500.4050 #### [facility] [address] [place], [address] Nucleated RBC (Bld) [#/Vol] 0 10*3/uL Normal 0-5 [facility] Comment on above: Performed By: #### L 500.4100, L501.9985, L100.0100, L500.4050 #### [facility] [address] [place], [address] Platelet mean volume (Bld) [Entitic vol] 8.9 fL Normal 6.2-12.0 [facility] Comment on above: Performed By: #### L 500.4100, L501.9985, L100.0100, L500.4050 #### [facility] [address] [place], [address] Platelets (Bld) [#/Vol] 323 10*3/uL Normal 150-450 [facility] Comment on above: Performed By: #### L 500.4100, L501.9985, L100.0100, L500.4050 #### [facility] [address] [place], [address] RBC (Bld) [#/Vol] 4.18 10*6/uL Low 4.2-5.4 [facility] Comment on above: Performed By: #### L 500.4100, L501.9985, L100.0100, L500.4050 #### [facility] [address] [place], [address] RDW SD 43.8 fl Normal 35.1-43.9 [facility] Comment on above: Performed By: #### L 500.4100, L501.9985, L100.0100, L500.4050 #### [facility] [address] [place], [address] WBC (Bld) [#/Vol] 5.7 10*3/uL Normal 4.4-11.0 [facility] Comment on above: Performed By: #### L 500.4100, L501.9985, L100.0100, L500.4050 #### [facility] [address] [place], [address] Carbon dioxide measurementOr dered By: Vane Liu on 04-16-2024 CO2 [Moles/Vol] 26.0 mmol/L 21.0-32.0 [facility] Chloride measurementOrdered By: Vane Liu on 02-07-2025 Chloride [Moles/Vol] 107 mmol/L 98-107 [facility] Comprehensive Metabolic Prof ilon 04-16-2024 Albumin [Mass/Vol] 3.7 g/dL Normal 3.2-5.0 [facility] Comment on above: Performed By: #### L 500.4100, L501.9985, L100.0100, L500.4050 #### [facility] [address] [place], [address] Albumin/Globulin [Mass ratio] 1.1 {ratio} Normal 0.9-2.4 [facility] Comment on above: Performed By: #### L 500.4100, L501.9985, L100.0100, L500.4050 #### [facility] [address] [place], [address] ALK P 107 U/L Normal 45-117 [facility] Comment on above: Performed By: #### L 500.4100, L501.9985, L100.0100, L500.4050 #### [facility] [address] [place], [address] ALT [Catalytic activity/Vol] 51 U/L Normal 13-56 [facility] Comment on above: Performed By: #### L 500.4100, L501.9985, L100.0100, L500.4050 #### [facility] [address] [place], [address] AST [Catalytic activity/Vol] 29 U/L Normal 15-37 [facility] Comment on above: Performed By: #### L 500.4100, L501.9985, L100.0100, L500.4050 #### [facility] [address] [place], [address] Bilirubin [Mass/Vol] 0.70 mg/dL Normal 0.20-1.00 [facility] Comment on above: Result Comment: For patients on eltrombopag therapy, use of Dimension Leonardo TBIL is not recommended. Performed By: #### L 500.4100, L501.9985, L100.0100, L500.4050 #### [facility] [address] [place], [address] BUN/CRE 20.0 RATIO Normal 10-20 [facility] Comment on above: Performed By: #### L 500.4100, L501.9985, L100.0100, L500.4050 #### [facility] [address] [place], [address] CA,Total 9.0 mg/dL Normal 8.5-10.1 [facility] Comment on above: Performed By: #### L 500.4100, L501.9985, L100.0100, L500.4050 #### [facility] [address] [place], [address] Chloride [Moles/Vol] 107 mmol/L Normal 98-107 [facility] Comment on above: Performed By: #### L 500.4100, L501.9985, L100.0100, L500.4050 #### [facility] [address] [place], [address] CO2 [Moles/Vol] 26.0 mmol/L Normal 21.0-32.0 [facility] Comment on above: Performed By: #### L 500.4100, L501.9985, L100.0100, L500.4050 #### [facility] [address] [place], [address] Creatinine [Mass/Vol] 0.75 mg/dL Normal 0.55-1.02 [facility] Comment on above: Result Comment: The validity of the calculated GFR GFRAA in patients over 70 years has not been determined. Clinical correlation is essential. Performed By: #### L 500.4100, L501.9985, L100.0100, L500.4050 #### [facility] [address] [place], [address] EST GFR - AA 100 mL/min Normal >60 [facility] Comment on above: Result Comment: Afri can Kosovan GFR Calc Performed By: #### L 500.4100, L501.9985, L100.0100, L500.4050 #### [facility] [address] [place], [address] GAP 6 Normal 5-15 [facility] Comment on above: Performed By: #### L 500.4100, L501.9985, L100.0100, L500.4050 #### [facility] [address] [place], [address] GFR/1.73 sq M.predicted among non-blacks MDRD (S/P/Bld) [Vol rate/Area] 82 mL/min/{1.73_m2} Normal >60 [facility] Comment on above: Result Comment: Non- GFR Calc Performed By: #### L 500.4100, L501.9985, L100.0100, L500.4050 #### [facility] [address] [place], [address] Globulin (S) [Mass/Vol] 3.5 g/dL Normal 2.2-4.2 [facility] Comment on above: Performed By: #### L 500.4100, L501.9985, L100.0100, L500.4050 #### [facility] [address] [place], [address] Glucose [Mass/Vol] 105 mg/dL Normal 74-106 [facility] Comment on above: Result Comment: Fast ing Glucose result from 100 to 125 mg/dL suggests IMPAIRED HOMEOSTASIS per A.D.A. criteria. Performed By: #### L 500.4100, L501.9985, L100.0100, L500.4050 #### [facility] [address] [place], [address] Potassium [Moles/Vol] 4.0 mmol/L Normal 3.5-5.1 [facility] Comment on above: Performed By: #### L 500.4100, L501.9985, L100.0100, L500.4050 #### [facility] [address] [place], [address] Sodium [Moles/Vol] 140 mmol/L Normal 136-145 [facility] Comment on above: Performed By: #### L 500.4100, L501.9985, L100.0100, L500.4050 #### [facility] [address] [place], [address] T PROT 7.2 g/dL Normal 6.4-8.2 [facility] Comment on above: Performed By: #### L 500.4100, L501.9985, L100.0100, L500.4050 #### [facility] [address] [place], [address] Urea nitrogen [Mass/Vol] 15 mg/dL Normal 7-18 [facility] Comment on above: Performed By: #### L 500.4100, L501.9985, L100.0100, L500.4050 #### [facility] [address] [place], [address] Eosinophil percentageOrdered By: Vane Liu on 04-16-2024 Eosinophils/100 WBC (Bld) 3.2 % 0-5 [facility] Erythrocyte distribution wid th ratioOrdered By: Vane Liu on 04-16-2024 Erythrocyte distribution width (RBC) [Ratio] 12.9 % 11.6-14.6 [facility] Erythrocyte distribution wid th standard deviationOrdered By: Vane Liu on 04-16-2024 Erythrocyte distribution width (RBC) [Entitic vol] 43.8 fL 35.1-43.9 [facility] Erythrocyte distribution width (RBC) [Ratio] 43.8 fl 35.1-43.9 [facility] Estimated glomerular filtrat ion rate (GFR) AmericanOrdered By: Vane Liu on 04-16-2024 Estimated GFR (MDRD) Amer 100 mL/min >60 [facility] Comment on above: GFR Calc Glomerular filtration rate ( GFR) estimationOrdered By: Vane Liu on 04-16-2024 Estimated GFR (MDRD) Non-Af Amer 82 mL/min >60 [facility] Comment on above: Non- GFR Calc GFR/1.73 sq M.predicted among non-blacks MDRD (S/P/Bld) [Vol rate/Area] 82 mL/min/{1.73_m2} >60 [facility] Comment on above: Non- GFR Calc Glucose measurementOrdered B y: Vane Liu on 04-16-2024 Glucose [Mass/Vol] 105 mg/dL 74-106 [facility] Comment on above: Fasting Glucose resu lt from 100 to 125 mg/dL suggests IMPAIRED HOMEOSTASIS per A.D.A. criteria. Hematocrit Auto (Bld) [Volum e fraction]Ordered By: Vane Liu on 04-16-2024 Hematocrit (Bld) [Volume fraction] 38.7 % 37-47 [facility] Hemoglobin A1c percentageOrd ered By: Vane Liu on 04-16-2024 HbA1c (Bld) [Mass fraction] 5.7 % High 3.8-5.6 [facility] Comment on above: Normal < 5.7 % Predi abetic 5.7 - 6.4 % Diabetic >or= 6.5 % Please note range changes. Hemoglobin measurementOrdere d By: Vane Liu on 04-16-2024 Hemoglobin (Bld) [Mass/Vol] 12.9 g/dL 12.0-15.0 [facility] High density lipoprotein (HD L) measurementOrdered By: Vane Liu on 04-16-2024 Cholesterol in HDL [Mass/Vol] 71 mg/dL >40 [facility] Comment on above: The drugs N-Acetylcy steine and Metamizole may falsely depress this assay. Reference Range HDL <40 mg/dL Low HDL Cholesterol HDL >or= 60 mg/dL High HDL Cholesterol Immature granulocytes/100 WB C Auto (Bld)Ordered By: Vane Liu on 04-16-2024 Immature granulocytes/100 WBC (Bld) 0.500 % 0.0-0.9 [facility] Comment on above: IG% - Immature Granu locytes (promyelocytes, myelocytes and metamyelocytes) > 1% indicates that a LEFT SHIFT is Present. Laboratory - Chemistry and C hemistry - challengeOrdered By: Vane Liu on 04-16-2024 AST [Catalytic activity/Vol] 29 U/L 15-37 [facility] Lipid Profileon 04-16-2024 Cholesterol [Mass/Vol] 188 mg/dL Normal 200 [facility] Comment on above: Result Comment: <200 mg/dL Desirable 200-240 mg/dL Borderline >240 mg/dL High Risk Performed By: #### L 500.4100, L501.9985, L100.0100, L500.4050 ####[facility] [address] [place], [address] Cholesterol in HDL [Mass/Vol] 71 mg/dL Normal [facility] Comment on above: Result Comment: The drugs N-Acetylcysteine and Metamizole may falsely depress this assay. Reference Range HDL <40 mg/dL Low HDL Cholesterol HDL >or= 60 mg/dL High HDL Cholesterol Performed By: #### L 500.4100, L501.9985, L100.0100, L500.4050 ####[facility] [address] [place], [address] Cholesterol in LDL [Mass/Vol] 96 mg/dL Normal 0-130 [facility] Comment on above: Performed By: #### L 500.4100, L501.9985, L100.0100, L500.4050 ####[facility] [address] [place], [address] Cholesterol in VLDL [Mass/Vol] 21 mg/dL Normal 5-40 [facility] Comment on above: Performed By: #### L 500.4100, L501.9985, L100.0100, L500.4050 ####[facility] [address] [place], [address] Triglyceride [Mass/Vol] 106 mg/dL Normal [facility] Comment on above: Result Comment: The drugs N-Acetylcysteine and Metamizole may falsely depress this assay. Serum Triglycerides Reference Interval Normal <150 mg/dL Borderline high 150 - 199 mg/dL High 200 - 499 mg/dL Very High > or = 500 mg/dL Performed By: #### L 500.4100, L501.9985, L100.0100, L500.4050 ####[facility] [address] [place], [place], [address] Low density lipoprotein (LDL ) cholesterol measurementOrdered By: Vane Liu on 04-16-2024 Cholesterol in LDL [Mass/Vol] 96 mg/dL 0-130 [facility] Lymphocytes Auto (Unsp spec) [#/Vol]Ordered By: Vane Liu on 04-16-2024 Lymphocytes (Bld) [#/Vol] 2.23 10*3/uL 0.83-4.51 [facility] Lymphocytes/100 WBC Auto (Un sp spec)Ordered By: Vane Liu on 04-16-2024 Lymphocytes/100 WBC (Bld) 39.3 % 19-41 [facility] MCV (mean corpuscular volume ) determinationOrdered By: Vane Liu on 04-16-2024 MCV (RBC) [Entitic vol] 92.6 fL 81-99 [facility] Mean corpuscular hemoglobin (MCH) determinationOrdered By: Vane Liu on 04-16-2024 MCH (RBC) [Entitic mass] 30.9 pg 27.0-32.0 [facility] Mean corpuscular hemoglobin concentration (MCHC) determinationOrdered By: Vane Liu on 04-16-2024 MCHC (RBC) [Mass/Vol] 33.3 g/dL 32-36 [facility] Mean platelet volume determi nationOrdered By: Vane Liu on 04-16-2024 Platelet mean volume (Bld) [Entitic vol] 8.9 fL 6.2-12.0 [facility] Monocyte percentageOrdered B y: Vane Liu on 04-16-2024 Monocytes/100 WBC (Bld) 6.7 % 0-10 [facility] Neutrophil percentageOrdered By: Vane Liu on 04-16-2024 Neutrophils/100 WBC (Bld) 48.7 % 47-70 [facility] Nucleated red blood cell per centageOrdered By: Vane Liu on 04-16-2024 Nucleated RBC/100 WBC (Bld) [Ratio] 0 % 0-5 [facility] Platelet countOrdered By: Félix Liu on 04-16-2024 Platelets (Bld) [#/Vol] 323 10*3/uL 150-450 [facility] Potassium measurementOrdered By: Vane Liu on 04-16-2024 Potassium [Moles/Vol] 4.0 mmol/L 3.5-5.1 [facility] RBC Auto (Bld) [#/Vol]Ordere d By: Vane Liu on 04-16-2024 RBC (Bld) [#/Vol] 4.18 10*6/uL Low 4.2-5.4 [facility] Serum anion gap measurementO rdered By: Vane Liu on 04-16-2024 Anion gap [Moles/Vol] 6 mmol/L 5-15 [facility] Serum globulin measurementOr dered By: Vane Liu on 04-16-2024 Globulin (S) [Mass/Vol] 3.5 g/dL 2.2-4.2 [facility] Serum or plasma alanine og otransferase (ALT) measurementOrdered By: Vane Liu on 04-16-2024 ALT [Catalytic activity/Vol] 51 U/L 13-56 [facility] Serum or plasma albumin constantino urement (mass/volume)Ordered By: Vane Liu on 04-16-2024 Albumin [Mass/Vol] 3.7 g/dL 3.2-5.0 [facility] Serum or plasma alkaline cristina sphatase measurementOrdered By: Vane Liu on 04-16-2024 ALP [Catalytic activity/Vol] 107 U/L 45-117 [facility] Serum or plasma calcium constantino urement (mass/volume)Ordered By: Vane Liu on 04-16-2024 Calcium [Mass/Vol] 9.0 mg/dL 8.5-10.1 [facility] Serum or plasma cholesterol measurement (mass/volume)Ordered By: Vane Liu on 04-16-2024 Cholesterol [Mass/Vol] 188 mg/dL <200 [facility] Comment on above: <200 mg/dL Desirable 200-240 mg/dL Borderline >240 mg/dL High Risk Serum or plasma creatinine m easurement (mass/volume)Ordered By: Vane Liu on 04-16-2024 Creatinine [Mass/Vol] 0.75 mg/dL 0.55-1.02 [facility] Comment on above: The validity of the calculated GFR & GFRAA in patients over 70 years has not been determined. Clinical correlation is essential. Serum or plasma urea nitroge n measurement (mass/volume)Ordered By: Vane Liu on 04-16-2024 Urea nitrogen [Mass/Vol] 15 mg/dL 7-18 [facility] Sodium levelOrdered By: Brenda Liu on 04-16-2024 Sodium [Moles/Vol] 140 mmol/L 136-145 [facility] Total proteinOrdered By: Shaquille Liu on 04-16-2024 Protein [Mass/Vol] 7.2 g/dL 6.4-8.2 [facility] Triglycerides measurementOrd ered By: Vane Liu on 04-16-2024 Triglyceride [Mass/Vol] 106 mg/dL <199 [facility] Comment on above: The drugs N-Acetylcy steine and Metamizole may falsely depress this assay.Serum Triglycerides Reference Interval Normal <150 mg/dL Borderline high 150 - 199 mg/dL High 200 - 499 mg/dL Very High > or = 500 mg/dL Very low density lipoprotein (VLDL) cholesterol measurementOrdered By: Vane Liu on 04-16-2024 Very low density lipoprotein (VLDL) cholesterol measurement 21 mg/dL -40 [facility] VLDL Cholesterol 21 mg/dL -40 [facility] White blood cell (WBC) count Ordered By: Vane Liu on 04-16-2024 WBC (Bld) [#/Vol] 5.7 10*3/uL 4.4-11.0 [facility] Urgent Care Visit Reporton 0 03-19-2024 Urgent Care Visit Report [facility] [address], [address] [place] [address] OFFICE VISIT Date of Service: 03/19/24 MR#: [id number] Acct: [id number] Name: AURELIANO CALHOUN Rep #: [id number] : 1960 Provider: TESFAYE Sheth Age/Sex: 64/F Location: [facility] Status: Signed Intake Vital Signs 01/14/24 17:18 [...] Chief Complaint: cough, congest, TOSCANO, face pain [employer]form[employer] Architect Required: No Is patient in pain?: No Allergies No Known Allergies Allergy (Verified 03/19/24 15:13) Is last menstrual period known: No Post menopausal: Yes Patient : No Have you fallen in the past year?: No Nurse's Note: cough, congest, TOSCANO, face pain x 9 days without relief. denies fever, BA. concern for sinus infection [facility]LY [facility], [facility]1983 Medical History Health care maintenance Chronic diarrhea [...] Exam Const General: cooperative and healthy appearing [facility] Head: normal to inspection Ears: hearing [...] (unless c (more content not included)... Normal [facility] Internal Medicine Office Vis iton 01-14-2024 Internal Medicine Office Visit [facility] [address] [place], [place] [address] OFFICE VISIT Date of Service: 01/14/24 MR#: [id number] Acct: [id number] Name: AURELIANO CALHOUN Rep #: [id number] : 1960 Provider: Dr. Vane hill MD Age/Sex: 63/F Location: [facility] Status: Signed Intake Vital Signs 10/09/23 17:33 [...] M FU Chief Complaint: 3 M FU [employer] Architect Required: No Is patient in pain?: No [...] incontinence, urina (more content not included)... Normal [facility] Absolute lymphocyte countOrd ered By: Vane Liu on 10-02-2022 Lymphocytes Auto (Unsp spec) [#/Vol] 1.71 10*3/uL 0.83-4.51 [facility] Basophil percentageOrdered B y: Vane Liu on 10-02-2022 Basophils/100 WBC (Bld) 1.9 % 0-1 [facility] Bilirubin [Mass/Vol] 1.20 mg/dL 0.20-1.00 [facility] Comment on above: For patients on eltr ombopag therapy, use of Dimension Leonardo TBIL is not recommended. Chloride [Moles/Vol] 109 mmol/L 98-107 [facility] Eosinophils/100 WBC (Bld) 5.9 % 0-5 [facility] Glucose [Mass/Vol] 98 mg/dL 74-106 [facility] Neutrophils (Bld) [#/Vol] 3.2 10*3/uL 2.0-7.7 [facility] Neutrophils/100 WBC (Bld) 55.4 % 47-70 [facility] Potassium [Moles/Vol] 4.1 mmol/L 3.5-5.1 [facility] Protein [Mass/Vol] 7.3 g/dL 6.4-8.2 [facility] Sodium [Moles/Vol] 139 mmol/L 136-145 [facility] WBC (Bld) [#/Vol] 5.8 10*3/uL 4.4-11.0 [facility] Blood erythrocytes count (nu mber/volume)Ordered By: Vane Liu on 10-02-2022 RBC (Bld) [#/Vol] 4.03 10*6/uL 4.2-5.4 [facility] Blood hemoglobin measurement (mass/volume)Ordered By: Vane Liu on 10-02-2022 Hemoglobin (Bld) [Mass/Vol] 12.6 g/dL 12.0-15.0 [facility] Blood lymphocytes/100 leukoc ytesOrdered By: Vane Liu on 10-02-2022 Lymphocytes/100 WBC (Bld) 29.7 % 19-41 [facility] Blood monocytes/100 leukocyt esOrdered By: Vane Liu on 10-02-2022 Monocytes/100 WBC (Bld) 6.8 % 0-10 [facility] Blood platelet mean volumeOr dered By: Vane Liu on 10-02-2022 Platelet mean volume (Bld) [Entitic vol] 9.3 fL 6.2-12.0 [facility] Determination of erythrocyte mean corpuscular volume (MCV)Ordered By: Vane Liu on 07-26-2023 MCV (RBC) [Entitic vol] 94.0 fL 81-99 [facility] Hematocrit Auto (Bld) [Volum e fraction]Ordered By: Vane Liu on 10-02-2022 Hematocrit (Bld) [Volume fraction] 37.9 % 37-47 [facility] - Chemistry and C hemistry - challengeOrdered By: Vane Liu on 10-02-2022 ALP [Catalytic activity/Vol] 86 U/L 45-117 [facility] ALT [Catalytic activity/Vol] 52 U/L 13-56 [facility] CO2 [Moles/Vol] 24.0 mmol/L 21.0-32.0 [facility] Globulin (S) [Mass/Vol] 3.5 g/dL 2.2-4.2 [facility] Urea nitrogen/Creatinine [Mass ratio] 27.0 mg/mg 10-20 [facility] - Hematology and Cell countsOrdered By: Brendalong beachdiana Liu on 10-02-2022 Erythrocyte distribution width (RBC) [Entitic vol] 45.1 fL 35.1-43.9 [facility] Erythrocyte distribution width (RBC) [Ratio] 13.2 % 11.6-14.6 [facility] Immature granulocytes/100 WBC (Bld) 0.300 % 0.0-0.9 [facility] Comment on above: IG% - Immature Granu locytes (promyelocytes, myelocytes and metamyelocytes) > 1% indicates that a LEFT SHIFT is Present. MCH (RBC) [Entitic mass] 31.3 pg 27.0-32.0 [facility] Nucleated RBC/100 WBC (Bld) [Ratio] 0 % 0-5 [facility] - Hematology and Cell countson 10-02-2022 HbA1c (Bld) [Mass fraction] 6.0 % 4.2-6.3 [facility] MCHC Auto (RBC) [Mass/Vol]Or dered By: Vane Liu on 10-02-2022 MCHC (RBC) [Mass/Vol] 33.2 g/dL 32-36 [facility] No Panel InformationOrdered By: Vane Liu on 10-02-2022 Estimated GFR (MDRD) Amer 102 mL/min >60 [facility] Comment on above: GFR Calc Estimated GFR (MDRD) Non-Af Amer 84 mL/min >60 [facility] Comment on above: Non- GFR Calc Platelets bldOrdered By: Shaquille Liu on 10-02-2022 Platelets (Bld) [#/Vol] 331 10*3/uL 150-450 [facility] Serum or plasma albumin constantino urement (mass/volume)Ordered By: Vane Liu on 10-02-2022 Albumin [Mass/Vol] 3.8 g/dL 3.2-5.0 [facility] Serum or plasma albumin/glob ulin mass ratioOrdered By: Vane Liu on 10-02-2022 Albumin/Globulin [Mass ratio] 1.1 {ratio} 0.9-2.4 [facility] Serum or plasma calcium constantino urement (mass/volume)Ordered By: Vane Liu on 10-02-2022 Calcium [Mass/Vol] 9.3 mg/dL 8.5-10.1 [facility] Serum or plasma creatinine m easurement (mass/volume)Ordered By: Vane Liu on 10-02-2022 Creatinine [Mass/Vol] 0.74 mg/dL 0.55-1.02 [facility] Comment on above: The validity of the calculated GFR & GFRAA in patients over 70 years has not been determined. Clinical correlation is essential. Serum or plasma urea nitroge n measurement (mass/volume)Ordered By: Vane Liu on 10-02-2022 Urea nitrogen [Mass/Vol] 20 mg/dL 7-18 [facility] Thin prep Papanicolaou smear with manual screeningOrdered By: Vane Liu on 10-02-2022 Thin prep Papanicolaou smear with manual screening 30 U/L 15-37 [facility] Thin prep Papanicolaou smear with manual screening 6 5-15 [facility] Stool enteric pathogen panel by probe and target amplification methodOrdered By: Wiley Pardo on 08-08-2022 Gastrointestinal pathogens panel REESE+probe (Stl) [facility] Gastrointestinal pathogens panel REESE+probe (Stl) [facility] Stool lactoferrin detection by immunoassayOrdered By: Wiley Pardo on 08-08-2022 Lactoferrin IA Ql (Stl) [facility] Lactoferrin IA Ql (Stl) [facility] Culture, urineOrdered By: Dr Ernie Liu on 08-01-2022 Bacteria identified Cx Nom (U) Positive [facility] Basophil percentageOrdered B y: Dr. Liu on 07-29-2022 Basophil percentage 0 SEEN /hpf 0-5 [facility] Bilirubin Test strip Ql (U)O rdered By: Dr. Liu on 07-29-2022 Bilirubin Ql (U) Negative Negative [facility] Culture, urineOrdered By: Félix Liu on 07-29-2022 Bacteria identified Cx Nom (U) Positive [facility] Ketones Test strip Ql (U)Ord ered By: Dr. Liu on 07-29-2022 Ketones Ql (U) Negative Negative [facility] Mucus LM Ql (Urine sed)Order ed By: Dr. Liu on 07-29-2022 Mucus Ql (Urine sed) 0 SEEN /hpf [facility] Nitrite Test strip Ql (U)Ord ered By: Dr. Liu on 07-29-2022 Nitrite Ql (U) Negative Negative [facility] Protein Test strip Ql (U)Ord ered By: Dr. Liu on 07-29-2022 Protein Ql (U) Negative Negative [facility] Squamous epithelial cells de tection in urine sediment by light microscopyOrdered By: Dr. Liu on 07-29-2022 Epithelial cells.squamous LM Ql (Urine sed) 0 SEEN /hpf 5-10 [facility] Urine blood detectionOrdered By: Dr. Liu on 07-29-2022 RBC Ql (U) 10 /ul Negative [facility] RBC Ql (U) 0 SEEN /hpf 0-5 [facility] Urine clarityOrdered By: Dr. Liu on 07-29-2022 Clarity (U) Clear Clear [facility] Urine color determinationOrd ered By: Dr. Liu on 07-29-2022 Color (U) Yellow Yellow [facility] Urine glucose detectionOrder ed By: Dr. Liu on 07-29-2022 Glucose Ql (U) Normal mg/dl Normal [facility] Urine leukocyte esterase det ection by dipstickOrdered By: Dr. Liu on 07-29-2022 Leukocyte esterase Test strip Ql (U) 25 /ul Negative [facility] Urine pHOrdered By: Dr. Rei schmidt on 07-29-2022 pH (U) 6.0 [pH] 5.0 - 8.0 [facility] Urine sediment bacteria coun t by microscopy (number/high power field)Ordered By: Dr. Liu on 07-29-2022 Bacteria LM.HPF (Urine sed) [#/Area] 0 /[HPF] None Seen [facility] Urine specific gravity measu rementOrdered By: Dr. Liu on 07-29-2022 Specific gravity (U) [Rel density] 1.015 1.002-1.030 [facility] Urobilinogen Auto test strip Ql (U)Ordered By: Dr. Liu on 07-29-2022 Urobilinogen Ql (U) Normal mg/dl Normal [facility] Culture, urineOrdered By: James Trotter on 07-11-2022 Bacteria identified Cx Nom (U) Escherichia coli [facility] Basophil percentageOrdered B y: Dr. Liu on 07-09-2022 Basophil percentage 10-25 SEEN /hpf 0-5 [facility] Bilirubin Test strip Ql (U)O rdered By: Dr. Liu on 07-09-2022 Bilirubin Ql (U) Negative Negative [facility] Culture, urineOrdered By: James Trotter on 07-09-2022 Bacteria identified Cx Nom (U) Escherichia coli [facility] Ketones Test strip Ql (U)Ord ered By: Dr. Liu on 07-09-2022 Ketones Ql (U) Negative Negative [facility] Mucus LM Ql (Urine sed)Order ed By: Dr. Liu on 07-09-2022 Mucus Ql (Urine sed) 0 SEEN /hpf [facility] Nitrite Test strip Ql (U)Ord ered By: Dr. Liu on 07-09-2022 Nitrite Ql (U) Negative Negative [facility] No Panel InformationOrdered By: Dr. Liu on 07-09-2022 Urine Transitional Epithelial Cells 0-5 SEEN /hpf 0-5 [facility] Protein Test strip Ql (U)Ord ered By: Dr. Liu on 07-09-2022 Protein Ql (U) Negative Negative [facility] Squamous epithelial cells de tection in urine sediment by light microscopyOrdered By: Dr. Liu on 07-09-2022 Epithelial cells.squamous LM Ql (Urine sed) 0 SEEN /hpf 5-10 [facility] Urine blood detectionOrdered By: Dr. Liu on 07-09-2022 RBC Ql (U) 150 /ul Negative [facility] RBC Ql (U) 10-25 SEEN /hpf 0-5 [facility] Urine clarityOrdered By: Dr. Liu on 07-09-2022 Clarity (U) Sl. Cloudy Clear [facility] Urine color determinationOrd ered By: Dr. Liu on 07-09-2022 Color (U) Yellow Yellow [facility] [facility] Urine glucose detectionOrder ed By: Dr. Liu on 07-09-2022 Glucose Ql (U) Normal mg/dl Normal [facility] Urine leukocyte esterase det ection by dipstickOrdered By: Dr. Liu on 07-09-2022 Leukocyte esterase Test strip Ql (U) 100 /ul Negative [facility] Urine pHOrdered By: Dr. Rei schmidt on 07-09-2022 pH (U) 6.5 [pH] 5.0 - 8.0 [facility] Urine sediment bacteria coun t by microscopy (number/high power field)Ordered By: Dr. Liu on 07-09-2022 Bacteria LM.HPF (Urine sed) [#/Area] 0 /[HPF] None Seen [facility] Urine specific gravity measu rementOrdered By: Dr. Liu on 07-09-2022 Specific gravity (U) [Rel density] 1.005 1.002-1.030 [facility] Urobilinogen Auto test strip Ql (U)Ordered By: Dr. Liu on 07-09-2022 Urobilinogen Ql (U) Normal mg/dl Normal [facility] - Chemistry and C hemistry - challengeon 07-08-2022 Bilirubin Ql (U) Negative [facility] Glucose Ql (U) Negative [facility] Ketones Ql (U) Negative [facility] pH (U) 6.0 [pH] [facility] Specific gravity (U) [Rel density] 1.020 [facility] Urobilinogen (U) [Mass/Vol] Negative [facility] Laboratory - Hematology and Cell countson 07-08-2022 Hemoglobin Ql (U) Hemolyzed [facility] Laboratory - Specimen inform ationon 07-08-2022 Clarity (U) Clear [facility] Color (U) Yellow [facility] Laboratory - Urinalysison Nitrite Ql (U) Negative [facility] Protein Ql (U) Negative [facility] No Panel Informationon 07-08 Urine Leukocytes Negatve [facility] Urine Non-Hemolyzed Blood Moderate [facility] No Panel InformationOrdered By: Dr. Liu on 07-08-2022 Anti-Gliadin IgA Antibody 5 units 0-19 [facility] Comment on above: Negative 0 - 19 Weak Positive 20 - 30 Moderate to Strong Positive >30 Anti-Gliadin IgG Antibody 3 units 0-19 [facility] Comment on above: Negative 0 - 19 Weak Positive 20 - 30 Moderate to Strong Positive >30 Endomysial IgA Antibody Negative Negative [facility] Tissue Transglutaminase IgG Ab <2 U/mL 0-5 [facility] Comment on above: Negative 0 - 5 Weak Positive 6 - 9 Positive >9 Serum IgA measurement (units /volume)Ordered By: Dr. Liu on 07-08-2022 IgA Qn (S) 106 mg/dL 87-352 [facility] Comment on above: Performed at: [address] [id number] Director: Lamonte Snyder PhD, Phone: [phone] Serum tissue transglutaminas e IgA antibody assay (units/volume)Ordered By: Dr. Liu on 07-08-2022 tTG IgA Qn (S) <2 U/mL 0-3 [facility] Comment on above: Negative 0 - 3 Weak Positive 4 - 10 Positive >10 Tissue Transglutaminase (tTG) has been identified as the endomysial antigen. Studies have demonstr- ated that endomysial IgA antibodies have over 99% specificity for gluten sensitive enteropathy. Laboratory - Hematology and Cell countson 06-21-2022 HbA1c (Bld) [Mass fraction] 5.7 % 4.2-6.3 [facility] Absolute lymphocyte countOrd ered By: Dr. Liu on 03-27-2022 Lymphocytes Auto (Unsp spec) [#/Vol] 1.74 10*3/uL 0.83-4.51 [facility] Basophil percentageOrdered B y: Dr. Liu on 03-27-2022 Basophils/100 WBC (Bld) 1.3 % 0-1 [facility] Bilirubin [Mass/Vol] 0.90 mg/dL 0.20-1.00 [facility] Comment on above: For patients on eltr ombopag therapy, use of Dimension Leonardo TBIL is not recommended. Chloride [Moles/Vol] 106 mmol/L 98-107 [facility] Cholesterol [Mass/Vol] 167 mg/dL <200 [facility] Comment on above: <200 mg/dL Desirable 200-240 mg/dL Borderline >240 mg/dL High Risk Eosinophils/100 WBC (Bld) 9.3 % 0-5 [facility] Glucose [Mass/Vol] 99 mg/dL 74-106 [facility] Neutrophils (Bld) [#/Vol] 4.2 10*3/uL 2.0-7.7 [facility] Neutrophils/100 WBC (Bld) 58.7 % 47-70 [facility] Potassium [Moles/Vol] 3.8 mmol/L 3.5-5.1 [facility] Protein [Mass/Vol] 7.2 g/dL 6.4-8.2 [facility] Sodium [Moles/Vol] 139 mmol/L 136-145 [facility] Triglyceride [Mass/Vol] 153 mg/dL <199 [facility] Comment on above: The drugs N-Acetylcy steine and Metamizole may falsely depress this assay.Serum Triglycerides Reference Interval Normal <150 mg/dL Borderline high 150 - 199 mg/dL High 200 - 499 mg/dL Very High > or = 500 mg/dL WBC (Bld) [#/Vol] 7.1 10*3/uL 4.4-11.0 [facility] Blood erythrocytes count (nu mber/volume)Ordered By: Dr. Liu on 03-27-2022 RBC (Bld) [#/Vol] 3.96 10*6/uL 4.2-5.4 [facility] Blood hemoglobin measurement (mass/volume)Ordered By: Dr. Liu on 03-27-2022 Hemoglobin (Bld) [Mass/Vol] 12.5 g/dL 12.0-15.0 [facility] Blood lymphocytes/100 leukoc ytesOrdered By: Dr. Liu on 03-27-2022 Lymphocytes/100 WBC (Bld) 24.4 % 19-41 [facility] Blood monocytes/100 leukocyt esOrdered By: Dr. Liu on 03-27-2022 Monocytes/100 WBC (Bld) 6.0 % 0-10 [facility] Blood platelet mean volumeOr dered By: Dr. Liu on 03-27-2022 Platelet mean volume (Bld) [Entitic vol] 9.0 fL 6.2-12.0 [facility] Determination of erythrocyte mean corpuscular volume (MCV)Ordered By: Dr. Liu on 03-27-2022 MCV (RBC) [Entitic vol] 94.7 fL 81-99 [facility] Hematocrit Auto (Bld) [Volum e fraction]Ordered By: Dr. Liu on 03-27-2022 Hematocrit (Bld) [Volume fraction] 37.5 % 37-47 [facility] Laboratory - Chemistry and C hemistry - challengeOrdered By: Dr. Liu on 03-27-2022 ALP [Catalytic activity/Vol] 88 U/L 45-117 [facility] ALT [Catalytic activity/Vol] 43 U/L 13-56 [facility] CO2 [Moles/Vol] 28.0 mmol/L 21.0-32.0 [facility] Globulin (S) [Mass/Vol] 3.4 g/dL 2.2-4.2 [facility] Urea nitrogen/Creatinine [Mass ratio] 20.4 mg/mg 10-20 [facility] Laboratory - Hematology and Cell countsOrdered By: Dr. Liu on 03-27-2022 Erythrocyte distribution width (RBC) [Entitic vol] 44.9 fL 35.1-43.9 [facility] Erythrocyte distribution width (RBC) [Ratio] 13.0 % 11.6-14.6 [facility] Immature granulocytes/100 WBC (Bld) 0.300 % 0.0-0.9 [facility] Comment on above: IG% - Immature Granu locytes (promyelocytes, myelocytes and metamyelocytes) > 1% indicates that a LEFT SHIFT is Present. MCH (RBC) [Entitic mass] 31.6 pg 27.0-32.0 [facility] Nucleated RBC/100 WBC (Bld) [Ratio] 0 % 0-5 [facility] MCHC Auto (RBC) [Mass/Vol]Or dered By: Dr. Liu on 03-27-2022 MCHC (RBC) [Mass/Vol] 33.3 g/dL 32-36 [facility] No Panel InformationOrdered By: Dr. Liu on 03-27-2022 Estimated GFR (MDRD) Amer 103 mL/min >60 [facility] Comment on above: GFR Calc Estimated GFR (MDRD) Non-Af Amer 85 mL/min >60 [facility] Comment on above: Non- GFR Calc Platelets bldOrdered By: Dr. Liu on 03-27-2022 Platelets (Bld) [#/Vol] 353 10*3/uL 150-450 [facility] Serum or plasma albumin constantino urement (mass/volume)Ordered By: Dr. Liu on 03-27-2022 Albumin [Mass/Vol] 3.8 g/dL 3.2-5.0 [facility] Serum or plasma albumin/glob ulin mass ratioOrdered By: Dr. Liu on 03-27-2022 Albumin/Globulin [Mass ratio] 1.1 {ratio} 0.9-2.4 [facility] Serum or plasma calcium constantino urement (mass/volume)Ordered By: Dr. Liu on 03-27-2022 Calcium [Mass/Vol] 9.0 mg/dL 8.5-10.1 [facility] Serum or plasma cholesterol in HDL measurement (mass/volume)Ordered By: Dr. Liu on 03-27-2022 Cholesterol in HDL [Mass/Vol] 65 mg/dL >40 [facility] Comment on above: The drugs N-Acetylcy steine and Metamizole may falsely depress this assay. Reference Range HDL <40 mg/dL Low HDL Cholesterol HDL >or= 60 mg/dL High HDL Cholesterol Serum or plasma cholesterol in VLDL measurement (mass/volume)Ordered By: Dr. Liu on 03-27-2022 Cholesterol in VLDL [Mass/Vol] 31 mg/dL 5-40 [facility] Serum or plasma creatinine m easurement (mass/volume)Ordered By: Dr. Liu on 03-27-2022 Creatinine [Mass/Vol] 0.74 mg/dL 0.55-1.02 [facility] Comment on above: The validity of the calculated GFR & GFRAA in patients over 70 years has not been determined. Clinical correlation is essential. Serum or plasma low density lipoprotein (LDL) cholesterol measurement (mass/volume)Ordered By: Dr. Liu on 03-27-2022 Cholesterol in LDL [Mass/Vol] 71 mg/dL 0-130 [facility] Serum or plasma urea nitroge n measurement (mass/volume)Ordered By: Dr. Liu on 03-27-2022 Urea nitrogen [Mass/Vol] 15 mg/dL 7-18 [facility] Thin prep Papanicolaou smear with manual screeningOrdered By: Dr. Liu on 03-27-2022 Thin prep Papanicolaou smear with manual screening 20 U/L 15-37 [facility] Thin prep Papanicolaou smear with manual screening 5 5-15 [facility] Laboratory - Hematology and Cell countson 03-22-2022 HbA1c (Bld) [Mass fraction] 5.8 % 4.2-6.3 [facility] Laboratory - Hematology and Cell countson 12-31-2021 HbA1c (Bld) [Mass fraction] 5.7 % 4.2-6.3 [facility] Laboratory - Microbiology an d Antimicrobial susceptibilityOrdered By: Dr. Liu on 12-31-2021 SARS-CoV-2 (COVID-19) RNA REESE+probe Ql (Unsp spec) Not detected Not Detect [facility] Comment on above: Normal Reference Ran [...] on 12-25-2021 Chloride [Moles/Vol] 108 mmol/L 98-107 [facility] Glucose [Mass/Vol] 107 mg/dL 74-106 [facility] Comment on above: Fasting Glucose resu lt from 100 to 125 mg/dL suggests IMPAIRED HOMEOSTASIS per A.D.A. criteria. Potassium [Moles/Vol] 4.2 mmol/L 3.5-5.1 [facility] Sodium [Moles/Vol] 140 mmol/L 136-145 [facility] WBC (Bld) [#/Vol] 8.2 10*3/uL 4.4-11.0 [facility] Blood erythrocytes count (nu mber/volume)Ordered By: Dr. Shaver on 12-25-2021 RBC (Bld) [#/Vol] 3.85 10*6/uL 4.2-5.4 [facility] Blood hemoglobin measurement (mass/volume)Ordered By: Dr. Shaver on 12-25-2021 Hemoglobin (Bld) [Mass/Vol] 11.9 g/dL 12.0-15.0 [facility] Blood platelet mean volumeOr dered By: Dr. Shaver on 12-25-2021 Platelet mean volume (Bld) [Entitic vol] 9.0 fL 6.2-12.0 [facility] Determination of erythrocyte mean corpuscular volume (MCV)Ordered By: Dr. Shaver on 12-25-2021 MCV (RBC) [Entitic vol] 94.3 fL 81-99 [facility] Hematocrit Auto (Bld) [Volum e fraction]Ordered By: Dr. Shaver on 12-25-2021 Hematocrit (Bld) [Volume fraction] 36.3 % 37-47 [facility] Laboratory - Chemistry and C hemistry - challengeOrdered By: Dr. Shaver on 12-25-2021 CO2 [Moles/Vol] 30.0 mmol/L 21.0-32.0 [facility] Urea nitrogen/Creatinine [Mass ratio] 32.7 mg/mg 10-20 [facility] Laboratory - Hematology and Cell countsOrdered By: Dr. Shaver on 12-25-2021 Erythrocyte distribution width (RBC) [Entitic vol] 44.6 fL 35.1-43.9 [facility] Erythrocyte distribution width (RBC) [Ratio] 12.9 % 11.6-14.6 [facility] MCH (RBC) [Entitic mass] 30.9 pg 27.0-32.0 [facility] MCHC Auto (RBC) [Mass/Vol]Or dered By: Dr. Shaver on 12-25-2021 MCHC (RBC) [Mass/Vol] 32.8 g/dL 32-36 [facility] No Panel InformationOrdered By: Dr. Shaver on 12-25-2021 Estimated GFR (MDRD) Amer 94 mL/min >60 [facility] Comment on above: GFR Calc Estimated GFR (MDRD) Non-Af Amer 78 mL/min >60 [facility] Comment on above: Non- GFR Calc Platelets bldOrdered By: Dr. Shaver on 12-25-2021 Platelets (Bld) [#/Vol] 319 10*3/uL 150-450 [facility] Serum or plasma calcium constantino urement (mass/volume)Ordered By: Dr. Shaver on 12-25-2021 Calcium [Mass/Vol] 9.6 mg/dL 8.5-10.1 [facility] Serum or plasma creatinine m easurement (mass/volume)Ordered By: Dr. Shaver on 12-25-2021 Creatinine [Mass/Vol] 0.79 mg/dL 0.55-1.02 [facility] Comment on above: The validity of the calculated GFR & GFRAA in patients over 70 years has not been determined. Clinical correlation is essential. Serum or plasma urea nitroge n measurement (mass/volume)Ordered By: Dr. Shaver on 12-25-2021 Urea nitrogen [Mass/Vol] 26 mg/dL - [facility] Thin prep Papanicolaou smear with manual screeningOrdered By: Dr. Shaver on 12-25-2021 Thin prep Papanicolaou smear with manual screening 2 5-15 [facility] Basophil percentageon 2021 Chloride [Moles/Vol] 106 mmol/L 98-107 [facility] Work Phone: Glucose [Mass/Vol] 113 mg/dL 74-106 [facility] Work Phone: Comment on above: Fasting Glucose resu lt from 100 to 125 mg/dL suggests IMPAIRED HOMEOSTASIS per A.D.A. criteria. Potassium [Moles/Vol] 3.8 mmol/L 3.5-5.1 [facility] Work Phone: Sodium [Moles/Vol] 139 mmol/L 136-145 [facility] Work Phone: Laboratory - Chemistry and C hemistry - challengeon 09-25-2021 CO2 [Moles/Vol] 29.0 mmol/L 21.0-32.0 [facility] Work Phone: Urea nitrogen/Creatinine [Mass ratio] 29.0 mg/mg - [facility] Work Phone: No Panel Informationon 09-25 Estimated GFR (MDRD) Amer 99 mL/min >60 [facility] Work Phone: Comment on above: GFR Calc Estimated GFR (MDRD) Non-Af Amer 82 mL/min >60 [facility] Work Phone: Comment on above: Non- GFR Calc Serum or plasma calcium constantino urement (mass/volume)on 09-25-2021 Calcium [Mass/Vol] 9.4 mg/dL 8.5-10.1 [facility] Work Phone: Serum or plasma creatinine m easurement (mass/volume)on 09-25-2021 Creatinine [Mass/Vol] 0.76 mg/dL 0.55-1.02 [facility] Work Phone: Comment on above: The validity of the calculated GFR & GFRAA in patients over 70 years has not been determined. Clinical correlation is essential. Serum or plasma urea nitroge n measurement (mass/volume)on 09-25-2021 Urea nitrogen [Mass/Vol] 22 mg/dL 09-24 [facility] Work Phone: Thin prep Papanicolaou smear with manual screeningon 09-25-2021 Thin prep Papanicolaou smear with manual screening 4 07-22 [facility] Work Phone: Whole blood hemoglobin A1c/t otal hemoglobin ratio (mass fraction)on 09-25-2021 HbA1c (Bld) [Mass fraction] 5.9 % 3.8-5.6 [facility] Work Phone: Comment on above: Normal < 5.7 % Predi abetic 5.7 - 6.4 % Diabetic >or= 6.5 % Please note range changes. Laboratory - Hematology and Cell countson 07-02-2021 HbA1c (Bld) [Mass fraction] 6.4 % 4.2-6.3 [facility] Work Phone: Lab Report: CORTISOL SERUMon 01-03-2017 Cortisol 12.50 ug/dL Invalid Interpretation Code 3.09-22.40 [facility] Work Phone: Lab Report: DHEA Sulfateon 1 DHEA SULF 4020 781 ng/mL Invalid Interpretation Code Units converted. See lab report for original value. [facility] Work Phone: Lab Report: Basic Metabolic Profile (BMP)on 12-26-2016 Anion gap 8 mmol/L Invalid Interpretation Code 5-15 [facility] Work Phone: BUN/Creatinine Ratio 27.8 RATIO High 10-20 [facility] Work Phone: Calcium 8.5 mg/dL Invalid Interpretation Code 8.5-10.1 [facility] Work Phone: [phone] Chloride 110 mmol/L High 98-107 [facility] Work Phone: [phone] CO2 26.0 mmol/L Invalid Interpretation Code 21.0-32.0 [facility] Work Phone: [phone] Creatinine 0.68 mg/dL Invalid Interpretation Code 0.55-1.02 [facility] Work Phone: [phone] eGFR (non-black) 94 mL/min/{1.73_m2} Invalid Interpretation Code >60 [facility] Work Phone: [phone] eGFR (non-black) 114 mL/min/{1.73_m2} Invalid Interpretation Code >60 [facility] Work Phone: [phone] Glucose mass conc 114 mg/dL High 70-110 [facility] Work Phone: [phone] Potassium molar conc 4.1 mmol/L Invalid Interpretation Code 3.5-5.1 [facility] Work Phone: [phone] Sodium 144 mmol/L Invalid Interpretation Code 136-145 [facility] Work Phone: [phone] Urea nitrogen 19 mg/dL High 7-18 [facility] Work Phone: [phone] Lab Report: CBC W/Diff, Auto matedon 12-26-2016 Absolute Neut 2.8 X10 3/UL Invalid Interpretation Code 2.0-7.7 [facility] Work Phone: [phone] Basophils/100 WBC Auto (Bld) 1.4 % High 0-1 [facility] Work Phone: [phone] Eosinophils/100 leukocytes 3.5 % Invalid Interpretation Code 0-5 [facility] Work Phone: [phone] Erythrocyte distribution width Auto Ratio (RBC) 13.2 % Invalid Interpretation Code 11.6-14.6 [facility] Work Phone: [phone] Erythrocytes (RBC) 3.94 10*6/uL Low 4.2-5.4 [facility] Work Phone: [phone] Hematocrit (HCT) 36.8 % Low 37-47 [facility] Work Phone: [phone] Hemoglobin mass conc (Bld) 12.1 g/dL Invalid Interpretation Code 12.0-15.0 [facility] Work Phone: [phone] Immature granulocytes/100 WBC (Bld) 0.000 % Invalid Interpretation Code 0.0-0.9 [facility] Work Phone: [phone] Lymphocytes 1.79 X10 3/UL Invalid Interpretation Code 0.83-4.51 [facility] Work Phone: [phone] Lymphocytes/100 leukocytes 34.8 % Invalid Interpretation Code 19-41 [facility] Work Phone: [phone] MCH 30.7 pg Invalid Interpretation Code 27.0-32.0 [facility] Work Phone: [phone] MCHC mass conc (RBC) 32.9 G/GL Invalid Interpretation Code 32-36 [facility] Work Phone: [phone] MCV 93.4 fL Invalid Interpretation Code 81-99 [facility] Work Phone: [phone] Monocytes/100 leukocytes 5.6 % Invalid Interpretation Code 0-10 [facility] Work Phone: [phone] Neutrophils/100 WBC Auto (Bld) 54.7 % Invalid Interpretation Code 47-70 [facility] Work Phone: [phone] Platelets 285 10*3/mm3 Invalid Interpretation Code 150-450 [facility] Work Phone: [phone] PMV by Anai 9.2 fL Invalid Interpretation Code 6.2-12.0 [facility] Work Phone: [phone] RDW SD 45.3 fL High 35.1-43.9 [facility] Work Phone: [phone] WBC (Leukocytes) 5.2 10*3/uL Invalid Interpretation Code 4.4-11.0 [facility] Work Phone: [phone] Lab Report: Hemoglobin A1con 12-26-2016 Hemoglobin A1c/Hemoglobin.total mass fraction (Bld) 6.3 % Invalid Interpretation Code 4.2-6.3 [facility] Work Phone: [phone] Lab Report: Lipid Profileon 12-26-2016 Cholesterol 144 mg/dL Invalid Interpretation Code 200 [facility] Work Phone: [phone] HDL Cholesterol 65 mg/dL Invalid Interpretation Code [facility] Work Phone: [phone] LDL Cholesterol 66 mg/dL Invalid Interpretation Code 0-130 [facility] Work Phone: [phone] Triglyceride 63 mg/dL Invalid Interpretation Code [facility] Work Phone: [phone] very low density lipoproteins 13 mg/dL Invalid Interpretation Code 5-40 [facility] Work Phone: [phone] Office Visit: Est. Pt. Visit on 12-24-2016 Alcoholism counseling (procedure) no Invalid Interpretation Code [facility] Work Phone: [phone] Documentation of current medications (procedure) Done Invalid Interpretation Code [facility] Work Phone: [phone] Fall risk assessment No Invalid Interpretation Code [facility] Work Phone: [phone] Tobacco use CPHS Former smoker Invalid Interpretation Code [facility] Work Phone: [phone] Vital Signs Date Time Vital Sign Value Performing Clinician Facility 12-08-2024 06:40-0400 Body height 165.[address] Vane Liu MD Work Phone: [facility] 12-08-2024 06:40-0400 Body mass index (BMI) [Ratio] 29.1 kg/m2 Dr. Vane Liu MD Work Phone: [facility] 12-08-2024 06:40-0400 Body temperature 97 [degF] Dr. Vane Liu MD Work Phone: [facility] 12-08-2024 06:40-0400 Body weight 79.[address] Vane Liu MD Work Phone: [facility] 12-08-2024 06:40-0400 Diastolic blood pressure 84 mm[Hg] Dr. Vane Liu MD Work Phone: [facility] 12-08-2024 06:40-0400 Heart rate 66 /min Dr. Vane Liu MD Work Phone: [facility] 12-08-2024 06:40-0400 Respiratory rate 18 /min Dr. Vane Liu MD Work Phone: [facility] 12-08-2024 06:40-0400 SaO2% (BldA) [Mass fraction] 97 % Dr. Vane Liu MD Work Phone: [facility] 12-08-2024 06:40-0400 Systolic blood pressure 138 mm[Hg] Dr. Vane Liu MD Work Phone: [facility] 10-27-2024 09:34-0400 Body height 165.[address] Vane Liu MD Work Phone: [facility] 10-27-2024 09:34-0400 Body mass index (BMI) [Ratio] 29.2 kg/m2 Dr. Vane Liu MD Work Phone: [facility] 10-27-2024 09:34-0400 Body temperature 97 [degF] Dr. Vane Liu MD Work Phone: [facility] [facility] 10-27-2024 09:34-0400 Body weight 79.[address] Vane Liu MD Work Phone: [facility] 10-27-2024 09:34-0400 Diastolic blood pressure 60 mm[Hg] Dr. Vane Liu MD Work Phone: [facility] 10-27-2024 09:34-0400 Heart rate 78 /min Dr. Vane Liu MD Work Phone: [facility] 10-27-2024 09:34-0400 Respiratory rate 16 /min Dr. Vane Liu MD Work Phone: [facility] 10-27-2024 09:34-0400 SaO2% (BldA) [Mass fraction] 97 % Dr. Vane Liu MD Work Phone: [facility] 10-27-2024 09:34-0400 Systolic blood pressure 116 mm[Hg] Dr. Vane Liu MD Work Phone: [facility] 10-14-2024 08:18-0400 Body mass index (BMI) [Ratio] 29.2 kg/m2 Dr. Vane Liu MD Work Phone: [facility] 10-14-2024 08:18-0400 Body temperature 97.4 [degF] Dr. Vane Liu MD Work Phone: [facility] 10-14-2024 08:18-0400 Body weight 79.[address] Vane Liu MD Work Phone: [facility] 10-14-2024 08:18-0400 Diastolic blood pressure 73 mm[Hg] Dr. Vane Liu MD Work Phone: [facility] 10-14-2024 08:18-0400 Heart rate 93 /min Dr. Vane Liu MD Work Phone: [facility] 10-14-2024 08:18-0400 Respiratory rate 18 /min Dr. Vane Liu MD Work Phone: [facility] 10-14-2024 08:18-0400 SaO2% (BldA) [Mass fraction] 97 % Dr. Vane Liu MD Work Phone: [facility] 10-14-2024 08:18-0400 Systolic blood pressure 109 mm[Hg] Dr. Vane Liu MD Work Phone: [facility] 09-28-2024 12:38-0400 Body height 165.[address] Vane Liu MD Work Phone: [facility] 09-28-2024 12:38-0400 Body mass index (BMI) [Ratio] 29.9 kg/m2 Dr. Vane Liu MD Work Phone: [facility] 09-28-2024 12:38-0400 Body temperature 97.6 [degF] Dr. Vane Liu MD Work Phone: [facility] 09-28-2024 12:38-0400 Body weight 81.[address] Vane Liu MD Work Phone: [facility] 09-28-2024 12:38-0400 Diastolic blood pressure 80 mm[Hg] Dr. Vane Liu MD Work Phone: [facility] 09-28-2024 12:38-0400 Heart rate 79 /min Dr. Vane Liu MD Work Phone: [facility] 09-28-2024 12:38-0400 Respiratory rate 16 /min Dr. Vane Liu MD Work Phone: [facility] 09-28-2024 12:38-0400 SaO2% (BldA) [Mass fraction] 99 % Dr. Vane Liu MD Work Phone: [facility] 09-28-2024 12:38-0400 Systolic blood pressure 116 mm[Hg] Dr. Vane Liu MD Work Phone: [facility] 07-28-2024 16:35-0400 Body height 165.[address] Vane Liu MD Work Phone: [facility] 07-28-2024 16:35-0400 Body mass index (BMI) [Ratio] 29.2 kg/m2 Dr. Vane Liu MD Work Phone: [facility] 07-28-2024 16:35-0400 Body temperature 96.7 [degF] Dr. Vane Liu MD Work Phone: [facility] 07-28-2024 16:35-0400 Body weight 79.[address] Vane Liu MD Work Phone: [facility] 07-28-2024 16:35-0400 Diastolic blood pressure 64 mm[Hg] Dr. Vane Liu MD Work Phone: [facility] 07-28-2024 16:35-0400 Heart rate 82 /min Dr. Vane Liu MD Work Phone: [facility] 07-28-2024 16:35-0400 Respiratory rate 16 /min Dr. Vane Liu MD Work Phone: [facility] 07-28-2024 16:35-0400 SaO2% (BldA) [Mass fraction] 97 % Dr. Vane Liu MD Work Phone: [facility] 07-28-2024 16:35-0400 Systolic blood pressure 108 mm[Hg] Dr. Vane Liu MD Work Phone: [facility] 04-21-2024 14:52-0500 Body height 165.[address] Vane Liu MD Work Phone: [facility] 04-21-2024 14:52-0500 Body mass index (BMI) [Ratio] 29.2 kg/m2 Dr. Vane Liu MD Work Phone: [facility] 04-21-2024 14:52-0500 Body temperature 97.8 [degF] Dr. Vane Liu MD Work Phone: [facility] 04-21-2024 14:52-0500 Body weight 79.[address] Vane Liu MD Work Phone: [facility] 04-21-2024 14:52-0500 Diastolic blood pressure 80 mm[Hg] Dr. Vane Liu MD Work Phone: [facility] 04-21-2024 14:52-0500 Heart rate 87 /min Dr. Vane Liu MD Work Phone: [facility] 04-21-2024 14:52-0500 Respiratory rate 18 /min Dr. Vane Liu MD Work Phone: [facility] 04-21-2024 14:52-0500 SaO2% (BldA) [Mass fraction] 97 % Dr. Vane Liu MD Work Phone: [facility] 04-21-2024 14:52-0500 Systolic blood pressure 128 mm[Hg] Dr. Vane Liu MD Work Phone: [facility] 03-19-2024 15:12-0500 Body temperature 98.1 [degF] Dr. Vane Liu MD Work Phone: [facility] 03-19-2024 15:12-0500 Diastolic blood pressure 72 mm[Hg] Dr. Vane Liu MD Work Phone: [facility] 03-19-2024 15:12-0500 Heart rate 69 /min Dr. Vane Liu MD Work Phone: [facility] 03-19-2024 15:12-0500 Respiratory rate 15 /min Dr. Vane Liu MD Work Phone: [facility] 03-19-2024 15:12-0500 SaO2% (BldA) [Mass fraction] 99 % Dr. Vane Liu MD Work Phone: [facility] 03-19-2024 15:12-0500 Systolic blood pressure 130 mm[Hg] Dr. Vane Liu MD Work Phone: [facility] 10-02-2022 08:05-0400 Body height 162.[address] Vane Liu Work Phone: [facility] 10-02-2022 08:05-0400 Body mass index (BMI) [Ratio] 30.8 kg/m2 Dr. Vane Liu Work Phone: [facility] 10-02-2022 08:05-0400 Body temperature 95.5 [degF] Dr. Vane Liu Work Phone: [facility] 10-02-2022 08:05-0400 Body weight 81.[address] Vane Liu Work Phone: [facility] 10-02-2022 08:05-0400 Diastolic blood pressure 70 mm[Hg] Dr. Vane Liu Work Phone: [facility] 10-02-2022 08:05-0400 Heart rate 75 /min Dr. Vane Liu Work Phone: [facility] 10-02-2022 08:05-0400 Respiratory rate 18 /min Dr. Vane Liu Work Phone: [facility] 10-02-2022 08:05-0400 SaO2% (BldA) [Mass fraction] 98 % Dr. Vane Liu Work Phone: [facility] 10-02-2022 08:05-0400 Systolic blood pressure 126 mm[Hg] Dr. Vane Liu Work Phone: [facility] 08-07-2022 14:34-0400 Body height 162.[address] Vane Liu Work Phone: [facility] 08-07-2022 14:34-0400 Body mass index (BMI) [Ratio] 31 kg/m2 Dr. Vane Liu Work Phone: [facility] 08-07-2022 14:34-0400 Body temperature 97.4 [degF] Dr. Vane Liu Work Phone: [facility] 08-07-2022 14:34-0400 Body weight 82.[address] Vane Liu Work Phone: [facility] 08-07-2022 14:34-0400 Diastolic blood pressure 70 mm[Hg] Dr. Vane Liu Work Phone: [facility] 08-07-2022 14:34-0400 Heart rate 78 /min Dr. Vane Liu Work Phone: [facility] 08-07-2022 14:34-0400 Respiratory rate 16 /min Dr. Vane Liu Work Phone: [facility] 08-07-2022 14:34-0400 SaO2% (BldA) [Mass fraction] 98 % Dr. Vane Liu Work Phone: [facility] 08-07-2022 14:34-0400 Systolic blood pressure 104 mm[Hg] Dr. Vane Liu Work Phone: [facility] 07-08-2022 16:15-0400 Body height 162.[address] Vane Liu Work Phone: [facility] 07-08-2022 16:15-0400 Body mass index (BMI) [Ratio] 31.2 kg/m2 Dr. Vane Liu Work Phone: [facility] 07-08-2022 16:15-0400 Body temperature 97.8 [degF] Dr. Vane Liu Work Phone: [facility] 07-08-2022 16:15-0400 Body weight 82.[address] Vane Liu Work Phone: [facility] 07-08-2022 16:15-0400 Diastolic blood pressure 70 mm[Hg] Dr. Vane Liu Work Phone: [facility] 07-08-2022 16:15-0400 Heart rate 82 /min Dr. Vane Liu Work Phone: [facility] 07-08-2022 16:15-0400 Respiratory rate 16 /min Dr. Vane Liu Work Phone: [facility] 07-08-2022 16:15-0400 SaO2% (BldA) [Mass fraction] 96 % Dr. Vane Liu Work Phone: [facility] 07-08-2022 16:15-0400 Systolic blood pressure 112 mm[Hg] Dr. Vane Liu Work Phone: [facility] 06-21-2022 11:04-0400 Body mass index (BMI) [Ratio] 31 kg/m2 Dr. Vane Liu Work Phone: [facility] 06-21-2022 11:04-0400 Body temperature 98.2 [degF] Dr. Vane Liu Work Phone: [facility] 06-21-2022 11:04-0400 Body weight 82.[address] Vane Liu Work Phone: [facility] 06-21-2022 11:04-0400 Diastolic blood pressure 88 mm[Hg] Dr. Vane Liu Work Phone: [facility] 06-21-2022 11:04-0400 Heart rate 71 /min Dr. Vane Liu Work Phone: [facility] 06-21-2022 11:04-0400 Respiratory rate 16 /min Dr. Vane Liu Work Phone: [facility] 06-21-2022 11:04-0400 SaO2% (BldA) [Mass fraction] 97 % Dr. Vane Liu Work Phone: [facility] 06-21-2022 11:04-0400 Systolic blood pressure 128 mm[Hg] Dr. Vane Liu Work Phone: [facility] 04-29-2022 14:21-0500 Body temperature 97.7 [degF] Dr. Vane Liu Work Phone: [facility] 04-29-2022 14:21-0500 Diastolic blood pressure 78 mm[Hg] Dr. Vane Liu Work Phone: [facility] 04-29-2022 14:21-0500 Heart rate 96 /min Dr. Vane Liu Work Phone: [facility] 04-29-2022 14:21-0500 Respiratory rate 18 /min Dr. Vane Liu Work Phone: [facility] 04-29-2022 14:21-0500 SaO2% (BldA) [Mass fraction] 96 % Dr. Vane Liu Work Phone: [facility] 04-29-2022 14:21-0500 Systolic blood pressure 110 mm[Hg] Dr. Vane Liu Work Phone: [facility] 03-22-2022 13:37-0500 Body height 162.[address] Vane Liu Work Phone: [facility] 03-22-2022 13:37-0500 Body mass index (BMI) [Ratio] 30.7 kg/m2 Dr. Vane Liu Work Phone: [facility] 03-22-2022 13:37-0500 Body temperature 97.3 [degF] Dr. Vane Liu Work Phone: [facility] 03-22-2022 13:37-0500 Body weight 81.[address] Vane Liu Work Phone: [facility] 03-22-2022 13:37-0500 Diastolic blood pressure 74 mm[Hg] Dr. Vane Liu Work Phone: [facility] 03-22-2022 13:37-0500 Heart rate 69 /min Dr. Vane Liu Work Phone: [facility] 03-22-2022 13:37-0500 Respiratory rate 16 /min Dr. Vane Liu Work Phone: [facility] 03-22-2022 13:37-0500 SaO2% (BldA) [Mass fraction] 99 % Dr. Vane Liu Work Phone: [facility] 03-22-2022 13:37-0500 Systolic blood pressure 122 mm[Hg] Dr. Vane Liu Work Phone: [facility] 12-31-2021 13:09-0400 Body height 162.[address] Vane Liu Work Phone: [facility] Work Phone: 12-31-2021 13:09-0400 Body mass index (BMI) [Ratio] 30 kg/m2 Dr. Vane Liu Work Phone: [facility] 12-31-2021 13:09-0400 Body temperature 98 [degF] Dr. Vane Liu Work Phone: [facility] 12-31-2021 13:09-0400 Body weight 79.[address] Vane Liu Work Phone: [facility] 12-31-2021 13:09-0400 Diastolic blood pressure 76 mm[Hg] Dr. Vane Liu Work Phone: [facility] 12-31-2021 13:09-0400 Heart rate 80 /min Dr. Vane Liu Work Phone: [facility] 12-31-2021 13:09-0400 Respiratory rate 14 /min Dr. Vane Liu Work Phone: [facility] 12-31-2021 13:09-0400 SaO2% (BldA) [Mass fraction] 97 % Dr. Vane Liu Work Phone: [facility] 12-31-2021 13:09-0400 Systolic blood pressure 118 mm[Hg] Dr. Vane Liu Work Phone: [facility] 10-16-2021 05:55-0400 Body mass index (BMI) [Ratio] 30.4 kg/m2 Dr. Vane Liu Work Phone: [facility] Work Phone: 10-16-2021 05:55-0400 Body temperature 98 [degF] Dr. Vane Liu Work Phone: [facility] Work Phone: 10-16-2021 05:55-0400 Body weight 80.[address] Vane Liu Work Phone: [facility] Work Phone: 10-16-2021 05:55-0400 Diastolic blood pressure 73 mm[Hg] Dr. Vane Liu Work Phone: [facility] Work Phone: 10-16-2021 05:55-0400 Heart rate 74 /min Dr. Vane Liu Work Phone: [facility] Work Phone: 10-16-2021 05:55-0400 Respiratory rate 17 /min Dr. Vane Liu Work Phone: [facility] Work Phone: 10-16-2021 05:55-0400 SaO2% (BldA) [Mass fraction] 98 % Dr. Vane Liu Work Phone: [facility] Work Phone: 10-16-2021 05:55-0400 Systolic blood pressure 108 mm[Hg] Dr. Vane Liu Work Phone: [facility] Work Phone: 09-28-2021 08:31-0400 Body height 162.[address] Vane Liu Work Phone: [facility] Work Phone: 09-28-2021 08:31-0400 Body mass index (BMI) [Ratio] 30.7 kg/m2 Dr. Vane Liu Work Phone: [facility] Work Phone: 09-28-2021 08:31-0400 Body temperature 98 [degF] Dr. Vane Liu Work Phone: [facility] Work Phone: 09-28-2021 08:31-0400 Body weight 81.[address] Vane Liu Work Phone: [facility] Work Phone: 09-28-2021 08:31-0400 Diastolic blood pressure 82 mm[Hg] Dr. Vane Liu Work Phone: [facility] Work Phone: 09-28-2021 08:31-0400 Heart rate 75 /min Dr. Vane Liu Work Phone: [facility] Work Phone: 09-28-2021 08:31-0400 Respiratory rate 16 /min Dr. Vane Liu Work Phone: [facility] Work Phone: 09-28-2021 08:31-0400 SaO2% (BldA) [Mass fraction] 97 % Dr. Vane Liu Work Phone: [facility] Work Phone: 09-28-2021 08:31-0400 Systolic blood pressure 104 mm[Hg] Dr. Vane Liu Work Phone: [facility] Work Phone: 07-02-2021 08:45-0400 Body height 162.[address] Vane Liu Work Phone: [facility] Work Phone: 07-02-2021 08:45-0400 Body mass index (BMI) [Ratio] 31.4 kg/m2 Dr. Vane Liu Work Phone: [facility] Work Phone: 07-02-2021 08:45-0400 Body temperature 97.2 [degF] Dr. Vane Liu Work Phone: [facility] Work Phone: 07-02-2021 08:45-0400 Body weight [address] Vane Liu Work Phone: [facility] Work Phone: 07-02-2021 08:45-0400 Diastolic blood pressure 82 mm[Hg] Dr. Vane Liu Work Phone: [facility] Work Phone: 07-02-2021 08:45-0400 Heart rate 98 /min Dr. Vane Liu Work Phone: [facility] Work Phone: 07-02-2021 08:45-0400 Respiratory rate 16 /min Dr. Vane Liu Work Phone: [facility] Work Phone: 07-02-2021 08:45-0400 SaO2% (BldA) [Mass fraction] 93 % Dr. Vane Liu Work Phone: [facility] Work Phone: 07-02-2021 08:45-0400 Systolic blood pressure 124 mm[Hg] Dr. Vane Liu Work Phone: [facility] Work Phone: 12-24-2016 15:17-0400 BMI (Body Mass Index) 44.8 kg/m2 [facility] Work Phone: 12-24-2016 15:17-0400 Body Temperature 96.8 [degF] Vane Liu MD [facility] Work Phone: 12-24-2016 15:17-0400 BP Diastolic 80 mm[Hg] Vane Liu MD [facility] Work Phone: 12-24-2016 15:17-0400 BP Systolic 126 mm[Hg] Vane Liu MD [facility] Work Phone: 12-24-2016 15:17-0400 Height 134.62 cm Vane Liu MD [facility] Work Phone: 12-24-2016 15:17-0400 Pulse (Heart Rate) 81 /min Vane Liu MD [facility] Work Phone: 12-24-2016 15:17-0400 Respiratory Rate 16 /min Vane Liu MD [facility] Work Phone: 12-24-2016 15:17-0400 Weight 81.19 kg Vane Liu MD [facility] Work Phone: Encounters Encounter Date Encounter Type Care Provider Facility Start: 12-29-2024 ambulatory Vane De Jesus ty:[facility] Start: 12-08-2024 End: 12-08-2024 Patient encounter procedure MACIE Morris -[facility] Work Phone: Start: 12-08-2024 End: 12-08-[address] Vane Liu MD Work Phone: -[facility] Start: 10-27-2024 End: 10-27-[address] Vane Liu MD -[facility] Work Phone: Start: 10-27-2024 End: 10-27-[address] Vane Liu MD Work Phone: -[facility] Start: 10-14-2024 End: 10-14-2024 Patient encounter procedure Mitzi SYLVESTER -[facility] Work Phone: Start: 10-14-2024 End: 10-14-[address] Vane Liu MD Work Phone: -[facility] Start: 09-28-2024 End: 09-28-2024 Patient encounter procedure Jacob CARLIN -[facility] Work Phone: Start: 09-28-2024 End: 09-28-[address] Vane Liu MD Work Phone: [facility] Start: 09-07-2024 Non-patient / Non-visit Dr. Tosha Valencia MD -[facility] Work Phone: Start: 07-28-2024 End: 07-28-[address] Vane Liu MD -[facility] Work Phone: Start: 07-28-2024 End: 07-28-[address] Vane Liu MD Work Phone: [facility] Work Phone: Start: 05-13-2024 End: 05-13-[address] Vane Liu MD Work Phone: [facility] Work Phone: Start: 05-13-2024 End: 05-13-[address] Vane Liu MD -[facility] Work Phone: Start: 05-13-2024 End: 05-13-2024 ambulatory Vane Liu Facility:[facility] Start: 04-21-2024 End: 04-21-[address] Vane Liu MD -[facility] Work Phone: Start: 04-21-2024 End: 04-21-[address] Vane Liu MD [facility] Start: 04-21-2024 End: 04-21-2024 ambulatory [facility] Facility:[facility] Start: 04-16-2024 End: 04-16-[address] Vane Liu MD -Laboratory Work Phone: Start: 04-16-2024 End: 04-16-2024 ambulatory [facility] Facility:[facility] Start: 03-19-2024 End: 03-19-2024 Patient encounter procedure Eleazar Trotter [place] -[facility] Work Phone: Start: 03-19-2024 End: 03-19-2024 ambulatory [facility] Facility:[facility] Start: 01-14-2024 End: 01-14-2024 ambulatory [facility] Facility:[facility] Start: 07-07-[address] Vane Liu MD Work Phone: [facility] Start: 10-02-2022 End: 10-02-[address] Vane Liu Work Phone: [facility] Work Phone: Start: 10-02-2022 End: 10-02-[address] Vane Liu Work Phone: [facility] Work Phone: Start: 08-08-2022 End: 08-08-[address] Vane Liu Work Phone: [facility] Work Phone: Start: 08-08-2022 End: 08-08-[address] Vane Liu Work Phone: [facility] Start: 08-07-2022 End: 08-07-[address] Vane Liu Work Phone: [facility] Start: 07-29-2022 End: 07-29-[address] [facility] Start: 07-09-2022 End: 07-09-[address] Vane Liu Work Phone: [facility] Work Phone: Start: 07-09-2022 End: 07-09-[address] [facility] Start: 07-08-2022 End: 07-08-[address] Vane Liu Work Phone: [facility] Work Phone: Start: 07-08-2022 End: 07-08-[address] Vane Liu Work Phone: [facility] Start: 06-21-2022 End: 06-21-[address] Vane Liu Work Phone: [facility] Start: 04-29-2022 End: 04-29-[address] Vane Liu Work Phone: [facility] Start: 03-27-2022 End: 03-27-[address] Vane Liu Work Phone: [facility] Work Phone: Start: 03-27-2022 End: 03-27-[address] [facility]: 03-22-2022 End: 03-22-[address] Vane Liu Work Phone: [facility] Start: 01-08-2022 End: 01-08-[address] [facility] Start: 12-31-2021 End: 12-31-[address] [facility] Work Phone: [facility] [facility] Work Phone: Start: 12-31-2021 End: 12-31-[address] [facility] Start: 12-25-2021 End: 12-25-[address] Vane Liu Work Phone: [facility] Work Phone: Start: 12-25-2021 End: 12-25-[address] Vane Liu Work Phone: [facility] Services/Neurology Start: 12-25-2021 Non-patient / Non-visit Dr. Vane Liu Work Phone: [facility] Start: 10-16-2021 End: 10-16-[address] [facility] Start: 09-28-2021 End: 09-28-[address] Vane Liu Work Phone: [facility] Start: 09-25-2021 End: 09-25-[address] [facility] Start: 09-17-2021 End: 09-17-[address] [facility] Start: 07-02-2021 End: 07-02-[address] Vane Liu Work Phone: [facility] Procedures Date Procedure Procedure [...] Start: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
== END | disposition home or self-care (01) ==
LOC: SL 19:41
PROVIDERS: PCP Internal Medicine; Referring Provider Nurse Practitioner Family; Visit Provider Nurse Practitioner Family
DX: G47.33 Obstructive sleep apnea (adult) (pediatric) (principal)
CPT/HCPCS: 95810